=== PATIENT | male | born 1965 | race Caucasian/White ===

== ENCOUNTER 2019-02-23 07:33 | Emergency (ER) | payer MEDICAID, SELFPAY ==
[2019-02-23 07:37] VITALS: BP 135/89; PULSE 113; RESP 20; TEMP 37.2; O2SAT 94
--- NOTE | 2019-02-23 08:20 | ED.GENADUL_ITS ---
Discharge Plan Disposition Patient Disposition: HOME Condition: Stable Discharge Details Chief Complaint: RespSymp Clinical Impression: Acute exacerbation of chronic obstructive pulmonary disease (COPD) Primary Care Provider: Winston Truong ED Provider: Segundo Helton Home Meds and New Rx's Prescriptions: New prednisone 20 mg tablet 60 mg PO DAILY 4 Days Qty: 12 RF: 0 levofloxacin 750 mg tablet 750 mg PO DAILY Qty: 5 RF: 0 No Action albuterol sulfate 8.5 GM HFA aerosol inhaler 2 puff Inhalation Q6H PRN Qty: 1 RF: 5 fluticasone propionate 16 GM spray,suspension 1 spray NS DAILY Qty: 1 RF: 5 Flovent HFA 12 GM HFA aerosol inhaler 2 puff Inhalation BID Qty: 1 RF: 4 albuterol sulfate 2.5 MG/3 ML solution for nebulization 2.5 mg Inhalation QID PRNQty: 1 RF: 4 ranitidine HCl [Zantac Maximum Strength] 150 MG tablet 1 tab PO BID Qty: 180 RF: 4 Discharge Instructions Instructions: COPD (Chronic Obstructive Pulmonary Disease) (ED) Additional Instructions: follow up with your primary care provider within 1-2 weeks if you feel you are becoming more ill, have more shortness of breath or new symptoms such as chest pressure return to the emergency department Medical Decision Making 53 yo male with hx of copd and continued smoker comes in with 3 days of cough and shortness of breath. Denies any chest pain or pressure, leg swelling and has no jvd or calf pain or pedal edema on exam to suggest chf. He has diffuse wheezing bilaterally in all lung vasquez but is speaking in full sentences on exam. Based on his hx and exam I suspect this is a copd exacerbation and will tx with neb, prednisone and given increased productive cough will give abx and reassess. NO fever here and appears well systemically so doubt pna and do not feel chest imaging indicated. No evidence of dvt and physical exam consistent with copd so doubt pe at this time. No chest pain or pressure so doubt acs at this time pt remains stable, feels much better with treatments with improved lung sounds. I feel he is stasble for d/c and advised f/u with pcp and return precautions given Differential Diagnosis copd, asthma, pna HPI General Mode of arrival: ambulatory . Date/Time Provider Initiated Documentation: 02/23/19 08:16 . Limitations to Documentation: no limitations . Information obtained by: patient . History of Present Illness 53 year old M presents to the emergency department with the chief complaint of shortness of breath, described as moderate, Patient started experiencing this day(s) (3) and it has been constant. No relieving factors improve symptom(s), No exacerbating factors reported . Patient did receive the following treatments prior to arrival, none Related Data Home Medications Medication Instructions Recorded Confirmed albuterol sulfate 2 puff INHALATION Q6H PRN #1 02/14/15 02/23/19 inhaler fluticasone propionate 1 spray NS DAILY #1 script 09/11/16 02/23/19 fluticasone propionate [Flovent 2 puff INHALATION BID #1 inhaler 02/24/18 02/23/19 110mcg] albuterol sulfate 2.5 mg INHALATION QID PRN #1 box 04/29/18 02/23/19 ranitidine HCl [Zantac] 1 tab PO BID #180 tab-cap 07/06/18 02/23/19 levofloxacin 750 mg PO DAILY #5 tab 02/23/19 prednisone 60 mg PO DAILY 4 Days #12 tab 02/23/19 Previous Rx's Medication Instructions Recorded fluticasone propionate [Flovent 2 puff INHALATION BID #1 inhaler 02/24/18 110mcg] ranitidine HCl [Zantac] 1 tab PO BID #180 tab-cap 07/06/18 levofloxacin 750 mg PO DAILY #5 tab 02/23/19 prednisone 60 mg PO DAILY 4 Days #12 tab 02/23/19 Allergies Allergy/AdvReac Type Severity Reaction Status Date / Time Penicillins Allergy RASH Unverified 02/23/19 07:40 aspirin AdvReac UPSET Unverified 02/23/19 07:40 STOMACH General Stated Complaint: RespSymp ALMAS: 3 Review of Systems Review of Systems All systems reviewed & are unremarkable except as noted in HPI and below Constitutional Denies weakness ENT Denies change in voice Cardiovascular Denies chest pain Gastrointestinal Denies abdominal pain, Denies nausea and Denies vomiting Integumentary/Breasts Denies rash Neurologic Denies weakness PFSH Social History Smoking/Tobacco Use Status: Current every day Drug use: Never Do you feel safe at home: Yes Do you feel safe in your relationship?: Yes Exam Const General: no acute distress Orientation: alert HENMT Head: normal to inspection Ears: external ears normal General nose exam: external nose normal Mouth: moist mucous membranes Eyes General: appearance normal, both eyes and all related structures Neck Neck: normal visual inspection Resp Effort & Inspection: normal respiratory effort and able to speak in complete sentences Cardio Rate: regular rate Skin General skin exam: no rashes or lesions noted Neuro General: alert and oriented x3 Extrem General: normal to inspection Psych Mental Status: mental status grossly normal Course Vital Signs Temperature 37.2 C 02/23/19 07:37 Pulse 113 H 02/23/19 07:37 Respiratory Rate 20 02/23/19 07:37 Blood Pressure 135/89 02/23/19 07:37 Pulse Oximetry 94 L 02/23/19 07:37 Temperature 37.2 C 02/23/19 07:37 Temperature Source Temporal Artery Scan 02/23/19 07:37 Pulse 113 H 02/23/19 07:37 Respiratory Rate 20 02/23/19 07:37 Respiratory Effort 02/23/19 07:37 Blood Pressure 135/89 02/23/19 07:37 Pulse Oximetry 94 L 02/23/19 07:37 Oxygen Delivery Method Room Air 02/23/19 07:37 Oxygen Flow Rate 0 02/23/19 07:37 Pain Level 0 02/23/19 07:37
[2019-02-23] MEDS: predniSONE 20 MG TAB 60 MG PO (08:44)
[2019-02-23] MEDS: Albuterol/Ipratropium 3 ML UPD VIAL UPD ×2 (08:44→09:08)
[2019-02-23] MEDS: levoFLOXacin 500 MG, levoFLOXacin 250 MG 750 MG PO (08:44)
[2019-02-23 09:29] VITALS: BP 138/79; PULSE 116; TEMP 37.2; O2SAT 94
== END 2019-02-23 09:55 | disposition home or self-care (01) ==
PROVIDERS: Emergency Provider Emergency Medicine; PCP Family Medicine
DX: J44.9 Chronic obstructive pulmonary disease, unspecified (principal); F17.210 Nicotine dependence, cigarettes, uncomplicated
CPT/HCPCS: 99283; J7512; J7620

== ENCOUNTER 2019-03-18 04:48 | Emergency (ER) | payer MEDICAID, SELFPAY ==
[2019-03-18] VITALS (11 sets, daily range): BP systolic 123–167; BP diastolic 62–94; PULSE 124–140; RESP 4–24; TEMP 37.1–39.2; O2SAT 94–95
[2019-03-18] MEDS: Acetaminophen 500 MG TAB 1000 MG PO (05:04)
--- NOTE | 2019-03-18 05:04 | ED.GENADUL_ITS ---
Discharge Plan Disposition Patient Disposition: HOME Condition: Stable Discharge Details Chief Complaint: SOB Clinical Impression: COPD (chronic obstructive pulmonary disease) Primary Care Provider: Winston Truong ED Provider: Segundo Helton Home Meds and New Rx's Prescriptions: New levofloxacin 750 mg tablet 750 mg PO DAILY Qty: 6 RF: 0 prednisone 20 mg tablet 60 mg PO DAILY 4 Days Qty: 12 RF: 0 albuterol sulfate 90 mcg/actuation HFA aerosol inhaler 2 puff IH QID PRN (Reason: shortness of breath) Qty: 18 RF: 0 albuterol sulfate 5 mg/mL solution for nebulization 2.5 mg IH Q4H PRN (Reason: shortness of breath) Qty: 20 RF: 0 Continued fluticasone propionate 16 GM spray,suspension 1 spray NS DAILY Qty: 1 RF: 5 Flovent HFA 12 GM HFA aerosol inhaler 2 puff Inhalation BID Qty: 1 RF: 4 Discharge Instructions Instructions: COPD (Chronic Obstructive Pulmonary Disease) (ED) Additional Instructions: follow up with your primary care provider in 1-2 weeks especially if you are not improving if you feel you are worsening or having new symptoms such as persistent vomit return to the emergency department for reevaluation Medical Decision Making 53 yo male with hx of copd, gerd, sarcoidosis, who comes in with cough and shortness of breath and fever since yesterday. Denies rashes, chest pain, pressure or recent travel or surgeries. On exam he is in no distress laughing intermittently. Is noted to have fever here with tachycardia in the 130's in sinus rhythm. HAs diffuse wheezing bilaterally on exam in all lung vasquez. No headache or neck stiffnes, no abdominal tenderness. Suspect copd with exacerbation and likely underlying pna. Will obtain lab work, cultures and xray and tx with steroids and nebs and monitor. pt remains stable and feels much better after nebs/fluids/steroids. HE is speaking in full sentences. Still has HR of 120 which could be from the beta agonists, other vitals stable. Labs unremarkable, reassuring lacatate. Xray unremarkable on my read awaiting vrad report Differential Diagnosis pna, copd, influenza Medical Records Medical records reviewed: Yes I reviewed the patient's medical records. Imaging Data Radiologic Study: Attestation: I personally reviewed and interpreted this imaging study as follows: Imaging: X-Ray Radiologist's impression: no acute findings Lab Data Lab results reviewed: Yes I reviewed the patient's lab results. ECG Data Attestation: I personally reviewed and interpreted this ECG (s) as follows: Prior ECG tracings: available for review Interpretation: sinus tachycardia, rate of 134, pr 116, no acute st twave ischemic changes HPI General Mode of arrival: EMS . Date/Time Provider Initiated Documentation: 03/18/19 04:49 . Limitations to Documentation: no limitations . Information obtained by: patient . History of Present Illness 53 year old M presents to the emergency department with the chief complaint of cough and shortness of breath, described as moderate, Patient started experiencing this day(s) (1) and it has been constant. No relieving factors improve symptom(s), No exacerbating factors reported . Patient notes fever/chills. Patient did receive the following treatments prior to arrival, none Related Data Home Medications Medication Instructions Recorded Confirmed fluticasone propionate 1 spray NS DAILY #1 script 09/11/16 03/18/19 Flovent HFA 2 puff INHALATION BID #1 inhaler 02/24/18 03/18/19 albuterol sulfate 2 puff IH QID PRN #18 gm 03/18/19 albuterol sulfate 2.5 mg IH Q4H PRN #20 ml 03/18/19 levofloxacin 750 mg PO DAILY #6 tab 03/18/19 prednisone 60 mg PO DAILY 4 Days #12 tab 03/18/19 Previous Rx's Medication Instructions Recorded Flovent HFA 2 puff INHALATION BID #1 inhaler 02/24/18 albuterol sulfate 2 puff IH QID PRN #18 gm 03/18/19 albuterol sulfate 2.5 mg IH Q4H PRN #20 ml 03/18/19 levofloxacin 750 mg PO DAILY #6 tab 03/18/19 prednisone 60 mg PO DAILY 4 Days #12 tab 03/18/19 Allergies Allergy/AdvReac Type Severity Reaction Status Date / Time Penicillins Allergy RASH Unverified 03/18/19 04:59 aspirin AdvReac UPSET Unverified 03/18/19 04:59 STOMACH General Stated Complaint: SOB ALMAS: 3 Review of Systems Review of Systems All systems reviewed & are unremarkable except as noted in HPI and below Constitutional Denies weakness ENT Denies change in voice Cardiovascular Denies chest pain Gastrointestinal Denies abdominal pain, Denies nausea and Denies vomiting Neurologic Denies weakness Endocrine Denies heat intolerance PFS Social History Smoking/Tobacco Use Status: Current every day Tobacco Type: cigarettes Alcohol Intake: never Drug use: Never Substance use type: does not use Do you feel safe at home: Yes Do you feel safe in your relationship?: Yes Exam Const General: no acute distress Orientation: alert HENMT Head: normal to inspection Ears: external ears normal General nose exam: external nose normal Mouth: moist mucous membranes Eyes General: appearance normal, both eyes and all related structures Neck Neck: normal visual inspection Resp Effort & Inspection: normal respiratory effort and able to speak in complete sentences Cardio Rate: regular rate Skin General skin exam: no rashes or lesions noted Neuro General: alert and oriented x3 Extrem General: normal to inspection Psych Mental Status: mental status grossly normal Course Vital Signs Temperature 39.2 C H 03/18/19 04:49 Pulse 140 H 03/18/19 04:49 Respiratory Rate 24 03/18/19 04:49 Blood Pressure 167/93 H 03/18/19 04:49 Pulse Oximetry 94 L 03/18/19 04:49 Temperature 39.2 C H 03/18/19 04:49 Temperature Source Skin 03/18/19 04:49 Pulse 140 H 03/18/19 04:49 Respiratory Rate 24 03/18/19 04:49 Respiratory Effort 03/18/19 04:54 Blood Pressure 167/93 H 03/18/19 04:49 Pulse Oximetry 94 L 03/18/19 04:49 Oxygen Delivery Method Room Air 03/18/19 04:49 Oxygen Flow Rate 0 03/18/19 04:49 Pain Level 8 03/18/19 04:49 Comment 03/18/19 04:49 Lab/Test Results Lab/Test Results: 03/18/19 04:53 Blood Blood Culture - Pending 03/18/19 04:53 Blood Blood Culture - Pending
[2019-03-18] MEDS: Normal Saline 1,000 ML 1000 ML IV ×3 (05:05→06:42)
[2019-03-18] MEDS: Albuterol/Ipratropium 3 ML UPD VIAL UPD (05:05)
[2019-03-18] MEDS: methylPREDNISolone SUCC 125 MG VIAL IVP (05:06)
[2019-03-18] MEDS: levoFLOXacin 750 MG/150 ML BAG 100 MG IVPB (05:21)
[2019-03-18 05:27] LABS: Lactate-non-spesis 1.3 mmol/l (0.6-1.4)
[2019-03-18 05:30] LABS: Abs Immature Grans 0.02 k/cumm (0.0-0.09); Absolute Basophil Count 0.03 k/cumm (0.0-0.2); Absolute Eosinophil Count 0.16 k/cumm (0.0-0.7); Absolute Lymphocyte Count 0.54 k/cumm (1.2-3.4); Absolute Monocyte Count 0.39 k/cumm (0.11-0.7); Absolute Neutrophil Count 12.14 k/cumm (1.2-6.7); Basophils % 0.2; Eosinophils % 1.2; HCT 41.1 % (40.0-50.0); HGB 13.8 g/dL (13.5-17.5); Immature Grans % 0.2; Lymphocytes % 4.1; Mean Corp. HGB Concentration 33.6 g/dL (32.0-36.0); Mean Corpuscular Volume 83.5 fL (80-95); Mean Platelet Volume 9.8 fL (8.0-11.0); Monocytes % 2.9; Neutrophils % 91.4; Platelet Count 225 x1000/uL (130-400); RBC 4.92 m/cumm (4.50-6.00); RBC Distribution Width 14.9 % (11.8-14.1); White Blood Cell Count 13.28 k/cumm (4.4-10.8)
--- NOTE | 2019-03-18 05:30 | DI.RAD_ITS ---
SYMPTOMS/DIAGNOSIS: COUGH PORTABLE AP CHEST: Comparison is made with [id number]. The cardiac and mediastinal contours have a normal appearance. Leads overlie the chest. There is mild underlying pulmonary scarring. No superimposed infiltrate, effusion or pneumothorax is seen. IMPRESSION: No acute abnormality.
[2019-03-18 05:43] LABS: ALT 38 U/L (12-78); AST 26 U/L (15-37); Albumin 3.8 g/dL (3.4-5.0); Alkaline Phosphatase 128 U/L (46-116); Anion Gap 10.1 mmol/L (3-11); BUN 21 mg/dL (7-18); Bilirubin, Total 0.4 mg/dL (0.2-1.0); CO2 23.9 mmol/L (21.0-32.0); CREATININE 1.46 mg/dL (0.70-1.30); Calcium 9.8 mg/dL (8.5-10.1); Chloride 99 mmol/L (98-107); Estimated GFR 50.13 (mL/min/1.73m2); Glucose 121 mg/dL (70-100); Magnesium 1.5 mg/dL (1.8-2.4); Sodium 133 mmol/L (136-145); Total Protein 8.4 g/dL (6.4-8.2)
[2019-03-18 05:51] LABS: PTT Activated 24.5 sec (21.0-31.4); Prothrombin Time 9.7 sec (9.3-11.0)
[2019-03-18] MEDS: Albuterol 2.5 MG/3 ML INH SOLN VIAL UPD (06:10)
--- NOTE | 2019-03-18 06:23 | DI.VRAD_ITS ---
EXAM: XR Chest, 1 View EXAM DATE/TIME: 03/18/2019 4:54 AM CLINICAL HISTORY: 53 years old, male; Signs and symptoms; Cough and fever and shortness of breath; Patient HX: Cough, fever, SOB TECHNIQUE: Imaging protocol: XR of the chest, 1 view. COMPARISON: CR CHEST 2 VIEWS PA,LAT 01/16/2018 7:17 AM FINDINGS: Lungs: Unremarkable. No consolidation. Pleural space: Unremarkable. No pleural effusion. No pneumothorax. Heart/Mediastinum: Unremarkable. No cardiomegaly. Bones/joints: Unremarkable. IMPRESSION: No acute findings. Dictated and Authenticated by: Segundo Aguilar MD. Ordering:WESTON Raymond MD
== END 2019-03-18 07:22 | disposition home or self-care (01) ==
PROVIDERS: Emergency Provider Emergency Medicine; PCP Family Medicine
DX: J44.9 Chronic obstructive pulmonary disease, unspecified (principal); R05 Cough; R00.0 Tachycardia, unspecified; F17.210 Nicotine dependence, cigarettes, uncomplicated
CPT/HCPCS: 36410; 80053; 87040; 87449; 93005; 94640; 96361; 96365; 96375; 99284; 71045; 83605; 83735; 85025; 85610; 85730; 93010; J1956; J2930; J7613; J7620

== ENCOUNTER 2019-04-28 00:02 | Inpatient (IN) | payer MEDICAID, SELFPAY ==
[2019-04-27 23:58] VITALS: PULSE 122; RESP 22; O2SAT 93
[2019-04-28] VITALS (35 sets, daily range): BP systolic 115–150; BP diastolic 56–87; PULSE 93–124; RESP 4–43; TEMP 36–39.3; O2SAT 89–98
[2019-04-28] MEDS: Lactated Ringers 2,000 ML 1000 ML IV ×2 (00:05→00:39)
--- NOTE | 2019-04-28 00:08 | W.ED.GENAD ---
Discharge Plan Disposition Patient Disposition: [facility] INPATIENT Condition: Poor Discharge Details Chief Complaint: SOB Clinical Impression: CAP (community acquired pneumonia), COPD exacerbation, HUBER (acute kidney injury) Primary Care Provider: Winston Truong ED Provider: Joshua Crisostomo Home Meds and New Rx's Prescriptions: No Action ranitidine HCl 150 mg tablet 150 mg PO BID PRN (Reason: heartburn/reflux) Qty: 60 RF: 6 fluticasone propionate 50 mcg/actuation spray,suspension 1 spray NS DAILY Qty: 1 RF: 0 Flovent HFA 110 mcg/actuation HFA aerosol inhaler 2 puff Inhalation BID Qty: 1 RF: 4 albuterol sulfate 90 mcg/actuation HFA aerosol inhaler 2 puff IH QID PRN (Reason: shortness of breath) Qty: 18 RF: 0 albuterol sulfate 5 mg/mL solution for nebulization 2.5 mg IH Q4H PRN (Reason: shortness of breath) Qty: 20 RF: 0 sertraline [Zoloft] 25 mg Tablet 25 mg PO DAILY RF: 0 Medical Decision Making Patient presenting with fever and tachycardia with various other complaints. Source could be pneumonia given the cough and shortness of breath with referred pain to the abdomen if a basilar infiltrate. He does have right upper quadrant tenderness but no guarding or rebound. He does have nausea and vomiting. Abdominal source cannot be excluded. We will establish second IV and give 2 L of LR. We will give another albuterol neb. O2 as needed to keep sats greater than 90. Zofran for his nausea. Tylenol for his fever. CT scan of the chest abdomen pelvis and laboratory studies ordered. EKG obtained shows a sinus tachycardia at 120 with no acute changes. 02:00 -patient's heart rate has come down to the 100 range with 2 L of LR. O2 saturations are in the low 90s. He continues to have wheeze. Blood pressure has remained normal. Laboratory studies significant for white count of almost 18,000. Lactic acid is less than 2. Little bit of renal insufficiency likely related to dehydration. Liver function fine. Troponin negative. CT scan shows right lung infiltrates. Abdomen pelvis CT unremarkable other than evidence of some fatty liver/cirrhosis as well as splenomegaly with multiple tiny low-density foci. Patient has been on fluoroquinolone within the last month. Will need admission for community-acquired pneumonia and COPD exacerbation. Discussed with hospitalist. We will treat the patient with Solu-Medrol, nebulizers, and cover for community-acquired pneumonia with ceftazidime and doxycycline. Because of the COPD with antibiotic use we will also cover for MRSA for the time being. We will try to get sputum culture. Patient is stable for admission to [facility] now that his heart rate has come down and his blood pressure and O2 saturations have remained stable. Medical Records Medical records reviewed: Yes I reviewed the patient's medical records. Lab Data Lab results reviewed: Yes I reviewed the patient's lab results. ECG Data Attestation: I personally reviewed and interpreted this ECG (s) as follows: Prior ECG tracings: available for review Interpretation: Sinus tachycardia at 120. Normal axis and intervals. Some mild rate related ST changes laterally but no significant change from previous dated 03/18/2019. HPI General Mode of arrival: EMS. Date/Time Provider Initiated Documentation: 04/28/19 00:08. Limitations to Documentation: no limitations. Information obtained by: patient, EMS and RN notes reviewed. HPI Narrative: Patient presents to ED by ambulance with complaint of shortness of breath, vomiting, abdominal pain. Patient reports he started to feel unwell about 3 days ago. At that time he noted urinary frequency without pain. He then developed cough and shortness of breath. This progressed to vomiting and upper abdominal pain. He denies having chest pain. He states no bowel movement or flatus for a couple of days now. Urinary frequency has resolved. He had increasing difficulty breathing and finally called EMS tonight. He received 2 DuoNeb's in route. IV was established but fluids not started. He also complains of back pain but this is chronic and unchanged. He denies other URI type symptoms. He denies myalgias or arthralgias. He is a smoker and per old records reports fairly significant COPD. Related Data Home Medications Medication Instructions Recorded Confirmed albuterol sulfate 2 puff IH QID PRN #18 gm 03/18/19 04/28/19 albuterol sulfate 2.5 mg IH Q4H PRN #20 ml 03/18/19 04/28/19 fluticasone propionate 110 2 puff INHALATION BID #1 inhaler 03/23/19 04/28/19 mcg/actuation HFA aerosol inhaler fluticasone propionate 50 1 spray NS DAILY #1 script 03/23/19 04/28/19 mcg/actuation nasal spray,suspension ranitidine 150 mg tablet 150 mg PO BID PRN #60 tab 03/23/19 04/28/19 sertraline [Zoloft] 25 mg PO DAILY 04/28/19 04/28/19 Previous Rx's Medication Instructions Recorded albuterol sulfate 2 puff IH QID PRN #18 gm 03/18/19 albuterol sulfate 2.5 mg IH Q4H PRN #20 ml 03/18/19 fluticasone propionate 110 2 puff INHALATION BID #1 inhaler 03/23/19 mcg/actuation HFA aerosol inhaler fluticasone propionate 50 1 spray NS DAILY #1 script 03/23/19 mcg/actuation nasal spray,suspension ranitidine 150 mg tablet 150 mg PO BID PRN #60 tab 03/23/19 Allergies Allergy/AdvReac Type Severity Reaction Status Date / Time Penicillins Allergy RASH Verified 04/28/19 01:52 aspirin AdvReac UPSET Verified 04/28/19 01:52 STOMACH General ALMAS: 3 Review of Systems Review of Systems 08/21 Review of Systems completed and is negative except as stated above in HPI (Systems reviewed: Const, Eyes, ENT, Resp, CV, GI, , MSK, Skin, Neuro) PFSH Medical History COPD (chronic obstructive pulmonary disease) (Chronic 02/14/15) Depressive disorder (Chronic) Gastroesophageal reflux disease (Chronic) History of tobacco use (Chronic) Sarcoidosis (Chronic 02/04/16) Shortness of breath (Chronic) Ventral hernia (Chronic) Social History Smoking/Tobacco Use Status: Current every day Tobacco Type: cigarettes Alcohol Intake: never Drug use: Never Substance use type: does not use Do you feel safe at home: Yes Do you feel safe in your relationship?: Yes Exam Narrative Exam Narrative: Vitals: Febrile with tachycardia and low normal O2 saturations. Blood pressure is normal. Const: WDWN male in NAD. HEENT: NC/AT. Normal facial exam. Poor dentition with dry mucous membranes. Eyes: Normal conjunctiva and sclera. Neck: Supple. Trachea midline. Lungs: Normal respiratory effort, mild tachypnea. Lungs with diffuse wheezing throughout. Cor: RRR without murmur/gallop. Tachy. Good distal pulses. GI: Soft and ND. Tenderness in the RUQ without Dumont. No guarding or rebound. Neuro: A+O x 3. CN grossly in tact. Good strength and no focal deficit. Ext: No C/C/E. No deformity or tenderness. Skin: Hot and dry without rash. Critical Care Time Critical Care Time: Yes Total Critical Care Time: 45 Attestation: management of CAP with COPD exacerbation; tachycardia, tachypnea
[2019-04-28 00:31] LABS: Abs Immature Grans 0.04 k/cumm (0.0-0.09); Absolute Basophil Count 0.03 k/cumm (0.0-0.2); Absolute Lymphocyte Count 0.87 k/cumm (1.2-3.4); Basophils % 0.2; Eosinophils % 0.2; HCT 36.3 % (40.0-50.0); HGB 12.3 g/dL (13.5-17.5); Immature Grans % 0.2; Mean Corp. HGB Concentration 33.9 g/dL (32.0-36.0); Mean Corpuscular Hemoglobin 28.9 pg (27.0-33.0); Mean Corpuscular Volume 85.2 fL (80-95); Mean Platelet Volume 9.7 fL (8.0-11.0); Monocytes % 12.4; Platelet Count 151 x1000/uL (130-400); RBC 4.26 m/cumm (4.50-6.00); RBC Distribution Width 14.7 % (11.8-14.1); White Blood Cell Count 17.32 k/cumm (4.4-10.8)
[2019-04-28] MEDS: Ondansetron 4 MG/2 ML VIAL IVP (00:34)
[2019-04-28] MEDS: Albuterol 2.5 MG/3 ML INH SOLN VIAL UPD (00:36)
[2019-04-28] MEDS: Normal Saline Flush 10 ML SYR IVP ×3 (00:37→17:58)
[2019-04-28] MEDS: Acetaminophen 325 MG TAB 650 MG PO (00:37)
[2019-04-28 00:43] LABS: Absolute Eosinophil Count 0.03 k/cumm (0.0-0.7); Absolute Monocyte Count 2.15 k/cumm (0.11-0.7)
[2019-04-28 00:44] LABS: Lactate-non-spesis 1.7 mmol/l (0.6-1.4)
[2019-04-28 00:45] LABS: Diff Comment Agrees w/ Instrument; RBC Morphology Normal
[2019-04-28 00:58] LABS: ALT 20 U/L (12-78); AST 17 U/L (15-37); Albumin 3.2 g/dL (3.4-5.0); Alkaline Phosphatase 105 U/L (46-116); Anion Gap 12.2 mmol/L (3-11); BUN 21 mg/dL (7-18); Bilirubin, Total 1.1 mg/dL (0.2-1.0); CO2 23.8 mmol/L (21.0-32.0); CREATININE 1.71 mg/dL (0.70-1.30); Calcium 9.4 mg/dL (8.5-10.1); Chloride 97 mmol/L (98-107); Estimated GFR 41.77 (mL/min/1.73m2); Glucose 128 mg/dL (70-100); Lipase 98 U/L (73-393); Magnesium 1.6 mg/dL (1.8-2.4); Potassium 3.7 mmol/L (3.5-5.1); Sodium 133 mmol/L (136-145); Total Protein 8.1 g/dL (6.4-8.2); Troponin I < 0.05 ng/mL (0.00-0.06)
--- NOTE | 2019-04-28 01:31 | DI.CT_ITS ---
SYMPTOM/DIAGNOSIS: FEVER, SOB, RUQ PAIN, VOMITING CT CHEST, ABDOMEN AND PELVIS: CHEST CT: Exam was performed according to the pulmonary embolism protocol. No pulmonary emboli or aortic dissection is seen. There is no pneumothorax, pleural or pericardial effusion. There are patchy infiltrates in the right upper lobe as well as right middle lobe consistent with pneumonia. Minimal patchy foci are seen at the anterior right lower lobe. IMPRESSION: Right sided pneumonia CT ABDOMEN AND PELVIS: Comparison is made with 28 January 2016. The liver has a cirrhotic appearance which appears more prominent when compared with the previous exam. The previous exam shows numerous small low density lesions throughout the liver. These are no longer present. The spleen has increased in size when compared with the previous exam and shows numerous low density lesions were seen on the previous study. Numerous small lymph nodes are noted in the upper abdomen, unchanged. There is no bowel dilatation or inflammatory change. Diverticulosis is again noted in the descending and sigmoid colon. The appendix appears normal. Bladder and prostate are unremarkable. There is no change in a fatty hernia above the level of the umbilicus. The pancreas and adrenals are unremarkable. A few renal cysts are present. The aorta is normal in diameter. No suspicious bony findings are seen. IMPRESSION: Cirrhotic appearing liver. Splenomegaly with numerous splenic lesions. No acute abnormality is identified.
[2019-04-28] MEDS: Omnipaque 350 MG/ML 100 ML BTL IJ (01:38)
[2019-04-28] MEDS: Lactated Ringers 1,000 ML 200 ML IV (01:50)
[2019-04-28 01:51] LABS: Bilirubin Negative (Negative); Blood Trace-lysed (Negative); Clarity Clear; Glucose Negative (Negative); Ketones Negative (Negative); Leukocyte Esterase Negative (Negative); Nitrite Negative (Negative); Specific Gravity 1.015 (1.005-1.025); Urobilinogen 0.2 EU/dL (Up TO 0.2); pH 6.5 (5-8)
--- NOTE | 2019-04-28 01:51 | DI.VRAD_ITS ---
EXAM: CT Chest With Contrast EXAM DATE/TIME: 04/28/2019 12:13 AM CLINICAL HISTORY: 53 years old, male; Fever and vomiting and other: SOB, ruq pain; Fever and shortness of breath TECHNIQUE: Imaging protocol: Axial computed tomography images of the chest with intravenous contrast. Coronal and sagittal reformatted images were created and reviewed. Radiation optimization: All CT scans at this facility use at least one of these dose optimization techniques: automated exposure control; mA and/or kV adjustment per patient size (includes targeted exams where dose is matched to clinical indication); or iterative reconstruction. COMPARISON: CT CHEST FOR PULMONARY EMBOLUS 03/10/2015 4:23 PM FINDINGS: Lungs: Peribronchial soft tissue thickening and patchy right lung infiltrates are likely of infectious or inflammatory etiology. Pleural space: Unremarkable. No pneumothorax. No pleural effusion. Heart: Unremarkable. No cardiomegaly. No pericardial effusion. Aorta: Unremarkable. No aortic aneurysm. Lymph nodes: Unremarkable. No enlarged lymph nodes. Bones/joints: Unremarkable. No acute fracture. Soft tissues: Unremarkable. IMPRESSION: Peribronchial soft tissue thickening and patchy right lung infiltrates are likely of infectious or inflammatory etiology. EXAM: CT Abdomen and Pelvis With Contrast EXAM DATE/TIME: 04/28/2019 12:13 AM CLINICAL HISTORY: 53 years old, male; Fever and vomiting and other: SOB, ruq pain; Fever and shortness of breath TECHNIQUE: Imaging protocol: Axial computed tomography images of the abdomen and pelvis with intravenous contrast. Coronal and sagittal reformatted images were created and reviewed. Radiation optimization: All CT scans at this facility use at least one of these dose optimization techniques: automated exposure control; mA and/or kV adjustment per patient size (includes targeted exams where dose is matched to clinical indication); or iterative reconstruction. Contrast material: [id number]; Contrast volume: 100 ml; Contrast route: IV 18G RAC; COMPARISON: CT CHEST FOR PULMONARY EMBOLUS 03/10/2015 4:23 PM FINDINGS: Liver: Hepatic steatosis and cirrhosis. Gallbladder and bile ducts: Normal. No calcified stones. No ductal dilation. Pancreas: Normal. No ductal dilation. Spleen: Splenomegaly with numerous tiny low density foci throughout the spleen, nonspecific in nature but with clinical exclusion of microabscess is recommended. Adrenals: Normal. No mass. Kidneys and ureters: Renal cysts up to 2.5 cm. No hydronephrosis. Stomach and bowel: Normal. No obstruction. No mucosal thickening. Appendix: No evidence of appendicitis. Intraperitoneal space: Normal. No free air. No significant fluid collection. Vasculature: Normal. No abdominal aortic aneurysm. Lymph nodes: Normal. No enlarged lymph nodes. Bladder: Unremarkable as visualized. Reproductive: Unremarkable as visualized. Bones/joints: No acute fracture. No dislocation. Soft tissues: Fat-containing umbilical hernia. IMPRESSION: Splenomegaly with numerous tiny low density foci throughout the spleen, nonspecific in nature but with clinical exclusion of microabscess is recommended. Dictated and Authenticated by: Segundo Aguilar MD. Ordering:WALT Lewis MD
[2019-04-28 01:54] LABS: Bacteria Negative HPF (Negative); C & S Indicated? No; Casts Negative LPF (Negative); Crystals Negative HPF (Negative); Epithelial Cells Few HPF (Negative); Mucus Negative (Negative); RBC 0-2 (0-2); WBC 0-2 HPF (0-5)
[2019-04-28] MEDS: methylPREDNISolone SUCC 125 MG VIAL IVP (02:28)
[2019-04-28] MEDS: DOXYCYCLINE 100 MG in Normal Saline 100 ML IVPB ×2 (02:29→14:47)
[2019-04-28] MEDS: MAGNESIUM SULFATE 2 GM/50 ML BAG IVPB (03:24)
[2019-04-28] MEDS: Normal Saline 1,000 ML 150 ML IV ×3 (03:42→20:00)
[2019-04-28] MEDS: VANCOMYCIN 1,500 MG in Normal Saline 250 ML 166.6666 MG IVPB (03:42)
[2019-04-28] MEDS: Albuterol/Ipratropium 3 ML UPD VIAL UPD ×5 (04:33→20:00)
[2019-04-28] MEDS: cefTAZidime 1,000 MG in Normal Saline 100 ML 200 MG IVPB (05:22)
--- NOTE | 2019-04-28 06:26 | W.PM.HP.N ---
Date of service: 04/28/19 Time of Service: 06:27 Assessment and Plan (1) Community acquired pneumonia: Current visit: Yes Status: Acute continue broad spectrum antibiotics (Vancomycin, Fortaz, Doxycycline), aerosolized bronchodilators, iv corticosteroids; try to obtain sputum cultures, check results of blood cultures and atypical studies (legionella and mycoplasma) and urine strep antigen. Qualifiers: Laterality: right Lung location: lower lobe of lung Qualified Code(s): J18.1 - Lobar pneumonia, unspecified organism (2) COPD (chronic obstructive pulmonary disease): Current visit: No Status: Chronic continue home Flovent, continue iv corticosteroids and scheduled aerosolized bronchodilators. patient to receive Prevnar before he is discharged. Qualifiers: COPD type: COPD with acute exacerbation Qualified Code(s): J44.1 - Chronic obstructive pulmonary disease with (acute) exacerbation (3) Depressive disorder: Current visit: No Status: Chronic stable. continue home sertraline dose (4) Gastroesophageal reflux disease: Current visit: No Status: Chronic continue home dose of zantac History of Present Illness Chief Complaint: Shortness of breath, cough, abdominal pain Narrative: 53-year-old male smoker with history of severe COPD who was recently treated as an outpatient on March 18, 2019 for acute COPD exacerbation and prescribed a week's course of Levaquin and tapering dose of prednisone. He now presents to the emergency department with 3 days symptoms of nonproductive cough fever and chills associated with constipation and polyuria along with vague abdominal discomfort in the upper abdomen. Yesterday he was coughing so hard he had emesis of bile material but no hematemesis. He said fever and chills but no rigors. He has had no recent travel outside of the [facility] but some neighbors came over to visit him 5 days ago and that neighbor was ill with severe coughing. Patient states that he made appointment to see his PCP for today but felt that he could not wait and therefore he presented to the emergency department since he was not improving. He has been using his nebulizer without improvement in his shortness of breath or coughing. Upon presentation the emergency department he appeared to be toxic with a fever 39.3 and tachycardic with a heart rate of 124 bpm and tachypneic with respiratory rate of 32 breaths/min and oxygen saturation was 91% on room air. He was evaluated emergency department by Dr. Joshua Crisostomo who included a CT of his chest abdomen pelvis as part of his work-up. This demonstrated peribronchial cuffing and soft tissue thickening along with patchy right lung infiltrates. The abdominal pelvic portion showed splenomegaly with numerous tiny low-density foci that were nonspecific but the radiologist indicated clinical exclusion of microabscesses should be entertained. Laboratory studies include obtaining blood cultures, CBC that showed a leukocytosis of 17,000 along with a leftward shift and a mild anemia with hemoglobin 12.3 g hematocrit 36%. CMP that showed elevated BUN and creatinine 21 and 1.71 which is higher than his previous value in March when it was 21 and 1.46 and even higher than what it was checked in January 2018 when his BUN and creatinine were normal at 15 and 1.20. His glucose is elevated 128. Magnesium is low at 1.6 lactate is mildly elevated 1.7. Total bilirubin is minimally elevated 1.1 with normal AST ALT and alkaline phosphatase. Troponin is less than 0.05. Lipase is normal at 98. EKG was done and demonstrated sinus tachycardia at 120 bpm w/out ischemic ST-T changes. Treatment in the ER included iv fluids x 2 liters of LR, solumedrol 125 mg IVP, couple of DuoNeb's aerosol treatments enroute by EMS and another while in the ER. He was started on vancomycin, Fortaz and Doxycycline. He is now admitted for treatment of severe CAP. Review of Systems Constitutional Reports body ache(s), Reports chills and Reports fever(s) Eyes Reports system reviewed and no additional complaints, except as docu ENT Reports system reviewed and no additional complaints, except as docu Cardiovascular Reports system reviewed and no additional complaints, except as docu, Reports dyspnea and Reports dyspnea on exertion Respiratory Reports cough, Denies hemoptysis, Reports dyspnea, Reports dyspnea on exertion and Reports wheezing Gastrointestinal Reports abdominal pain and Reports constipation Genitourinary Reports urinary frequency, Denies urinary hesitancy, Denies urinary incontinence and Denies urinary urgency Musculoskeletal Denies arthralgias and Denies muscle cramps Integumentary/Breasts Reports system reviewed and no additional complaints, except as docu Neurologic Reports system reviewed and no additional complaints, except as docu Psychiatric Reports system reviewed and no additional complaints, except as docu Endocrine Reports polyuria Hematologic/Lymphatic Reports system reviewed and no additional complaints, except as docu Allergic/Immunologic Reports wheezing [facility] Medical History COPD (chronic obstructive pulmonary disease) (Chronic 02/14/15) Depressive disorder (Chronic) Gastroesophageal reflux disease (Chronic) History of tobacco use (Chronic) Sarcoidosis (Chronic 02/04/16) Shortness of breath (Chronic) Ventral hernia (Chronic) Social History Smoking/Tobacco Use Status: Current every day Tobacco Type: cigarettes Alcohol Intake: former Year quit: 1998 Drug use: Never Substance use type: does not use Do you feel safe at home: Yes Do you feel safe in your relationship?: Yes Meds Home Medications Medication Instructions Recorded Confirmed Type albuterol sulfate 2 puff IH QID PRN #18 gm 03/18/19 04/28/19 Rx albuterol sulfate 2.5 mg IH Q4H PRN #20 ml 03/18/19 04/28/19 Rx fluticasone propionate 110 2 puff INHALATION BID #1 inhaler 03/23/19 04/28/19 Rx mcg/actuation HFA aerosol inhaler fluticasone propionate 50 1 spray NS DAILY #1 script 03/23/19 04/28/19 Rx mcg/actuation nasal spray,suspension ranitidine 150 mg tablet 150 mg PO BID PRN #60 tab 03/23/19 04/28/19 Rx sertraline [Zoloft] 25 mg PO DAILY 04/28/19 04/28/19 History Allergies Allergy/AdvReac Type Severity Reaction Status Date / Time Penicillins Allergy RASH Verified 04/28/19 01:52 aspirin AdvReac UPSET Verified 04/28/19 01:52 STOMACH Exam Const General: cooperative, healthy appearing, comfortable, no acute distress and well developed Nutritional Appearance: overweight Orientation: alert, awake and oriented x3 HENMT Head: normal to inspection, no palpable skull fracture, normocephalic and atraumatic Ears: hearing grossly normal bilaterally, external ears normal and TM's normal bilaterally General nose exam: external nose normal, nares normal and nasal mucous membranes and turbinates normal Face and sinus: normal facial exam Mouth: oral mucosae normal, lip normal, tongue normal and oropharynx normal Teeth and gingiva: poor dentition Eyes General: appearance normal, both eyes and all related structures Alignment and Position: alignment normal Periorbital: periorbital findings normal Eyelids: eyelids normal Conjunctivae: conjunctivae normal Sclera: sclerae normal Cornea: corneas normal Pupils: PERRL EOM: EOM intact bilaterally Direct ophthalmoscopy: normal light reflex Neck Neck: normal visual inspection, full ROM, no lymphadenopathy, trachea midline, supple and no JVD Thyroid: thyroid normal Carotids: normal carotid upstroke Lymphatic: no lymphadenopathy noted Chest Chest: normal inspection of the chest and normal palpation of entire chest wall Resp Effort & Inspection: normal respiratory effort and able to speak in complete sentences Auscultation: crackles bilaterally at the base, rhonchi right lower and wheezes expiratory wheezes and scattered wheezes Cardio Jugular venous pressure: no JVD Palpation: normal PMI Rate: regular rate Rhythm: regular rhythm Heart Sounds: S1 normal, S2 normal, normal, physiologic split S2, no gallops, no murmurs and no rubs Bruits: no abdominal aortic bruits and no carotid bruits Pulses: normal peripheral pulses GI Inspection: normal to inspection and obesity Palpation: soft and hepatosplenomegaly Percussion: normal to percussion Auscultation: normal bowel sounds General: bladder normal to palpation Back/Spine/Pelvis Back: no CVA tenderness Cervical Spine: normal cervical lordosis Thoracic/Lumbar Spine: thoracic and lumbar spine normal to inspection Skin General skin exam: no rashes or lesions noted, elasticity normal and turgor normal Neuro General: alert, awake, oriented x3, moves all extremities and no focal motor deficits Cognition: normal cognition Speech: speech normal Motor: muscle tone normal throughout, strength 5/5 throughout and no movement abnormalities noted Sensory Exam: no sensory deficits noted Extrem General: normal to inspection, full ROM, no joint enlargement, no clubbing, cyanosis or edema, no pedal edema and no calf tenderness Psych Appearance: grossly normal Mental Status: mental status grossly normal Speech and Movement: speech and movement normal Mood: congruent mood Affect: normal affect Attitude: cooperative Thought Process: normal Thought Content: normal Insight: insight good Judgment: judgment good Results Imaging Abdomen CT scan report/results: report reviewed CT scan - chest: report reviewed Labs : 04/28/19 06:40 04/28/19 06:40 Laboratory Results - last 24 hr 04/28/19 04/28/19 04/28/19 00:20 00:20 00:40 WBC 17.32 H RBC 4.26 L Hgb 12.3 L Hct 36.3 L MCV 85.2 MCH 28.9 MCHC 33.9 RDW 14.7 H Plt Count 151 MPV 9.7 Immature Gran % 0.2 Neutrophils % 82.0 Lymphocytes % 5.0 Monocytes % 12.4 Eosinophils % 0.2 Basophils % 0.2 Absolute Neutrophils 14.20 H Absolute Lymphocytes 0.87 L Absolute Monocytes 2.15 H Absolute Eosinophils 0.03 Absolute Basophils 0.03 Differential Comment Agrees w/ instrument RBC Morphology Normal Sodium 133 L Potassium 3.7 Chloride 97 L Carbon Dioxide 23.8 Anion Gap 12.2 H BUN 21 H Creatinine 1.71 H Estimated GFR/1.73 m2 41.77 Glucose 128 H Lactate 1.7 H Calcium 9.4 Magnesium 1.6 L Total Bilirubin 1.1 H AST 17 ALT 20 Alkaline Phosphatase 105 Troponin I < 0.05 Total Protein 8.1 Albumin 3.2 L Lipase 98 Urine Color Urine Clarity Urine pH Ur Specific Bon[place]au Urine Protein Urine Ketones Urine Blood Urine Nitrite Urine Bilirubin Urine Urobilinogen Ur Leukocyte Esterase Urine RBC Urine WBC Ur Epithelial Cells Urine Crystals Urine Bacteria Urine Casts Urine Mucus Ur Culture Indicated? Urine Glucose 04/28/19 01:35 WBC RBC Hgb Hct MCV MCH MCHC RDW Plt Count MPV Immature Gran % Neutrophils % Lymphocytes % Monocytes % Eosinophils % Basophils % Absolute Neutrophils Absolute Lymphocytes Absolute Monocytes Absolute Eosinophils Absolute Basophils Differential Comment RBC Morphology Sodium Potassium Chloride Carbon Dioxide Anion Gap BUN Creatinine Estimated GFR/1.73 m2 Glucose Lactate Calcium Magnesium Total Bilirubin AST ALT Alkaline Phosphatase Troponin I Total Protein Albumin Lipase Urine Color Yellow Urine Clarity Clear Urine pH 6.5 Ur Specific [place] 1.015 Urine Protein 30 H Urine Ketones Negative Urine Blood Trace-lysed H Urine Nitrite Negative Urine Bilirubin Negative Urine Urobilinogen 0.2 Ur Leukocyte Esterase Negative Urine RBC 0-2 Urine WBC 0-2 Ur Epithelial Cells Few Urine Crystals Negative Urine Bacteria Negative Urine Casts Negative Urine Mucus Negative Ur Culture Indicated? No Urine Glucose Negative Last Vital Signs Temp 36.2 C L 04/28/19 04:40 Pulse 99 H 04/28/19 04:40 Resp 20 04/28/19 04:40 BP 146/85 H 04/28/19 04:40 Pulse Ox 98 04/28/19 04:40
[2019-04-28 07:18] LABS: Abs Immature Grans 0.04 k/cumm (0.0-0.09); Absolute Basophil Count 0.01 k/cumm (0.0-0.2); Absolute Lymphocyte Count 0.48 k/cumm (1.2-3.4); Absolute Neutrophil Count 12.52 k/cumm (1.2-6.7); Basophils % 0.1; HCT 36.5 % (40.0-50.0); HGB 12.2 g/dL (13.5-17.5); Immature Grans % 0.3; Lymphocytes % 3.6; Mean Corp. HGB Concentration 33.4 g/dL (32.0-36.0); Mean Corpuscular Hemoglobin 28.8 pg (27.0-33.0); Mean Corpuscular Volume 86.1 fL (80-95); Mean Platelet Volume 10.3 fL (8.0-11.0); Monocytes % 2.2; Neutrophils % 93.8; Platelet Count 151 x1000/uL (130-400); RBC 4.24 m/cumm (4.50-6.00); RBC Distribution Width 14.9 % (11.8-14.1); White Blood Cell Count 13.35 k/cumm (4.4-10.8)
[2019-04-28 07:22] LABS: Absolute Monocyte Count 0.29 k/cumm (0.11-0.7)
[2019-04-28 07:31] LABS: Anion Gap 13.3 mmol/L (3-11); BUN 20 mg/dL (7-18); CO2 22.7 mmol/L (21.0-32.0); CREATININE 1.79 mg/dL (0.70-1.30); Calcium 9.4 mg/dL (8.5-10.1); Chloride 103 mmol/L (98-107); Estimated GFR 39.62 (mL/min/1.73m2); Glucose 247 mg/dL (70-100); Magnesium 2.7 mg/dL (1.8-2.4); Potassium 3.7 mmol/L (3.5-5.1); Sodium 139 mmol/L (136-145)
[2019-04-28 07:36] LABS: Troponin I < 0.05 ng/mL (0.00-0.06)
[2019-04-28] MEDS: Mometasone 220 MCG 14 DOSE INHALER 1 PUFF IH ×2 (07:56→20:04)
--- NOTE | 2019-04-28 07:57 | PDOC.CMIN ---
- If Service Date Differs Date of service: 04/28/19 Time of Service: 07:57 Care Management Initial Assess REASON FOR HOSPITALIZATION:: CHF, COPD PAST MEDICAL HISTORY/PAST SURGICAL HISTORY:: Medical History. COPD (chronic obstructive pulmonary disease) (Chronic 02/14/15). Depressive disorder (Chronic). Gastroesophageal reflux disease (Chronic). History of tobacco use (Chronic). Sarcoidosis (Chronic 02/04/16). Shortness of breath (Chronic). Ventral hernia (Chronic) PREVIOUS FUNCTIONAL STATUS/SOCIAL/FAMILY SUPPORTS:: Matt lives alone in a single family house with his cat . He has never been and has no children. The only relatives he has in the area are a couple of elderly aunts. Matt identifies that he has many good friends for community support. He is completely independent with all care and activities and drives a car. 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 CURRENT FUNCTIONAL STATUS:: Matt was sitting up in bed chatting with an ROAD FREIGHT BRAKE COUPLER when CM entered room. He was laughing and Joking with The ROAD FREIGHT BRAKE COUPLER and appeared to be in good spirits. He engaged readinly with CM and was open to answering questions.He states that he is feeling better already and does not believe he will need any services at discharge. ADVANCE DIRECTIVES:: None on file at [facility] although he states that he does have advanced directives and that he is a DNR. Has patient been provided with information about the portal?: No Did the patient sign up for the portal?: No CODE STATUS:: Full Code INSURANCE COVERAGE / FINANCIAL ISSUES:: Medicaid Vt CURRENT HOME/COMMUNITY SERVICES/EQUIPMENT:: none currently PRIMARY CARE PHYSICIAN:: Winston Truong MD POTENTIAL DISCHARGE NEEDS:: follow up with PCP and discharge plan of care PATIENT/FAMILY EDUCATION NEEDS:: Discharge plan, limitations, follow up plan of care, Ask me Three. TRANSPORTATION:: via private vehicle with friends when ready PLAN:: Matt is receiving IV antibiotics and steroids. Anticipate he will be discharged home with no addtional services. CM will continue to provide support to patient, family and discharge planning process.
[2019-04-28 08:02] LABS: Lactate-non-spesis 2.5 mmol/l (0.6-1.4)
--- NOTE | 2019-04-28 08:05 | INITIAL_ITS ---
- If Service Date Differs Date of service: 04/28/19 Time of Service: 07:57 Care Management Initial Assess REASON FOR HOSPITALIZATION:: CHF, COPD PAST MEDICAL HISTORY/PAST SURGICAL HISTORY:: Medical History. COPD (chronic obstructive pulmonary disease) (Chronic 02/14/15). Depressive disorder (Chronic). Gastroesophageal reflux disease (Chronic). History of tobacco use (Chronic). Sarcoidosis (Chronic 02/04/16). Shortness of breath (Chronic). Ventral hernia (Chronic) PREVIOUS FUNCTIONAL STATUS/SOCIAL/FAMILY SUPPORTS:: Matt lives alone in a single family house with his cat . He has never been and has no children. The only relatives he has in the area are a couple of elderly aunts. Matt identifies that he has many good friends for community support. He is completely independent with all care and activities and drives a car. 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 CURRENT FUNCTIONAL STATUS:: Matt was sitting up in bed chatting with an TOWEL INSPECTOR when CM entered room. He was laughing and Joking with The TOWEL INSPECTOR and appeared to be in good spirits. He engaged readinly with CM and was open to answering questions.He states that he is feeling better already and does not believe he will need any services at discharge. ADVANCE DIRECTIVES:: None on file at [facility] although he states that he does have advanced directives and that he is a DNR. Has patient been provided with information about the portal?: No Did the patient sign up for the portal?: No CODE STATUS:: Full Code INSURANCE COVERAGE / FINANCIAL ISSUES:: Medicaid Vt CURRENT HOME/COMMUNITY SERVICES/EQUIPMENT:: none currently PRIMARY CARE PHYSICIAN:: Winston Truong MD POTENTIAL DISCHARGE NEEDS:: follow up with PCP and discharge plan of care PATIENT/FAMILY EDUCATION NEEDS:: Discharge plan, limitations, follow up plan of care, Ask me Three. TRANSPORTATION:: via private vehicle with friends when ready PLAN:: Matt is receiving IV antibiotics and steroids. Anticipate he will be discharged home with no addtional services. CM will continue to provide support to patient, family and discharge planning process.
--- NOTE | 2019-04-28 08:07 | PHARADMIT ---
Addendum entered by Vel Alonzo III 04/29/19 13:40: Pharmacy Note Subjective provider notes lung sounds improving, pneumonia clearing Objective VS-OK K+3.5 SCr-1.34 WBC-16 (on steroids) Assessment IV ABX DCd transisitioned to PO Vantin & PO Doxycycline. Steroids to PO Plan Hospital may follow up on other conditions (CT show sarcodosis in liver) Original Note: Admission Pharmacy Clinical Review PNEUMONIA, COPD EXACERBATION Code Status Full Code Current Weight Wgt-97.5 kg Renally Cleared and Narrow Therapeutic Index Meds CrCl~ 52 mL/min Meds-OK QTc Value / Action Taken QTc-429 NA BP Control, Fever BP- 146/85 Tmax- 36.2C Electrolytes reviewed Na- 139 K+3.7 Mag-2.7 DVT Prophylaxis Lovenox Opiate Usage / Scheduled Bowel Regimen Ordered No Yes Plt/SCr for Heparin / Enoxaparin Plts-151 SCR-1.79 INR for Warfarin NA H/H stable, WBC/Bands H&H- 12.2/36.5 WBC- 13.35 Antibiotic appropriateness Ceftazidime, Doxycycline, Vancomycin Cultures and Sensitivities Blood Pending Surgical ABX d/c within 24 hr NA DM control / Insulin Dosing BG- 247 Heart Failure (Check EF%) (ALFA's, B-Block, Diuretics) none IV to PO Switch No Home Meds Reviewed Yes Home Meds Not Ordered TAC Cream Comments Flovent substituted Asmanex
[2019-04-28] MEDS: Benzonatate 200 MG CAP PO ×2 (09:06→22:04)
[2019-04-28] MEDS: guaiFENesin 600 MG TABCR 1200 MG PO ×2 (09:07→20:01)
[2019-04-28] MEDS: Sertraline 25 MG TAB PO (09:07)
[2019-04-28] MEDS: Enoxaparin 40 MG/0.4 ML SYR SC (09:08)
[2019-04-28] MEDS: Fluticasone NASAL SPRAY 16 GM BTL NS (09:30)
[2019-04-28 09:37] LABS: PROTEIN 12.9 mg/dL
[2019-04-28 09:50] LABS: COMMENT (LAB VIEW ONLY) 23.15 mg/dL; COMMENT (LAB VIEW ONLY) 23.23 mg/dL; Microalb ug/mg Crea 34.9 ug/mg Cr; Prot/Crea Ur Ratio 0.55
[2019-04-28] MEDS: methylPREDNISolone SUCC 125 MG VIAL 80 MG IVP ×2 (10:20→17:57)
[2019-04-28] MEDS: Docusate Sodium 100 MG CAP PO ×2 (10:21→20:01)
[2019-04-28] MEDS: Polyethylene Glycol 3350 17 GM PACKET PO (10:21)
[2019-04-28] MEDS: Insulin Aspart 300 UNITS/3 ML PEN SC ×3 (12:10→22:04)
[2019-04-28] MEDS: cefTAZidime 2,000 MG in Normal Saline 100 ML 200 MG IVPB ×2 (13:46→22:04)
--- NOTE | 2019-04-28 13:50 | CHAPLAIN ---
Matt was visited by Fr. Lopez today.
--- NOTE | 2019-04-28 15:55 | W.PM.PROGNOT ---
Date of Service Date of service: 04/28/19 Time of Service: 15:55 Subjective Interval history since last seen: The patient states his breathing/wheezing are better. He states this is his 4th incident of pneumonia in the last 2 months, however, and he is very concerned. He is not sure if he has sarcoidosis. He did see a medical investigator in [place] in the past - we are obtaining these records. Per my conversation with Dr Willams, his splenic lesions are stable from imaging in 2016 and could be granulomas. It is less likely that they are abscesses since they were already there in 2016. Interestingly, he also used to have the lesions in his liver - but they are now gone, though the liver seems now to have developed cirrhosis. For now, I have d/c'ed vancomycin as the patient does not have risk factors for MRSA. Continue fortaz and doxycycline. Await blood culture results. Await A1C. Objective Objective Clinical Data: Abnormal lab results 04/28/19 04/28/19 04/28/19 Range/Units 00:20 00:20 00:40 WBC 17.32 H (4.4-10.8) k/cumm RBC 4.26 L (4.50-6.00) m/cumm Hgb 12.3 L (13.5-17.5) g/dL Hct 36.3 L (40.0-50.0) % RDW 14.7 H (11.8-14.1) % Absolute Neutrophils 14.20 H (1.2-6.7) k/cumm Absolute Lymphocytes 0.87 L (1.2-3.4) k/cumm Absolute Monocytes 2.15 H (0.11-0.7) k/cumm Sodium 133 L (136-145) mmol/L Chloride 97 L (98-107) mmol/L Anion Gap 12.2 H (3-11) mmol/L BUN 21 H (7-18) mg/dL Creatinine 1.71 H (0.70-1.30) mg/dL Glucose 128 H (70-100) mg/dL Lactate 1.7 H (0.6-1.4) mmol/l Magnesium 1.6 L (1.8-2.4) mg/dL Total Bilirubin 1.1 H (0.2-1.0) mg/dL Albumin 3.2 L (3.4-5.0) g/dL Urine Protein (Negative) mg/dL Urine Blood (Negative) 04/28/19 04/28/19 04/28/19 Range/Units 01:35 06:40 06:40 WBC 13.35 H (4.4-10.8) k/cumm RBC 4.24 L (4.50-6.00) m/cumm Hgb 12.2 L (13.5-17.5) g/dL Hct 36.5 L (40.0-50.0) % RDW 14.9 H (11.8-14.1) % Absolute Neutrophils 12.52 H (1.2-6.7) k/cumm Absolute Lymphocytes 0.48 L (1.2-3.4) k/cumm Absolute Monocytes (0.11-0.7) k/cumm Sodium (136-145) mmol/L Chloride (98-107) mmol/L Anion Gap 13.3 H (3-11) mmol/L BUN 20 H (7-18) mg/dL Creatinine 1.79 H (0.70-1.30) mg/dL Glucose 247 H D (70-100) mg/dL Lactate (0.6-1.4) mmol/l Magnesium 2.7 H (1.8-2.4) mg/dL Total Bilirubin (0.2-1.0) mg/dL Albumin (3.4-5.0) g/dL Urine Protein 30 H (Negative) mg/dL Urine Blood Trace-lysed H (Negative) 04/28/19 Range/Units 07:45 WBC (4.4-10.8) k/cumm RBC (4.50-6.00) m/cumm Hgb (13.5-17.5) g/dL Hct (40.0-50.0) % RDW (11.8-14.1) % Absolute Neutrophils (1.2-6.7) k/cumm Absolute Lymphocytes (1.2-3.4) k/cumm Absolute Monocytes (0.11-0.7) k/cumm Sodium (136-145) mmol/L Chloride (98-107) mmol/L Anion Gap (3-11) mmol/L BUN (7-18) mg/dL Creatinine (0.70-1.30) mg/dL Glucose (70-100) mg/dL Lactate 2.5 H (0.6-1.4) mmol/l Magnesium (1.8-2.4) mg/dL Total Bilirubin (0.2-1.0) mg/dL Albumin (3.4-5.0) g/dL Urine Protein (Negative) mg/dL Urine Blood (Negative) Vital Signs Temperature 36.2 C L 04/28/19 15:33 Temperature Source Tympanic 04/28/19 15:33 Pulse 97 H 04/28/19 15:33 Pulse Rhythm Regular 04/28/19 09:38 Pulse 103 H 04/28/19 02:20 Respiratory Rate 19 04/28/19 15:33 Respiratory Effort Non-Labored 04/28/19 09:38 Respiratory Depth Normal 04/28/19 09:38 Respiratory Pattern Normal 04/28/19 09:38 Blood Pressure 115/70 04/28/19 15:33 Blood Pressure Mean 70 04/28/19 02:16 Pulse Oximetry 96 04/28/19 15:33 Oxygen Delivery Method Room Air 04/28/19 15:33 Oxygen Flow Rate 0 04/28/19 15:33 Pain Level 0 04/28/19 15:33 Intake & Output 04/27/19 04/28/19 04/28/19 23:59 11:59 23:59 Intake Total 3395.834 / 5618.334 2222.5 / 5618.334 Output Total 900 / 1700 800 / 1700 Balance 2495.834 / 3918.334 1422.5 / 3918.334 Weight 97.5 kg Intake: IV 3395.834 / 4658.334 1262.5 / 4658.334 Oral 960 / 960 Output: Urine 900 / 1700 800 / 1700 Other: Urine Color Yellow Yellow Urine Appearance Clear Clear Urine Odor Normal Comment 551 [phone] pt refused to be straight cathed. stated that if he could void in the toilet without a hat that he could empty his bladder Voiding Methods Toilet Toilet Laboratory Results WBC 13.35 k/cumm (4.4-10.8) H 04/28/19 06:40 RBC 4.24 m/cumm (4.50-6.00) L 04/28/19 06:40 Hgb 12.2 g/dL (13.5-17.5) L 04/28/19 06:40 Hct 36.5 % (40.0-50.0) L 04/28/19 06:40 MCV 86.1 fL (80-95) 04/28/19 06:40 MCH 28.8 pg (27.0-33.0) 04/28/19 06:40 MCHC 33.4 g/dL (32.0-36.0) 04/28/19 06:40 RDW 14.9 % (11.8-14.1) H 04/28/19 06:40 Plt Count 151 x1000/uL (130-400) 04/28/19 06:40 MPV 10.3 fL (8.0-11.0) 04/28/19 06:40 Immature Gran % 0.3 04/28/19 06:40 Neutrophils % 93.8 04/28/19 06:40 Lymphocytes % 3.6 04/28/19 06:40 Monocytes % 2.2 04/28/19 06:40 Eosinophils % 0.0 04/28/19 06:40 Basophils % 0.1 04/28/19 06:40 Absolute Neutrophils 12.52 k/cumm (1.2-6.7) H 04/28/19 06:40 Absolute Lymphocytes 0.48 k/cumm (1.2-3.4) L 04/28/19 06:40 Absolute Monocytes 0.29 k/cumm (0.11-0.7) 04/28/19 06:40 Absolute Eosinophils 0.00 k/cumm (0.0-0.7) 04/28/19 06:40 Absolute Basophils 0.01 k/cumm (0.0-0.2) 04/28/19 06:40 Differential Comment Agrees w/ instrument 04/28/19 00:20 RBC Morphology Normal 04/28/19 00:20 Sodium 139 mmol/L (136-145) 04/28/19 06:40 Potassium 3.7 mmol/L (3.5-5.1) 04/28/19 06:40 Chloride 103 mmol/L (98-107) 04/28/19 06:40 Carbon Dioxide 22.7 mmol/L (21.0-32.0) 04/28/19 06:40 Anion Gap 13.3 mmol/L (3-11) H 04/28/19 06:40 BUN 20 mg/dL (7-18) H 04/28/19 06:40 Creatinine 1.79 mg/dL (0.70-1.30) H 04/28/19 06:40 Estimated GFR/1.73 m2 39.62 (mL/min/1.73m2) 04/28/19 06:40 Glucose 247 mg/dL (70-100) H D 04/28/19 06:40 Lactate 2.5 mmol/l (0.6-1.4) H 04/28/19 07:45 Calcium 9.4 mg/dL (8.5-10.1) 04/28/19 06:40 Magnesium 2.7 mg/dL (1.8-2.4) H 04/28/19 06:40 Total Bilirubin 1.1 mg/dL (0.2-1.0) H 04/28/19 00:20 AST 17 U/L (15-37) 04/28/19 00:20 ALT 20 U/L (12-78) 04/28/19 00:20 Alkaline Phosphatase 105 U/L (46-116) 04/28/19 00:20 Troponin I < 0.05 ng/mL (0.00-0.06) 04/28/19 06:40 Total Protein 8.1 g/dL (6.4-8.2) 04/28/19 00:20 Albumin 3.2 g/dL (3.4-5.0) L 04/28/19 00:20 Lipase 98 U/L (73-393) 04/28/19 00:20 Urine Color Yellow (Yellow) 04/28/19 01:35 Urine Clarity Clear 04/28/19 01:35 Urine pH 6.5 (5-8) 04/28/19 01:35 Ur Specific [place] 1.015 (1.005-1.025) 04/28/19 01:35 Urine Protein 30 mg/dL (Negative) H 04/28/19 01:35 Urine Ketones Negative mg/dL (Negative) 04/28/19 01:35 Urine Blood Trace-lysed (Negative) H 04/28/19 01:35 Urine Nitrite Negative (Negative) 04/28/19 01:35 Urine Bilirubin Negative (Negative) 04/28/19 01:35 Urine Urobilinogen 0.2 EU/dL (Up TO 0.2) 04/28/19 01:35 Ur Leukocyte Esterase Negative (Negative) 04/28/19 01:35 Urine RBC 0-2 (0-2) 04/28/19 01:35 Urine WBC 0-2 HPF (0-5) 04/28/19 01:35 Ur Epithelial Cells Few HPF (Negative) 04/28/19 01:35 Urine Crystals Negative HPF (Negative) 04/28/19 01:35 Urine Bacteria Negative HPF (Negative) 04/28/19 01:35 Urine Casts Negative LPF (Negative) 04/28/19 01:35 Urine Mucus Negative (Negative) 04/28/19 01:35 Ur Culture Indicated? No 04/28/19 01:35 Ur Random Creatinine 23.15 mg/dL 04/28/19 03:30 U Random Total Protein 12.9 mg/dL 04/28/19 03:30 U [place] Prot/Creat Ratio 0.55 04/28/19 03:30 Ur Creatinine mg/dL 23.23 mg/dL 04/28/19 03:30 Ur Microalbumin mg/L 8.1 mg/L (1.30-20.0) 04/28/19 03:30 Microalb/Creat Ratio 34.9 ug/mg Cr 04/28/19 03:30 Urine Glucose Negative mg/dL (Negative) 04/28/19 01:35
[2019-04-28] MEDS: Senna TAB 1 TAB PO (20:01)
[2019-04-29] VITALS (9 sets, daily range): BP systolic 111–133; BP diastolic 63–73; PULSE 81–103; RESP 4–18; TEMP 36.4–37.2; O2SAT 93–97
[2019-04-29] MEDS: methylPREDNISolone SUCC 125 MG VIAL 80 MG IVP (02:33)
[2019-04-29] MEDS: DOXYCYCLINE 100 MG in Normal Saline 100 ML IVPB (02:33)
[2019-04-29] MEDS: Normal Saline 1,000 ML 150 ML IV (02:39)
[2019-04-29] MEDS: Albuterol/Ipratropium 3 ML UPD VIAL UPD ×4 (02:39→20:18)
[2019-04-29] MEDS: cefTAZidime 2,000 MG in Normal Saline 100 ML 200 MG IVPB (05:25)
[2019-04-29] MEDS: Benzonatate 200 MG CAP PO ×3 (05:25→21:51)
[2019-04-29 07:23] LABS: Abs Immature Grans 0.05 k/cumm (0.0-0.09); Absolute Lymphocyte Count 0.46 k/cumm (1.2-3.4); Absolute Monocyte Count 0.61 k/cumm (0.11-0.7); Basophils % 0.1; HCT 33.3 % (40.0-50.0); HGB 10.8 g/dL (13.5-17.5); Immature Grans % 0.3; Lymphocytes % 2.9; Mean Corp. HGB Concentration 32.4 g/dL (32.0-36.0); Mean Corpuscular Hemoglobin 28.1 pg (27.0-33.0); Mean Corpuscular Volume 86.5 fL (80-95); Mean Platelet Volume 10.9 fL (8.0-11.0); Monocytes % 3.8; Neutrophils % 92.9; Platelet Count 166 x1000/uL (130-400); RBC 3.85 m/cumm (4.50-6.00); RBC Distribution Width 14.8 % (11.8-14.1)
[2019-04-29 07:24] LABS: Absolute Basophil Count 0.02 k/cumm (0.0-0.2); Absolute Neutrophil Count 14.86 k/cumm (1.2-6.7)
[2019-04-29 07:36] LABS: Anion Gap 11.5 mmol/L (3-11); BUN 26 mg/dL (7-18); CO2 22.5 mmol/L (21.0-32.0); CREATININE 1.34 mg/dL (0.70-1.30); Calcium 8.8 mg/dL (8.5-10.1); Chloride 107 mmol/L (98-107); Estimated GFR 55.34 (mL/min/1.73m2); Glucose 159 mg/dL (70-100); Potassium 3.5 mmol/L (3.5-5.1); Sodium 141 mmol/L (136-145)
[2019-04-29 07:38] LABS: Magnesium 2.1 mg/dL (1.8-2.4)
[2019-04-29 07:55] LABS: Hemoglobin A1C 5.5 % (4.5-6.2)
[2019-04-29 08:05] LABS: Procalcitonin 0.1 ng/mL
[2019-04-29] MEDS: Mometasone 220 MCG 14 DOSE INHALER 1 PUFF IH ×2 (08:27→20:22)
[2019-04-29] MEDS: Senna TAB 1 TAB PO ×2 (08:47→20:18)
[2019-04-29] MEDS: Insulin Aspart 300 UNITS/3 ML PEN SC ×2 (08:47→17:09)
[2019-04-29] MEDS: Potassium Chloride 20 MEQ TABCR 40 MEQ PO (08:48)
[2019-04-29] MEDS: Docusate Sodium 100 MG CAP PO ×2 (08:48→20:18)
[2019-04-29] MEDS: Enoxaparin 40 MG/0.4 ML SYR SC (08:48)
[2019-04-29] MEDS: guaiFENesin 600 MG TABCR 1200 MG PO ×2 (08:49→20:18)
[2019-04-29] MEDS: Fluticasone NASAL SPRAY 16 GM BTL NS (08:49)
[2019-04-29 10:07] LABS: Lactate-non-spesis 2.2 mmol/l (0.6-1.4)
[2019-04-29] MEDS: Doxycycline Hyclate 100 MG CAP PO ×2 (10:32→21:51)
[2019-04-29] MEDS: Cefpodoxime 200 MG TAB PO ×2 (10:32→21:51)
--- NOTE | 2019-04-29 11:41 | PGE_ITS ---
Date of Service Date of service: 04/29/19 Time of Service: 11:41 Assessment and Plan (1) Community acquired pneumonia: Start date: 04/29/19 Start time: 11:52 Current visit: Yes Status: Acute Procalcitionin 1.1 Transitioned to PO doxycyline and cefpodoxime. Lung sounds improving. Occasional expiratory wheezes to bilateral upper lobes which is improvement from yesterday. Lactate yesterday was 2.5 improving today at 2.2 unlikely from sepsis as afebrile, not tachycardic with a normal bp, continue ne bs, updrafts, flovent and transitioned to PO steroid 60 mg BID. Blood cultures pending at this time. Qualifiers: Laterality: right Lung location: lower lobe of lung Qualified Code(s): J18.1 - Lobar pneumonia, unspecified organism (2) COPD (chronic obstructive pulmonary disease): Start date: 04/29/19 Start time: 11:54 Current visit: No Status: Chronic feeling better. Sarcoidosis by CT. 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 see above Qualifiers: COPD type: COPD with acute exacerbation Qualified Code(s): J44.1 - Chronic obstructive pulmonary disease with (acute) exacerbation (3) Depressive disorder: Start date: 04/29/19 Start time: 11:55 Current visit: No Status: Chronic stable. continue home sertraline dose (4) Gastroesophageal reflux disease: Start date: 04/29/19 Start time: 11:56 Current visit: No Status: Chronic continue home dose of zantac (5) History of tobacco use: Start date: 04/29/19 Start time: 11:57 Current visit: No Status: Chronic Current smoker, discussed smoking cessation, claims to only smoke 2 cigs a day. Willing to try nicotrol inhaler as he believes it is habitual. Subjective Patient reports: no new complaints and feels better Interval history since last seen: Mr. Goetz is feeling better today. He does have a cough but unable to bring sputum up there were occasional expiratory wheezes in upper lobes. WBC elevated likely in the setting of steroids. Lactate was up yesterday to 2.5 trending down today to 2.2 he is on albuterol q 2 hours and updrafts q 4 which could be why his lactate is elevated. He is afebrile not tachycardic with a normalized bp. Transitioned to PO antibiotics. Continues to smoke, smoking cessation discussed, he would like to try nicotrol inhaler as he feels it is more habitual having something in his hand. Transitioned to PO steroids and asmanex ordered as he takes this at home. Continue current treatment and possible discharge home tomorrow. CT did reveal possible sarcodosis in the liver in which he will need a follow up with GI for. He denies chest pain, SOB, nausea, vomiting diarrhea. Exam Narrative Exam Narrative: Const: Pleasant male sitting up in chair smiling and eating lunch. NECK: no lymphedema or JVD Resp: occasional expiratory wheezes to upper lobes. No SOB, able to speak complete sentences. Normal respiratory pattern Cardiac: RRR, no murmur or gallop appreciated. GI: BS x all quads, soft nontender, nondistended Extremities: no edema, clubbing or cyanosis. Skin:Intact Neuro: AAOx 3 Objective Objective Clinical Data: Abnormal lab results 04/29/19 04/29/19 04/29/19 Range/Units 06:42 06:42 09:58 WBC 16.00 H (4.4-10.8) k/cumm RBC 3.85 L (4.50-6.00) m/cumm Hgb 10.8 L (13.5-17.5) g/dL Hct 33.3 L (40.0-50.0) % RDW 14.8 H (11.8-14.1) % Absolute Neutrophils 14.86 H (1.2-6.7) k/cumm Absolute Lymphocytes 0.46 L (1.2-3.4) k/cumm Anion Gap 11.5 H (3-11) mmol/L BUN 26 H (7-18) mg/dL Creatinine 1.34 H (0.70-1.30) mg/dL Glucose 159 H D (70-100) mg/dL Lactate 2.2 H (0.6-1.4) mmol/l Vital Signs Temperature 37.2 C 04/29/19 07:05 Temperature Source Tympanic 04/29/19 07:05 Pulse 98 H 04/29/19 09:19 Pulse Rhythm Regular 04/28/19 20:00 Pulse 103 H 04/28/19 02:20 Respiratory Rate 18 04/29/19 09:19 Respiratory Effort Non-Labored 04/28/19 20:00 Respiratory Depth Normal 04/28/19 20:00 Respiratory Pattern Normal 04/28/19 20:00 Blood Pressure 121/73 04/29/19 07:05 Blood Pressure Mean 70 04/28/19 02:16 Pulse Oximetry 95 04/29/19 09:19 Oxygen Delivery Method Room Air 04/29/19 09:19 Oxygen Flow Rate 0 04/29/19 09:19 Pain Level 0 04/28/19 23:41 Intake & Output 04/28/19 04/28/19 04/29/19 11:59 23:59 11:59 Intake Total 3395.834 / 6890.834 3495.0 / 6890.834 1200.0 / 1200.0 Output Total 900 / 2700 1300 / 2700 2450 / 2450 Balance 2495.834 / 4190.834 2195.0 / 4190.834 -1250.0 / -1250.0 Weight 97.5 kg Intake: IV 3395.834 / 5570.834 2175.0 / 5570.834 1200.0 / 1200.0 Oral 1320 / 1320 Output: Urine 900 / 2700 1300 / 2700 2450 / 2450 Other: Urine Color Yellow Yellow Yellow Urine Appearance Clear Clear Clear Urine Odor Normal None Comment [phone] - [phone] - 620 pt refused to be straight cathed. stated that if he could void in the toilet without a hat that he could empty his bladder Voiding Methods Toilet Toilet Bedside Commode Laboratory Results WBC 16.00 k/cumm (4.4-10.8) H 04/29/19 06:42 RBC 3.85 m/cumm (4.50-6.00) L 04/29/19 06:42 Hgb 10.8 g/dL (13.5-17.5) L 04/29/19 06:42 Hct 33.3 % (40.0-50.0) L 04/29/19 06:42 MCV 86.5 fL (80-95) 04/29/19 06:42 MCH 28.1 pg (27.0-33.0) 04/29/19 06:42 MCHC 32.4 g/dL (32.0-36.0) 04/29/19 06:42 RDW 14.8 % (11.8-14.1) H 04/29/19 06:42 Plt Count 166 x1000/uL (130-400) 04/29/19 06:42 MPV 10.9 fL (8.0-11.0) 04/29/19 06:42 Immature Gran % 0.3 04/29/19 06:42 Neutrophils % 92.9 04/29/19 06:42 Lymphocytes % 2.9 04/29/19 06:42 Monocytes % 3.8 04/29/19 06:42 Eosinophils % 0.0 04/29/19 06:42 Basophils % 0.1 04/29/19 06:42 Absolute Neutrophils 14.86 k/cumm (1.2-6.7) H 04/29/19 06:42 Absolute Lymphocytes 0.46 k/cumm (1.2-3.4) L 04/29/19 06:42 Absolute Monocytes 0.61 k/cumm (0.11-0.7) 04/29/19 06:42 Absolute Eosinophils 0.00 k/cumm (0.0-0.7) 04/29/19 06:42 Absolute Basophils 0.02 k/cumm (0.0-0.2) 04/29/19 06:42 Differential Comment Agrees w/ instrument 04/28/19 00:20 RBC Morphology Normal 04/28/19 00:20 Sodium 141 mmol/L (136-145) 04/29/19 06:42 Potassium 3.5 mmol/L (3.5-5.1) 04/29/19 06:42 Chloride 107 mmol/L (98-107) 04/29/19 06:42 Carbon Dioxide 22.5 mmol/L (21.0-32.0) 04/29/19 06:42 Anion Gap 11.5 mmol/L (3-11) H 04/29/19 06:42 BUN 26 mg/dL (7-18) H 04/29/19 06:42 Creatinine 1.34 mg/dL (0.70-1.30) H 04/29/19 06:42 Estimated GFR/1.73 m2 55.34 (mL/min/1.73m2) 04/29/19 06:42 Glucose 159 mg/dL (70-100) H D 04/29/19 06:42 Hemoglobin A1c 5.5 % (4.5-6.2) 04/29/19 06:42 Lactate 2.2 mmol/l (0.6-1.4) H 04/29/19 09:58 Calcium 8.8 mg/dL (8.5-10.1) 04/29/19 06:42 Magnesium 2.1 mg/dL (1.8-2.4) 04/29/19 06:42 Total Bilirubin 1.1 mg/dL (0.2-1.0) H 04/28/19 00:20 AST 17 U/L (15-37) 04/28/19 00:20 ALT 20 U/L (12-78) 04/28/19 00:20 Alkaline Phosphatase 105 U/L (46-116) 04/28/19 00:20 Troponin I < 0.05 ng/mL (0.00-0.06) 04/28/19 06:40 Total Protein 8.1 g/dL (6.4-8.2) 04/28/19 00:20 Albumin 3.2 g/dL (3.4-5.0) L 04/28/19 00:20 Lipase 98 U/L (73-393) 04/28/19 00:20 Procalcitonin 0.1 ng/mL 04/29/19 06:42 Urine Color Yellow (Yellow) 04/28/19 01:35 Urine Clarity Clear 04/28/19 01:35 Urine pH 6.5 (5-8) 04/28/19 01:35 Ur Specific [place] 1.015 (1.005-1.025) 04/28/19 01:35 Urine Protein 30 mg/dL (Negative) H 04/28/19 01:35 Urine Ketones Negative mg/dL (Negative) 04/28/19 01:35 Urine Blood Trace-lysed (Negative) H 04/28/19 01:35 Urine Nitrite Negative (Negative) 04/28/19 01:35 Urine Bilirubin Negative (Negative) 04/28/19 01:35 Urine Urobilinogen 0.2 EU/dL (Up TO 0.2) 04/28/19 01:35 Ur Leukocyte Esterase Negative (Negative) 04/28/19 01:35 Urine RBC 0-2 (0-2) 04/28/19 01:35 Urine WBC 0-2 HPF (0-5) 04/28/19 01:35 Ur Epithelial Cells Few HPF (Negative) 04/28/19 01:35 Urine Crystals Negative HPF (Negative) 04/28/19 01:35 Urine Bacteria Negative HPF (Negative) 04/28/19 01:35 Urine Casts Negative LPF (Negative) 04/28/19 01:35 Urine Mucus Negative (Negative) 04/28/19 01:35 Ur Culture Indicated? No 04/28/19 01:35 Ur Random Creatinine 23.15 mg/dL 04/28/19 03:30 U Random Total Protein 12.9 mg/dL 04/28/19 03:30 U [place] Prot/Creat Ratio 0.55 04/28/19 03:30 Ur Creatinine mg/dL 23.23 mg/dL 04/28/19 03:30 Ur Microalbumin mg/L 8.1 mg/L (1.30-20.0) 04/28/19 03:30 Microalb/Creat Ratio 34.9 ug/mg Cr 04/28/19 03:30 Urine Glucose Negative mg/dL (Negative) 04/28/19 01:35
--- NOTE | 2019-04-29 13:31 | PDOC.CMPRO ---
Care Management Progress Note S/O: Matt continues to be closely monitored, and transitioned to oral medications today, IVF discontinued as well. He is interested in smoking cessation and will have a new referral to his PCP or [facility] upon discharge, anticipate Matt will return home as soon as tomorrow. CM continues to follow. A: 53 year old male admitted to [facility] 04/28/19 for Pneumonia, COPD Exacerbation P: Matt has transitioned to oral medications per MD. Anticipate he will be discharged home with referral for smoking cessation. CM will continue to provide support to patient, family and discharge planning process.
[2019-04-29] MEDS: Milk of Magnesia 30 ML CUP PO (13:54)
[2019-04-29] MEDS: Bisacodyl 5 MG TABEC 10 MG PO (13:54)
[2019-04-29] MEDS: Sertraline 25 MG TAB PO (18:36)
[2019-04-29] MEDS: predniSONE 20 MG TAB 60 MG PO (20:18)
[2019-04-30 03:30] VITALS: BP 132/70; PULSE 94; RESP 16; TEMP 36.4; O2SAT 96
[2019-04-30] MEDS: Benzonatate 200 MG CAP PO (05:32)
[2019-04-30] MEDS: Albuterol/Ipratropium 3 ML UPD VIAL UPD ×2 (05:32→09:20)
[2019-04-30 06:49] LABS: Lactate-non-spesis 1.9 mmol/l (0.6-1.4)
[2019-04-30 06:53] LABS: Abs Immature Grans 0.08 k/cumm (0.0-0.09); Absolute Basophil Count 0.01 k/cumm (0.0-0.2); Absolute Eosinophil Count 0.37 k/cumm (0.0-0.7); Absolute Lymphocyte Count 0.53 k/cumm (1.2-3.4); Absolute Monocyte Count 0.34 k/cumm (0.11-0.7); Absolute Neutrophil Count 10.53 k/cumm (1.2-6.7); Basophils % 0.1; Eosinophils % 3.1; HCT 36.1 % (40.0-50.0); HGB 11.7 g/dL (13.5-17.5); Immature Grans % 0.7; Lymphocytes % 4.5; Mean Corp. HGB Concentration 32.4 g/dL (32.0-36.0); Mean Corpuscular Hemoglobin 27.9 pg (27.0-33.0); Mean Platelet Volume 11.5 fL (8.0-11.0); Monocytes % 2.9; Neutrophils % 88.7; Platelet Count 164 x1000/uL (130-400); RBC Distribution Width 15.2 % (11.8-14.1); White Blood Cell Count 11.87 k/cumm (4.4-10.8)
[2019-04-30 07:08] LABS: Anion Gap 10.5 mmol/L (3-11); BUN 33 mg/dL (7-18); CO2 24.5 mmol/L (21.0-32.0); CREATININE 1.26 mg/dL (0.70-1.30); Calcium 9.2 mg/dL (8.5-10.1); Chloride 107 mmol/L (98-107); Estimated GFR 59.42 (mL/min/1.73m2); Glucose 145 mg/dL (70-100); Magnesium 2.1 mg/dL (1.8-2.4); Potassium 4.4 mmol/L (3.5-5.1); Sodium 142 mmol/L (136-145)
[2019-04-30 07:10] VITALS: BP 130/79; PULSE 95; RESP 16; TEMP 36.7; O2SAT 97
[2019-04-30] MEDS: predniSONE 20 MG TAB 60 MG PO (08:50)
[2019-04-30] MEDS: guaiFENesin 600 MG TABCR 1200 MG PO (08:50)
[2019-04-30] MEDS: Enoxaparin 40 MG/0.4 ML SYR SC (08:51)
[2019-04-30] MEDS: Fluticasone NASAL SPRAY 16 GM BTL NS (08:53)
[2019-04-30 09:20] VITALS: PULSE 99; RESP 1; RESP 18; O2SAT 97
[2019-04-30] MEDS: Mometasone 220 MCG 14 DOSE INHALER 1 PUFF IH (09:29)
[2019-04-30 11:10] VITALS: BP 130/70; PULSE 91; RESP 18; TEMP 37; O2SAT 97
--- NOTE | 2019-04-30 11:13 | W.PM.DS.N ---
Date of service: 04/30/19 Time of Service: 11:15 DS: Diagnosis Discharge Diagnosis (1) Community acquired pneumonia: Status: Acute (2) COPD (chronic obstructive pulmonary disease): Status: Chronic (3) Depressive disorder: Status: Chronic (4) Gastroesophageal reflux disease: Status: Chronic (5) History of tobacco use: Status: Chronic Discharge Plan Disposition Patient Disposition: HOME Condition: Good Discharge Details Reason For Visit: PNEUMONIA, COPD EXACERBATION Admit Date/Time: 04/28/19 02:08 Admit Provider: Greg Venegas Attending Provider: Greg Venegas Primary Care Provider: [facility]iWinston [facility] Course Hospital Course: 53-year-old male smoker with history of severe COPD who was recently treated as an outpatient on March 18, 2019 for acute COPD exacerbation and prescribed a week's course of Levaquin and tapering dose of prednisone. He now presents to the emergency department with 3 days symptoms of nonproductive cough fever and chills associated with constipation and polyuria along with vague abdominal discomfort in the upper abdomen. Yesterday he was coughing so hard he had emesis of bile material but no hematemesis. He said fever and chills but no rigors. He has had no recent travel outside of the [facility] but some neighbors came over to visit him 5 days ago and that neighbor was ill with severe coughing. Patient states that he made appointment to see his PCP for today but felt that he could not wait and therefore he presented to the emergency department since he was not improving. He has been using his nebulizer without improvement in his shortness of breath or coughing. Upon presentation the emergency department he appeared to be toxic with a fever 39.3 and tachycardic with a heart rate of 124 bpm and tachypneic with respiratory rate of 32 breaths/min and oxygen saturation was 91% on room air. He was evaluated emergency department by Dr. Joshua Crisostomo who included a CT of his chest abdomen pelvis as part of his work-up. This demonstrated peribronchial cuffing and soft tissue thickening along with patchy right lung infiltrates. The abdominal pelvic portion showed splenomegaly with numerous tiny low-density foci that were nonspecific but the radiologist indicated clinical exclusion of microabscesses should be entertained. Laboratory studies include obtaining blood cultures, CBC that showed a leukocytosis of 17,000 along with a leftward shift and a mild anemia with hemoglobin 12.3 g hematocrit 36%. CMP that showed elevated BUN and creatinine 21 and 1.71 which is higher than his previous value in March when it was 21 and 1.46 and even higher than what it was checked in January 2018 when his BUN and creatinine were normal at 15 and 1.20. His glucose is elevated 128. Magnesium is low at 1.6 lactate is mildly elevated 1.7. Total bilirubin is minimally elevated 1.1 with normal AST ALT and alkaline phosphatase. Troponin is less than 0.05. Lipase is normal at 98. EKG was done and demonstrated sinus tachycardia at 120 bpm w/out ischemic ST-T changes. Treatment in the ER included iv fluids x 2 liters of LR, solumedrol 125 mg IVP, couple of DuoNeb's aerosol treatments enroute by EMS and another while in the ER. He was started on vancomycin, Fortaz and Doxycycline. He is now admitted for treatment of severe CAP. During course of his stay he not required oxygen, lung sounds with scattered expiratory wheezing. Ambulatory in the with no SOB. He was transitioned to PO steroids and antibiotics yesterday with a decrease in white blood count. He feels ready to go home. He will go home on cefpodoxime and doxycycline with a tapering steroid dose. He will need a follow up with GI for scheduled appointment of his cirrhosis with questionable splenic sarcoidosis he prefers [facility], we will schedule that. He will need follow up in 1 week. He denies chest pain, shortness of breath, nausea, vomiting diarrhea. 1) Community acquired pneumonia: Transitioned to PO doxycyline and cefpodoxime. Lung sounds improving. Occasional expiratory wheezes to bilateral upper lobes which is improvement from yesterday. Lactate 1.9 today improving, unlikely from sepsis as afebrile, not tachycardic with a normal bp, continue nebs, updrafts, flovent and transitioned to PO steroid 60 mg BID. Blood cultures pending at this time. Qualifiers: Laterality: right Lung location: lower lobe of lung Qualified Code(s): J18.1 - Lobar pneumonia, unspecified organism (2) COPD (chronic obstructive pulmonary disease): feeling better. Sarcoidosis by CT. 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 see above Qualifiers: COPD type: COPD with acute exacerbation Qualified Code(s): J44.1 - Chronic obstructive pulmonary disease with (acute) exacerbation (3) Depressive disorder: stable. continue home sertraline dose (4) Gastroesophageal reflux disease: continue home dose of zantac (5) History of tobacco use: Current smoker, discussed smoking cessation, claims to only smoke 2 cigs a day. Willing to try nicotrol inhaler as he believes it is habitual. Home Meds and New Rx's Prescriptions: New doxycycline hyclate 100 mg Capsule 100 mg PO Q12H Qty: 8 RF: 0 cefpodoxime 200 mg Tablet 200 mg PO Q12H Qty: 8 RF: 0 prednisone 20 mg Tablet 60 mg PO DAILY Qty: 9 RF: 0 guaifenesin [Mucinex] 600 mg Tablet Extended Release 12hr 1,200 mg PO BID Qty: 10 RF: 0 prednisone 20 mg tablet 20 mg PO DAILY Qty: 11 RF: 0 Continued ranitidine HCl 150 mg tablet 150 mg PO BID PRN (Reason: heartburn/reflux) Qty: 60 RF: 6 fluticasone propionate 50 mcg/actuation spray,suspension 1 spray NS DAILY Qty: 1 RF: 0 Flovent HFA 110 mcg/actuation HFA aerosol inhaler 2 puff Inhalation BID Qty: 1 RF: 4 albuterol sulfate 90 mcg/actuation HFA aerosol inhaler 2 puff IH QID PRN (Reason: shortness of breath) Qty: 18 RF: 0 albuterol sulfate 5 mg/mL solution for nebulization 2.5 mg IH Q4H PRN (Reason: shortness of breath) Qty: 20 RF: 0 sertraline [Zoloft] 25 mg Tablet 25 mg PO DAILY RF: 0 Discharge Instructions Instructions: How to Stop Smoking (GEN), Cirrhosis (GEN), Cigarette Smoking and Your Health (GEN), Antibiotic Resistant Bacteria (GEN), Sarcoidosis (GEN), Community Acquired Pneumonia (GEN) Additional Instructions: STOP SMOKING!!! Follow up with GI at [facility] we will call you with the appointment time. If you have not heard from us by next week call. Follow up with your primary Doctor in 1 week. Wear a mask when working around manure. Use your acapella at least 10 times a day. Finish all your antibiotics. Seek medical attention immediately if you have chest pain, shortness of breath, nausea, vomiting diarrhea. Activity:: Activity as Tolerated Equipment/Supplies:: No Equipment Needed Diet:: As Tolerated Discharge Orders Discharge Orders: Discharge Order (Routine); Ordered 04/30/19 Ordered By: Es Dick Exam Narrative Exam Narrative: Const: Pleasant male sitting up in chair smiling and eating lunch. NECK: no lymphedema or JVD Resp: occasional expiratory wheezes to upper lobes. No SOB, able to speak complete sentences. Normal respiratory pattern Cardiac: RRR, no murmur or gallop appreciated. GI: BS x all quads, soft nontender, nondistended Extremities: no edema, clubbing or cyanosis. Skin:Intact Neuro: AAOx 3 DS: Data Vitals/I&O Vitals and I&O: Vital Signs Temperature 36.7 C 04/30/19 07:10 Temperature Source Tympanic 04/30/19 07:10 Pulse 99 H 04/30/19 09:20 Pulse Rhythm Regular 04/29/19 20:00 Pulse 103 H 04/28/19 02:20 Respiratory Rate 18 04/30/19 09:20 Respiratory Effort Non-Labored 04/29/19 20:00 Respiratory Depth Normal 04/29/19 20:00 Respiratory Pattern Normal 04/29/19 20:00 Blood Pressure 130/79 04/30/19 07:10 Blood Pressure Mean 70 04/28/19 02:16 Pulse Oximetry 97 04/30/19 09:20 Oxygen Delivery Method Room Air 04/30/19 09:20 Oxygen Flow Rate 0 04/30/19 09:20 Pain Level 0 04/30/19 07:10 Intake & Output 04/29/19 04/29/19 04/30/19 11:59 23:59 11:59 Intake Total 2222.5 / 2702.5 480 / 2702.5 Output Total 2900 / 4600 1700 / 4600 1150 / 1150 Balance -677.5 / -1897.5 -1220 / -1897.5 -1150 / -1150 Weight 103 kg Intake: IV 1862.5 / 1862.5 Oral 360 / 840 480 / 840 Output: Urine 2900 / 4600 1700 / 4600 1150 / 1150 Other: Urine Color Yellow Yellow Light Jerri Urine Appearance Clear Clear Clear Urine Odor None None None Comment [phone] patient let [employer] know he voided Stool Size Copious Stool Characteristics Hard Voiding Methods Toilet Toilet Urinal Completed studies during hospitalization [Text1]: SYMPTOM/DIAGNOSIS: FEVER, SOB, RUQ PAIN, VOMITING CT CHEST, ABDOMEN AND PELVIS: CHEST CT: Exam was performed according to the pulmonary embolism protocol. No pulmonary emboli or aortic dissection is seen. There is no pneumothorax, pleural or pericardial effusion. There are patchy infiltrates in the right upper lobe as well as right middle lobe consistent with pneumonia. Minimal patchy foci are seen at the anterior right lower lobe. IMPRESSION: Right sided pneumonia CT ABDOMEN AND PELVIS: Comparison is made with 28 January 2016. The liver has a cirrhotic appearance which appears more prominent when compared with the previous exam. The previous exam shows numerous small low density lesions throughout the liver. These are no longer present. The spleen has increased in size when compared with the previous exam and shows numerous low density lesions were seen on the previous study. Numerous small lymph nodes are noted in the upper abdomen, unchanged. There is no bowel dilatation or inflammatory change. Diverticulosis is again noted in the descending and sigmoid colon. The appendix appears normal. Bladder and prostate are unremarkable. There is no change in a fatty hernia above the level of the umbilicus. The pancreas and adrenals are unremarkable. A few renal cysts are present. The aorta is normal in diameter. No suspicious bony findings are seen. IMPRESSION: Cirrhotic appearing liver. Splenomegaly with numerous splenic lesions. No acute abnormality is identified EXAM DATE/TIME: 03/18/2019 4:54 AM CLINICAL HISTORY: 53 years old, male; Signs and symptoms; Cough and fever and shortness of breath; Patient HX: Cough, fever, SOB TECHNIQUE: Imaging protocol: XR of the chest, 1 view. COMPARISON: CR CHEST 2 VIEWS PA,LAT 01/16/2018 7:17 AM FINDINGS: Lungs: Unremarkable. No consolidation. Pleural space: Unremarkable. No pleural effusion. No pneumothorax. Heart/Mediastinum: Unremarkable. No cardiomegaly. Bones/joints: Unremarkable. IMPRESSION: No acute findings. Labs on day of discharge: Labs from last 24 hours 04/30/19 04/30/19 04/30/19 06:25 06:25 06:25 WBC 11.87 H RBC 4.20 L Hgb 11.7 L Hct 36.1 L MCV 86.0 MCH 27.9 MCHC 32.4 RDW 15.2 H Plt Count 164 MPV 11.5 H Immature Gran % 0.7 Neutrophils % 88.7 Lymphocytes % 4.5 Monocytes % 2.9 Eosinophils % 3.1 Basophils % 0.1 Absolute Neutrophils 10.53 H Absolute Lymphocytes 0.53 L Absolute Monocytes 0.34 Absolute Eosinophils 0.37 Absolute Basophils 0.01 Sodium 142 Potassium 4.4 D Chloride 107 Carbon Dioxide 24.5 Anion Gap 10.5 BUN 33 H Creatinine 1.26 Estimated GFR/1.73 m2 59.42 Glucose 145 H Lactate 1.9 H Calcium 9.2 Magnesium 2.1 Preliminary micro results at discharge 04/28/19 00:40 Blood Culture - Preliminary Blood NO GROWTH 24 HOURS 04/28/19 00:20 Blood Culture - Preliminary Blood NO GROWTH 24 HOURS PFS Medical History COPD (chronic obstructive pulmonary disease) (Chronic 02/14/15) Depressive disorder (Chronic) Gastroesophageal reflux disease (Chronic) History of tobacco use (Chronic) Sarcoidosis (Chronic 02/04/16) Shortness of breath (Chronic) Ventral hernia (Chronic) Social History Smoking/Tobacco Use Status: Current every day Tobacco Type: cigarettes Alcohol Intake: former Year quit: 1998 Drug use: Never Substance use type: does not use Do you feel safe at home: Yes Do you feel safe in your relationship?: Yes
[2019-04-30] MEDS: Cefpodoxime 200 MG TAB PO (11:18)
[2019-04-30] MEDS: Doxycycline Hyclate 100 MG CAP PO (11:18)
--- NOTE | 2019-04-30 16:29 | PDOC.CMDIS ---
LACE Index Scoring Tool - Questions: Length of Stay (in days): 2 Acuity (Admit via E.D.?): Yes Comorbidities: Chronic Pulmonary Disease E.D. Visits: 3 - Answers: Total Score: 10 Risk of Readmission: High Risk Care Management Discharge Reason for Hospitalization: CHF, COPD Discharge Plan: Matt will be discharged home on steroid taper with GI follow up. He will follow up with his PCP and plan of care as prescribed. He will transport via private vehicle with a friend. Patient/Family Education Needs: Review discharge instructions, discuss Ask Me Three.
[2019-05-01 08:12] LABS: Streptococcus Pneumoniae Ag, U Negative (Negative)
== END 2019-04-30 13:20 | disposition home or self-care (01) | DRG 194 ==
LOC: ER 02:23 → MS 03:04
PROVIDERS: Internal Medicine; Nurse Practitioner Family; Admitting Provider Internal Medicine; Emergency Provider Emergency Medicine; PCP Family Medicine; Visit Provider Internal Medicine
DX: J18.1 Lobar pneumonia, unspecified organism (principal); J44.1 Chronic obstructive pulmonary disease with (acute) exacerbation; N17.9 Acute kidney failure, unspecified; F32.9 Major depressive disorder, single episode, unspecified; K21.9 Gastro-esophageal reflux disease without esophagitis; F17.210 Nicotine dependence, cigarettes, uncomplicated; E86.0 Dehydration; R73.9 Hyperglycemia, unspecified
CPT/HCPCS: 36415; 74177; 80048; 80053; 83690; 84145; 87040; 87449; 93005; 94640; 96361; 96365; 96375; 99223; 99233; 99291; 99316; J1650; NC; 71260; 81003; 81015; 82043; 82565; 82570; 83036; 83605; 83735; 84156; 84484; 85025; 87450; 87581; 93010; 99239; J0713; J2405; J2930; J3490; J7512; J7613; J7620

== ENCOUNTER 2019-09-04 01:52 | Outpatient (CLI) | payer MEDICAID, SELFPAY ==
--- NOTE | 2019-09-04 13:35 | DI.MRI_ITS ---
EXAM: MR LUMBAR SPINE WO CLINICAL HISTORY: LUMBAR RADICULOPATHY, DORSALGIA, M54.9. TECHNIQUE: Multiplanar multisequence MRI was performed. COMPARISON: No exams were available for comparison FINDINGS: Conus medullaris has a normal appearance and location. At L5-S1, there is disc desiccation. Endplate degenerative changes are seen. There is a diffuse dis c bulge present. Degenerative changes of the facets are noted. These all contribute to cause mild n arrowing of the central spinal canal. There is mild right and moderately severe left neural foramina l stenosis. At L4-L5, there is disc desiccation. There is a right paracentral disc herniation with extrusion pos terior to the L5 vertebral body. This causes right lateral recess stenosis. There is compression of the right L5 nerve root. Degenerative changes of the facets and ligamentum hypertrophy are also not ed. These all contribute to cause moderate narrowing of the central spinal canal. There is moderate right and [id number] left neural foraminal stenosis. At L3-L4, there is no focal disc herniation or central spinal canal stenosis. No significant neural foraminal stenosis is present. At L2-3 and L1-L2, there is no focal disc herniation, central spinal canal, or neural foraminal steno sis. Apart from the degenerative endplate signal changes, marrow signal is within normal limits. IMPRESSION: 1. Moderate-sized right paracentral disc herniation at L4-L5 with extrusion posterior to the L5 verte bral body. This causes right lateral recess stenosis and compression of the right L5 nerve root. 2. Multilevel degenerative changes in the lumbar spine resulting in multilevel central spinal canal a nd neural foraminal stenosis. The findings are most marked at L4-5 and L5-S1.
== END 2019-09-04 02:12 ==
PROVIDERS: PCP Family Medicine; Visit Provider Nurse Practitioner
DX: M54.5 Low back pain (principal); M51.26 Other intervertebral disc displacement, lumbar region; M51.17 Intervertebral disc disorders with radiculopathy, lumbosacral region; M99.73 Connective tissue and disc stenosis of intervertebral foramina of lumbar region
CPT/HCPCS: 72148

== ENCOUNTER 2019-09-30 05:26 | Emergency (ER) | payer MEDICAID, SELFPAY ==
[2019-09-30 05:38] VITALS: BP 133/108; PULSE 107; RESP 24; TEMP 37.1; O2SAT 94
--- NOTE | 2019-09-30 06:10 | DI.RAD_ITS ---
EXAM: XR ANKLE RT COMPLETE INDICATION: ankle pain after twisting. COMPARISON: No exams were available for comparison TECHNIQUE: 2D digital imaging was performed. FINDINGS: No fracture or dislocation is seen. There is no evidence of a talar dome defect or ankle mortise wid ening. IMPRESSION: Negative right ankle.
--- NOTE | 2019-09-30 06:16 | ED.GENADUL_ITS ---
Discharge Plan Disposition Patient Disposition: HOME Condition: Good Discharge Details Chief Complaint: Orthopedic Clinical Impression: Acute right ankle pain Primary Care Provider: Winston Truong ED Provider: Benson Pettit Home Meds and New Rx's Prescriptions: New acetaminophen [Mapap Extra Strength] 500 MG tablet 1,000 mg PO Q6H 5 Days Qty: 60 RF: 0 ibuprofen [Motrin IB] 200 MG tablet 600 mg PO Q6H 5 Days Qty: 60 RF: 0 lidocaine [Lidoderm] 1 PATCH patch 1 patch Topical Q24H Qty: 4 RF: 0 No Action cyclobenzaprine 5 mg tablet 5 mg PO TID PRN (Reason: muscle spasm) Qty: 60 RF: 2 fluticasone propionate 50 mcg/actuation spray,suspension 1 spray NS DAILY Qty: 1 RF: 0 Flovent HFA 110 mcg/actuation HFA aerosol inhaler 2 puff Inhalation BID Qty: 1 RF: 4 Nicotrol 10 mg cartridge 1 inh IH 4-6XD PRN (Reason: nicotine cravings) Qty: 168 RF: 1 ranitidine HCl 150 mg tablet 150 mg PO BID PRN (Reason: heartburn/reflux) Qty: 180 RF: 4 prednisone 20 mg tablet See Rx Instructions PO .COMPLEX Qty: 21 RF: 0 sertraline 100 mg tablet 150 mg PO DAILY Qty: 135 RF: 4 albuterol sulfate 90 mcg/actuation HFA aerosol inhaler 2 puff IH QID PRN (Reason: shortness of breath) Qty: 18 RF: 0 albuterol sulfate 5 mg/mL solution for nebulization 2.5 mg IH Q4H PRN (Reason: shortness of breath) Qty: 20 RF: 0 Discharge Instructions Instructions: Musculoskeletal Pain (ED) Additional Instructions: At this time there is no fracture in your ankle. As we discussed there is concern for potential blood clot however I feel this less likely. Please follow-up for the ultrasound on Wednesday. Please call the radiology department with a number on the sheet. I suspect you have a notable sprain. Please take the Tylenol, Motrin and Lidoderm patch as directed. If your insurance does not cover the Lidoderm patch you can get [id number] 4% Lidoderm patches for low cost. Please keep off your foot completely and is a walking boot and crutches as directed. If you notice any worsening of your symptoms, or any new symptoms such as redness, warmth, vomiting, diarrhea, fever, chills, shortness of breath, chest pain, numbness, weakness, or fainting , please return immediately to the emergency department for reevaluation. Please follow up with your primary care provider as soon as possible for reassessment and ree valuation. As always, it was a pleasure participating in your medical care today. Referrals: Winston Truong MD [Primary Care Provider] - Discharge Data Discharge Date/Time-TO BE ENTERED AT DEPARTURE: 09/30/19 07:06 Medical Decision Making This is a 54-year-old male who presents today for evaluation of right ankle pain. Over the last 1 to 2 weeks he has sprained his ankle, but unfortunately has continued to perform activities which consistently makes it worse and worse. He has been taking naproxen which does help, however recent physical activity again certainly exacerbated his symptoms. He presents today by EMS for further evaluation. Exam demonstrates mild tenderness over the ankle and by the Achilles tendon. Clinical exam shows no evidence of rupture, normal neurovascular exam, no evidence of cellulitis or infection. No pitting edema. No risk factors for DVT. Signs and symptoms appear consistent with a sprain, however DVT although unlikely is on the differential. X-ray is negative for acute process. Recommend continued NSAIDs, Lidoderm patch, walking boot and crutches to remain off of it to allow for adequate healing. Discussed potential anticoagulation while waiting for the ultrasound, however weighing risk and benefits patient would like to hold off her anticoagulation therapy at this time. Discussed the risks of this and the patient understands clearly. Patient will be discharged home with close follow-up with his PCP, as scheduled outpatient ultrasound. I have extensively reviewed the treatment plan and discharge instructions with the patient. I have addressed all patient concerns at this time. The patient was made aware of what symptoms to monitor for that wo uld warrant a return to the emergency department. Discussed the plan with the patient, they demonstrate verbal understanding and agreement with our assessment and plan at this time. FINDINGS: Bones/joints: Normal. Soft tissues: Normal. IMPRESSION: No acute findings. Thank you for allowing us to participate in the care of your patient. Dictated and Authenticated by: Segundo Aguilar MD 09/30/2019 6:22 AM Eastern Time ([place] & [place]) HPI General Date/Time Provider Initiated Documentation: 09/30/19 05:27 . HPI Narrative: This is a 54-year-old male with a past medical history of ray nods syndrome, chronic radiculopathy, depression, COPD who presents today for evaluation of right calf and ankle pain. Patient states that few weeks ago he had sprained his ankle and calf by doing outdoor activities, he has been taking naproxen for this, however in spite of this he is still been doing physical vigorous physical activities regularly. He recently did some hiking, outdoor gardening, and other activities. Each time it significantly makes his symptoms worse. He presents tonight with continued pain in the lower extremity with activity. He has stopped taking his naproxen because he is right now. He presents by EMS for this. He denies any new numbness tingling or weakness. He denies any history of DVT or blood clots. He denies any previous PE, DVT, long trips, surgeries, or procedures. He has no other complaints at this time. Related Data Home Medications Medication Instructions Recorded Confirmed albuterol sulfate 2 puff IH QID PRN #18 gm 03/18/19 08/25/19 albuterol sulfate 2.5 mg IH Q4H PRN #20 ml 03/18/19 08/25/19 fluticasone propionate 110 2 puff INHALATION BID #1 inhaler 03/23/19 08/25/19 mcg/actuation HFA aerosol inhaler fluticasone propionate 50 1 spray NS DAILY #1 script 03/23/19 08/25/19 mcg/actuation nasal spray,suspension nicotine 10 mg inhalation cartridge 1 inh IH 4-6XD PRN #168 each 05/12/19 08/25/19 ranitidine HCl 150 mg tablet 150 mg PO BID PRN #180 tab 07/03/19 08/25/19 cyclobenzaprine 5 mg tablet 5 mg PO TID PRN #60 tab 07/27/19 08/25/19 sertraline 100 mg tablet 150 mg PO DAILY #135 tab 08/16/19 08/25/19 prednisone 20 mg tablet See Rx Instructions PO .COMPLEX 08/25/19 08/25/19 #21 tab acetaminophen [Mapap Extra 1,000 mg PO Q6H 5 Days #60 tab 09/30/19 Strength] ibuprofen [Motrin Ib] 600 mg PO Q6H 5 Days #60 tab 09/30/19 lidocaine [Lidoderm] 1 patch TOPICAL Q24H #4 patch 09/30/19 Previous Rx's Medication Instructions Recorded albuterol sulfate 2 puff IH QID PRN #18 gm 03/18/19 albuterol sulfate 2.5 mg IH Q4H PRN #20 ml 03/18/19 fluticasone propionate 110 2 puff INHALATION BID #1 inhaler 03/23/19 mcg/actuation HFA aerosol inhaler fluticasone propionate 50 1 spray NS DAILY #1 script 03/23/19 mcg/actuation nasal spray,suspension nicotine 10 mg inhalation cartridge 1 inh IH 4-6XD PRN #168 each 05/12/19 ranitidine HCl 150 mg tablet 150 mg PO BID PRN #180 tab 07/03/19 cyclobenzaprine 5 mg tablet 5 mg PO TID PRN #60 tab 07/27/19 sertraline 100 mg tablet 150 mg PO DAILY #135 tab 08/16/19 prednisone 20 mg tablet See Rx Instructions PO .COMPLEX 08/25/19 #21 tab acetaminophen [Mapap Extra 1,000 mg PO Q6H 5 Days #60 tab 09/30/19 Strength] ibuprofen [Motrin Ib] 600 mg PO Q6H 5 Days #60 tab 09/30/19 lidocaine [Lidoderm] 1 patch TOPICAL Q24H #4 patch 09/30/19 Allergies Allergy/AdvReac Type Severity Reaction Status Date / Time Penicillins Allergy RASH Verified 09/26/19 09:47 aspirin AdvReac UPSET Verified 09/26/19 09:47 STOMACH General Stated Complaint: Orthopedic ALMAS: 3 Review of Systems All systems reviewed & are unremarkable except as noted in HPI and below PFSH Social History Smoking/Tobacco Use Status: Current every day Tobacco Type: cigarettes Alcohol Intake: former Year quit: 1998 Drug use: Never Substance use type: does not use Do you feel safe at home: Yes Do you feel safe in your relationship?: Yes Exam Narrative Exam Narrative: 1.Const: Well-nourished, Well-developed, appearing stated age 2.Eyes: PERRL, no conjunctival injection, and symmetrical lids. 3.ENT: Atraumatic external nose and ears. Moist MM. Neck: Symmetric, trachea midline, No thyromegaly. 4.CVS: +S1/S2, No murmurs or gallops. Peripheral pulses 2+ and equal in all extremities. Brisk capillary refill in all extremities. 5.RESP: Unlabored respiratory effort. Clear to auscultation bilaterally. No wheezes rales or rhonchi 6.GI: Soft, Nontender/Nondistended, No hepatosplenomegaly. No guarding or rebound. 7.MSK: Normocephalic, Extremities w/o deformity, right lower extremity: No cyanosis or clubbing, mild tenderness over the Achilles tendon, as well as over the ankle. Minimal swelling. Normal neurovascular exam, brisk capillary refill, normal sensation throughout. Normal dorsalis pedis and posterior tibial pulses. No posterior popliteal pain. No pitting edema. No significant redness, warmth, fluctuance or signs of an abscess or infection. Negative Homans sign. No evidence of tendon disruption or laxity. 8.Skin: Warm, Dry. No rashes or lesions. Please see musculoskeletal. 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 Sensation grossly intact, no focal neurologic deficits. 10.Psych: (AAO) x3. Appropriate mood and affect Course Vital Signs Vital signs: Vital Signs Temperature 37.1 C 09/30/19 05:38 Pulse 107 H 09/30/19 05:38 Respiratory Rate 24 09/30/19 05:38 Blood Pressure 133/108 H 09/30/19 05:38 Pulse Oximetry 94 L 09/30/19 05:38 Temperature 37.1 C 09/30/19 05:38 Temperature Source Temporal Artery Scan 09/30/19 05:38 Pulse 107 H 09/30/19 05:38 Respiratory Rate 24 09/30/19 05:38 Blood Pressure 133/108 H 09/30/19 05:38 Blood Pressure Position Supine 09/30/19 05:38 Pulse Oximetry 94 L 09/30/19 05:38 Oxygen Delivery Method Room Air 09/30/19 05:38 Oxygen Flow Rate 0 09/30/19 05:38 Pain Level 6 09/30/19 05:38
--- NOTE | 2019-09-30 06:24 | DI.VRAD_ITS ---
PROCEDURE INFORMATION: Exam: XR Right Ankle Exam date and time: 09/30/2019 6:13 AM Age: 54 years old Clinical history: Ankle; Right; Patient HX: Pain after twisting injury TECHNIQUE: Imaging protocol: XR Right ankle. Views: 3 or more views. COMPARISON: No relevant prior studies available. FINDINGS: Bones/joints: Normal. Soft tissues: Normal. IMPRESSION: No acute findings. Dictated and Authenticated by: Segundo Aguilar MD. Ordering:ARIEL Knowles MD
--- NOTE | 2019-10-03 09:30 | NUR.NOTE ---
Nursing Note: Per Radiology the patient was a no show for his leg US today. Joanie Jain.
== END 2019-09-30 07:06 | disposition home or self-care (01) ==
PROVIDERS: Emergency Provider Student in an Organized Health Care Education/Training Program; PCP Family Medicine
DX: M25.571 Pain in right ankle and joints of right foot (principal); J44.9 Chronic obstructive pulmonary disease, unspecified; F17.210 Nicotine dependence, cigarettes, uncomplicated
CPT/HCPCS: 99283; 73610; E0114; L4361

== ENCOUNTER 2019-10-09 11:43 | Emergency (ER) | payer MEDICAID, SELFPAY ==
[2019-10-09 11:50] VITALS: BP 135/92; PULSE 55; RESP 16; TEMP 36.7; O2SAT 99
--- NOTE | 2019-10-09 12:04 | ED.GENADUL_ITS ---
Discharge Plan Disposition Patient Disposition: HOME Condition: Good Discharge Details Chief Complaint: Orthopedic Clinical Impression: Achilles tendinitis Primary Care Provider: Winston Truong ED Provider: Lisy Pretty Home Meds and New Rx's Prescriptions: New acetaminophen [Tylenol Extra Strength] 500 mg tablet 1,000 mg PO Q4H PRN (Reason: pain) Qty: 30 RF: 0 ibuprofen 200 mg capsule 600 mg PO Q6H PRN (Reason: pain) Qty: 60 RF: 0 lidocaine [Lidoderm] 5 % adhesive patch,medicated 1 patch TP DAILY PRN (Reason: pain) Qty: 15 RF: 0 Continued cyclobenzaprine 5 mg tablet 5 mg PO TID PRN (Reason: muscle spasm) Qty: 60 RF: 2 fluticasone propionate 50 mcg/actuation spray,suspension 1 spray NS DAILY Qty: 1 RF: 0 Flovent HFA 110 mcg/actuation HFA aerosol inhaler 2 puff Inhalation BID Qty: 1 RF: 4 Nicotrol 10 mg cartridge 1 inh IH 4-6XD PRN (Reason: nicotine cravings) Qty: 168 RF: 1 ranitidine HCl 150 mg tablet 150 mg PO BID PRN (Reason: heartburn/reflux) Qty: 180 RF: 4 sertraline 100 mg tablet 150 mg PO DAILY Qty: 135 RF: 4 albuterol sulfate 90 mcg/actuation HFA aerosol inhaler 2 puff IH QID PRN (Reason: shortness of breath) Qty: 18 RF: 0 albuterol sulfate 5 mg/mL solution for nebulization 2.5 mg IH Q4H PRN (Reason: shortness of breath) Qty: 20 RF: 0 lidocaine [Lidoderm] 1 PATCH patch 1 patch Topical Q24H Qty: 4 RF: 0 Discharge Instructions Instructions: Tendinitis (ED) Additional Instructions: Encourage hydration. Encourage rest, ice, elevation. Please take medications as prescribed to help with discomfort. You may continue with boot and crutches while pain persists. Heel wedge may be of benefit to help with your tendinitis. Please keep your coming appointment with primary care. If you develop fever/chills, increased pain or other new/worsening symptoms please seek care urgently once again. Please physical therapy to schedule appointment, referral is attached. Stand Alone Forms: Physical Therapy Referral Referrals: Winston Truong MD [Primary Care Provider] - Discharge Data Discharge Date/Time-TO BE ENTERED AT DEPARTURE: 10/09/19 13:36 Medical Decision Making Patient is a 54-year-old male presents today with chief complaint of continued right ankle and calf pain. He was seen here on 09/30/2019 at that time, patient had normal x-rays. Provider had a remote concern for possible DVT and did order an outpatient ultrasound, the patient did not complete this. He reports that he was not able to go secondary to the discomfort in the right lower extremity. Has not followed up with his primary care. Denies any fevers or chills. No new trauma. He has been wearing boot as advised previously. Initial injury was after patient had rolled his ankle a few weeks prior to arrival. On exam, patient has a normal neurovascular exam. 2+ distal pulses. Good capillary refill. Pain seems to be primarily over the Achilles tendon, I am concerned for Achilles tendinitis. However, patient is indicating pain that radiates up into the calf. Negative Homans sign. However, given the patient's continued discomfort and severity, I agree with the previous provider and ruling out DVT with an ultrasound. He has not taken anything discomfort today. Will give ibuprofen. Patient is reports he is out of my pain medication. I reviewed the note and patient was prescribed Tylenol, ibuprofen Lidoderm patch. US reviewed by radiologist: The right common femoral, femoral and popliteal veins demonstrate normal compressibility, augmentation, and color Doppler. The posterior tibial veins are patent.The saphenofemoral junction is unremarkable. IMPRESSION: No right DVT. Discussed findings with the patient. He has no new trauma, no palpable deformity, US negative. His history and exam is most consistent with Achilles tendonitis. Encouraged RICE. Advised NSAID. Advised heel lift. he will continue with boot and crutches while pain persits. Advised PT, referral given. We discussed new/worsening symptoms and when to seek care urgently once again. I advised f/u with PCP in one week for reevaluationl All of his questions and concerns were addresed, he is in agreeemtn with this plan. HPI General Mode of arrival: ambulatory (crutches) . Date/Time Provider Initiated Documentation: 10/09/19 11:53 . Limitations to Documentation: no limitations . Information obtained by: patient and RN notes reviewed . History of Present Illness 54 year old M presents to the emergency department with the chief complaint of right ankle and calf pain, described as severe, with intensity rated at 10. Quality is described as aching, and is localized to the right and lower extremity. Patient extremity (proximally into calf). Patient started experiencing this month(s) (1) and it has been constant. Immobilization improves symptom(s), Movement worsens symptoms . Patient notes no other symptoms.. Patient did receive the following treatments prior to arrival, none Related Data Home Medications Medication Instructions Recorded Confirmed albuterol sulfate 2 puff IH QID PRN #18 gm 03/18/19 10/09/19 albuterol sulfate 2.5 mg IH Q4H PRN #20 ml 03/18/19 10/09/19 fluticasone propionate 110 2 puff INHALATION BID #1 inhaler 03/23/19 10/09/19 mcg/actuation HFA aerosol inhaler fluticasone propionate 50 1 spray NS DAILY #1 script 03/23/19 10/09/19 mcg/actuation nasal spray,suspension nicotine 10 mg inhalation cartridge 1 inh IH 4-6XD PRN #168 each 05/12/19 10/09/19 ranitidine HCl 150 mg tablet 150 mg PO BID PRN #180 tab 07/03/19 10/09/19 cyclobenzaprine 5 mg tablet 5 mg PO TID PRN #60 tab 07/27/19 10/09/19 sertraline 100 mg tablet 150 mg PO DAILY #135 tab 08/16/19 10/09/19 lidocaine [Lidoderm] 1 patch TOPICAL Q24H #4 patch 09/30/19 10/09/19 acetaminophen [Tylenol Extra 1,000 mg PO Q4H PRN #30 tab 10/09/19 Strength] ibuprofen 600 mg PO Q6H PRN #60 cap 10/09/19 lidocaine [Lidoderm] 1 patch TP DAILY PRN #15 each 10/09/19 Previous Rx's Medication Instructions Recorded albuterol sulfate 2 puff IH QID PRN #18 gm 03/18/19 albuterol sulfate 2.5 mg IH Q4H PRN #20 ml 03/18/19 fluticasone propionate 110 2 puff INHALATION BID #1 inhaler 03/23/19 mcg/actuation HFA aerosol inhaler fluticasone propionate 50 1 spray NS DAILY #1 script 03/23/19 mcg/actuation nasal spray,suspension nicotine 10 mg inhalation cartridge 1 inh IH 4-6XD PRN #168 each 05/12/19 ranitidine HCl 150 mg tablet 150 mg PO BID PRN #180 tab 07/03/19 cyclobenzaprine 5 mg tablet 5 mg PO TID PRN #60 tab 07/27/19 sertraline 100 mg tablet 150 mg PO DAILY #135 tab 08/16/19 lidocaine [Lidoderm] 1 patch TOPICAL Q24H #4 patch 09/30/19 acetaminophen [Tylenol Extra 1,000 mg PO Q4H PRN #30 tab 10/09/19 Strength] ibuprofen 600 mg PO Q6H PRN #60 cap 10/09/19 lidocaine [Lidoderm] 1 patch TP DAILY PRN #15 each 10/09/19 Allergies Allergy/AdvReac Type Severity Reaction Status Date / Time Penicillins Allergy RASH Verified 10/09/19 11:55 aspirin AdvReac UPSET Verified 10/09/19 11:55 STOMACH General Stated Complaint: Orthopedic ALMAS: 3 Review of Systems Constitutional Constitutional: Reports as per HPI, Denies chills, Denies fever(s), Denies headache(s) and Denies weakness ENT Ears, Nose, Mouth, and Throat: Denies headache(s) Cardiovascular Cardiovascular: Reports as per HPI Respiratory Respiratory: Reports as per HPI and Denies cough Musculoskeletal Musculoskeletal: Reports as per HPI and Denies tingling Integumentary/Breasts Skin/Breast: Reports as per HPI, Denies rash and Denies wounds Neurologic Neurologic: Reports as per HPI, Denies headache(s), Denies tingling, Denies paresthesias and Denies weakness [facility] Medical History COPD (chronic obstructive pulmonary disease) (Chronic 02/14/15) PFT's show severe obstructive disease with bronchodilator response; PFT 02/13/2015, [id number]%, FEV1/FVC 67%, post BD FEV1 50% FEV1/FVC 72% Depressive disorder (Chronic) Gastroesophageal reflux disease (Chronic) History of tobacco use (Chronic) 48 pack years Sarcoidosis (Chronic 02/04/16) Shortness of breath (Chronic) Ventral hernia (Chronic) Social History Smoking/Tobacco Use Status: Current every day Tobacco Type: cigarettes Alcohol Intake: former Year quit: 1998 Drug use: Never Substance use type: does not use Do you feel safe at home: Yes Do you feel safe in your relationship?: Yes Exam Const General: cooperative, healthy appearing, comfortable, no acute distress, well developed and well groomed Nutritional Appearance: average body habitus and well nourished Orientation: alert and awake Resp Effort & Inspection: normal respiratory effort, able to speak in complete sentences and no respiratory distress Cardio Rate: regular rate Rhythm: regular rhythm Skin General skin exam: no rashes or lesions noted Lesions: no lesions Rashes: no rashes Trauma: no lacerations or abrasions Neuro General: alert and awake Cognition: normal cognition Speech: speech normal Gait: normal gait Motor: muscle tone normal throughout Sensory Exam: no sensory deficits noted Extrem General: full ROM, normal capillary refill, no joint enlargement, no pedal edema, calf tenderness (right sided calf tenderness) and abnormal gait (patient using crutches and boot) Right lower extremity: normal to inspection, full ROM, normal capillary refill, no joint enlargement, knee Details: normal to inspection and normal ROM; no tenderness and no swelling, lower leg Details: normal to inspection, tenderness Location: of the posterior calf and no edema; no localized swelling, no palpable cords, no abrasions, no ecchymosis, no crepitus, no foreign bodies, no deformity and no unusual warmth, ankle Details: normal to inspection, tenderness Location: of the achilles tendon, no edema and normal ROM; no swelling, no unusual warmth, no ecchymosis, no crepitus and achilles tendon exam normal (negative Low test, no palpable deformity) and foot Details: normal capillary refill, normal to inspection and vascular exam Details: dorsalis pedis pulse present and normal capillary refill; no tenderness; no cyanosis and no edema Psych Appearance: grossly normal and well kempt Mental Status: mental status grossly normal Speech and Movement: speech and movement normal Course Vital Signs Vital signs: Vital Signs Temperature 36.7 C 10/09/19 11:50 Pulse 55 L 10/09/19 11:50 Respiratory Rate 16 10/09/19 11:50 Blood Pressure 135/92 H 10/09/19 11:50 Pulse Oximetry 99 10/09/19 11:50 Temperature 36.7 C 10/09/19 11:50 Temperature Source Temporal Artery Scan 10/09/19 11:50 Pulse 55 L 10/09/19 11:50 Respiratory Rate 16 10/09/19 11:50 Respiratory Effort Non-Labored 10/09/19 11:59 Blood Pressure 135/92 H 10/09/19 11:50 Blood Pressure Position Supine 10/09/19 11:50 Pulse Oximetry 99 10/09/19 11:50 Oxygen Delivery Method Room Air 10/09/19 11:50 Oxygen Flow Rate 0 10/09/19 11:50 Pain Level 10 10/09/19 11:50
[2019-10-09] MEDS: Ibuprofen 600 MG TAB PO (12:17)
--- NOTE | 2019-10-09 12:31 | DI.US_ITS ---
EXAM: US LOWER EXTREMITY VENOUS, RIGHT CLINICAL HISTORY: right posterior calf pain TECHNIQUE: Right lower extremity venous ultrasound performed using grayscale, color-flow, and spectr al Doppler analysis. COMPARISON: No exams were available for comparison FINDINGS: The right common femoral, femoral and popliteal veins demonstrate normal compressibility, augmentatio n, and color Doppler. The posterior tibial veins are patent.The saphenofemoral junction is unremarkab le. IMPRESSION: No right DVT.
[2019-10-09 13:16] VITALS: BP 135/84; PULSE 112; RESP 20; TEMP 36.9; O2SAT 93
== END 2019-10-09 13:36 | disposition home or self-care (01) ==
PROVIDERS: Emergency Provider Physician Assistant; PCP Family Medicine
DX: M79.605 Pain in left leg (principal); J44.9 Chronic obstructive pulmonary disease, unspecified; F17.210 Nicotine dependence, cigarettes, uncomplicated
CPT/HCPCS: 99284; 93971; 99283

== ENCOUNTER 2019-11-01 16:56 | Inpatient (IN) | payer MEDICAID, SELFPAY ==
[2019-11-01] VITALS (12 sets, daily range): BP systolic 119–169; BP diastolic 74–97; PULSE 90–110; RESP 4–19; TEMP 36.7–37.2; O2SAT 94–99
[2019-11-01 17:23] LABS: Abs Immature Grans 0.01 k/cumm (0.0-0.09); Absolute Basophil Count 0.04 k/cumm (0.0-0.2); Absolute Eosinophil Count 0.67 k/cumm (0.0-0.7); Absolute Lymphocyte Count 0.78 k/cumm (1.2-3.4); Absolute Monocyte Count 0.98 k/cumm (0.11-0.7); Absolute Neutrophil Count 3.92 k/cumm (1.2-6.7); Basophils % 0.6; Eosinophils % 10.5; HCT 39.6 % (40.0-50.0); HGB 13.1 g/dL (13.5-17.5); Immature Grans % 0.2; Lymphocytes % 12.2; Mean Corp. HGB Concentration 33.1 g/dL (32.0-36.0); Mean Corpuscular Hemoglobin 27.8 pg (27.0-33.0); Mean Corpuscular Volume 83.9 fL (80-95); Mean Platelet Volume 9.3 fL (8.0-11.0); Monocytes % 15.3; Neutrophils % 61.2; Platelet Count 264 x1000/uL (130-400); RBC 4.72 m/cumm (4.50-6.00); RBC Distribution Width 14.8 % (11.8-14.1)
[2019-11-01] MEDS: Ondansetron 4 MG/2 ML VIAL IVP (17:27)
[2019-11-01] MEDS: Normal Saline 1,000 ML 1000 ML IV (17:27)
[2019-11-01 17:34] LABS: ALT 33 U/L (16-63); AST 32 U/L (15-37); Albumin 3.6 g/dL (3.4-5.0); Alkaline Phosphatase 150 U/L (46-116); Anion Gap 10.9 mmol/L (3-11); BUN 31 mg/dL (7-18); Bilirubin, Total 0.3 mg/dL (0.2-1.0); CO2 27.1 mmol/L (21.0-32.0); CREATININE 1.78 mg/dL (0.70-1.30); Calcium 9.9 mg/dL (8.5-10.1); Chloride 102 mmol/L (98-107); Estimated GFR 39.73 (mL/min/1.73m2); Glucose 104 mg/dL (74-106); Lipase 203 U/L (73-393); Sodium 140 mmol/L (136-145); Total Protein 8.5 g/dL (6.4-8.2)
--- NOTE | 2019-11-01 17:36 | DI.RAD_ITS ---
EXAM: XR CHEST 2V PA LATERAL CLINICAL HISTORY: cough r/o pneumonia. TECHNIQUE: 2D digital imaging was performed. COMPARISON: XR PORTABLE CHEST AP from 03/18/2019 FINDINGS: LUNGS: Clear. No pleural abnormality seen. HEART: Normal. MEDIASTINUM: Normal. OTHER FINDINGS:Normal. IMPRESSION: No acute pulmonary findings.
[2019-11-01 17:53] LABS: Bilirubin Negative (Negative); Blood Trace-intact (Negative); Clarity Clear (Clear); Glucose Negative (Negative); Ketones Negative (Negative); Leukocyte Esterase Negative (Negative); Nitrite Negative (Negative); Urobilinogen 0.2 EU/dL (Up TO 0.2); pH 6.5 (5-8)
--- NOTE | 2019-11-01 17:59 | DI.CT_ITS ---
EXAM: CT ABDOMEN PELVIS WO CLINICAL HISTORY: abdominal pain right sided TECHNIQUE: Imaging Protocol: Axial computed tomography images with coronal and sagittal reformatted images were created and reviewed. COMPARISON: ABD PELVIS WITH CONTRAST from 01/28/2016 CT CHEST/ABD/PEL W from 04/28/2019 FINDINGS: ABDOMEN: Lung Bases: There is a small infiltrate in the right lower lobe which may represent a pneumonia. The re is a nodule seen in the left lower lobe which is unchanged compared to the examination from 2015. Liver: There is decreased attenuation of the liver consistent with fatty infiltration. The liver aga in shows lobulated contour with an enlarged left lobe and caudate lobe consistent with hepatic cirrho sis. Gallbladder and biliary tract: Contracted. No biliary ductal dilatation. Pancreas: Normal density, no abnormal calcifications or inflammatory process. Spleen: Splenomegaly. Kidneys: Normal size, contour and axis. No radiodense stones or obstructive uropathy. Round hypodense lesions are again seen in the kidneys bilaterally consistent with the patient's known cysts. Adrenal glands: No masses seen. Lymph nodes: Mildly enlarged lymph nodes are seen in the retroperitoneum and upper abdomen. No patho logically enlarged lymph nodes are seen. Abdominal Aorta: Abdominal portion non-dilated. PELVIS: Bladder: Mild bladder wall thickening. This may be due to underdistention. Inflammarory infectious cystitis cannot be excluded. Please correlate clinically. Bowel: There is diverticulosis of the colon but no evidence of acute diverticulitis. There is stool throughout the colon suggesting constipation. No evidence of an acute appendicitis or bowel obstruct ion is seen. Peritoneal cavity: No ascites, collection or mesenteric inflammatory response. Small fat containing u mbilical hernia is seen. There is a midline supraumbilical fat containing hernia. Reproductive organs: Within normal limits. Bones: Degenerative changes are present throughout the spine. IMPRESSION: 1. No evidence of an acute abdomen. 2. Stable chronic findings in the abdomen and pelvis as described above. 3. Question of a right basilar pulmonary infiltrate. DATA REPOSITORY: All CT scans at this facility are submitted to the National Radiology Data Registry (NRDR) Dose Index Registry (DIR) with the [employer] (A[employer]). RADIATION OPTIMIZATION: All CT scans at this facility use at least one of these dose optimization te chniques: automated exposure control; mA and/or kV adjustment per patient size (includes targeted exa ms where dose is matched to clinical indication); or iterative reconstruction.
[2019-11-01 18:10] LABS: Bacteria Negative HPF (Negative); C & S Indicated? No; Crystals Negative HPF (Negative); Epithelial Cells Negative HPF (Negative); Mucus Negative (Negative); WBC 0-2 HPF (0-5)
--- NOTE | 2019-11-01 18:15 | DI.VRAD_ITS ---
PROCEDURE INFORMATION: Exam: CT Abdomen And Pelvis Without Contrast Exam date and time: 11/01/2019 5:57 PM Age: 54 years old Clinical indication: Nausea and vomiting and other: Diarrhea; Patient HX: N/v/d; Per PT: Unable to hold anything down TECHNIQUE: Imaging protocol: Computed tomography of the abdomen and pelvis without contrast. COMPARISON: CT CHEST/ABD/PEL W 04/28/2019 1:19 AM FINDINGS: Lungs: Tiny tree in bud opacities in the right lung base are most likely infectious/inflammatory in etiology. 6 mm nodule in the left lower lobe is nonspecific. For patients at low risk (minimal or absent history of smoking and of other known risk factors), recommend CT at 6-12 months, then consider CT at 18-24 months. For patients at high risk (history of smoking or of other known risk factors), recommend CT at 6-12 months, then CT at 18-24 months. (Jenifer et al., Fleischner Society, 2017) Liver: There is mild enlargement of the liver. There is a diffuse decrease in hepatic parenchymal density, consistent with fatty infiltration. The liver has a nodular contour and there is relative hypertrophy of the caudate lobe, consistent with cirrhosis. These findings are essentially stable. No acute liver pathology is appreciated. Gallbladder and bile ducts: The gallbladder is contracted. Pancreas: Normal. No ductal dilation. Spleen: There is mild nonspecific splenomegaly. Adrenals: Normal. No mass. Kidneys and ureters: Bilateral renal cysts are essentially stable, the largest in the left kidney measuring up to 3.2 cm. No acute renal findings. As no obstructive uropathy. Stomach and bowel: No bowel wall thickening, obstruction, or other acute pathology. Diffuse colonic diverticulosis is present. There is excessive colonic stool content. Appendix: No evidence of appendicitis. Intraperitoneal space: Unremarkable. No free air. No significant fluid collection. Vasculature: There is recanalization of the umbilical vein, favoring portal hypertension. No acute vascular pathology is appreciated. Lymph nodes: There is periportal adenopathy, most likely related to underlying hepatocellular disease. No other concerning adenopathy. Bladder: Mild wall thickening of the urinary bladder is nonspecific. This could be related to underdistention versus sequela of cystitis in the appropriate clinical setting. Reproductive: Unremarkable as visualized. Bones/joints: No acute skeletal pathology. Mild multilevel degenerative changes of the spine, as manifested by multilevel anterior osteophytes and multilevel decrease in intervertebral disc space. Soft tissues: Small fat-containing umbilical hernia is appreciated. IMPRESSION: 1. Negative for acute abdominopelvic pathology. 2. Stable/chronic findings as detailed above. Dictated and Authenticated by: Porfirio Vega MD. Ordering:LEELA Muhammad MD
--- NOTE | 2019-11-01 18:16 | DI.VRAD_ITS ---
PROCEDURE INFORMATION: Exam: XR Chest, 2 Views Exam date and time: 11/01/2019 5:41 PM Age: 54 years old Clinical indication: Cough; Additional info: R/O pneumonia TECHNIQUE: Imaging protocol: XR of the chest Views: 2 views. COMPARISON: CR XR PORTABLE CHEST AP 03/18/2019 5:26 AM FINDINGS: Lungs: Unremarkable. No consolidation. Pleural space: Unremarkable. No pleural effusion. No pneumothorax. Heart/Mediastinum: Unremarkable. No cardiomegaly. Bones/joints: Unremarkable. IMPRESSION: No acute findings. Dictated and Authenticated by: Porfirio Vega MD. Ordering:LEELA Muhammad MD
[2019-11-01] MEDS: Albuterol/Ipratropium 3 ML UPD VIAL UPD ×2 (19:11→21:55)
[2019-11-01] MEDS: methylPREDNISolone SUCC 125 MG VIAL IVP (19:12)
[2019-11-01] MEDS: cefTRIAXone 1 GM/50 ML BAG IVPB ×2 (19:14→21:56)
[2019-11-01 19:23] LABS: Troponin I < 0.05 ng/Ml (<0.06)
[2019-11-01] MEDS: AZITHROMYCIN 500 MG in Normal Saline 250 ML 250 MG IVPB (19:49)
--- NOTE | 2019-11-01 20:10 | HPE_ITS ---
Date of service: 11/01/19 Time of Service: 20:10 Assessment and Plan Assessment and plan (1) Community acquired pneumonia: Status: Acute Assessment and plan: Continue Rocephin and azithromycin which was started in the emergency department. We will treated with IV corticosteroids given his bronchospasm and underlying COPD. We will treat him with aerosolized bronchodilators. Qualifiers: Laterality: right Lung location: lower lobe of lung Qualified Code(s): J18.1 - Lobar pneumonia, unspecified organism (2) COPD (chronic obstructive pulmonary disease): Status: Chronic Assessment and plan: Continue his inhaled corticosteroids along with scheduled aerosolized beta agonist bronchodilators. Treat for community- acquired pneumonia with Rocephin and azithromycin as noted above. Qualifiers: COPD type: COPD with acute exacerbation Qualified Code(s): J44.1 - Chronic obstructive pulmonary disease with (acute) exacerbation (3) HUBER (acute kidney injury): Status: Acute Assessment and plan: We will treat his acute kidney injury with IV fluids. I suspect that his combination of dehydration from poor oral intake along with continued use of his NSAIDs and treating his Achilles tendinitis. (4) Constipation: Status: Acute Assessment and plan: We will treat his constipation with stool softeners and laxatives and IV fluid hydration. Qualifiers: Constipation type: unspecified constipation type Qualified Code(s): K59.00 - Constipation, unspecified History of Present Illness History of Present Illness Chief Complaint: nausea, vomiting, constipation, dyspnea Narrative: 54 yr old male w/ PMH of COPD, GERD, depression who previously was admitted to [facility] April 28 through April 30, 2019 for acute community-acquired pneumonia and COPD. He also had acute kidney injury from dehydration at that time. He now presents with similar symptoms although not as severe. Mr. Nidhi Soriano states for the last 3 days he has had increased cough and shortness of breath. Cough is been nonproductive. He has had chills and has felt hot and cold although he did not check his temperature at home as he has no thermometer. He is also been nauseated and vomiting and constipated. Last bowel movement was yesterday it was very hard bowel movement associated with some rectal bleeding. He complains of right upper quadrant abdominal pain but no chest pain. Patient has been treated over the past couple months for Achilles tendinitis and right ankle sprain w/ NSAID and use of walking boot for immobi lization. Prior to that he was taking NSAID's for right sided radiculopathy. He was evaluated in the emergency department by DARBY Gilliland who performed a workup that inclued routine labs, CXR, and CT abdomen/pelvis. Labs were remarkable for HUBER w/ BUN 31 and creatinine of 1.78 (last levels were 33 and 1.26 as of 04/30/2019). CBC was unremarkable. UA was remarkable for 3-5 RBC/HPF but negative for leukocytes, nitrites or bacteria, glucose or protein. CXR was unremarkable. CT of abdomen and pelvis and chest was remarkable tree-in-bud opacities in the right lung base felt to be infectious/inflammatory in etiology. Nonspecific 6 mm nodule in the left lower lobe was present. These are new findings compared to prior CT scan from April 28, 2019. Liver shows mild enlargement and diffuse decrease in hepatic parenchymal density consistent with fatty infiltration along with nodular contour and hypertrophy of the caudate lobe consistent with cirrhosis. Again this is unchanged from April 28, 2019. Gallbladder is contracted. Pancreas is normal. Spleen is mildly enlarged. Adrenals are normal. Stable bilateral renal cysts are seen. There is no bowel wall thickening or obstruction however there is diffuse colonic diverticulosis and excessive colonic stool content is present. No evidence for appendicitis. Recanalization of the umbilical vein consistent with portal hypertension is present. There is periportal adenopathy. Multilevel degenerative changes are seen in the spine. Small fat-containing umbilical hernia is present. Nasal swab for influenza a and B was obtained and negative. Patient was started on IV Rocephin and azithromycin for presumptive right lower lobe pneumonia. Patient will be started on laxatives and stool softeners for treatment of his acute constipation Review of Systems All systems reviewed & are unremarkable except as noted in HPI and below [facility] Medical History (Updated 11/01/19 @ 23:05 by Greg Venegas) COPD (chronic obstructive pulmonary disease) (Chronic 02/14/15) PFT's show severe obstructive disease with bronchodilator response; PFT 02/13/2015, [id number]%, FEV1/FVC 67%, post BD FEV1 50% FEV1/FVC 72% Depressive disorder (Chronic) Gastroesophageal reflux disease (Chronic) History of tobacco use (Chronic) 48 pack years 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 Meds Home Medications and Allergies Home Medications Medication Instructions Recorded Confirmed Type albuterol sulfate 2.5 mg IH Q4H PRN #20 ml 03/18/19 11/01/19 Rx fluticasone propionate 50 1 spray NS DAILY #1 script 03/23/19 11/01/19 Rx mcg/actuation nasal spray,suspension nicotine 10 mg inhalation cartridge 1 inh IH 4-6XD PRN #168 each 05/12/19 11/01/19 Rx ranitidine HCl 150 mg tablet 150 mg PO BID PRN #180 tab 07/03/19 11/01/19 Rx cyclobenzaprine 5 mg tablet 5 mg PO TID PRN #60 tab 07/27/19 11/01/19 Rx sertraline 100 mg tablet 150 mg PO DAILY #135 tab 08/16/19 11/01/19 Rx lidocaine [Lidoderm] 1 patch TOPICAL Q24H #4 patch 09/30/19 11/01/19 Rx acetaminophen [Tylenol Extra 1,000 mg PO Q4H PRN #30 tab 10/09/19 11/01/19 Rx Strength] ibuprofen 600 mg PO Q6H PRN #60 cap 10/09/19 11/01/19 Rx lidocaine [Lidoderm] 1 patch TP DAILY PRN #15 each 10/09/19 11/01/19 Rx albuterol sulfate 90 mcg/actuation 2 puff IH QID PRN #18 gm 10/17/19 11/01/19 Rx aerosol inhaler fluticasone propionate 110 2 puff INHALATION BID #1 inhaler 10/17/19 11/01/19 Rx mcg/actuation HFA aerosol inhaler triamcinolone acetonide 0.1 % 1 applic TOPICAL BID #3 gm 10/17/19 11/01/19 Rx topical cream Allergies Allergy/AdvReac Type Severity Reaction Status Date / Time Penicillins Allergy RASH Verified 11/01/19 17:01 aspirin AdvReac UPSET Verified 11/01/19 17:01 STOMACH Exam Narrative Exam Narrative: Middle-aged male sitting up in bed watching TV in no acute distress. HEENT is remarkable for poor dentition. Oropharynx is noninjected no exudate. TMs are obscured by excess cerumen. Neck is supple nontender without JVD thyromegaly or cervical lymphadenopathy. Lungs reveal scattered end expiratory wheezes without rhonchi or rales. No dull ness to percussion. Heart is regular rate and rhythm without murmur rub or gallop. Abdomen is distended with high-pitched bowel sounds. Abdomen is firm and tender in the right upper quadrant. There is no rebound tenderness and no guarding. Because of his distended abdomen I cannot palpate for hepatosplenomegaly. No bruits are present. Lower extremities without peripheral cyanosis or edema. Neurologic exam is grossly intact nonfocal. Results Labs Result diagrams: 11/01/19 17:17 11/01/19 17:17 Labs: Laboratory Results - last 24 hr 11/01/19 11/01/19 11/01/19 17:17 17:17 17:17 WBC 6.40 RBC 4.72 Hgb 13.1 L Hct 39.6 L MCV 83.9 MCH 27.8 MCHC 33.1 RDW 14.8 H Plt Count 264 MPV 9.3 Immature Gran % 0.2 Neutrophils % 61.2 Lymphocytes % 12.2 Monocytes % 15.3 Eosinophils % 10.5 Basophils % 0.6 Absolute Neutrophils 3.92 Absolute Lymphocytes 0.78 L Absolute Monocytes 0.98 H Absolute Eosinophils 0.67 Absolute Basophils 0.04 Sodium 140 Potassium 4.0 Chloride 102 Carbon Dioxide 27.1 Anion Gap 10.9 BUN 31 H Creatinine 1.78 H Estimated GFR/1.73 m2 39.73 Glucose 104 Calcium 9.9 Total Bilirubin 0.3 AST 32 ALT 33 Alkaline Phosphatase 150 H Troponin I < 0.05 Total Protein 8.5 H Albumin 3.6 Lipase 203 Urine Color Urine Clarity Urine pH Ur Specific [place] Urine Protein Urine Ketones Urine Blood Urine Nitrite Urine Bilirubin Urine Urobilinogen Ur Leukocyte Esterase Urine RBC Urine WBC Ur Epithelial Cells Urine Crystals Urine Bacteria Urine Mucus Ur Culture Indicated? Urine Glucose 12/25/19 17:50 WBC RBC Hgb Hct MCV MCH MCHC RDW Plt Count MPV Immature Gran % Neutrophils % Lymphocytes % Monocytes % Eosinophils % Basophils % Absolute Neutrophils Absolute Lymphocytes Absolute Monocytes Absolute Eosinophils Absolute Basophils Sodium Potassium Chloride Carbon Dioxide Anion Gap BUN Creatinine Estimated GFR/1.73 m2 Glucose Calcium Total Bilirubin AST ALT Alkaline Phosphatase Troponin I Total Protein Albumin Lipase Urine Color Yellow Urine Clarity Clear Urine pH 6.5 Ur Specific [place] 1.020 Urine Protein Negative Urine Ketones Negative Urine Blood Trace-intact H Urine Nitrite Negative Urine Bilirubin Negative Urine Urobilinogen 0.2 Ur Leukocyte Esterase Negative Urine RBC 3-5 H Urine WBC 0-2 Ur Epithelial Cells Negative Urine Crystals Negative Urine Bacteria Negative Urine Mucus Negative Ur Culture Indicated? No Urine Glucose Negative Last Vital Signs Temp 37.1 C 11/01/19 16:58 Pulse 96 H 11/01/19 19:45 Resp 18 11/01/19 19:11 BP 134/86 11/01/19 19:45 Pulse Ox 98 11/01/19 19:30
[2019-11-01 20:41] LABS: Lactate 1.1 mmol/L (0.6-1.4)
[2019-11-01 21:19] LABS: Procalcitonin 0.1 ng/mL
[2019-11-01] MEDS: Enoxaparin 30 MG/0.3 ML SYR SC (21:54)
[2019-11-01] MEDS: Lidocaine 5% Patch 1 PATCH TP (21:54)
[2019-11-01] MEDS: guaiFENesin 600 MG TABCR PO (21:55)
[2019-11-01] MEDS: Normal Saline 1,000 ML 100 ML IV (21:55)
[2019-11-01] MEDS: Normal Saline Flush 10 ML SYR IVP (21:57)
[2019-11-01] MEDS: Lactulose 20 GM/30 ML CUP PO (22:26)
[2019-11-01] MEDS: Milk of Magnesia 30 ML CUP PO (22:26)
[2019-11-01] MEDS: Senna TAB 1 TAB PO (23:40)
[2019-11-01] MEDS: Docusate Sodium 100 MG CAP PO (23:40)
[2019-11-02] VITALS (11 sets, daily range): BP systolic 125–135; BP diastolic 65–83; PULSE 82–112; RESP 4–22; TEMP 36.2–37.5; O2SAT 93–99
[2019-11-02] MEDS: Albuterol/Ipratropium 3 ML UPD VIAL UPD ×4 (03:02→23:45)
[2019-11-02] MEDS: Normal Saline Flush 10 ML SYR IVP ×3 (03:03→17:13)
[2019-11-02] MEDS: methylPREDNISolone SUCC 125 MG VIAL 60 MG IVP ×2 (03:03→09:56)
[2019-11-02 06:57] LABS: Abs Immature Grans 0.01 k/cumm (0.0-0.09); Absolute Lymphocyte Count 0.48 k/cumm (1.2-3.4); Absolute Monocyte Count 0.07 k/cumm (0.11-0.7); Absolute Neutrophil Count 3.45 k/cumm (1.2-6.7); HCT 36.1 % (40.0-50.0); Immature Grans % 0.2; Mean Corp. HGB Concentration 33.2 g/dL (32.0-36.0); Mean Corpuscular Hemoglobin 27.8 pg (27.0-33.0); Mean Corpuscular Volume 83.8 fL (80-95); Mean Platelet Volume 9.9 fL (8.0-11.0); Monocytes % 1.7; Neutrophils % 86.1; Platelet Count 234 x1000/uL (130-400); RBC 4.31 m/cumm (4.50-6.00); RBC Distribution Width 14.5 % (11.8-14.1); White Blood Cell Count 4.01 k/cumm (4.4-10.8)
[2019-11-02 07:26] LABS: Anion Gap 12.9 mmol/L (3-11); BUN 29 mg/dL (7-18); CO2 24.1 mmol/L (21.0-32.0); CREATININE 1.78 mg/dL (0.70-1.30); Calcium 9.7 mg/dL (8.5-10.1); Chloride 103 mmol/L (98-107); Estimated GFR 39.73 (mL/min/1.73m2); Glucose 164 mg/dL (74-106); Magnesium 1.6 mg/dL (1.8-2.4); Potassium 3.9 mmol/L (3.5-5.1); Sodium 140 mmol/L (136-145)
[2019-11-02] MEDS: Polyethylene Glycol 3350 17 GM PACKET PO (07:39)
[2019-11-02] MEDS: Docusate Sodium 100 MG CAP PO (07:40)
[2019-11-02] MEDS: Pantoprazole 20 MG TABCR PO (07:40)
[2019-11-02] MEDS: Sertraline 50 MG TAB 150 MG PO (07:40)
[2019-11-02] MEDS: guaiFENesin 600 MG TABCR PO ×2 (07:40→19:43)
[2019-11-02] MEDS: Benzonatate 200 MG CAP PO ×3 (07:40→19:43)
[2019-11-02] MEDS: Fluticasone NASAL SPRAY 16 GM BTL NS (07:44)
[2019-11-02] MEDS: Mometasone 220 MCG 14 DOSE INHALER IH ×2 (07:45→19:44)
--- NOTE | 2019-11-02 08:03 | INITIAL_ITS ---
- If Service Date Differs Date of service: 11/02/19 Time of Service: 08:03 Care Management Initial Assess REASON FOR HOSPITALIZATION:: Community Acquired pneumonia PAST MEDICAL HISTORY/PAST SURGICAL HISTORY:: Medical History. COPD (chronic obstructive pulmonary disease) (Chronic 02/14/15). Depressive disorder (Chronic). Gastroesophageal reflux disease (Chronic). History of tobacco use (Chronic). Sarcoidosis (Chronic 02/04/16). Shortness of breath (Chronic). Ventral hernia (Chronic) PREVIOUS FUNCTIONAL STATUS/SOCIAL/FAMILY SUPPORTS:: Matt lives alone in a single family house with his cat . He has never been and has no children. The only relatives he has in the area are a couple of elderly aunts. Matt identifies that he has many good friends for community support. He is completely independent with all care and activities and drives a car. 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 CURRENT FUNCTIONAL STATUS:: Matt was sitting up in a chair when CM met with him. He was pleasant and friendly and readily engaged in conversation. Matt shared that he has been having a hard time at home the last few months. He has had sciatica for about 3 months and also sprained his ankle. He admitted that he is still smoking but only a few cigarettes a day. He really hopes to be able to quit soon. Matt states his breathing has been pretty good and he feels better than when he first came to the hospital. ADVANCE DIRECTIVES:: none on file Has patient been provided with information about the portal?: Yes Did the patient sign up for the portal?: No CODE STATUS:: Full Code INSURANCE COVERAGE / FINANCIAL ISSUES:: Medicaid CURRENT HOME/COMMUNITY SERVICES/EQUIPMENT:: none PRIMARY CARE PHYSICIAN:: Winston Truong MD POTENTIAL DISCHARGE NEEDS:: follow up with PCP and discharge plan of care PATIENT/FAMILY EDUCATION NEEDS:: Discharge plan, limitations, follow up plan, Ask Me [employer] TRANSPORTATION:: via private vehicle with friends when ready PLAN:: Matt will likely be discharged home with no new services. He will follow up with his PCP and discharge plan of care. CM will continue to support patient, family and discharge planning concerns.
[2019-11-02] MEDS: Bisacodyl 10 MG SUPP PR (10:11)
[2019-11-02] MEDS: Patch Removal 1 EACH TD (10:11)
[2019-11-02] MEDS: MAGNESIUM SULFATE 2 GM/50 ML BAG IVPB (10:11)
--- NOTE | 2019-11-02 16:11 | W.PM.PROGNOT ---
Date of Service Date of service: 11/02/19 Time of Service: 16:12 Assessment and Plan Assessment and plan (1) Community acquired pneumonia: Status: Acute Assessment and plan: Continue Rocephin and azithromycin. Start to taper methylprednisolone. Continue nebs, add antitussives; await sputum culture. Qualifiers: Laterality: right Lung location: lower lobe of lung Qualified Code(s): J18.1 - Lobar pneumonia, unspecified organism (2) COPD (chronic obstructive pulmonary disease): Status: Chronic Assessment and plan: In acute exacerbation. Continue scheduled/prn nebs, start to taper steroids, continue asmanex, but consider upgrading to symbicort. Qualifiers: COPD type: COPD with acute exacerbation Qualified Code(s): J44.1 - Chronic obstructive pulmonary disease with (acute) exacerbation (3) HUBER (acute kidney injury): Status: Acute Assessment and plan: Cr unchanged despite IVF so far. Will continue IVF. R/o urinary retention. No evidence of obstructive uropathy on CT. (4) Constipation: Status: Acute Assessment and plan: Improved, but likely still has more stool to pass causing him pain. Reassess in am. continue bowel regimen.. Qualifiers: Constipation type: unspecified constipation type Qualified Code(s): K59.00 - Constipation, unspecified (5) DVT prophylaxis: Status: Acute Assessment and plan: lovenox (6) Discharge planning issues: Status: Acute Assessment and plan: full code Subjective Subjective Interval history since last seen: C/o headache; breathing is better. C/o RLQ abdominal pain. Has had a BM. No dizziness, chest pain, nausea. States he does not feel good. Exam Narrative Exam Narrative: General: pleasant, disheveled appearing middle-aged male, does not look like he is feeling well HEEN: EOMI, MMM, poor dentition Heart: RRR, tachycardic Lungs: coarse breath sounds B GI: abdomen is soft, tender in RLQ, nondistended Extremities: no e/c/c BLE's Objective Objective Clinical Data: Abnormal lab results 11/01/19 11/01/19 11/01/19 Range/Units 17:17 17:17 17:50 WBC (4.4-10.8) k/cumm RBC (4.50-6.00) m/cumm Hgb 13.1 L (13.5-17.5) g/dL Hct 39.6 L (40.0-50.0) % RDW 14.8 H (11.8-14.1) % Absolute Lymphocytes 0.78 L (1.2-3.4) k/cumm Absolute Monocytes 0.98 H (0.11-0.7) k/cumm Anion Gap (3-11) mmol/L BUN 31 H (7-18) mg/dL Creatinine 1.78 H (0.70-1.30) mg/dL Glucose (74-106) mg/dL Magnesium (1.8-2.4) mg/dL Alkaline Phosphatase 150 H (46-116) U/L Total Protein 8.5 H (6.4-8.2) g/dL Urine Blood Trace-intact H (Negative) Urine RBC 3-5 H (0-2) HPF 11/02/19 11/02/19 Range/Units 06:10 06:10 WBC 4.01 L D (4.4-10.8) k/cumm RBC 4.31 L (4.50-6.00) m/cumm Hgb 12.0 L (13.5-17.5) g/dL Hct 36.1 L (40.0-50.0) % RDW 14.5 H (11.8-14.1) % Absolute Lymphocytes 0.48 L (1.2-3.4) k/cumm Absolute Monocytes 0.07 L (0.11-0.7) k/cumm Anion Gap 12.9 H (3-11) mmol/L BUN 29 H (7-18) mg/dL Creatinine 1.78 H (0.70-1.30) mg/dL Glucose 164 H (74-106) mg/dL Magnesium 1.6 L (1.8-2.4) mg/dL Alkaline Phosphatase (46-116) U/L Total Protein (6.4-8.2) g/dL Urine Blood (Negative) Urine RBC (0-2) HPF Vital Signs Temperature 37.5 C 11/02/19 15:39 Temperature Source Temporal Artery Scan 11/02/19 15:39 Pulse 111 H 11/02/19 15:39 Pulse Rhythm Regular 11/02/19 08:35 Respiratory Rate 20 11/02/19 15:39 Respiratory Effort Non-Labored 11/02/19 08:35 Respiratory Depth Normal 11/02/19 08:35 Respiratory Pattern Normal 11/02/19 08:35 Blood Pressure 131/69 11/02/19 15:39 Blood Pressure Mean 98 11/01/19 19:45 Blood Pressure Position Sitting 11/01/19 16:58 Pulse Oximetry 93 L 11/02/19 15:39 Oxygen Delivery Method Room Air 11/02/19 15:39 Oxygen Flow Rate 0 11/02/19 15:39 Pain Level 0 11/02/19 03:12 Comment 11/02/19 07:55 Intake & Output 11/01/19 11/02/19 11/02/19 23:59 11:59 23:59 Intake Total 1050 / 1050 3900 / 4630 730 / 4630 Output Total 575 / 575 Balance 475 / 475 3900 / 4630 730 / 4630 Weight 104.6 kg 106.6 kg Intake: IV 1050 / 1050 1000 / 1250 250 / 1250 Oral 2900 / 3380 480 / 3380 Output: Urine 575 / 575 Other: Urine Color Yellow Yellow Urine Appearance Clear Clear Comment amount unknown. notified rn Stool Size Moderate Stool Characteristics Liquid Brown Voiding Methods Toilet Toilet Laboratory Results WBC 4.01 k/cumm (4.4-10.8) L D 11/02/19 06:10 RBC 4.31 m/cumm (4.50-6.00) L 11/02/19 06:10 Hgb 12.0 g/dL (13.5-17.5) L 11/02/19 06:10 Hct 36.1 % (40.0-50.0) L 11/02/19 06:10 MCV 83.8 fL (80-95) 11/02/19 06:10 MCH 27.8 pg (27.0-33.0) 11/02/19 06:10 MCHC 33.2 g/dL (32.0-36.0) 11/02/19 06:10 RDW 14.5 % (11.8-14.1) H 11/02/19 06:10 Plt Count 234 x1000/uL (130-400) 11/02/19 06:10 MPV 9.9 fL (8.0-11.0) 11/02/19 06:10 Immature Gran % 0.2 11/02/19 06:10 Neutrophils % 86.1 11/02/19 06:10 Lymphocytes % 12.0 11/02/19 06:10 Monocytes % 1.7 11/02/19 06:10 Eosinophils % 0.0 11/02/19 06:10 Basophils % 0.0 11/02/19 06:10 Absolute Neutrophils 3.45 k/cumm (1.2-6.7) 11/02/19 06:10 Absolute Lymphocytes 0.48 k/cumm (1.2-3.4) L 11/02/19 06:10 Absolute Monocytes 0.07 k/cumm (0.11-0.7) L 11/02/19 06:10 Absolute Eosinophils 0.00 k/cumm (0.0-0.7) 11/02/19 06:10 Absolute Basophils 0.00 k/cumm (0.0-0.2) 11/02/19 06:10 Sodium 140 mmol/L (136-145) 11/02/19 06:10 Potassium 3.9 mmol/L (3.5-5.1) 11/02/19 06:10 Chloride 103 mmol/L (98-107) 11/02/19 06:10 Carbon Dioxide 24.1 mmol/L (21.0-32.0) 11/02/19 06:10 Anion Gap 12.9 mmol/L (3-11) H 11/02/19 06:10 BUN 29 mg/dL (7-18) H 11/02/19 06:10 Creatinine 1.78 mg/dL (0.70-1.30) H 11/02/19 06:10 Estimated GFR/1.73 m2 39.73 (mL/min/1.73m2) 11/02/19 06:10 Glucose 164 mg/dL (74-106) H 11/02/19 06:10 Lactate 1.1 mmol/L (0.6-1.4) 11/01/19 20:35 Calcium 9.7 mg/dL (8.5-10.1) 11/02/19 06:10 Magnesium 1.6 mg/dL (1.8-2.4) L 11/02/19 06:10 Total Bilirubin 0.3 mg/dL (0.2-1.0) 11/01/19 17:17 AST 32 U/L (15-37) 11/01/19 17:17 ALT 33 U/L (16-63) 11/01/19 17:17 Alkaline Phosphatase 150 U/L (46-116) H 11/01/19 17:17 Troponin I < 0.05 ng/Ml (<0.06) 11/01/19 17:17 Total Protein 8.5 g/dL (6.4-8.2) H 11/01/19 17:17 Albumin 3.6 g/dL (3.4-5.0) 11/01/19 17:17 Lipase 203 U/L (73-393) 11/01/19 17:17 Procalcitonin 0.1 ng/mL 11/01/19 20:35 Urine Color Yellow (Yellow) 11/01/19 17:50 Urine Clarity Clear (Clear) 11/01/19 17:50 Urine pH 6.5 (5-8) 11/01/19 17:50 Ur Specific [place] 1.020 (1.005-1.025) 11/01/19 17:50 Urine Protein Negative mg/dL (Negative) 11/01/19 17:50 Urine Ketones Negative mg/dL (Negative) 11/01/19 17:50 Urine Blood Trace-intact (Negative) H 11/01/19 17:50 Urine Nitrite Negative (Negative) 11/01/19 17:50 Urine Bilirubin Negative (Negative) 11/01/19 17:50 Urine Urobilinogen 0.2 EU/dL (Up TO 0.2) 11/01/19 17:50 Ur Leukocyte Esterase Negative (Negative) 11/01/19 17:50 Urine RBC 3-5 HPF (0-2) H 11/01/19 17:50 Urine WBC 0-2 HPF (0-5) 11/01/19 17:50 Ur Epithelial Cells Negative HPF (Negative) 11/01/19 17:50 Urine Crystals Negative HPF (Negative) 11/01/19 17:50 Urine Bacteria Negative HPF (Negative) 11/01/19 17:50 Urine Mucus Negative (Negative) 11/01/19 17:50 Ur Culture Indicated? No 11/01/19 17:50 Urine Glucose Negative mg/dL (Negative) 11/01/19 17:50
[2019-11-02] MEDS: Acetaminophen 325 MG TAB PO (16:18)
[2019-11-02] MEDS: cefTRIAXone 2 GM/50 ML BAG IVPB (17:13)
[2019-11-02] MEDS: methylPREDNISolone SUCC 40 MG VIAL IVP (17:13)
[2019-11-02] MEDS: AZITHROMYCIN 500 MG in Normal Saline 250 ML 250 MG IVPB (18:01)
[2019-11-02] MEDS: Nicotine 21 MG/24 HR PATCH TD (18:03)
[2019-11-02] MEDS: Triamcinolone 0.1% CR 15 GM TUBE TP (19:43)
[2019-11-02] MEDS: Enoxaparin 30 MG/0.3 ML SYR SC (21:33)
[2019-11-02] MEDS: Lidocaine 5% Patch 1 PATCH TP (21:33)
[2019-11-03] VITALS (12 sets, daily range): BP systolic 123–148; BP diastolic 81–86; PULSE 96–115; RESP 4–20; TEMP 36.2–38.2; O2SAT 94–99
[2019-11-03] MEDS: methylPREDNISolone SUCC 40 MG VIAL IVP ×3 (02:28→17:02)
[2019-11-03] MEDS: Normal Saline Flush 10 ML SYR IVP ×3 (02:28→17:02)
[2019-11-03] MEDS: Albuterol/Ipratropium 3 ML UPD VIAL UPD ×4 (06:00→23:42)
[2019-11-03 07:05] LABS: Abs Immature Grans 0.04 k/cumm (0.0-0.09); Absolute Basophil Count 0.02 k/cumm (0.0-0.2); Absolute Lymphocyte Count 0.58 k/cumm (1.2-3.4); Absolute Monocyte Count 0.49 k/cumm (0.11-0.7); Absolute Neutrophil Count 15.34 k/cumm (1.2-6.7); Basophils % 0.1; HCT 37.7 % (40.0-50.0); HGB 11.9 g/dL (13.5-17.5); Immature Grans % 0.2; Lymphocytes % 3.5; Mean Corp. HGB Concentration 31.6 g/dL (32.0-36.0); Mean Corpuscular Volume 85.5 fL (80-95); Mean Platelet Volume 9.8 fL (8.0-11.0); Neutrophils % 93.2; Platelet Count 248 x1000/uL (130-400); RBC 4.41 m/cumm (4.50-6.00); White Blood Cell Count 16.46 k/cumm (4.4-10.8)
[2019-11-03 07:11] LABS: BUN 30 mg/dL (7-18); CREATININE 1.68 mg/dL (0.70-1.30); Calcium 9.8 mg/dL (8.5-10.1); Chloride 104 mmol/L (98-107); Estimated GFR 42.48 (mL/min/1.73m2); Glucose 165 mg/dL (74-106); Magnesium 1.9 mg/dL (1.8-2.4); Potassium 4.3 mmol/L (3.5-5.1); Sodium 140 mmol/L (136-145)
[2019-11-03] MEDS: Benzonatate 200 MG CAP PO ×3 (07:31→20:19)
[2019-11-03] MEDS: Sertraline 50 MG TAB 150 MG PO (07:31)
[2019-11-03] MEDS: Triamcinolone 0.1% CR 15 GM TUBE TP ×2 (07:31→20:23)
[2019-11-03] MEDS: Fluticasone NASAL SPRAY 16 GM BTL NS (07:31)
[2019-11-03] MEDS: guaiFENesin 600 MG TABCR PO ×2 (07:32→20:19)
[2019-11-03] MEDS: Pantoprazole 20 MG TABCR PO (07:32)
[2019-11-03 07:43] LABS: Procalcitonin < 0.1 ng/mL
[2019-11-03] MEDS: Mometasone 220 MCG 14 DOSE INHALER IH ×2 (08:10→20:20)
[2019-11-03 09:03] LABS: Bilirubin Negative (Negative); Blood Negative (Negative); Clarity Clear (Clear); Glucose Negative (Negative); Ketones Negative (Negative); Leukocyte Esterase Negative (Negative); Nitrite Negative (Negative); Specific Gravity 1.015 (1.005-1.025); Urobilinogen 0.2 EU/dL (Up TO 0.2); pH 6.5 (5-8)
[2019-11-03 09:05] LABS: Creatine Kinase 85 U/L (39-308)
[2019-11-03] MEDS: Patch Removal 1 EACH TD (09:46)
[2019-11-03] MEDS: Nicotine 21 MG/24 HR PATCH TD (11:08)
--- NOTE | 2019-11-03 13:39 | CMPROGNOTE_ITS ---
- If Service Date Differs Date of service: 11/03/19 Time of Service: 13:39 Care Management Progress Note S/O: Matt was sitting up in bed when CM met with him. He was very pleasant and engaged in conversation. He reported that he was going to have another chest xray today. He stated that he was feeling better, but still had some discomfort in his belly. He stated that he is receiving very good care here at [facility]. He spent a lot of time discussing his feliciano with CM. CM will continue to follow and support patient with discharge plans. A: Matt is a 54 year old male admitted to [facility] on 11/01/2019 for Pneumonia. P: Anticipate Matt will return home with no new services once medically alin ared. He will follow up with his PCP as recommended. He will drive home via private vehicle with family when ready. CM will continue to follow and support patient with discharge planning considerations.
[2019-11-03 13:56] LABS: Bacteria Rare HPF (Negative); C & S Indicated? No; Casts Negative LPF (Negative); Crystals Negative HPF (Negative); Epithelial Cells Rare HPF (Negative); Mucus Negative (Negative); RBC Negative HPF (0-2); WBC 0-2 HPF (0-5)
--- NOTE | 2019-11-03 14:45 | PGE_ITS ---
Date of Service Date of service: 11/03/19 Time of Service: 14:45 Assessment and Plan Assessment and plan (1) Community acquired pneumonia: Status: Acute Assessment and plan: Continue Rocephin and azithromycin (received 2 doses of each so far). Keep solumedrol dose same. Continue nebs, antitussives. Cough nonproductive. Unable to obtain sputum. Repeat CXR to ensure infiltrate is not getting worse. Qualifiers: Laterality: right Lung location: lower lobe of lung Qualified Code(s): J18.1 - Lobar pneumonia, unspecified organism (2) COPD (chronic obstructive pulmonary disease): Status: Chronic Assessment and plan: In acute exacerbation. As above. Qualifiers: COPD type: COPD with acute exacerbation Qualified Code(s): J44.1 - Chronic obstructive pulmonary disease with (acute) exacerbation (3) HUBER (acute kidney injury): Status: Acute Assessment and plan: Cr has decreased slightly. I wonder if this is because the patient was also having diarrhea. Keep on IVF. No evidence of urinary retention by PVRs. No evidence of obstructive uropathy on CT. ?NSAID injury is also possible. No casts on UA. CPK wnl. Trace blood is seen on UA - ?possible glomerulonephritis. If no improvement tomorrow, consider nephrology consult. (4) Constipation: Status: Resolved Assessment and plan: Relax bowel regimen. Qualifiers: Constipation type: unspecified constipation type Qualified Code(s): K59.00 - Constipation, unspecified (5) DVT prophylaxis: Status: Acute Assessment and plan: lovenox (6) Discharge planning issues: Status: Acute Assessment and plan: full code Subjective Subjective Interval history since last seen: Mr Goetz has had multiple liquid BM's today, including one episode of incontinence and requests that we relax his bowel regimen. He does have a lot less abdominal pain today. He states he is a tad bit less short of breath at rest today, but with exertion he does feel short of breath. Denies dizziness, chest pain,nausea. Overall, the thinks he is feeling a little better. His cough has been nonproductive. Exam Narrative Exam Narrative: General: pleasant middle-aged male, looks better today, A&OX3 HEEN: EOMI, MMM, poor dentition Heart: RRR, tachycardic Lungs: expiratory wheezing - more pronounced today GI: abdomen is soft, less tender in RLQ, nondistended Extremities: no e/c/c BLE's Objective Objective Clinical Data: Abnormal lab results 11/03/19 11/03/19 Range/Units 06:00 06:00 WBC 16.46 H D (4.4-10.8) k/cumm RBC 4.41 L (4.50-6.00) m/cumm Hgb 11.9 L (13.5-17.5) g/dL Hct 37.7 L (40.0-50.0) % MCHC 31.6 L (32.0-36.0) g/dL RDW 15.0 H (11.8-14.1) % Absolute Neutrophils 15.34 H (1.2-6.7) k/cumm Absolute Lymphocytes 0.58 L (1.2-3.4) k/cumm BUN 30 H (7-18) mg/dL Creatinine 1.68 H (0.70-1.30) mg/dL Glucose 165 H (74-106) mg/dL Vital Signs Temperature 37.2 C 11/03/19 11:00 Temperature Source Tympanic 11/03/19 11:00 Pulse 109 H 11/03/19 11:34 Pulse Rhythm Regular 11/03/19 07:41 Respiratory Rate 20 11/03/19 11:34 Respiratory Effort Non-Labored 11/03/19 07:41 Respiratory Depth Normal 11/03/19 07:41 Respiratory Pattern Normal 11/03/19 07:41 Blood Pressure 123/81 11/03/19 11:00 Blood Pressure Mean 98 11/01/19 19:45 Blood Pressure Position Sitting 11/01/19 16:58 Pulse Oximetry 95 11/03/19 11:34 Oxygen Delivery Method Room Air 11/03/19 11:27 Oxygen Flow Rate 0 11/03/19 11:27 Pain Level 0 11/03/19 11:00 Comment 11/02/19 07:55 Intake & Output 11/02/19 11/03/19 11/03/19 23:59 11:59 23:59 Intake Total 1470 / 5370 240 / 240 Output Total 600 / 600 800 / 800 Balance 870 / 4770 -800 / -560 240 / -560 Weight 104.6 kg Intake: IV 550 / 1550 Oral 920 / 3820 240 / 240 Output: Urine 600 / 600 800 / 800 Other: Urine Color Yellow Pale Yellow Yellow Urine Appearance Clear Clear Clear Urine Odor None Comment notified rn bladder scans negative Stool Occult Blood Negative Stool Size Large Stool Characteristics Soft Soft Brown Voiding Methods Bedside Commode Bedside Commode Toilet Laboratory Results WBC 16.46 k/cumm (4.4-10.8) H D 11/03/19 06:00 RBC 4.41 m/cumm (4.50-6.00) L 11/03/19 06:00 Hgb 11.9 g/dL (13.5-17.5) L 11/03/19 06:00 Hct 37.7 % (40.0-50.0) L 11/03/19 06:00 MCV 85.5 fL (80-95) 11/03/19 06:00 MCH 27.0 pg (27.0-33.0) 11/03/19 06:00 MCHC 31.6 g/dL (32.0-36.0) L 11/03/19 06:00 RDW 15.0 % (11.8-14.1) H 11/03/19 06:00 Plt Count 248 x1000/uL (130-400) 11/03/19 06:00 MPV 9.8 fL (8.0-11.0) 11/03/19 06:00 Immature Gran % 0.2 11/03/19 06:00 Neutrophils % 93.2 11/03/19 06:00 Lymphocytes % 3.5 11/03/19 06:00 Monocytes % 3.0 11/03/19 06:00 Eosinophils % 0.0 11/03/19 06:00 Basophils % 0.1 11/03/19 06:00 Absolute Neutrophils 15.34 k/cumm (1.2-6.7) H 11/03/19 06:00 Absolute Lymphocytes 0.58 k/cumm (1.2-3.4) L 11/03/19 06:00 Absolute Monocytes 0.49 k/cumm (0.11-0.7) 11/03/19 06:00 Absolute Eosinophils 0.00 k/cumm (0.0-0.7) 11/03/19 06:00 Absolute Basophils 0.02 k/cumm (0.0-0.2) 11/03/19 06:00 Sodium 140 mmol/L (136-145) 11/03/19 06:00 Potassium 4.3 mmol/L (3.5-5.1) 11/03/19 06:00 Chloride 104 mmol/L (98-107) 11/03/19 06:00 Carbon Dioxide 26.0 mmol/L (21.0-32.0) 11/03/19 06:00 Anion Gap 10.0 mmol/L (3-11) 11/03/19 06:00 BUN 30 mg/dL (7-18) H 11/03/19 06:00 Creatinine 1.68 mg/dL (0.70-1.30) H 11/03/19 06:00 Estimated GFR/1.73 m2 42.48 (mL/min/1.73m2) 11/03/19 06:00 Glucose 165 mg/dL (74-106) H 11/03/19 06:00 Lactate 1.1 mmol/L (0.6-1.4) 11/01/19 20:35 Calcium 9.8 mg/dL (8.5-10.1) 11/03/19 06:00 Magnesium 1.9 mg/dL (1.8-2.4) 11/03/19 06:00 Total Bilirubin 0.3 mg/dL (0.2-1.0) 11/01/19 17:17 AST 32 U/L (15-37) 11/01/19 17:17 ALT 33 U/L (16-63) 11/01/19 17:17 Alkaline Phosphatase 150 U/L (46-116) H 11/01/19 17:17 Creatine Kinase 85 U/L (39-308) 11/01/19 17:17 Troponin I < 0.05 ng/Ml (<0.06) 11/01/19 17:17 Total Protein 8.5 g/dL (6.4-8.2) H 11/01/19 17:17 Albumin 3.6 g/dL (3.4-5.0) 11/01/19 17:17 Lipase 203 U/L (73-393) 11/01/19 17:17 Procalcitonin < 0.1 ng/mL 11/03/19 06:00 Urine Color Yellow (Yellow) 11/03/19 08:50 Urine Clarity Clear (Clear) 11/03/19 08:50 Urine pH 6.5 (5-8) 11/03/19 08:50 Ur Specific [place] 1.015 (1.005-1.025) 11/03/19 08:50 Urine Protein Negative mg/dL (Negative) 11/03/19 08:50 Urine Ketones Negative mg/dL (Negative) 11/03/19 08:50 Urine Blood Negative (Negative) 11/03/19 08:50 Urine Nitrite Negative (Negative) 11/03/19 08:50 Urine Bilirubin Negative (Negative) 11/03/19 08:50 Urine Urobilinogen 0.2 EU/dL (Up TO 0.2) 11/03/19 08:50 Ur Leukocyte Esterase Negative (Negative) 11/03/19 08:50 Urine RBC Negative HPF (0-2) 11/03/19 08:50 Urine WBC 0-2 HPF (0-5) 11/03/19 08:50 Ur Epithelial Cells Rare HPF (Negative) 11/03/19 08:50 Urine Crystals Negative HPF (Negative) 11/03/19 08:50 Urine Bacteria Rare HPF (Negative) 11/03/19 08:50 Urine Casts Negative LPF (Negative) 11/03/19 08:50 Urine Mucus Negative (Negative) 11/03/19 08:50 Urine Other Cancelled 11/03/19 07:54 Ur Culture Indicated? No 11/03/19 08:50 Urine Glucose Negative mg/dL (Negative) 11/03/19 08:50
--- NOTE | 2019-11-03 15:18 | CHAPLAIN ---
Matt had just finished a visit with a friend when I visited. Matt was very pleasant and easily engaged in a conversation, telling me about the scott he grows in his garden and showing me pictures of his peonies. Matt said he took care of both is mom and dad, for about 15 years before they both . He has a brother and sister in law, with whom he is not close. He talked about his cat, Norbert and showed me photos of him. Matt said he was raised Worship and enjoys going to [employer] and likes all the of traditional Worship rituals and decor, especially from the [place] [employer], however he said he is no longer comfortable in the Worship Christianity. He attended [employer]ology Churches in this area too. At one point in his life, Matt said he was associated with conservative Christians (who stood on the street with signs) but he said he was rejected by them because of being mejía. He is much happier how, he explained. Matt said he is beginning to feel better.
--- NOTE | 2019-11-03 16:21 | DI.RAD_ITS ---
EXAM: XR CHEST 2V PA LATERAL CLINICAL HISTORY: follow up pneumonia. TECHNIQUE: 2D digital imaging was performed. COMPARISON: XR CHEST 2V PA LATERAL from 11/01/2019 FINDINGS: LUNGS: Clear. No pleural abnormality seen. HEART: Normal. MEDIASTINUM: Normal. OTHER FINDINGS:Normal. IMPRESSION: No acute pulmonary findings.
--- NOTE | 2019-11-03 16:34 | DI.VRAD_ITS ---
PROCEDURE INFORMATION: Exam: XR Chest, 2 Views Exam date and time: 11/03/2019 4:24 PM Age: 54 years old Clinical indication: Other: F/u peum[place] TECHNIQUE: Imaging protocol: XR of the chest Views: 2 views. COMPARISON: CR XR CHEST 2V PA LATERAL 11/01/2019 5:36 PM FINDINGS: Lungs: Unremarkable. No consolidation. Pleural space: Unremarkable. No pleural effusion. No pneumothorax. Heart/Mediastinum: Unremarkable. No cardiomegaly. Bones/joints: Unremarkable. IMPRESSION: No acute findings. Dictated and Authenticated by: Riana Aceves MD. Ordering:KULWINDER Cameron MD
[2019-11-03] MEDS: Milk of Magnesia 30 ML CUP PO (16:36)
[2019-11-03] MEDS: Mylanta Suspension 30 ML CUP PO ×2 (16:40→18:29)
[2019-11-03] MEDS: cefTRIAXone 2 GM/50 ML BAG IVPB (17:01)
--- NOTE | 2019-11-03 17:45 | ED.GENADUL_ITS ---
Discharge Plan Disposition Patient Disposition: [facility] INPATIENT Condition: Stable Discharge Details Chief Complaint: Nausea/Vomit/Diar Clinical Impression: Pneumonia, Acute kidney injury, COPD exacerbation Admit Date/Time: 11/01/19 23:07 Admit Provider: Greg Venegas Attending Provider: Greg Venegas Primary Care Provider: Winston Truong ED Provider: Sabina Perdomo Discharge Data Discharge Date/Time-TO BE ENTERED AT DEPARTURE: 11/01/19 20:20 Medical Decision Making Is a 54-year-old patient who is a history of COPD, sarcoidosis, cirrhosis, depression, reflux and history of smoking. Patient is presenting today for complaints of cough with shortness of breath associated with vomiting intermittently for the last 3 days. Patient does report right sided abdominal pain without radiation to back or shoulder. Patient reports feeling increasingly dehydrated at this time due to decreasing p.o. intake and persistent vomiting. Patient denies associated diarrhea. Patient's initial evaluation he is noted to be mildly hypertensive with an O2 sat of 94%. Patient does have upper abdominal pain with palpation. Patient speaking in full sentences and is in no apparent distress. Labs ordered as well as x-ray of chest and CT of patient's abdomen. Labs do reveal a leukocytosis of 16,000 with an associated shift. Patient's renal function is worse than his baseline. Patient's urinalysis normal. CT of patient's abdomen is negative for acute abdominal or pelvic pathology but does reveal a tiny tree-in-bud opacity in the right lung base which is possibly infectious versus inflammatory. Patient also has a 6 mm nodule noted in the left lower lobe which is nonspecific and requires follow-up. Mild enlargement again noted of the liver. Gallbladder is contracted with no associated ductal dilation. Bilateral renal cysts are stable. Of note historically patient has been evaluated and admitted to the hospital for very similar presentation of 3 days of vomiting associated with shortness of breath and ultimately was diagnosed with pneumonia. Patient in fact reports a very similar feeling at this time. At that time patient was also noted to have mild acute kidney injury which is again similar to today's presentation. After discussion with the patient I offered outpatient treatment with antibiotics however patient does not feel he can tolerate outpatient treatment at this time would prefer inpatient management due to complaints of fatigue. Given patient CT findings azithromycin as well as ceftriaxone ordered for pneumonia coverage. DuoNeb ordered as patient does have mild wheezing at this time. Spoke with hospitalist will accept this patient's admission. Does recommend addition of Solu-Medrol. HPI General Date/Time Provider Initiated Documentation: 11/01/19 17:12 . HPI Narrative: Is a 54-year-old patient who is quite pleasant presenting to the emergency room for complaints of nausea and vomiting for the last 3 days. Patient is complaining of bilious vomitus intermittently. Now feeling mildly dehydrated. Patient denies associated diarrhea. Patient does report upper right-sided abdominal pain associated with vomiting. Patient reports decrease in appetite. Patient denies measured fever or chills. Patient denies significant headache or dizziness. Patient does report mild cough and mild shortness of breath. Denies chest pain or back pain. Patient denies urinary urgency, frequency or dysuria. No other concerning complaints at this time. Denies any obvious food exposures. Related Data Home Medications Medication Instructions Recorded Confirmed albuterol sulfate 2.5 mg IH Q4H PRN #20 ml 03/18/19 11/01/19 fluticasone propionate 50 1 spray NS DAILY #1 script 03/23/19 11/01/19 mcg/actuation nasal spray,suspension nicotine 10 mg inhalation cartridge 1 inh IH 4-6XD PRN #168 each 05/12/19 11/01/19 ranitidine HCl 150 mg tablet 150 mg PO BID PRN #180 tab 07/03/19 11/01/19 cyclobenzaprine 5 mg tablet 5 mg PO TID PRN #60 tab 07/27/19 11/01/19 sertraline 100 mg tablet 150 mg PO DAILY #135 tab 08/16/19 11/01/19 lidocaine [Lidoderm] 1 patch TOPICAL Q24H #4 patch 09/30/19 11/01/19 acetaminophen [Tylenol Extra 1,000 mg PO Q4H PRN #30 tab 10/09/19 11/01/19 Strength] ibuprofen 600 mg PO Q6H PRN #60 cap 10/09/19 11/01/19 lidocaine [Lidoderm] 1 patch TP DAILY PRN #15 each 10/09/19 11/01/19 albuterol sulfate 90 mcg/actuation 2 puff IH QID PRN #18 gm 10/17/19 11/01/19 aerosol inhaler fluticasone propionate 110 2 puff INHALATION BID #1 inhaler 10/17/19 11/01/19 mcg/actuation HFA aerosol inhaler triamcinolone acetonide 0.1 % 1 applic TOPICAL BID #3 gm 10/17/19 11/01/19 topical cream Previous Rx's Medication Instructions Recorded albuterol sulfate 2.5 mg IH Q4H PRN #20 ml 03/18/19 fluticasone propionate 50 1 spray NS DAILY #1 script 03/23/19 mcg/actuation nasal spray,suspension nicotine 10 mg inhalation cartridge 1 inh IH 4-6XD PRN #168 each 05/12/19 ranitidine HCl 150 mg tablet 150 mg PO BID PRN #180 tab 07/03/19 cyclobenzaprine 5 mg tablet 5 mg PO TID PRN #60 tab 07/27/19 sertraline 100 mg tablet 150 mg PO DAILY #135 tab 08/16/19 lidocaine [Lidoderm] 1 patch TOPICAL Q24H #4 patch 09/30/19 acetaminophen [Tylenol Extra 1,000 mg PO Q4H PRN #30 tab 10/09/19 Strength] ibuprofen 600 mg PO Q6H PRN #60 cap 10/09/19 lidocaine [Lidoderm] 1 patch TP DAILY PRN #15 each 10/09/19 albuterol sulfate 90 mcg/actuation 2 puff IH QID PRN #18 gm 10/17/19 aerosol inhaler fluticasone propionate 110 2 puff INHALATION BID #1 inhaler 10/17/19 mcg/actuation HFA aerosol inhaler triamcinolone acetonide 0.1 % 1 applic TOPICAL BID #3 gm 10/17/19 topical cream Allergies Allergy/AdvReac Type Severity Reaction Status Date / Time Penicillins Allergy RASH Verified 11/01/19 17:01 aspirin AdvReac UPSET Verified 11/01/19 17:01 STOMACH General Stated Complaint: Nausea/Vomit/Diar ALMAS: 3 Review of Systems All systems reviewed & are unremarkable except as noted in HPI and below Constitutional Constitutional: Denies chills, Denies fatigue, Denies fever(s), Denies headach e(s) and Reports malaise ENT Ears, Nose, Mouth, and Throat: Denies headache(s), Denies nasal congestion and Denies sore throat Cardiovascular Cardiovascular: Denies chest pain and Denies dyspnea Respiratory Respiratory: Reports cough and Denies dyspnea Gastrointestinal Gastrointestinal: Reports abdominal pain, Denies diarrhea, Reports nausea and Reports vomiting Genitourinary Genitourinary: Denies dysuria Neurologic Neurologic: Denies headache(s) Endocrine Endocrine: Denies fatigue [facility] Medical History COPD (chronic obstructive pulmonary disease) (Chronic 02/14/15) PFT's show severe obstructive disease with bronchodilator response; PFT 02/13/2015, [id number]%, FEV1/FVC 67%, post BD FEV1 50% FEV1/FVC 72% Depressive disorder (Chronic) Gastroesophageal reflux disease (Chronic) History of tobacco use (Chronic) 48 pack years 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 Exam Narrative Exam Narrative: CONST: Mildly dehydrated, alert and oriented. HENMT: Head nomocephalic, normal to inspection. Atraumatic. Hearing grossly normal. External ear canal no erythema or swelling. TM normal bilaterally. Nose normal to inspection. No rhinnorhea. Normal facial exam. Oral mucosa normal. Tounge normal. Dentition normal. Normal posterior oropharynx. Uvula midline. EYES: General normal appearance. Alignment normal. Eyelids normal. Conjunctiva normal. Sclera normal. PERRL. NECK: Normal visual inspection. FROM. No lymphadenopathy. Trachea midline. No Midline tenderness. CHEST: Normal insepection of the chest. RESP: Normal respiratory effort. Speaking full sentences. No cough. No wheezing. No retractions. Clear to auscaltation. Breath sound equal and present bilaterally. CARDIO: No JVD. Normal PMI. Regular Rate. Regular Rhythm. Normal peripheral pulses. GI: Normal inspection of abdomen. No distension. Soft. Right upper abdominal pain with palpation. Bowel sounds present in all 4 quadrants. No rebound. No gaurding. Course Vital Signs Vital signs: Vital Signs Temperature 37.1 C 11/01/19 16:58 Pulse 90 11/01/19 16:58 Respiratory Rate 16 11/01/19 16:58 Blood Pressure 160/93 H 11/01/19 16:58 Pulse Oximetry 94 L 11/01/19 16:58 Temperature 37.2 C 11/03/19 11:00 Temperature Source Tympanic 11/03/19 11:00 Pulse 109 H 11/03/19 11:34 Pulse Rhythm Regular 11/03/19 15:00 Respiratory Rate 20 11/03/19 11:34 Respiratory Effort Non-Labored 11/03/19 15:00 Respiratory Depth Normal 11/03/19 15:00 Respiratory Pattern Normal 11/03/19 15:00 Blood Pressure 123/81 11/03/19 11:00 Blood Pressure Mean 98 11/01/19 19:45 Blood Pressure Position Sitting 11/01/19 16:58 Pulse Oximetry 95 11/03/19 11:34 Oxygen Delivery Method Room Air 11/03/19 11:27 Oxygen Flow Rate 0 11/03/19 11:27 Pain Level 0 11/03/19 11:00 Comment 11/02/19 07:55 Lab/Test Results Lab/Test Results: 11/01/19 17:25 Nose Influenza Types A,B Antigen - Final Laboratory Tests Range/Units 11/01/19 11/01/19 11/01/19 17:17 17:17 17:17 WBC (4.4-10.8) k/cumm 6.40 RBC (4.50-6.00) m/cumm 4.72 Hgb (13.5-17.5) g/dL 13.1 L Hct (40.0-50.0) % 39.6 L MCV (80-95) fL 83.9 MCH (27.0-33.0) pg 27.8 MCHC (32.0-36.0) g/dL 33.1 RDW (11.8-14.1) % 14.8 H Plt Count (130-400) x1000/uL 264 MPV (8.0-11.0) fL 9.3 Immature Gran % 0.2 Neutrophils % 61.2 Lymphocytes % 12.2 Monocytes % 15.3 Eosinophils % 10.5 Basophils % 0.6 Absolute Neutrophils (1.2-6.7) k/cumm 3.92 Absolute Lymphocytes (1.2-3.4) k/cumm 0.78 L Absolute Monocytes (0.11-0.7) k/cumm 0.98 H Absolute Eosinophils (0.0-0.7) k/cumm 0.67 Absolute Basophils (0.0-0.2) k/cumm 0.04 Sodium (136-145) mmol/L 140 Potassium (3.5-5.1) mmol/L 4.0 Chloride (98-107) mmol/L 102 Carbon Dioxide (21.0-32.0) mmol/L 27.1 Anion Gap (3-11) mmol/L 10.9 BUN (7-18) mg/dL 31 H Creatinine (0.70-1.30) mg/dL 1.78 H Estimated GFR/1.73 m2 (mL/min/1.73m2) 39.73 Glucose (74-106) mg/dL 104 Lactate (0.6-1.4) mmol/L Calcium (8.5-10.1) mg/dL 9.9 Total Bilirubin (0.2-1.0) mg/dL 0.3 AST (15-37) U/L 32 ALT (16-63) U/L 33 Alkaline Phosphatase (46-116) U/L 150 H Creatine Kinase (39-308) U/L Troponin I (<0.06) ng/Ml < 0.05 Total Protein (6.4-8.2) g/dL 8.5 H Albumin (3.4-5.0) g/dL 3.6 Lipase (73-393) U/L 203 Procalcitonin ng/mL Urine Color (Yellow) Urine Clarity (Clear) Urine pH (5-8) Ur Specific [place] (1.005-1.025) Urine Protein (Negative) mg/dL Urine Ketones (Negative) mg/dL Urine Blood (Negative) Urine Nitrite (Negative) Urine Bilirubin (Negative) Urine Urobilinogen (Up TO 0.2) EU/dL Ur Leukocyte Esterase (Negative) Urine RBC (0-2) HPF Urine WBC (0-5) HPF Ur Epithelial Cells (Negative) HPF Urine Crystals (Negative) HPF Urine Bacteria (Negative) HPF Urine Mucus (Negative) Ur Culture Indicated? Urine Glucose (Negative) mg/dL Range/Units 11/01/19 11/01/19 11/01/19 17:17 17:50 20:35 WBC (4.4-10.8) k/cumm RBC (4.50-6.00) m/cumm Hgb (13.5-17.5) g/dL Hct (40.0-50.0) % MCV (80-95) fL MCH (27.0-33.0) pg MCHC (32.0-36.0) g/dL RDW (11.8-14.1) % Plt Count (130-400) x1000/uL MPV (8.0-11.0) fL Immature Gran % Neutrophils % Lymphocytes % Monocytes % Eosinophils % Basophils % Absolute Neutrophils (1.2-6.7) k/cumm Absolute Lymphocytes (1.2-3.4) k/cumm Absolute Monocytes (0.11-0.7) k/cumm Absolute Eosinophils (0.0-0.7) k/cumm Absolute Basophils (0.0-0.2) k/cumm Sodium (136-145) mmol/L Potassium (3.5-5.1) mmol/L Chloride (98-107) mmol/L Carbon Dioxide (21.0-32.0) mmol/L Anion Gap (3-11) mmol/L BUN (7-18) mg/dL Creatinine (0.70-1.30) mg/dL Estimated GFR/1.73 m2 (mL/min/1.73m2) Glucose (74-106) mg/dL Lactate (0.6-1.4) mmol/L 1.1 Calcium (8.5-10.1) mg/dL Total Bilirubin (0.2-1.0) mg/dL AST (15-37) U/L ALT (16-63) U/L Alkaline Phosphatase (46-116) U/L Creatine Kinase (39-308) U/L 85 Troponin I (<0.06) ng/Ml Total Protein (6.4-8.2) g/dL Albumin (3.4-5.0) g/dL Lipase (73-393) U/L Procalcitonin ng/mL 0.1 Urine Color (Yellow) Yellow Urine Clarity (Clear) Clear Urine pH (5-8) 6.5 Ur Specific [place] (1.005-1.025) 1.020 Urine Protein (Negative) mg/dL Negative Urine Ketones (Negative) mg/dL Negative Urine Blood (Negative) Trace-intact H Urine Nitrite (Negative) Negative Urine Bilirubin (Negative) Negative Urine Urobilinogen (Up TO 0.2) EU/dL 0.2 Ur Leukocyte Esterase (Negative) Negative Urine RBC (0-2) HPF 3-5 H Urine WBC (0-5) HPF 0-2 Ur Epithelial Cells (Negative) HPF Negative Urine Crystals (Negative) HPF Negative Urine Bacteria (Negative) HPF Negative Urine Mucus (Negative) Negative Ur Culture Indicated? No Urine Glucose (Negative) mg/dL Negative
[2019-11-03] MEDS: AZITHROMYCIN 500 MG in Normal Saline 250 ML 250 MG IVPB (17:51)
[2019-11-03] MEDS: Acetaminophen 325 MG TAB PO (20:32)
[2019-11-03] MEDS: Lidocaine 5% Patch 1 PATCH TP (21:38)
[2019-11-03] MEDS: Enoxaparin 30 MG/0.3 ML SYR SC (21:38)
[2019-11-04] VITALS (12 sets, daily range): BP systolic 139–153; BP diastolic 78–93; PULSE 82–107; RESP 1–18; TEMP 36.2–37.2; O2SAT 95–99
[2019-11-04] MEDS: Normal Saline Flush 10 ML SYR IVP ×3 (01:48→14:05)
[2019-11-04] MEDS: methylPREDNISolone SUCC 40 MG VIAL IVP ×2 (01:49→09:54)
[2019-11-04] MEDS: Albuterol/Ipratropium 3 ML UPD VIAL UPD ×4 (05:19→23:34)
[2019-11-04 07:21] LABS: Abs Immature Grans 0.05 k/cumm (0.0-0.09); Absolute Monocyte Count 0.32 k/cumm (0.11-0.7); HGB 12.1 g/dL (13.5-17.5); Immature Grans % 0.4; Lymphocytes % 5.1; Mean Corp. HGB Concentration 31.8 g/dL (32.0-36.0); Mean Corpuscular Hemoglobin 27.6 pg (27.0-33.0); Mean Corpuscular Volume 86.8 fL (80-95); Mean Platelet Volume 10.2 fL (8.0-11.0); Monocytes % 2.3; Neutrophils % 92.2; Platelet Count 260 x1000/uL (130-400); RBC 4.38 m/cumm (4.50-6.00); RBC Distribution Width 15.4 % (11.8-14.1)
[2019-11-04 07:28] LABS: Absolute Neutrophil Count 12.72 k/cumm (1.2-6.7)
[2019-11-04 07:35] LABS: Anion Gap 10.9 mmol/L (3-11); BUN 34 mg/dL (7-18); CO2 26.1 mmol/L (21.0-32.0); CREATININE 1.64 mg/dL (0.70-1.30); Calcium 9.3 mg/dL (8.5-10.1); Chloride 102 mmol/L (98-107); Estimated GFR 43.67 (mL/min/1.73m2); Glucose 233 mg/dL (74-106); Magnesium 2.1 mg/dL (1.8-2.4); Sodium 139 mmol/L (136-145)
[2019-11-04] MEDS: Benzonatate 200 MG CAP PO ×3 (08:12→19:17)
[2019-11-04] MEDS: guaiFENesin 600 MG TABCR PO ×2 (08:12→19:17)
[2019-11-04] MEDS: Sertraline 50 MG TAB 150 MG PO (08:12)
[2019-11-04] MEDS: Pantoprazole 20 MG TABCR PO (08:12)
[2019-11-04] MEDS: Fluticasone NASAL SPRAY 16 GM BTL NS (08:13)
[2019-11-04] MEDS: Mometasone 220 MCG 14 DOSE INHALER IH ×2 (08:19→19:17)
[2019-11-04] MEDS: Acetaminophen 325 MG TAB PO (09:53)
[2019-11-04] MEDS: Nicotine 21 MG/24 HR PATCH TD (09:56)
[2019-11-04] MEDS: Patch Removal 1 EACH TD (11:24)
[2019-11-04] MEDS: Triamcinolone 0.1% CR 15 GM TUBE TP ×2 (11:24→19:17)
[2019-11-04] MEDS: Azithromycin 250 MG TAB PO (17:53)
[2019-11-04] MEDS: cefTRIAXone 1 GM/50 ML BAG IVPB (17:53)
--- NOTE | 2019-11-04 18:02 | PGE_ITS ---
Date of Service Date of service: 11/04/19 Time of Service: 18:03 Assessment and Plan Assessment and plan (1) Upper respiratory infection: Status: Acute Assessment and plan: Admitted for upper respiratory symptoms. His chest x-ray has been negative x2. He is empirically treated with ceftriaxone and azithromycin in high doses. These doses were cut down to typical community- acquired pneumonia doses. Plan is to discontinue antibiotics if stable tomorrow. (2) Constipation: Status: Resolved Assessment and plan: His bowels are now loose with pudding-like texture. I suspect that he is overcoming the constipation and clearing out his bowels. Qualifiers: Constipation type: unspecified constipation type Qualified Code(s): K59.00 - Constipation, unspecified (3) HUBER (acute kidney injury): Status: Acute Assessment and plan: [place] to be secondary to NSAID use. His creatinine is coming down at 1.64 (4) COPD (chronic obstructive pulmonary disease): Status: Chronic Assessment and plan: His COPD is stable. He still has some end expiratory wheezes. Continue updrafts and steroids. Qualifiers: COPD type: COPD with acute exacerbation Qualified Code(s): J44.1 - Chronic obstructive pulmonary disease with (acute) exacerbation (5) Discharge planning issues: Status: Acute Assessment and plan: Likely discharge tomorrow if stable. Subjective Subjective Interval history since last seen: Patient is feeling much better. He had some nausea after his lunch which he felt was from eating too fast. His respiratory status has improved. He is up walking around. Minimal cough, no shortness of breath. His last fever was at 8 PM last night 38.2. He is complaining of some loose stools. He describes pudding like stools on a frequent basis after eating. Exam Narrative Exam Narrative: On exam he is pleasant and in no significant distress. His lung exam notable for some expiratory wheezes bilaterally but no focal rales. Heart sounds are regular and strong. His abdomen is overall soft and nontender. Lower extremities no significant edema. Neurologically no focal deficits noted. Objective Objective Clinical Data: Abnormal lab results 11/04/19 11/04/19 Range/Units 06:08 06:08 WBC 13.80 H (4.4-10.8) k/cumm RBC 4.38 L (4.50-6.00) m/cumm Hgb 12.1 L (13.5-17.5) g/dL Hct 38.0 L (40.0-50.0) % MCHC 31.8 L (32.0-36.0) g/dL RDW 15.4 H (11.8-14.1) % Absolute Neutrophils 12.72 H (1.2-6.7) k/cumm Absolute Lymphocytes 0.70 L (1.2-3.4) k/cumm BUN 34 H (7-18) mg/dL Creatinine 1.64 H (0.70-1.30) mg/dL Glucose 233 H (74-106) mg/dL Vital Signs Temperature 37.2 C 11/04/19 15:50 Temperature Source Tympanic 11/04/19 15:50 Pulse 107 H 11/04/19 17:57 Pulse Rhythm Regular 11/04/19 16:08 Respiratory Rate 18 11/04/19 15:50 Respiratory Effort Non-Labored 11/04/19 16:08 Respiratory Depth Normal 11/04/19 16:08 Respiratory Pattern Normal 11/04/19 16:08 Blood Pressure 153/93 H 11/04/19 15:50 Blood Pressure Mean 98 11/01/19 19:45 Blood Pressure Position Sitting 11/01/19 16:58 Pulse Oximetry 98 11/04/19 17:57 Oxygen Delivery Method Room Air 11/04/19 17:57 Oxygen Flow Rate 0 11/04/19 17:57 Pain Level 0 11/04/19 15:50 Comment 11/02/19 07:55 Intake & Output 11/03/19 11/04/19 11/04/19 23:59 11:59 23:59 Intake Total 1020 / 1020 1540 / 5800 4260 / 5800 Output Total 1715 / 2515 1100 / 1100 Balance -695 / -1495 440 / 4700 4260 / 4700 Weight 103.5 kg Intake: IV 300 / 300 260 / 280 20 / 280 Oral 720 / 720 1280 / 5520 4240 / 5520 Output: Urine 1500 / 2300 1100 / 1100 Post Void Residual 215 / 215 Other: Urine Color Yellow Yellow Urine Appearance Clear Clear Urine Odor Normal None Comment Pt has been voiding in the bedside commode, urine measured 450 ml for four voidings. Stool Size Smear Stool Characteristics Soft Voiding Methods Bedside Commode Toilet Laboratory Results WBC 13.80 k/cumm (4.4-10.8) H 11/04/19 06:08 RBC 4.38 m/cumm (4.50-6.00) L 11/04/19 06:08 Hgb 12.1 g/dL (13.5-17.5) L 11/04/19 06:08 Hct 38.0 % (40.0-50.0) L 11/04/19 06:08 MCV 86.8 fL (80-95) 11/04/19 06:08 MCH 27.6 pg (27.0-33.0) 11/04/19 06:08 MCHC 31.8 g/dL (32.0-36.0) L 11/04/19 06:08 RDW 15.4 % (11.8-14.1) H 11/04/19 06:08 Plt Count 260 x1000/uL (130-400) 11/04/19 06:08 MPV 10.2 fL (8.0-11.0) 11/04/19 06:08 Immature Gran % 0.4 11/04/19 06:08 Neutrophils % 92.2 11/04/19 06:08 Lymphocytes % 5.1 11/04/19 06:08 Monocytes % 2.3 11/04/19 06:08 Eosinophils % 0.0 11/04/19 06:08 Basophils % 0.0 11/04/19 06:08 Absolute Neutrophils 12.72 k/cumm (1.2-6.7) H 11/04/19 06:08 Absolute Lymphocytes 0.70 k/cumm (1.2-3.4) L 11/04/19 06:08 Absolute Monocytes 0.32 k/cumm (0.11-0.7) 11/04/19 06:08 Absolute Eosinophils 0.00 k/cumm (0.0-0.7) 11/04/19 06:08 Absolute Basophils 0.00 k/cumm (0.0-0.2) 11/04/19 06:08 Sodium 139 mmol/L (136-145) 11/04/19 06:08 Potassium 4.0 mmol/L (3.5-5.1) 11/04/19 06:08 Chloride 102 mmol/L (98-107) 11/04/19 06:08 Carbon Dioxide 26.1 mmol/L (21.0-32.0) 11/04/19 06:08 Anion Gap 10.9 mmol/L (3-11) 11/04/19 06:08 BUN 34 mg/dL (7-18) H 11/04/19 06:08 Creatinine 1.64 mg/dL (0.70-1.30) H 11/04/19 06:08 Estimated GFR/1.73 m2 43.67 (mL/min/1.73m2) 11/04/19 06:08 Glucose 233 mg/dL (74-106) H 11/04/19 06:08 Lactate 1.1 mmol/L (0.6-1.4) 11/01/19 20:35 Calcium 9.3 mg/dL (8.5-10.1) 11/04/19 06:08 Magnesium 2.1 mg/dL (1.8-2.4) 11/04/19 06:08 Total Bilirubin 0.3 mg/dL (0.2-1.0) 11/01/19 17:17 AST 32 U/L (15-37) 11/01/19 17:17 ALT 33 U/L (16-63) 11/01/19 17:17 Alkaline Phosphatase 150 U/L (46-116) H 11/01/19 17:17 Creatine Kinase 85 U/L (39-308) 11/01/19 17:17 Troponin I < 0.05 ng/Ml (<0.06) 11/01/19 17:17 Total Protein 8.5 g/dL (6.4-8.2) H 11/01/19 17:17 Albumin 3.6 g/dL (3.4-5.0) 11/01/19 17:17 Lipase 203 U/L (73-393) 11/01/19 17:17 Procalcitonin < 0.1 ng/mL 11/03/19 06:00 Urine Color Yellow (Yellow) 11/03/19 08:50 Urine Clarity Clear (Clear) 11/03/19 08:50 Urine pH 6.5 (5-8) 11/03/19 08:50 Ur Specific [place] 1.015 (1.005-1.025) 11/03/19 08:50 Urine Protein Negative mg/dL (Negative) 11/03/19 08:50 Urine Ketones Negative mg/dL (Negative) 11/03/19 08:50 Urine Blood Negative (Negative) 11/03/19 08:50 Urine Nitrite Negative (Negative) 11/03/19 08:50 Urine Bilirubin Negative (Negative) 11/03/19 08:50 Urine Urobilinogen 0.2 EU/dL (Up TO 0.2) 11/03/19 08:50 Ur Leukocyte Esterase Negative (Negative) 11/03/19 08:50 Urine RBC Negative HPF (0-2) 11/03/19 08:50 Urine WBC 0-2 HPF (0-5) 11/03/19 08:50 Ur Epithelial Cells Rare HPF (Negative) 11/03/19 08:50 Urine Crystals Negative HPF (Negative) 11/03/19 08:50 Urine Bacteria Rare HPF (Negative) 11/03/19 08:50 Urine Casts Negative LPF (Negative) 11/03/19 08:50 Urine Mucus Negative (Negative) 11/03/19 08:50 Urine Other Cancelled 11/03/19 07:54 Ur Culture Indicated? No 11/03/19 08:50 Urine Glucose Negative mg/dL (Negative) 11/03/19 08:50
--- NOTE | 2019-11-04 19:24 | CMPROGNOTE_ITS ---
- If Service Date Differs Date of service: 11/04/19 Time of Service: 19:24 Care Management Progress Note S/O: Matt was sitting up in his bed when CM met with him. He reported that he was feeling better, but not back to baseline. He stated that, per provider, he would be monitored overnight and may be able to return home tomorrow. CM will continue to follow. A: Matt is a 54 year old male admitted to [facility] on 11/01/2019 for Pneumonia. P: Anticipate Matt will return home with no new services once medically cleared. He will follow up with his PCP as recommended. He will drive home via private vehicle with family when ready. CM will continue to follow and support patient with discharge planning considerations.
[2019-11-04] MEDS: Enoxaparin 30 MG/0.3 ML SYR SC (21:46)
[2019-11-04] MEDS: Lidocaine 5% Patch 1 PATCH TP (21:47)
[2019-11-05] VITALS (9 sets, daily range): BP systolic 142–161; BP diastolic 78–81; PULSE 91–116; RESP 1–19; TEMP 36.5–37.1; O2SAT 96–98
[2019-11-05] MEDS: Albuterol/Ipratropium 3 ML UPD VIAL UPD ×2 (06:28→13:06)
[2019-11-05 06:57] LABS: Abs Immature Grans 0.04 k/cumm (0.0-0.09); Absolute Basophil Count 0.01 k/cumm (0.0-0.2); Absolute Eosinophil Count 0.03 k/cumm (0.0-0.7); Absolute Lymphocyte Count 1.65 k/cumm (1.2-3.4); Absolute Monocyte Count 1.25 k/cumm (0.11-0.7); Basophils % 0.1; Eosinophils % 0.3; HCT 39.2 % (40.0-50.0); HGB 12.5 g/dL (13.5-17.5); Immature Grans % 0.4; Lymphocytes % 14.5; Mean Corp. HGB Concentration 31.9 g/dL (32.0-36.0); Mean Corpuscular Hemoglobin 27.5 pg (27.0-33.0); Mean Corpuscular Volume 86.2 fL (80-95); Neutrophils % 73.7; Platelet Count 260 x1000/uL (130-400); RBC 4.55 m/cumm (4.50-6.00); RBC Distribution Width 15.2 % (11.8-14.1); White Blood Cell Count 11.37 k/cumm (4.4-10.8)
[2019-11-05 07:01] LABS: Absolute Neutrophil Count 8.38 k/cumm (1.2-6.7)
[2019-11-05 07:06] LABS: Anion Gap 9.6 mmol/L (3-11); BUN 37 mg/dL (7-18); CO2 27.4 mmol/L (21.0-32.0); CREATININE 1.47 mg/dL (0.70-1.30); Calcium 9.1 mg/dL (8.5-10.1); Chloride 103 mmol/L (98-107); Estimated GFR 49.55 (mL/min/1.73m2); Glucose 98 mg/dL (74-106); Sodium 140 mmol/L (136-145)
[2019-11-05] MEDS: Pantoprazole 20 MG TABCR PO (07:26)
[2019-11-05] MEDS: Benzonatate 200 MG CAP PO (08:30)
[2019-11-05] MEDS: Sertraline 50 MG TAB 150 MG PO (08:30)
[2019-11-05] MEDS: predniSONE 20 MG TAB 40 MG PO (08:31)
[2019-11-05] MEDS: guaiFENesin 600 MG TABCR PO (08:31)
[2019-11-05] MEDS: Mometasone 220 MCG 14 DOSE INHALER IH (09:26)
[2019-11-05] MEDS: Triamcinolone 0.1% CR 15 GM TUBE TP (09:52)
[2019-11-05] MEDS: Fluticasone NASAL SPRAY 16 GM BTL NS (09:52)
[2019-11-05] MEDS: Nicotine 21 MG/24 HR PATCH TD (09:56)
[2019-11-05] MEDS: Patch Removal 1 EACH TD (10:00)
--- NOTE | 2019-11-05 10:23 | NUR.NOTE ---
Nursing Note: Patient's heart rate noted to be very irregular with an increased rate with the nursing assessment performed at 0715. Lu Curiel, RNCC notified
--- NOTE | 2019-11-05 13:26 | PDOC.CMDIS ---
- If Service Date Differs Date of service: 11/05/19 Time of Service: 13:26 LACE Index Scoring Tool - Questions: Length of Stay (in days): 2 Acuity (Admit via E.D.?): Yes Comorbidities: Chronic Pulmonary Disease E.D. Visits: 6 - Answers: Total Score: 11 Risk of Readmission: High Risk Care Management Discharge Reason for Hospitalization: Community Acquired pneumonia Discharge Plan: Matt will return home with no additional services at this time. His friend will drive him home via private vehicle. He will follow up with his PCP, as recommended. He is agreeable to the plan. Patient/Family Education Needs: Review discharge instructions regarding activity levels and medications, discussion of self care needs including Ask Me Three
--- NOTE | 2019-11-05 16:19 | W.PM.DS.N ---
Date of service: 11/05/19 Time of Service: 16:20 DS: Diagnosis Discharge Diagnosis (1) Upper respiratory infection: Status: Acute Asessment and Plan: No definite pneumonia seen on chest x-ray however the chest CT scan did show an area of consolidation. He received IV ceftriaxone and azithromycin throughout his stay here. His respiratory status improved. Discharged off of antibiotics. (2) COPD (chronic obstructive pulmonary disease): Status: Chronic Asessment and Plan: His breathing is overall improved. Continue 5 more days of prednisone therapy. Continue on his usual updrafts and inhalers. (3) Constipation: Status: Resolved Asessment and Plan: He presented with severe constipation which responded extremely well to a bowel regimen. He was having several loose stools per day at the time of discharge. (4) HUBER (acute kidney injury): Status: Acute Asessment and Plan: His acute kidney injury appears to have been related to relative dehydration. Creatinine had come back to 1.47 at the time of discharge. Discharge Plan Disposition Patient Disposition: HOME Condition: Stable Discharge Details Chief Complaint: Nausea/Vomit/Diar Clinical Impression: Pneumonia, Acute kidney injury, COPD exacerbation Reason For Visit: COPD EXACERBATION, HUBER Admit Date/Time: 11/04/19 18:56 Admit Provider: Greg Venegas Attending Provider: Greg Venegas Primary Care Provider: Winston Truong ED Provider: Sabina Perdomo Hospital Course Hospital Course: This is a 54-year-old man that presented with nausea vomiting constipation and dyspnea. He has underlying COPD. He had a prior admission 04/28 through 04/30/2019 for community-acquired pneumonia/COPD exacerbation. He had an acute kidney injury from dehydration during that admission. He presents with similar symptoms. In the emergency room creatinine had bumped to 1.78 from his baseline of 1.26. His chest x-ray was unremarkable. A CT chest,abdomen, and pelvis showed tree in bud opacities in the right lung base that were felt to be either infectious or inflammatory. He also had a nonspecific 6 mm nodule in the left lower lobe. There were some early findings of cirrhosis and portal hypertension. He was negative for influenza a and B. He was empirically started on ceftriaxone and azithromycin for right lower lobe pneumonia, steroids, serial nebulizer treatments for his breathing condition. He was started on laxatives and stool softeners. He went on to have copious bowel movements. His respiratory status improved markedly over the next 48 hours. A repeat chest x-ray again showed no obvious infiltrates. His last noted fever was 38.2 at 8 PM on 11/03/2019. He is discharged on no further antibiotic therapy, 5 more days of steroid therapy. Home Meds and New Rx's Prescriptions: New prednisone 20 mg Tablet 40 mg PO DAILY Qty: 10 RF: 0 nicotine 14 mg/24 hr patch 24 hour 1 patch TD Q24H Qty: 28 RF: 0 Continued cyclobenzaprine 5 mg tablet 5 mg PO TID PRN (Reason: muscle spasm) Qty: 60 RF: 2 triamcinolone acetonide 0.1 % cream 1 applic Topical BID Qty: 3 RF: 4 Flovent HFA 110 mcg/actuation HFA aerosol inhaler 2 puff Inhalation BID Qty: 1 RF: 4 albuterol sulfate 90 mcg/actuation HFA aerosol inhaler 2 puff IH QID PRN (Reason: shortness of breath) Qty: 18 RF: 0 fluticasone propionate 50 mcg/actuation spray,suspension 1 spray NS DAILY Qty: 1 RF: 0 Nicotrol 10 mg cartridge 1 inh IH 4-6XD PRN (Reason: nicotine cravings) Qty: 168 RF: 1 ranitidine HCl 150 mg tablet 150 mg PO BID PRN (Reason: heartburn/reflux) Qty: 180 RF: 4 sertraline 100 mg tablet 150 mg PO DAILY Qty: 135 RF: 4 albuterol sulfate 5 mg/mL solution for nebulization 2.5 mg IH Q4H PRN (Reason: shortness of breath) Qty: 20 RF: 0 acetaminophen [Tylenol Extra Strength] 500 mg tablet 1,000 mg PO Q4H PRN (Reason: pain) Qty: 30 RF: 0 ibuprofen 200 mg capsule 600 mg PO Q6H PRN (Reason: pain) Qty: 60 RF: 0 lidocaine [Lidoderm] 5 % adhesive patch,medicated 1 patch TP DAILY PRN (Reason: pain) Qty: 15 RF: 0 Discontinued lidocaine [Lidoderm] 1 PATCH patch 1 patch Topical Q24H Qty: 4 RF: 0 Discharge Instructions Instructions: Constipation (DC), COPD (Chronic Obstructive Pulmonary Disease) (DC) Stand Alone Forms: Nursing Discharge Form Referrals: Anabela Matthews NP [NURSE PRACTITIONER] - 11/09/19 1:20 pm Activity:: Activity as Tolerated Equipment/Supplies:: No Equipment Needed Diet:: As Tolerated Discharge Orders Discharge Orders: Discharge Order (Routine); Ordered 11/05/19 Ordered By: Segundo Valentine Discharge Data Discharge Date/Time-TO BE ENTERED AT DEPARTURE: 11/05/19 14:13 DS: Summary Summary Time spent discussing smoking cessation with patient: 3 to 10 minutes Status at Discharge Functional status at discharge: independent ambulation Overall status at discharge: patient is back to baseline Mental Status: mental status grossly normal Speech and Movement: speech and movement normal Mood: congruent mood Affect: normal affect Time Spent with Patient providing and/or coordinating discharge services: Greater than 30 minutes Exam Narrative Exam Narrative: Patient is animated and in good spirits. He is not requiring any supplemental oxygen. He is breathing is not at all labored. No significant cough. Psych Mental Status: mental status grossly normal Speech and Movement: speech and movement normal Mood: congruent mood Affect: normal affect DS: Data Vitals/I&O Vitals and I&O: Vital Signs Temperature 36.5 C 11/05/19 11:32 Temperature Source Tympanic 11/05/19 11:32 Pulse 116 H 11/05/19 13:16 Pulse Rhythm Irregular 11/05/19 07:15 Respiratory Rate 18 11/05/19 13:17 Respiratory Effort Non-Labored 11/05/19 13:17 Respiratory Depth Normal 11/05/19 13:17 Respiratory Pattern Normal 11/05/19 13:17 Blood Pressure 161/78 H 11/05/19 11:32 Blood Pressure Mean 98 11/01/19 19:45 Blood Pressure Position Sitting 11/01/19 16:58 Pulse Oximetry 98 11/05/19 13:16 Oxygen Delivery Method Room Air 11/05/19 13:06 Oxygen Flow Rate 0 11/05/19 13:06 Pain Level 0 11/05/19 11:32 Comment 11/05/19 10:18 Intake & Output 11/04/19 11/05/19 11/05/19 23:59 11:59 23:59 Intake Total 4570 / 6110 1210 / 1450 240 / 1450 Balance 4570 / 5010 1210 / 1450 240 / 1450 Weight 103.4 kg Intake: IV 90 / 350 Oral 4480 / 5760 1200 / 1440 240 / 1440 Other: Urine Color Yellow Comment pt voiding independently in the bathroom Stool Size Large Stool Characteristics Soft Formed Brown Black Voiding Methods Toilet Toilet Data Completed and Pending Labs on day of discharge: Labs from last 24 hours 11/05/19 11/05/19 06:15 06:15 WBC 11.37 H RBC 4.55 Hgb 12.5 L Hct 39.2 L MCV 86.2 MCH 27.5 MCHC 31.9 L RDW 15.2 H Plt Count 260 MPV 10.0 Immature Gran % 0.4 Neutrophils % 73.7 Lymphocytes % 14.5 Monocytes % 11.0 Eosinophils % 0.3 Basophils % 0.1 Absolute Neutrophils 8.38 H Absolute Lymphocytes 1.65 Absolute Monocytes 1.25 H Absolute Eosinophils 0.03 Absolute Basophils 0.01 Sodium 140 Potassium 4.0 Chloride 103 Carbon Dioxide 27.4 Anion Gap 9.6 BUN 37 H Creatinine 1.47 H Estimated GFR/1.73 m2 49.55 Glucose 98 D Calcium 9.1 Preliminary micro results at discharge 11/04/19 12:40 Sputum Culture - Preliminary Sputum Normal Sonja [facility] Medical History COPD (chronic obstructive pulmonary disease) (Chronic 02/14/15) PFT's show severe obstructive disease with bronchodilator response; PFT 02/13/2015, [id number]%, FEV1/FVC 67%, post BD FEV1 50% FEV1/FVC 72% Depressive disorder (Chronic) Gastroesophageal reflux disease (Chronic) History of tobacco use (Chronic) 48 pack years 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
[2019-11-07 13:00] LABS: Streptococcus Pneumoniae Ag, U Negative (Negative)
== END 2019-11-05 14:13 | disposition home or self-care (01) | DRG 153 ==
LOC: ER 19:52 → MS 23:21
PROVIDERS: Internal Medicine; Admitting Provider Internal Medicine; Emergency Provider Physician Assistant; PCP Family Medicine; Visit Provider Family Medicine
DX: J06.9 Acute upper respiratory infection, unspecified (principal); N17.9 Acute kidney failure, unspecified; K76.6 Portal hypertension; E86.0 Dehydration; J44.9 Chronic obstructive pulmonary disease, unspecified; K59.00 Constipation, unspecified; R91.1 Solitary pulmonary nodule; K75.81 Nonalcoholic steatohepatitis (NASH); K74.60 Unspecified cirrhosis of liver; F17.210 Nicotine dependence, cigarettes, uncomplicated; F32.9 Major depressive disorder, single episode, unspecified; K21.9 Gastro-esophageal reflux disease without esophagitis
CPT/HCPCS: 36415; 80048; 80053; 82550; 83690; 84145; 87449; 94640; 96361; 96365; 96375; 99220; 99225; 99232; 99239; 99285; 71046; 74176; 81003; 81015; 83605; 83735; 84484; 85025; 87070; 87205; 87450; G0378; J0456; J0696; J1650; J2405; J2930; J3490; J7512; J7620

== ENCOUNTER 2019-11-14 10:32 | Outpatient (CLI) | payer MEDICAID, SELFPAY ==
[2019-11-14] MEDS: Inhaler, Assist Device 1 EACH MC (11:32)
[2019-11-14] MEDS: Albuterol HFA 18 GM 200 PUFF INH IH (11:33)
--- NOTE | 2019-11-14 13:20 | PFT_ITS ---
PULMONARY FUNCTION TEST REPORT DATE OF SERVICE: November 14, 2019 REQUESTING PROVIDER: Winston Truong M.D. Spirometry shows severe obstructive airways disease with significant bronchodilator response. Lung volumes show no evidence of restriction. There is mild to moderate hyperinflation and air trapping. Diffusion capacity normal. Airways resistance markedly elevated. IMPRESSION: Severe obstructive airways disease with significant bronchodilator response, which is associated with mild to moderate hyperinflation and air trapping and markedly elevated airways resistance. When this study was compared to previous one from 02/13/15, the patient has a 600 cc's improvement in FVC. FEV1 has improved by 100 cc's. CECILIA/luxl D/
== END 2019-11-14 10:52 ==
PROVIDERS: PCP Family Medicine; Visit Provider Family Medicine
DX: J44.9 Chronic obstructive pulmonary disease, unspecified (principal)
CPT/HCPCS: 94060; 94150; 94726; 94729

== ENCOUNTER 2019-12-06 14:00 | Outpatient (RCR) | payer MEDICAID, SELFPAY | END 2019-12-08 23:59 | disposition home or self-care (01) | LOC: PRC 14:00 | PROVIDERS: PCP Family Medicine; Visit Provider Family Medicine | DX: Z51.89 Encounter for other specified aftercare (principal) | CPT/HCPCS: G0424 ==

== ENCOUNTER 2019-12-29 14:00 | Outpatient (RCR) | payer MEDICAID, SELFPAY | END 2020-01-06 23:59 | disposition home or self-care (01) | LOC: PRC 14:00 | PROVIDERS: PCP Family Medicine; Visit Provider Family Medicine | DX: Z51.89 Encounter for other specified aftercare (principal); J44.9 Chronic obstructive pulmonary disease, unspecified | CPT/HCPCS: G0424; S9472 ==

== ENCOUNTER 2019-12-30 14:10 | Inpatient (IN) | payer MEDICAID, SELFPAY ==
[2019-12-30] VITALS (38 sets, daily range): BP systolic 104–163; BP diastolic 49–108; PULSE 104–147; RESP 4–30; TEMP 35.9–38.6; O2SAT 93–98
--- NOTE | 2019-12-30 15:00 | DI.RAD_ITS ---
EXAM: XR CHEST 2V PA LATERAL XR CHEST 2V PA LATERAL CLINICAL HISTORY: cough cough TECHNIQUE: 2D digital imaging was performed. COMPARISON: XR CHEST 2V PA LATERAL from 11/03/2019 FINDINGS: The heart is not enlarged. The lungs are clear and well expanded. No pleural effusion seen. Mediastin al contours appear intact. IMPRESSION: Normal chest
[2019-12-30 15:09] LABS: Abs Immature Grans 0.01 k/cumm (0.0-0.09); Absolute Basophil Count 0.03 k/cumm (0.0-0.2); Absolute Eosinophil Count 0.14 k/cumm (0.0-0.7); Absolute Lymphocyte Count 0.55 k/cumm (1.2-3.4); Absolute Monocyte Count 0.79 k/cumm (0.11-0.7); Absolute Neutrophil Count 5.09 k/cumm (1.2-6.7); Basophils % 0.5; Eosinophils % 2.1; HCT 40.3 % (40.0-50.0); HGB 13.3 g/dL (13.5-17.5); Immature Grans % 0.2 %; Lymphocytes % 8.3; Mean Corpuscular Hemoglobin 28.2 pg (27.0-33.0); Mean Corpuscular Volume 85.4 fL (80-95); Mean Platelet Volume 9.7 fL (8.0-11.0); Neutrophils % 76.9; Platelet Count 180 x1000/uL (130-400); RBC 4.72 m/cumm (4.50-6.00); RBC Distribution Width 14.3 % (11.8-14.1); White Blood Cell Count 6.61 k/cumm (4.4-10.8)
[2019-12-30] MEDS: Albuterol/Ipratropium 3 ML UPD VIAL UPD ×2 (15:16→16:03)
[2019-12-30] MEDS: methylPREDNISolone SUCC 125 MG VIAL IVP (15:17)
[2019-12-30] MEDS: Normal Saline 1,000 ML 1000 ML IV (15:17)
[2019-12-30 15:19] LABS: ALT 33 U/L (16-63); AST 28 U/L (15-37); Albumin 3.9 g/dL (3.4-5.0); Alkaline Phosphatase 131 U/L (46-116); Anion Gap 10.2 mmol/L (3-11); BUN 14 mg/dL (7-18); Bilirubin, Total 0.4 mg/dL (0.2-1.0); CO2 28.8 mmol/L (21.0-32.0); Calcium 8.9 mg/dL (8.5-10.1); Chloride 96 mmol/L (98-107); Estimated GFR 39.23 (mL/min/1.73m2); Glucose 99 mg/dL (74-106); Potassium 3.7 mmol/L (3.5-5.1); Sodium 135 mmol/L (136-145); Total Protein 8.4 g/dL (6.4-8.2)
[2019-12-30] MEDS: Oseltamivir 75 MG CAP PO (16:02)
[2019-12-30] MEDS: Ketorolac 15 MG/ML VIAL IVP (16:02)
[2019-12-30] MEDS: Ondansetron 4 MG/2 ML VIAL IVP (16:02)
--- NOTE | 2019-12-30 16:18 | DI.VRAD_ITS ---
PROCEDURE INFORMATION: Exam: XR Chest, 2 Views Exam date and time: 12/30/2019 3:42 PM Age: 54 years old Clinical indication: Cough and fever TECHNIQUE: Imaging protocol: XR of the chest Views: 2 views. COMPARISON: CR XR CHEST 2V PA LATERAL 03/11/2019 16:21 FINDINGS: Lungs: Unremarkable. No consolidation. Pleural space: Unremarkable. No pleural effusion. No pneumothorax. Heart/Mediastinum: Unremarkable. No cardiomegaly. Bones/joints: Unremarkable for patient's age. IMPRESSION: No acute cardiopulmonary findings. Dictated and Authenticated by: Irina Lopez MD. Ordering:LEELA Muhammad MD
--- NOTE | 2019-12-30 16:25 | ED.GENADUL_ITS ---
Discharge Plan Disposition Patient Disposition: [facility] INPATIENT Condition: Stable Discharge Details Chief Complaint: RespSymp Clinical Impression: Influenza, COPD with acute exacerbation, Acute dehydration Admit Date/Time: 12/30/19 16:17 Admit Provider: Es Dick Attending Provider: Es Dick Primary Care Provider: Winston Truong ED Provider: Sabina Perdomo Discharge Data Discharge Date/Time-TO BE ENTERED AT DEPARTURE: 12/30/19 17:16 Medical Decision Making Is a 54-year-old COPD patient presenting to the emergency room for complaints of 2 days of illness. Patient specifically reports flulike symptoms including headache, body ache, nasal congestion, sore throat and cough associated with several episodes of vomiting yesterday. Feeling dehydrated today. Patient reporting febrile sensation. Patient presents febrile with a temperature of 101.5. Patient complaining of cough for 2 days with associated shortness of breath for the last 24 hours. Patient reports wheezing. Patient is a known COPD year. Patient requesting breathing treatment at this time. Has used inhalers at home. Last took Tylenol 1 hour prior to arrival. Patient's initial physical exam reveals tachycardia, febrile. Pharyngeal erythema as well as TM erythema bilaterally. Widespread wheezing with increase in respiratory effort noted on initial evaluation, initial O2 sat 88. Patient placed on a few liters of oxygen nasal cannula, IV fluids ordered, IV access obtained, labs obtained, flu swab as well as chest x-ray ordered. Solu- Medrol 125 mg IV ordered and DuoNeb after initial evaluation. Patient's labs reveal no significant change from his baseline. Patient's influenza testing is positive for influenza type B. Tamiflu ordered Patient's chest x-ray does not reveal acute cardiopulmonary findings Given patient's increase in respiratory effort, known COPD and presentation consistent with dehydration I have discussed inpatient versus outpatient management of this patient. He has a strong preference for admission at this time. Patient has been provided a second liter of IV fluid as well as second DuoNeb. Spoke with hospitalist who will accept this patient's admission at this time. Patient notably remains tachycardic but in no apparent distress. Patient reports improvement in respiratory effort after receiving fluids and breathing treatments. HPI General Date/Time Provider Initiated Documentation: 12/30/19 14:16 . HPI Narrative: Is a 54-year-old patient presenting to the emergency room for 2 days of illness. Patient reports feeling febrile, body aches, fatigue mild headache. Patient reports several episodes of vomiting yesterday. Is feeling dehydrated at this time. Patient presents with nasal congestion mild sore throat and coughing. Patient does report wheezing present and is requesting a breathing treatment. Patient reports shortness of breath for the last 24 hours. Patient is a known COPD year. Patient reports he did take Tylenol last at 1:00 but remains feeling febrile and ill. Does report some sweats. Denies active chest pain at rest but does endorse chest pain when coughing or deep breathing. Patient does report nausea and vomiting but denies diarrhea. Does report abdominal pain again when coughing, denies at rest. Related Data Home Medications Medication Instructions Recorded Confirmed fluticasone propionate 50 1 spray NS DAILY #1 script 03/23/19 12/30/19 mcg/actuation nasal spray,suspension nicotine 10 mg inhalation cartridge 1 inh IH 4-6XD PRN #168 each 05/12/19 12/30/19 ranitidine HCl 150 mg tablet 150 mg PO BID PRN #180 tab 07/03/19 12/30/19 cyclobenzaprine 5 mg tablet 5 mg PO TID PRN #60 tab 07/27/19 12/30/19 sertraline 100 mg tablet 150 mg PO DAILY #135 tab 08/16/19 12/30/19 acetaminophen [Tylenol Extra 1,000 mg PO Q4H PRN #30 tab 10/09/19 12/30/19 Strength] ibuprofen 600 mg PO Q6H PRN #60 cap 10/09/19 12/30/19 lidocaine [Lidoderm] 1 patch TP DAILY PRN #15 each 10/09/19 12/30/19 albuterol sulfate 90 mcg/actuation 2 puff IH QID PRN #18 gm 10/17/19 12/30/19 aerosol inhaler fluticasone propionate 110 2 puff INHALATION BID #1 inhaler 10/17/19 12/30/19 mcg/actuation HFA aerosol inhaler triamcinolone acetonide 0.1 % 1 applic TOPICAL BID #3 gm 10/17/19 12/30/19 topical cream nicotine 1 patch TD Q24H #28 each 11/05/19 12/30/19 albuterol sulfate 2.5 mg IH Q4H PRN #90 ml 11/09/19 12/30/19 doxycycline hyclate 100 mg capsule 100 mg PO BID #14 cap 12/13/19 12/13/19 prednisone 20 mg tablet 40 mg PO DAILY #10 tab 12/13/19 12/13/19 Previous Rx's Medication Instructions Recorded fluticasone propionate 50 1 spray NS DAILY #1 script 03/23/19 mcg/actuation nasal spray,suspension nicotine 10 mg inhalation cartridge 1 inh IH 4-6XD PRN #168 each 05/12/19 ranitidine HCl 150 mg tablet 150 mg PO BID PRN #180 tab 07/03/19 cyclobenzaprine 5 mg tablet 5 mg PO TID PRN #60 tab 07/27/19 sertraline 100 mg tablet 150 mg PO DAILY #135 tab 08/16/19 acetaminophen [Tylenol Extra 1,000 mg PO Q4H PRN #30 tab 10/09/19 Strength] ibuprofen 600 mg PO Q6H PRN #60 cap 10/09/19 lidocaine [Lidoderm] 1 patch TP DAILY PRN #15 each 10/09/19 albuterol sulfate 90 mcg/actuation 2 puff IH QID PRN #18 gm 10/17/19 aerosol inhaler fluticasone propionate 110 2 puff INHALATION BID #1 inhaler 10/17/19 mcg/actuation HFA aerosol inhaler triamcinolone acetonide 0.1 % 1 applic TOPICAL BID #3 gm 10/17/19 topical cream nicotine 1 patch TD Q24H #28 each 11/05/19 albuterol sulfate 2.5 mg IH Q4H PRN #90 ml 11/09/19 doxycycline hyclate 100 mg capsule 100 mg PO BID #14 cap 12/13/19 prednisone 20 mg tablet 40 mg PO DAILY #10 tab 12/13/19 Allergies Allergy/AdvReac Type Severity Reaction Status Date / Time Penicillins Allergy RASH Verified 12/13/19 10:52 aspirin AdvReac UPSET Verified 12/13/19 10:52 STOMACH General Stated Complaint: RespSymp ALMAS: 3 Review of Systems All systems reviewed & are unremarkable except as noted in HPI and below Constitutional Constitutional: Reports chills, Reports fatigue, Reports fever(s), Reports headache(s) and Reports malaise ENT Ears, Nose, Mouth, and Throat: Denies otalgia, Reports headache(s), Reports nasal congestion, Denies sinus pain, Denies sinus pressure and Reports sore throat Cardiovascular Cardiovascular: Denies chest pain and Denies chest pain with activity Respiratory Respiratory: Reports chest congestion, Reports cough, Reports pain on inspiration, Reports pain with cough and Reports wheezing Gastrointestinal Gastrointestinal: Reports abdominal pain (When coughing), Denies diarrhea, Reports nausea and Reports vomiting Genitourinary Genitourinary: Denies dysuria and Denies flank pain Musculoskeletal Musculoskeletal: Reports myalgias Neurologic Neurologic: Reports headache(s) Endocrine Endocrine: Reports fatigue Allergic/Immunologic Allergic/Immunologic: Reports wheezing [facility] Medical History COPD (chronic obstructive pulmonary disease) (Chronic 02/14/15) PFT's show severe obstructive disease with bronchodilator response; PFT 02/13/2015, [id number]%, FEV1/FVC 67%, post BD FEV1 50% FEV1/FVC 72% Depressive disorder (Chronic) Gastroesophageal reflux disease (Chronic) History of tobacco use (Chronic) 48 pack years 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 Exam Narrative Exam Narrative: CONST: Ill-appearing. dehydrated. Alert and oriented. Febrile. HENMT: Head nomocephalic, normal to inspection. Atraumatic. Hearing grossly normal. TMs with mild erythema bilaterally. No significant effusion. Mild pharyngeal erythema without exudates, tonsillar swelling or indications of peritonsillar abscess at this time EYES: General normal appearance. Alignment normal. Eyelids normal. Conjunctiva normal. NECK: Normal visual inspection. FROM. Trachea midline. No Midline tenderness. Cervical lymphadenopathy present CHEST: Normal insepection of the chest. RESP: Normal respiratory effort. Speaking full sentences. No cough. No audible wheezing. No retractions. Breath sounds are equal bilaterally. Diffuse wheezing in all breath vasquez. No obvious rhonchi. No rales CARDIO: No JVD. No murmur, tachycardic, regular rhythm Abdomen: Bowel sounds present all 4 quadrants, abdomen is soft and nontender. No peritoneal signs, rebound or guarding. MUSCULOSKELETAL: Normal Gait. FROM of all extremities. SKIN: Normal. Clammy. No rashes. NEURO: Alert and awake. Speech clear. PSYCH: Normal affect. Cooperative. Course Vital Signs Vital signs: Vital Signs Temperature 38.6 C H 12/30/19 14:17 Pulse 130 H 12/30/19 14:17 Respiratory Rate 20 12/30/19 14:17 Blood Pressure 135/95 H 12/30/19 14:17 Pulse Oximetry 95 12/30/19 14:17 Temperature 38.3 C H 12/30/19 15:30 Temperature Source Oral 12/30/19 15:30 Pulse 127 H 12/30/19 16:03 Pulse 125 H 12/30/19 16:00 Respiratory Rate 18 12/30/19 16:03 Respiratory Effort Short of Breath 12/30/19 14:39 Blood Pressure 152/84 H 12/30/19 15:45 Blood Pressure Mean 99 12/30/19 15:45 Blood Pressure Position Supine 12/30/19 14:17 Pulse Oximetry 95 12/30/19 16:03 Oxygen Delivery Method Room Air 12/30/19 16:03 Oxygen Flow Rate 0 12/30/19 16:03 Pain Level 4 12/30/19 16:02 Lab/Test Results Lab/Test Results: 12/30/19 14:50 Nose Influenza Types A,B Antigen - Final Laboratory Tests Range/Units 12/30/19 12/30/19 12/30/19 14:41 14:50 14:50 WBC Cancelled 6.61 RBC Cancelled 4.72 Hgb Cancelled 13.3 L Hct Cancelled 40.3 MCV Cancelled 85.4 MCH Cancelled 28.2 MCHC Cancelled 33.0 RDW Cancelled 14.3 H Plt Count Cancelled 180 MPV Cancelled 9.7 Immature Gran % % 0.2 Neutrophils % 76.9 Lymphocytes % 8.3 Monocytes % 12.0 Eosinophils % 2.1 Basophils % 0.5 Absolute Neutrophils (1.2-6.7) k/cumm 5.09 Absolute Lymphocytes (1.2-3.4) k/cumm 0.55 L Absolute Monocytes (0.11-0.7) k/cumm 0.79 H Absolute Eosinophils (0.0-0.7) k/cumm 0.14 Absolute Basophils (0.0-0.2) k/cumm 0.03 Sodium (136-145) mmol/L 135 L Potassium (3.5-5.1) mmol/L 3.7 Chloride (98-107) mmol/L 96 L Carbon Dioxide (21.0-32.0) mmol/L 28.8 Anion Gap (3-11) mmol/L 10.2 BUN (7-18) mg/dL 14 Creatinine (0.70-1.30) mg/dL 1.80 H Estimated GFR/1.73 m2 (mL/min/1.73m2) 39.23 Glucose (74-106) mg/dL 99 Calcium (8.5-10.1) mg/dL 8.9 Total Bilirubin (0.2-1.0) mg/dL 0.4 AST (15-37) U/L 28 ALT (16-63) U/L 33 Alkaline Phosphatase (46-116) U/L 131 H Total Protein (6.4-8.2) g/dL 8.4 H Albumin (3.4-5.0) g/dL 3.9
--- NOTE | 2019-12-30 16:48 | HPE_ITS ---
Date of service: 12/30/19 Time of Service: 16:48 Assessment and Plan Assessment and plan (1) Influenza: Start date: 12/30/19 Start time: 17:08 Status: Acute Assessment and plan: Positive for influenza A with fever and tachycardia, with COPD exacerbation. Sob x 3 days. Diminished lung sounds. Intermittent wheezing. Sputum with color change, recently admitted for pneumonia will treat with Vanco and levaquin due to sputum change in a patient with COPD also Updrafts, nebs Tamiflu IVF, Mucolytics, hold off on steroids at this time. Does not appear in distress. (2) COPD with acute exacerbation: Start date: 12/30/19 Start time: 17:11 Status: Acute Assessment and plan: exacerbated from flu. See above. (3) Acute dehydration: Start date: 12/30/19 Start time: 17:11 Status: Acute Assessment and plan: 3 days fever, vomiting, HUBER, [facility] (4) History of tobacco use: Start date: 12/30/19 Start time: 17:12 Status: Chronic Assessment and plan: States smoking 2 packs of cigarettes last week, nicotene patch prn. offer cessation. Interested in quitting (5) HUBER (acute kidney injury): Start date: 12/30/19 Start time: 17:13 Status: Acute Assessment and plan: Evidenced by creatinine 1.80. Will give IVF recheck labs in am and continue to monitor. History of Present Illness History of Present Illness Chief Complaint: COPD, INFLUENZA Narrative: 54 year old male with PMH of COPD, GERD, and CKD well known to our service presents to [facility] ED after 3 days of cough, SOB, and fever. Febrile with tachycardia. Labs in ED remarkable for creatinine 1.80, sodium 135, alk phos 131. No leukocytosis. Positive for influenza A, CXR unremarkable. He does have a cough with sputum changes and recently hospitalized for pneumonia. He also does Pulmonary rehab a couple of days a week at this facility. Started on levaquin and vanco. Blood cultures and sputum pending. Updrafts and nebs, muculytics, IVF. Smoked 2 pack cigarretes last week, nicotine patch ordered. Denies CP, does c/o nausea antiem etic ordered. Review of Systems All systems reviewed & are unremarkable except as noted in HPI and below [facility] Medical History COPD (chronic obstructive pulmonary disease) (Chronic 02/14/15) PFT's show severe obstructive disease with bronchodilator response; PFT 02/13/2015, [id number]%, FEV1/FVC 67%, post BD FEV1 50% FEV1/FVC 72% Depressive disorder (Chronic) Gastroesophageal reflux disease (Chronic) History of tobacco use (Chronic) 48 pack years 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 Meds Home Medications and Allergies Home Medications Medication Instructions Recorded Confirmed Type fluticasone propionate 50 1 spray NS DAILY #1 script 03/23/19 12/30/19 Rx mcg/actuation nasal spray,suspension nicotine 10 mg inhalation cartridge 1 inh IH 4-6XD PRN #168 each 05/12/19 12/30/19 Rx ranitidine HCl 150 mg tablet 150 mg PO BID PRN #180 tab 07/03/19 12/30/19 Rx cyclobenzaprine 5 mg tablet 5 mg PO TID PRN #60 tab 07/27/19 12/30/19 Rx sertraline 100 mg tablet 150 mg PO DAILY #135 tab 08/16/19 12/30/19 Rx acetaminophen [Tylenol Extra 1,000 mg PO Q4H PRN #30 tab 10/09/19 12/30/19 Rx Strength] ibuprofen 600 mg PO Q6H PRN #60 cap 10/09/19 12/30/19 Rx lidocaine [Lidoderm] 1 patch TP DAILY PRN #15 each 10/09/19 12/30/19 Rx albuterol sulfate 90 mcg/actuation 2 puff IH QID PRN #18 gm 10/17/19 12/30/19 Rx aerosol inhaler fluticasone propionate 110 2 puff INHALATION BID #1 inhaler 10/17/19 12/30/19 Rx mcg/actuation HFA aerosol inhaler triamcinolone acetonide 0.1 % 1 applic TOPICAL BID #3 gm 10/17/19 12/30/19 Rx topical cream nicotine 1 patch TD Q24H #28 each 11/05/19 12/30/19 Rx albuterol sulfate 2.5 mg IH Q4H PRN #90 ml 11/09/19 12/30/19 Rx doxycycline hyclate 100 mg capsule 100 mg PO BID #14 cap 12/13/19 12/13/19 Rx prednisone 20 mg tablet 40 mg PO DAILY #10 tab 12/13/19 12/13/19 Rx Allergies Allergy/AdvReac Type Severity Reaction Status Date / Time Penicillins Allergy RASH Verified 12/13/19 10:52 aspirin AdvReac UPSET Verified 12/13/19 10:52 STOMACH Exam Const General: cooperative, comfortable, no acute distress and ill appearing acutely Nutritional Appearance: obese Orientation: alert, awake and oriented x3 HENMT Head: normal to inspection, normocephalic and atraumatic Mouth: moist mucous membranes Eyes Eyelids: eyelids normal Conjunctivae: conjunctivae normal Sclera: sclerae normal Cornea: corneas normal Pupils: PERRL EOM: EOM intact bilaterally Neck Neck: normal visual inspection Thyroid: thyroid normal Carotids: normal carotid upstroke Lymphatic: no lymphadenopathy noted and no lymphedema noted Chest Chest: normal inspection of the chest Resp Effort & Inspection: able to speak in complete sentences and cough Auscultation: diminished lung sounds Cardio Jugular venous pressure: no JVD Rate: tachycardic Heart Sounds: S1 normal, S2 normal and no murmurs GI Inspection: obesity Palpation: soft and no hepatosplenomegaly Percussion: normal to percussion Auscultation: normal bowel sounds General: deferred Back/Spine/Pelvis Back: no CVA tenderness Thoracic/Lumbar Spine: thoracic and lumbar spine normal to inspection Skin General skin exam: no rashes or lesions noted Neuro General: alert, awake and oriented x3 Cognition: normal cognition Speech: speech normal Extrem General: normal to inspection, full ROM and no clubbing, cyanosis or edema Psych Appearance: grossly normal Mood: congruent mood Affect: normal affect Attitude: cooperative Results Labs Result diagrams: 12/30/19 14:50 12/30/19 14:50 Labs: Laboratory Results - last 24 hr 12/30/19 12/30/19 12/30/19 14:41 14:50 14:50 WBC Cancelled 6.61 RBC Cancelled 4.72 Hgb Cancelled 13.3 L Hct Cancelled 40.3 MCV Cancelled 85.4 MCH Cancelled 28.2 MCHC Cancelled 33.0 RDW Cancelled 14.3 H Plt Count Cancelled 180 MPV Cancelled 9.7 Immature Gran % 0.2 Neutrophils % 76.9 Lymphocytes % 8.3 Monocytes % 12.0 Eosinophils % 2.1 Basophils % 0.5 Absolute Neutrophils 5.09 Absolute Lymphocytes 0.55 L Absolute Monocytes 0.79 H Absolute Eosinophils 0.14 Absolute Basophils 0.03 Sodium 135 L Potassium 3.7 Chloride 96 L Carbon Dioxide 28.8 Anion Gap 10.2 BUN 14 Creatinine 1.80 H Estimated GFR/1.73 m2 39.23 Glucose 99 Calcium 8.9 Total Bilirubin 0.4 AST 28 ALT 33 Alkaline Phosphatase 131 H Total Protein 8.4 H Albumin 3.9 Last Vital Signs Temp 38.3 C H 12/30/19 15:30 Pulse 133 H 12/30/19 16:31 Resp 24 12/30/19 16:40 BP 106/49 L 12/30/19 16:31 Pulse Ox 94 L 12/30/19 16:40
[2019-12-30] MEDS: Normal Saline Flush 10 ML SYR IVP (18:22)
[2019-12-30] MEDS: Normal Saline 1,000 ML 125 ML IV (18:23)
[2019-12-30] MEDS: Acetaminophen 325 MG TAB PO (18:23)
[2019-12-30] MEDS: levoFLOXacin 750 MG/150 ML BAG 100 MG IVPB (20:47)
[2019-12-30] MEDS: Mometasone 220 MCG 14 DOSE INHALER IH (20:52)
[2019-12-30] MEDS: Enoxaparin 40 MG/0.4 ML SYR SC (20:52)
[2019-12-30] MEDS: Levalbuterol 1.25 MG/3 ML UPD VIAL UPD ×2 (20:53→23:20)
[2019-12-30] MEDS: Benzonatate 200 MG CAP PO (20:53)
[2019-12-30] MEDS: guaiFENesin 600 MG TABCR PO (20:53)
[2019-12-30] MEDS: VANCOMYCIN 1,500 MG in Normal Saline 250 ML 166.667 MG IVPB (22:56)
[2019-12-31] VITALS (11 sets, daily range): BP systolic 128–142; BP diastolic 68–86; PULSE 96–119; RESP 2–24; TEMP 36.6–37.4; O2SAT 94–97
[2019-12-31] MEDS: Levalbuterol 1.25 MG/3 ML UPD VIAL UPD ×6 (03:49→23:33)
[2019-12-31] MEDS: Normal Saline 1,000 ML 125 ML IV ×2 (03:49→14:59)
[2019-12-31] MEDS: Levalbuterol HFA 15 GM INH 2 PUFF IH (06:04)
[2019-12-31 07:19] LABS: Abs Immature Grans 0.01 k/cumm (0.0-0.09); Absolute Lymphocyte Count 0.34 k/cumm (1.2-3.4); Absolute Neutrophil Count 6.89 k/cumm (1.2-6.7); HCT 35.8 % (40.0-50.0); HGB 11.5 g/dL (13.5-17.5); Immature Grans % 0.1 %; Lymphocytes % 4.3; Mean Corp. HGB Concentration 32.1 g/dL (32.0-36.0); Mean Corpuscular Hemoglobin 27.6 pg (27.0-33.0); Mean Corpuscular Volume 85.9 fL (80-95); Mean Platelet Volume 9.8 fL (8.0-11.0); Monocytes % 7.7; Neutrophils % 87.9; Platelet Count 163 x1000/uL (130-400); RBC 4.17 m/cumm (4.50-6.00); RBC Distribution Width 14.2 % (11.8-14.1); White Blood Cell Count 7.84 k/cumm (4.4-10.8)
[2019-12-31 07:36] LABS: Anion Gap 11.3 mmol/L (3-11); BUN 17 mg/dL (7-18); CO2 22.7 mmol/L (21.0-32.0); CREATININE 1.73 mg/dL (0.70-1.30); Calcium 8.6 mg/dL (8.5-10.1); Chloride 105 mmol/L (98-107); Estimated GFR 41.06 (mL/min/1.73m2); Glucose 117 mg/dL (74-106); Magnesium 1.7 mg/dL (1.8-2.4); Potassium 4.1 mmol/L (3.5-5.1); Sodium 139 mmol/L (136-145)
[2019-12-31] MEDS: Oseltamivir 75 MG CAP PO ×2 (08:12→20:30)
[2019-12-31] MEDS: guaiFENesin 600 MG TABCR PO ×2 (08:12→20:30)
[2019-12-31] MEDS: Sertraline 50 MG TAB 150 MG PO (08:13)
[2019-12-31] MEDS: Nicotine 14 MG/24 HR PATCH TD (08:13)
[2019-12-31] MEDS: Benzonatate 200 MG CAP PO ×3 (08:13→20:29)
--- NOTE | 2019-12-31 08:19 | INITIAL_ITS ---
- If Service Date Differs Date of service: 12/31/19 Time of Service: 08:19 Care Management Initial Assess REASON FOR HOSPITALIZATION:: Influenza PAST MEDICAL HISTORY/PAST SURGICAL HISTORY:: Medical History . COPD (chronic obstructive pulmonary disease) (Chronic 02/14/15). PFT's show severe obstructive disease with bronchodilator response; PFT 02/13/2015, [id number]%, FEV1/FVC 67%, post BD FEV1 50% FEV1/FVC 72%. Depressive disorder (Chronic). Gastroesophageal reflux disease (Chronic). History of tobacco use (Chronic). 48 pack years. 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). Sarcoidosis (Chronic 02/04/16). Shortness of breath (Chronic). Ventral hernia (Chronic) PREVIOUS FUNCTIONAL STATUS/SOCIAL/FAMILY SUPPORTS:: Matt lives alone in a si ngle family house with his cat . He has never been and has no children. The only relatives he has in the area are a couple of elderly aunts. Matt identifies that he has many good friends for community support. He is completely independent with all care and activities and drives a car. 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 CURRENT FUNCTIONAL STATUS:: Matt was sitting up in bed when CM met with him. He was laughing and joking as usual but expressed concern about gettting sick, yet again. He has influenza and he feels he may have gotten exposed at [facility] when he came for Pulmonary rehab last week.He shared that he quit smoking in October but had a bit of a relapse in the past couple of weeks. He is committed to remaining a non-smoker at this point, he says. Matt also shared more stories about his cat Norbert and his gardening and cooking interests. ADVANCE DIRECTIVES:: none on file Has patient been provided with information about the portal?: Yes Did the patient sign up for the portal?: No CODE STATUS:: Full Code INSURANCE COVERAGE / FINANCIAL ISSUES:: Medicaid CURRENT HOME/COMMUNITY SERVICES/EQUIPMENT:: none PRIMARY CARE PHYSICIAN:: Winston Truong MD POTENTIAL DISCHARGE NEEDS:: Follow up with PCP and discharge plan of care PATIENT/FAMILY EDUCATION NEEDS:: Discharge plan, limitations, follow up plan, Ask Me Three. TRANSPORTATION:: via private vehicle with friends PLAN:: Matt will likely return home with no additional services. He will resume Pulmonary rehab when medically cleared and follow up with his PCP and discharge plan of care. CM will continue to support Matt and his discharge planning needs.
[2019-12-31] MEDS: Mometasone 220 MCG 14 DOSE INHALER IH ×2 (08:25→20:28)
[2019-12-31] MEDS: methylPREDNISolone SUCC 125 MG VIAL 60 MG IVP ×3 (09:31→20:31)
[2019-12-31] MEDS: MAGNESIUM SULFATE 2 GM/50 ML BAG IVPB (09:31)
--- NOTE | 2019-12-31 09:32 | W.PM.PROGNOT ---
Date of Service Date of service: 12/31/19 Time of Service: 09:32 Assessment and Plan Assessment and plan (1) Influenza: Start date: 12/31/19 Start time: 09:36 Status: Acute Assessment and plan: Feeling better today. Afebrile, No leukocytosis. He does have scattered wheezes steroids added. Cont Updrafts, nebs Tamiflu IVF, Mucolytics, Not requiring oxygen (2) COPD with acute exacerbation: Start date: 12/31/19 Start time: 09:38 Status: Acute Assessment and plan: exacerbated from flu. See above. (3) Acute dehydration: Start date: 12/31/19 Start time: 09:38 Status: Acute Assessment and plan: slightly Improved, continue IVF and continue to [facility]. (4) History of tobacco use: Start date: 12/31/19 Start time: 09:39 Status: Chronic Assessment and plan: States smoking 2 packs of cigarettes last week, nicotene patch prn. offer cessation. Interested in quitting (5) HUBER (acute kidney injury): Start date: 12/31/19 Start time: 09:39 Status: Acute Assessment and plan: Creatinine today 1.73 continue IVF recheck labs in am and continue to monitor. (6) Hypermagnesemia: Start date: 12/31/19 Start time: 09:40 Status: Acute Assessment and plan: Mag 1.7 replete with 2 gm. recheck in am. Subjective Subjective Patient reports: no new complaints Interval history since last seen: Feeling better. Breathing improving. Denies CP, N/V/D. Exam Const General: cooperative, comfortable and no acute distress Nutritional Appearance: obese Orientation: alert, awake and oriented x3 HENMT Head: normal to inspection, normocephalic and atraumatic Mouth: moist mucous membranes Eyes Eyelids: eyelids normal Conjunctivae: conjunctivae normal Sclera: sclerae normal Cornea: corneas normal Pupils: PERRL EOM: EOM intact bilaterally Neck Neck: normal visual inspection Thyroid: thyroid normal Carotids: normal carotid upstroke Lymphatic: no lymphadenopathy noted and no lymphedema noted Chest Chest: normal inspection of the chest Resp Effort & Inspection: able to speak in complete sentences, audible wheezes and cough Auscultation: diminished lung sounds and wheezes expiratory wheezes, inspiratory wheezes and scattered wheezes Cardio Jugular venous pressure: no JVD Rate: tachycardic Heart Sounds: S1 normal, S2 normal and no murmurs GI Inspection: obesity Palpation: soft and no hepatosplenomegaly Percussion: normal to percussion Auscultation: normal bowel sounds General: deferred Back/Spine/Pelvis Back: no CVA tenderness Thoracic/Lumbar Spine: thoracic and lumbar spine normal to inspection Skin General skin exam: no rashes or lesions noted Neuro General: alert, awake and oriented x3 Cognition: normal cognition Speech: speech normal Extrem General: normal to inspection, full ROM and no clubbing, cyanosis or edema Psych Appearance: grossly normal Mood: congruent mood Affect: normal affect Attitude: cooperative Objective Objective Clinical Data: Abnormal lab results 12/30/19 12/30/19 12/31/19 Range/Units 14:50 14:50 06:40 RBC (4.50-6.00) m/cumm Hgb 13.3 L (13.5-17.5) g/dL Hct (40.0-50.0) % RDW 14.3 H (11.8-14.1) % Absolute Neutrophils (1.2-6.7) k/cumm Absolute Lymphocytes 0.55 L (1.2-3.4) k/cumm Absolute Monocytes 0.79 H (0.11-0.7) k/cumm Sodium 135 L (136-145) mmol/L Chloride 96 L (98-107) mmol/L Anion Gap 11.3 H (3-11) mmol/L Creatinine 1.80 H 1.73 H (0.70-1.30) mg/dL Glucose 117 H (74-106) mg/dL Magnesium 1.7 L (1.8-2.4) mg/dL Alkaline Phosphatase 131 H (46-116) U/L Total Protein 8.4 H (6.4-8.2) g/dL 12/31/19 Range/Units 06:40 RBC 4.17 L (4.50-6.00) m/cumm Hgb 11.5 L (13.5-17.5) g/dL Hct 35.8 L (40.0-50.0) % RDW 14.2 H (11.8-14.1) % Absolute Neutrophils 6.89 H (1.2-6.7) k/cumm Absolute Lymphocytes 0.34 L (1.2-3.4) k/cumm Absolute Monocytes (0.11-0.7) k/cumm Sodium (136-145) mmol/L Chloride (98-107) mmol/L Anion Gap (3-11) mmol/L Creatinine (0.70-1.30) mg/dL Glucose (74-106) mg/dL Magnesium (1.8-2.4) mg/dL Alkaline Phosphatase (46-116) U/L Total Protein (6.4-8.2) g/dL Vital Signs Temperature 37.2 C 12/31/19 07:40 Temperature Source Tympanic 12/31/19 07:40 Pulse 103 H 12/31/19 07:40 Pulse Rhythm Regular 12/30/19 22:59 Pulse 135 H 12/30/19 16:40 Respiratory Rate 20 12/31/19 07:40 Respiratory Effort 12/30/19 22:59 Respiratory Depth Shallow 12/30/19 22:59 Respiratory Pattern Tachypnea 12/30/19 22:59 Blood Pressure 137/75 12/31/19 07:40 Blood Pressure Mean 63 12/30/19 16:31 Blood Pressure Position Supine 12/30/19 14:17 Pulse Oximetry 94 L 12/31/19 07:40 Oxygen Delivery Method Room Air 12/31/19 07:40 Oxygen Flow Rate 0 12/31/19 07:40 Pain Level 0 12/31/19 07:40 Intake & Output 12/30/19 12/30/19 12/31/19 11:59 23:59 11:59 Intake Total 750 / 750 1700 / 1700 Output Total 700 / 700 1700 / 1700 Balance 50 / 50 0 / 0 Weight 107.048 kg Intake: IV 150 / 150 1250 / 1250 Oral 600 / 600 450 / 450 Output: Urine 700 / 700 1700 / 1700 Other: Urine Color Yellow Yellow Urine Appearance Clear Clear Urine Odor Normal Normal Comment patient voids independently in the toilet and states that he uses toilet frequently Voiding Methods Toilet Toilet Laboratory Results WBC 7.84 k/cumm (4.4-10.8) 12/31/19 06:40 RBC 4.17 m/cumm (4.50-6.00) L 12/31/19 06:40 Hgb 11.5 g/dL (13.5-17.5) L 12/31/19 06:40 Hct 35.8 % (40.0-50.0) L 12/31/19 06:40 MCV 85.9 fL (80-95) 12/31/19 06:40 MCH 27.6 pg (27.0-33.0) 12/31/19 06:40 MCHC 32.1 g/dL (32.0-36.0) 12/31/19 06:40 RDW 14.2 % (11.8-14.1) H 12/31/19 06:40 Plt Count 163 x1000/uL (130-400) 12/31/19 06:40 MPV 9.8 fL (8.0-11.0) 12/31/19 06:40 Immature Gran % 0.1 % 12/31/19 06:40 Neutrophils % 87.9 12/31/19 06:40 Lymphocytes % 4.3 12/31/19 06:40 Monocytes % 7.7 12/31/19 06:40 Eosinophils % 0.0 12/31/19 06:40 Basophils % 0.0 12/31/19 06:40 Absolute Neutrophils 6.89 k/cumm (1.2-6.7) H 12/31/19 06:40 Absolute Lymphocytes 0.34 k/cumm (1.2-3.4) L 12/31/19 06:40 Absolute Monocytes 0.60 k/cumm (0.11-0.7) 12/31/19 06:40 Absolute Eosinophils 0.00 k/cumm (0.0-0.7) 12/31/19 06:40 Absolute Basophils 0.00 k/cumm (0.0-0.2) 12/31/19 06:40 Sodium 139 mmol/L (136-145) 12/31/19 06:40 Potassium 4.1 mmol/L (3.5-5.1) 12/31/19 06:40 Chloride 105 mmol/L (98-107) 12/31/19 06:40 Carbon Dioxide 22.7 mmol/L (21.0-32.0) 12/31/19 06:40 Anion Gap 11.3 mmol/L (3-11) H 12/31/19 06:40 BUN 17 mg/dL (7-18) 12/31/19 06:40 Creatinine 1.73 mg/dL (0.70-1.30) H 12/31/19 06:40 Estimated GFR/1.73 m2 41.06 (mL/min/1.73m2) 12/31/19 06:40 Glucose 117 mg/dL (74-106) H 12/31/19 06:40 Calcium 8.6 mg/dL (8.5-10.1) 12/31/19 06:40 Magnesium 1.7 mg/dL (1.8-2.4) L 12/31/19 06:40 Total Bilirubin 0.4 mg/dL (0.2-1.0) 12/30/19 14:50 AST 28 U/L (15-37) 12/30/19 14:50 ALT 33 U/L (16-63) 12/30/19 14:50 Alkaline Phosphatase 131 U/L (46-116) H 12/30/19 14:50 Total Protein 8.4 g/dL (6.4-8.2) H 12/30/19 14:50 Albumin 3.9 g/dL (3.4-5.0) 12/30/19 14:50
--- NOTE | 2019-12-31 16:35 | PDOC.CMPRO ---
- If Service Date Differs Date of service: 12/31/19 Time of Service: 16:35
[2019-12-31] MEDS: Enoxaparin 40 MG/0.4 ML SYR SC (18:44)
[2019-12-31] MEDS: Normal Saline Flush 10 ML SYR IVP (20:30)
[2019-12-31] MEDS: levoFLOXacin 750 MG/150 ML BAG 100 MG IVPB (20:33)
[2020-01-01] VITALS (14 sets, daily range): BP systolic 137–148; BP diastolic 76–82; PULSE 98–110; RESP 4–21; TEMP 36.6–37.1; O2SAT 95–100
[2020-01-01] MEDS: methylPREDNISolone SUCC 125 MG VIAL 60 MG IVP ×3 (01:43→19:56)
[2020-01-01] MEDS: Normal Saline 1,000 ML 125 ML IV (02:27)
[2020-01-01] MEDS: Levalbuterol 1.25 MG/3 ML UPD VIAL UPD ×6 (04:43→23:57)
[2020-01-01 06:56] LABS: Abs Immature Grans 0.04 k/cumm (0.0-0.09); Absolute Basophil Count 0.01 k/cumm (0.0-0.2); Absolute Monocyte Count 0.44 k/cumm (0.11-0.7); Basophils % 0.1; HCT 36.7 % (40.0-50.0); HGB 11.8 g/dL (13.5-17.5); Immature Grans % 0.3 %; Lymphocytes % 3.4; Mean Corp. HGB Concentration 32.2 g/dL (32.0-36.0); Mean Corpuscular Hemoglobin 27.8 pg (27.0-33.0); Mean Corpuscular Volume 86.6 fL (80-95); Mean Platelet Volume 9.9 fL (8.0-11.0); Monocytes % 3.2; Platelet Count 181 x1000/uL (130-400); RBC 4.24 m/cumm (4.50-6.00); RBC Distribution Width 14.7 % (11.8-14.1); White Blood Cell Count 13.69 k/cumm (4.4-10.8)
[2020-01-01 06:59] LABS: Absolute Lymphocyte Count 0.47 k/cumm (1.2-3.4); Absolute Neutrophil Count 12.73 k/cumm (1.2-6.7)
[2020-01-01 07:24] LABS: Anion Gap 11.9 mmol/L (3-11); BUN 20 mg/dL (7-18); CO2 23.1 mmol/L (21.0-32.0); CREATININE 1.44 mg/dL (0.70-1.30); Calcium 8.8 mg/dL (8.5-10.1); Chloride 105 mmol/L (98-107); Estimated GFR 50.75 (mL/min/1.73m2); Glucose 189 mg/dL (74-106); Magnesium 1.9 mg/dL (1.8-2.4); Potassium 3.6 mmol/L (3.5-5.1); Sodium 140 mmol/L (136-145)
[2020-01-01] MEDS: Mometasone 220 MCG 14 DOSE INHALER IH ×2 (08:01→20:07)
[2020-01-01] MEDS: guaiFENesin 600 MG TABCR PO ×2 (08:51→19:56)
[2020-01-01] MEDS: Sertraline 50 MG TAB 150 MG PO (08:51)
[2020-01-01] MEDS: Benzonatate 200 MG CAP PO ×3 (08:51→19:56)
[2020-01-01] MEDS: Oseltamivir 75 MG CAP PO ×2 (08:51→19:56)
[2020-01-01] MEDS: Normal Saline Flush 10 ML SYR IVP ×2 (08:53→20:05)
[2020-01-01] MEDS: Docusate Sodium 100 MG CAP PO ×2 (11:38→19:56)
--- NOTE | 2020-01-01 13:56 | W.PM.PROGNOT ---
Date of Service Date of service: 01/01/20 Time of Service: 13:57 Assessment and Plan Assessment and plan (1) Influenza: Start date: 01/01/20 Start time: 13:58 Status: Acute Assessment and plan: Feeling better today. Afebrile, No leukocytosis. Wheezes to Lower lobe right side diminished. Continue Updrafts, nebs Tamiflu IVF, Mucolytics, Not requiring oxygen (2) COPD with acute exacerbation: Start date: 01/01/20 Start time: 13:59 Status: Acute Assessment and plan: exacerbated from flu. See above. Symptoms improving (3) Acute dehydration: Start date: 01/01/20 Start time: 13:59 Status: Acute Assessment and plan: resolved (4) History of tobacco use: Start date: 01/01/20 Start time: 13:59 Status: Chronic Assessment and plan: States smoking 2 packs of cigarettes last week, nicotine patch prn. offer cessation. Interested in quitting. Continue to monitor readiness. Patient states he is done. (5) HUBER (acute kidney injury): Start date: 01/01/20 Start time: 14:01 Status: Acute Assessment and plan: Acute on chronic injury resolved. Creatinine is baseline. Subjective Subjective Patient reports: feels better Interval history since last seen: Symptoms improving. Feeling better. Exam Const General: cooperative, comfortable and no acute distress Nutritional Appearance: obese Orientation: alert, awake and oriented x3 HENMT Head: normal to inspection, normocephalic and atraumatic Mouth: moist mucous membranes Eyes Eyelids: eyelids normal Conjunctivae: conjunctivae normal Sclera: sclerae normal Cornea: corneas normal Pupils: PERRL EOM: EOM intact bilaterally Neck Neck: normal visual inspection Thyroid: thyroid normal Carotids: normal carotid upstroke Lymphatic: no lymphadenopathy noted and no lymphedema noted Chest Chest: normal inspection of the chest Resp Effort & Inspection: able to speak in complete sentences and audible wheezes Auscultation: diminished lung sounds on the right and wheezes expiratory wheezes, inspiratory wheezes, left lower and left upper Cardio Jugular venous pressure: no JVD Rate: tachycardic Heart Sounds: S1 normal, S2 normal and no murmurs GI Inspection: obesity Palpation: soft and no hepatosplenomegaly Percussion: normal to percussion Auscultation: normal bowel sounds General: deferred Back/Spine/Pelvis Back: no CVA tenderness Thoracic/Lumbar Spine: thoracic and lumbar spine normal to inspection Skin General skin exam: no rashes or lesions noted Neuro General: alert, awake and oriented x3 Cognition: normal cognition Speech: speech normal Extrem General: normal to inspection, full ROM and no clubbing, cyanosis or edema Psych Appearance: grossly normal Mood: congruent mood Affect: normal affect Attitude: cooperative Objective Objective Clinical Data: Abnormal lab results 01/01/20 01/01/20 Range/Units 06:31 06:35 WBC 13.69 H D (4.4-10.8) k/cumm RBC 4.24 L (4.50-6.00) m/cumm Hgb 11.8 L (13.5-17.5) g/dL Hct 36.7 L (40.0-50.0) % RDW 14.7 H (11.8-14.1) % Absolute Neutrophils 12.73 H (1.2-6.7) k/cumm Absolute Lymphocytes 0.47 L (1.2-3.4) k/cumm Anion Gap 11.9 H (3-11) mmol/L BUN 20 H (7-18) mg/dL Creatinine 1.44 H (0.70-1.30) mg/dL Glucose 189 H (74-106) mg/dL Vital Signs Temperature 37.0 C 01/01/20 11:46 Temperature Source Tympanic 01/01/20 11:46 Pulse 108 H 01/01/20 13:18 Pulse Rhythm Regular 01/01/20 09:18 Pulse 135 H 12/30/19 16:40 Respiratory Rate 20 01/01/20 13:18 Respiratory Effort Non-Labored 01/01/20 09:18 Respiratory Depth Normal 01/01/20 09:18 Respiratory Pattern Normal 01/01/20 09:18 Blood Pressure 148/81 H 01/01/20 11:46 Blood Pressure Mean 63 12/30/19 16:31 Blood Pressure Position Supine 12/30/19 14:17 Pulse Oximetry 97 01/01/20 13:18 Oxygen Delivery Method Room Air 01/01/20 13:06 Oxygen Flow Rate 0 01/01/20 13:06 Pain Level 0 01/01/20 11:46 Intake & Output 12/31/19 01/01/20 01/01/20 23:59 11:59 23:59 Intake Total 2550 / 5250 480 / 2160 1680 / 2160 Output Total 850 / 2875 1450 / 1450 Balance 1700 / 2375 -970 / 710 1680 / 710 Intake: IV 2550 / 4800 1200 / 1200 Oral 480 / 960 480 / 960 Output: Urine 850 / 2875 1450 / 1450 Other: Urine Color Yellow Light Jerri Urine Appearance Clear Clear Urine Odor Normal None Voiding Methods Toilet Toilet Laboratory Results WBC 13.69 k/cumm (4.4-10.8) H D 01/01/20 06:31 RBC 4.24 m/cumm (4.50-6.00) L 01/01/20 06:31 Hgb 11.8 g/dL (13.5-17.5) L 01/01/20 06:31 Hct 36.7 % (40.0-50.0) L 01/01/20 06:31 MCV 86.6 fL (80-95) 01/01/20 06:31 MCH 27.8 pg (27.0-33.0) 01/01/20 06:31 MCHC 32.2 g/dL (32.0-36.0) 01/01/20 06:31 RDW 14.7 % (11.8-14.1) H 01/01/20 06:31 Plt Count 181 x1000/uL (130-400) 01/01/20 06:31 MPV 9.9 fL (8.0-11.0) 01/01/20 06:31 Immature Gran % 0.3 % 01/01/20 06:31 Neutrophils % 93.0 01/01/20 06:31 Lymphocytes % 3.4 01/01/20 06:31 Monocytes % 3.2 01/01/20 06:31 Eosinophils % 0.0 01/01/20 06:31 Basophils % 0.1 01/01/20 06:31 Absolute Neutrophils 12.73 k/cumm (1.2-6.7) H 01/01/20 06:31 Absolute Lymphocytes 0.47 k/cumm (1.2-3.4) L 01/01/20 06:31 Absolute Monocytes 0.44 k/cumm (0.11-0.7) 01/01/20 06:31 Absolute Eosinophils 0.00 k/cumm (0.0-0.7) 01/01/20 06:31 Absolute Basophils 0.01 k/cumm (0.0-0.2) 01/01/20 06:31 Sodium 140 mmol/L (136-145) 01/01/20 06:35 Potassium 3.6 mmol/L (3.5-5.1) 01/01/20 06:35 Chloride 105 mmol/L (98-107) 01/01/20 06:35 Carbon Dioxide 23.1 mmol/L (21.0-32.0) 01/01/20 06:35 Anion Gap 11.9 mmol/L (3-11) H 01/01/20 06:35 BUN 20 mg/dL (7-18) H 01/01/20 06:35 Creatinine 1.44 mg/dL (0.70-1.30) H 01/01/20 06:35 Estimated GFR/1.73 m2 50.75 (mL/min/1.73m2) 01/01/20 06:35 Glucose 189 mg/dL (74-106) H 01/01/20 06:35 Calcium 8.8 mg/dL (8.5-10.1) 01/01/20 06:35 Magnesium 1.9 mg/dL (1.8-2.4) 01/01/20 06:35 Total Bilirubin 0.4 mg/dL (0.2-1.0) 12/30/19 14:50 AST 28 U/L (15-37) 12/30/19 14:50 ALT 33 U/L (16-63) 12/30/19 14:50 Alkaline Phosphatase 131 U/L (46-116) H 12/30/19 14:50 Total Protein 8.4 g/dL (6.4-8.2) H 12/30/19 14:50 Albumin 3.9 g/dL (3.4-5.0) 12/30/19 14:50
[2020-01-01] MEDS: Simethicone 80 MG CHEW PO (14:03)
--- NOTE | 2020-01-01 16:14 | PDOC.CMPRO ---
- If Service Date Differs Date of service: 01/01/20 Time of Service: 16:14 Care Management Progress Note S/O: Matt was sitting up in a chair when CM met with him. He was pleasant and in good spirits. Matt stated that he is feeling much better today, although he was still visibly short of breath. Matt talked about Pulmonary Rehab and indicated that he is not inclined to return. He stated that he believes that is where he contracted influenza. Matt also talked about his cat Norbert and shared picture of his home. He lives in the home that his parents owned and is very proud of how well he keeps it. Matt also reinforced his intention to never smoke again. A; Matt is a pleasant 54 year old man admitted on 12/30/19 with influenza and COPD. P:Matt will likely return home with no additional services. He will follow up with his PCP and discharge plan of care. CM will continue to support Matt and his discharge planning needs.
--- NOTE | 2020-01-01 16:18 | CHAPLAIN ---
Matt and I remembered each other from when he was previously admitted. He said he is feeling better but had experienced a high fever with the flu. Matt likes to talk about his gardening and his hundreds of peonies.
[2020-01-01] MEDS: Enoxaparin 40 MG/0.4 ML SYR SC (17:55)
[2020-01-01] MEDS: levoFLOXacin 750 MG/150 ML BAG 100 MG IVPB (20:06)
[2020-01-02] VITALS (11 sets, daily range): BP systolic 129–135; BP diastolic 79–87; PULSE 87–105; RESP 4–20; TEMP 35.7–36.7; O2SAT 94–99
[2020-01-02] MEDS: Levalbuterol 1.25 MG/3 ML UPD VIAL UPD ×5 (04:02→20:49)
[2020-01-02 07:52] LABS: Abs Immature Grans 0.04 k/cumm (0.0-0.09); Absolute Lymphocyte Count 0.76 k/cumm (1.2-3.4); Absolute Monocyte Count 0.65 k/cumm (0.11-0.7); Absolute Neutrophil Count 12.65 k/cumm (1.2-6.7); HCT 38.1 % (40.0-50.0); HGB 12.3 g/dL (13.5-17.5); Immature Grans % 0.3 %; Lymphocytes % 5.4; Mean Corp. HGB Concentration 32.3 g/dL (32.0-36.0); Mean Corpuscular Hemoglobin 28.1 pg (27.0-33.0); Mean Corpuscular Volume 87.2 fL (80-95); Mean Platelet Volume 9.9 fL (8.0-11.0); Monocytes % 4.6; Neutrophils % 89.7; Platelet Count 224 x1000/uL (130-400); RBC 4.37 m/cumm (4.50-6.00); RBC Distribution Width 14.9 % (11.8-14.1)
[2020-01-02 08:05] LABS: Anion Gap 11.9 mmol/L (3-11); BUN 22 mg/dL (7-18); CO2 23.1 mmol/L (21.0-32.0); CREATININE 1.46 mg/dL (0.70-1.30); Calcium 8.7 mg/dL (8.5-10.1); Chloride 102 mmol/L (98-107); Estimated GFR 49.95 (mL/min/1.73m2); Glucose 219 mg/dL (74-106); Potassium 3.7 mmol/L (3.5-5.1); Sodium 137 mmol/L (136-145)
[2020-01-02] MEDS: Mometasone 220 MCG 14 DOSE INHALER IH ×2 (09:20→20:50)
[2020-01-02] MEDS: methylPREDNISolone SUCC 125 MG VIAL 60 MG IVP (09:57)
[2020-01-02] MEDS: Benzonatate 200 MG CAP PO ×3 (09:58→20:49)
[2020-01-02] MEDS: Docusate Sodium 100 MG CAP PO ×2 (09:58→20:49)
[2020-01-02] MEDS: guaiFENesin 600 MG TABCR PO ×2 (09:58→20:49)
[2020-01-02] MEDS: Sertraline 50 MG TAB 150 MG PO (09:58)
[2020-01-02] MEDS: Oseltamivir 75 MG CAP PO ×2 (09:58→20:49)
[2020-01-02] MEDS: Normal Saline Flush 10 ML SYR IVP (10:09)
--- NOTE | 2020-01-02 11:41 | W.PM.PROGNOT ---
Date of Service Date of service: 01/02/20 Time of Service: 11:00 Assessment and Plan Assessment and plan (1) COPD with acute exacerbation: Status: Acute Assessment and plan: continues to slowly improve, will complete 7 days of levaquin, steroid taper, change to oral. continue updrafts. (2) Influenza: Status: Acute Assessment and plan: improving, complete course of tamiflu (3) History of tobacco use: Status: Chronic Assessment and plan: States smoking 2 packs of cigarettes last week, nicotine patch prn. offer cessation. Interested in quitting. Continue to monitor readiness. Patient states he is done. (4) HUBER (acute kidney injury): Status: Acute Assessment and plan: resolved, at baseline after hydration (5) DVT prophylaxis: Status: Acute Assessment and plan: enoxaparin daily, increasing ambulation (6) Discharge planning issues: Status: Acute Assessment and plan: home tomorrow if remains medically stable. Subjective Subjective Patient reports: no new complaints, feels better and tolerating a regular diet; denies shortness of breath Interval history since last seen: reporting some indigestion and gas bloating. no abdominal pain. is oxygenating well on room air. no fevers, hemodynamically stable Exam Const General: cooperative, no acute distress, disheveled and ill appearing (older than stated age) chronically Nutritional Appearance: overweight Orientation: alert, awake and oriented x3 HENMT Head: normal to inspection and atraumatic Teeth and gingiva: caries (decay, missing teeth), gingiva abnormal and poor dentition Resp Effort & Inspection: normal respiratory effort and able to speak in complete sentences Auscultation: no rhonchi and wheezes expiratory wheezes and scattered wheezes (throughout) Cardio Rate: regular rate Rhythm: regular rhythm GI Inspection: normal to inspection Palpation: soft Auscultation: normal bowel sounds Neuro General: alert, awake and oriented x3 Extrem General: normal to inspection and full ROM Objective Objective Clinical Data: Abnormal lab results 01/02/20 01/02/20 Range/Units 07:12 07:12 WBC 14.10 H (4.4-10.8) k/cumm RBC 4.37 L (4.50-6.00) m/cumm Hgb 12.3 L (13.5-17.5) g/dL Hct 38.1 L (40.0-50.0) % RDW 14.9 H (11.8-14.1) % Absolute Neutrophils 12.65 H (1.2-6.7) k/cumm Absolute Lymphocytes 0.76 L (1.2-3.4) k/cumm Anion Gap 11.9 H (3-11) mmol/L BUN 22 H (7-18) mg/dL Creatinine 1.46 H (0.70-1.30) mg/dL Glucose 219 H (74-106) mg/dL Vital Signs Temperature 36.7 C 01/02/20 08:51 Temperature Source Tympanic 01/02/20 08:51 Pulse 87 01/02/20 08:51 Pulse Rhythm Regular 01/02/20 11:25 Pulse 135 H 12/30/19 16:40 Respiratory Rate 18 01/02/20 08:51 Respiratory Effort 01/02/20 11:25 Respiratory Depth Normal 01/02/20 11:25 Respiratory Pattern Normal 01/02/20 11:25 Blood Pressure 129/82 01/02/20 08:51 Blood Pressure Mean 63 12/30/19 16:31 Blood Pressure Position Supine 12/30/19 14:17 Pulse Oximetry 94 L 01/02/20 08:51 Oxygen Delivery Method Room Air 01/02/20 08:51 Oxygen Flow Rate 0 01/02/20 08:51 Pain Level 0 01/02/20 00:19 Intake & Output 01/01/20 01/01/20 01/02/20 11:59 23:59 11:59 Intake Total 480 / 3360 2880 / 3360 Output Total 1450 / 2350 900 / 2350 700 / 700 Balance -970 / 1010 1980 / 1010 -700 / -700 Intake: IV 2400 / 2400 Oral 480 / 960 480 / 960 Output: Urine 1450 / 2350 900 / 2350 700 / 700 Other: Urine Color Light Jerri Light Jerri Yellow Urine Appearance Clear Clear Clear Urine Odor None None Comment patient has been independant in the rest room Voiding Methods Toilet Toilet Laboratory Results WBC 14.10 k/cumm (4.4-10.8) H 01/02/20 07:12 RBC 4.37 m/cumm (4.50-6.00) L 01/02/20 07:12 Hgb 12.3 g/dL (13.5-17.5) L 01/02/20 07:12 Hct 38.1 % (40.0-50.0) L 01/02/20 07:12 MCV 87.2 fL (80-95) 01/02/20 07:12 MCH 28.1 pg (27.0-33.0) 01/02/20 07:12 MCHC 32.3 g/dL (32.0-36.0) 01/02/20 07:12 RDW 14.9 % (11.8-14.1) H 01/02/20 07:12 Plt Count 224 x1000/uL (130-400) 01/02/20 07:12 MPV 9.9 fL (8.0-11.0) 01/02/20 07:12 Immature Gran % 0.3 % 01/02/20 07:12 Neutrophils % 89.7 01/02/20 07:12 Lymphocytes % 5.4 01/02/20 07:12 Monocytes % 4.6 01/02/20 07:12 Eosinophils % 0.0 01/02/20 07:12 Basophils % 0.0 01/02/20 07:12 Absolute Neutrophils 12.65 k/cumm (1.2-6.7) H 01/02/20 07:12 Absolute Lymphocytes 0.76 k/cumm (1.2-3.4) L 01/02/20 07:12 Absolute Monocytes 0.65 k/cumm (0.11-0.7) 01/02/20 07:12 Absolute Eosinophils 0.00 k/cumm (0.0-0.7) 01/02/20 07:12 Absolute Basophils 0.00 k/cumm (0.0-0.2) 01/02/20 07:12 Sodium 137 mmol/L (136-145) 01/02/20 07:12 Potassium 3.7 mmol/L (3.5-5.1) 01/02/20 07:12 Chloride 102 mmol/L (98-107) 01/02/20 07:12 Carbon Dioxide 23.1 mmol/L (21.0-32.0) 01/02/20 07:12 Anion Gap 11.9 mmol/L (3-11) H 01/02/20 07:12 BUN 22 mg/dL (7-18) H 01/02/20 07:12 Creatinine 1.46 mg/dL (0.70-1.30) H 01/02/20 07:12 Estimated GFR/1.73 m2 49.95 (mL/min/1.73m2) 01/02/20 07:12 Glucose 219 mg/dL (74-106) H 01/02/20 07:12 Calcium 8.7 mg/dL (8.5-10.1) 01/02/20 07:12 Magnesium 1.9 mg/dL (1.8-2.4) 01/01/20 06:35 Total Bilirubin 0.4 mg/dL (0.2-1.0) 12/30/19 14:50 AST 28 U/L (15-37) 12/30/19 14:50 ALT 33 U/L (16-63) 12/30/19 14:50 Alkaline Phosphatase 131 U/L (46-116) H 12/30/19 14:50 Total Protein 8.4 g/dL (6.4-8.2) H 12/30/19 14:50 Albumin 3.9 g/dL (3.4-5.0) 12/30/19 14:50
[2020-01-02] MEDS: Simethicone 80 MG CHEW PO ×3 (12:02→21:31)
--- NOTE | 2020-01-02 12:28 | W.NUTCONSULT ---
Date of service: 01/02/20 Time of Service: 12:28 Nutritional Consult ASSESSMENT: 54 year old male admitted with influenza. PMH: COPD, CKD, GERD. Following Heart healthy diet with excellent intake. BMI indicates class 1 obesity. Not considered at nutritional risk. MONITORING AND EVALUATION: weight, po intake, labs Time Spent in Nutritional Counseling and Treatment: 0 time spent face to face
--- NOTE | 2020-01-02 17:28 | PDOC.CMPRO ---
- If Service Date Differs Date of service: 01/02/20 Time of Service: 17:28 Care Management Progress Note S/O: Matt was sitting up in his chair when CM met with him. He reported that he was feeling much better today, and that per provider, he will return home tomorrow. CM will continue to follow. A; Matt is a pleasant 54 year old man admitted on 12/30/19 with influenza and COPD. P:Matt will likely return home with no additional services. He will follow up with his PCP and discharge plan of care. He will be driven home via private vehicle by friends. CM will continue to support Matt and his discharge planning needs.
[2020-01-02] MEDS: Enoxaparin 40 MG/0.4 ML SYR SC (18:02)
[2020-01-02] MEDS: Nicotine 14 MG/24 HR PATCH TD (18:02)
[2020-01-02] MEDS: levoFLOXacin 750 MG/150 ML BAG 100 MG IVPB (20:49)
[2020-01-02] MEDS: predniSONE 20 MG TAB 40 MG PO (20:49)
[2020-01-03 08:07] VITALS: BP 129/86; PULSE 76; RESP 17; TEMP 36.7; O2SAT 95
[2020-01-03] MEDS: Sertraline 50 MG TAB 150 MG PO (08:20)
[2020-01-03] MEDS: Benzonatate 200 MG CAP PO (08:20)
[2020-01-03] MEDS: Oseltamivir 75 MG CAP PO (08:20)
[2020-01-03] MEDS: Simethicone 80 MG CHEW PO ×2 (08:20→12:43)
[2020-01-03] MEDS: guaiFENesin 600 MG TABCR PO (08:20)
[2020-01-03] MEDS: Docusate Sodium 100 MG CAP PO (08:21)
[2020-01-03] MEDS: predniSONE 20 MG TAB 40 MG PO (08:21)
[2020-01-03 08:55] VITALS: PULSE 104; RESP 18; RESP 4; O2SAT 96
[2020-01-03] MEDS: Levalbuterol 1.25 MG/3 ML UPD VIAL UPD ×2 (08:55→13:19)
[2020-01-03 09:01] VITALS: PULSE 103; RESP 16; RESP 4; O2SAT 96
--- NOTE | 2020-01-03 12:23 | W.PM.DS.N ---
Date of service: 01/03/20 Time of Service: 12:23 DS: Diagnosis Discharge Diagnosis (1) COPD with acute exacerbation: Status: Acute (2) Influenza: Status: Acute (3) History of tobacco use: Status: Chronic (4) HUBER (acute kidney injury): Status: Acute Discharge Plan Disposition Patient Disposition: HOME Condition: Stable Discharge Details Chief Complaint: RespSymp Clinical Impression: Influenza, COPD with acute exacerbation, Acute dehydration Reason For Visit: INFLUENZA, COPD EXACERBATION Admit Date/Time: 12/30/19 16:17 Admit Provider: Es Dick Attending Provider: Es Dick Primary Care Provider: Winston Truong ED Provider: Sabina Perdomo Hospital Course Hospital Course: This is a 54 year old male with history of COPD, GERD, and CKD well known to our service presents to the ED after 3 days of cough, SOB, and fever. Found to be febrile with tachycardia. Labs in ED remarkable for creatinine 1.80, sodium 135, alk phos 131. No leukocytosis. Positive for influenza A, CXR unremarkable. He does have a cough with sputum changes and recently hospitalized for pneumonia. He also does Pulmonary rehab a couple of days a week at this facility. Started on levaquin and vanco. Blood cultures and sputum showed not growth. His vanco was not continued, symptoms improved and he responded to Updrafts and nebs, muculytics, steroids and IVF. he will be discharged to complete a 7 day course of levaquin and will complete a steroid burst. Home Meds and New Rx's Prescriptions: New prednisone 20 mg Tablet 40 mg PO DAILY Qty: 10 RF: 0 guaifenesin [Mucinex] 600 mg Tablet Extended Release 12hr 600 mg PO BID Qty: 0 RF: 0 levofloxacin [Levaquin] 750 mg tablet 750 mg PO DAILY Qty: 3 RF: 0 No Action cyclobenzaprine 5 mg tablet 5 mg PO TID PRN (Reason: muscle spasm) Qty: 60 RF: 2 triamcinolone acetonide 0.1 % cream 1 applic Topical BID Qty: 3 RF: 4 Flovent HFA 110 mcg/actuation HFA aerosol inhaler 2 puff Inhalation BID Qty: 1 RF: 4 albuterol sulfate 90 mcg/actuation HFA aerosol inhaler 2 puff IH QID PRN (Reason: shortness of breath) Qty: 18 RF: 0 fluticasone propionate 50 mcg/actuation spray,suspension 1 spray NS DAILY Qty: 1 RF: 0 Nicotrol 10 mg cartridge 1 inh IH 4-6XD PRN (Reason: nicotine cravings) Qty: 168 RF: 1 ranitidine HCl 150 mg tablet 150 mg PO BID PRN (Reason: heartburn/reflux) Qty: 180 RF: 4 albuterol sulfate 2.5 mg /3 mL (0.083 %) solution for nebulization 2.5 mg IH Q4H PRN (Reason: shortness of breath) Qty: 90 RF: 3 doxycycline hyclate 100 mg capsule 100 mg PO BID Qty: 14 RF: 0 prednisone 20 mg tablet 40 mg PO DAILY Qty: 10 RF: 0 sertraline 100 mg tablet 150 mg PO DAILY Qty: 135 RF: 4 acetaminophen [Tylenol Extra Strength] 500 mg tablet 1,000 mg PO Q4H PRN (Reason: pain) Qty: 30 RF: 0 ibuprofen 200 mg capsule 600 mg PO Q6H PRN (Reason: pain) Qty: 60 RF: 0 lidocaine [Lidoderm] 5 % adhesive patch,medicated 1 patch TP DAILY PRN (Reason: pain) Qty: 15 RF: 0 nicotine 14 mg/24 hr patch 24 hour 1 patch TD Q24H Qty: 28 RF: 0 Discharge Instructions Instructions: Influenza (DC), COPD (Chronic Obstructive Pulmonary Disease) (DC) Additional Instructions: complete course of antibiotics and steroids as directed. drink at least 6-8 glasses of water daily to stay well hydrated stop smoking. Stand Alone Forms: Nursing Discharge Form Referrals: Winston Truong MD [Primary Care Provider] - 01/09/20 9:00 am Activity:: Activity as Tolerated Equipment/Supplies:: No Equipment Needed Diet:: As Tolerated Discharge Orders Discharge Orders: Discharge Order (Routine); Ordered 01/03/20 Ordered By: Ceci Alvarenga DS: Summary Status at Discharge Functional status at discharge: independent ambulation Overall status at discharge: patient is progressing back to baseline Mental Status: mental status grossly normal Speech and Movement: speech and movement normal Mood: congruent mood Affect: normal affect Exam Narrative Exam Narrative: Const General: cooperative, no acute distress, disheveled and ill appearing (older than stated age) chronically Nutritional Appearance: overweight Orientation: alert, awake and oriented x3 HENMT Head: normal to inspection and atraumatic Teeth and gingiva: caries (decay, missing teeth), gingiva abnormal and poor dentition Resp Effort & Inspection: normal respiratory effort and able to speak in complete sentences Auscultation: no rhonchi and wheezes expiratory wheezes and scattered wheezes (throughout) Cardio Rate: regular rate Rhythm: regular rhythm GI Inspection: normal to inspection Palpation: soft Auscultation: normal bowel sounds Neuro General: alert, awake and oriented x3 Extrem General: normal to inspection and full ROM Psych Mental Status: mental status grossly normal Speech and Movement: speech and movement normal Mood: congruent mood Affect: normal affect DS: Data Vitals/I&O Vitals and I&O: Vital Signs Temperature 36.7 C 01/03/20 08:07 Temperature Source Tympanic 01/03/20 08:07 Pulse 103 H 01/03/20 09:01 Pulse Rhythm Regular 01/03/20 10:41 Pulse 135 H 12/30/19 16:40 Respiratory Rate 16 01/03/20 09:01 Respiratory Effort 01/03/20 10:41 Respiratory Depth Normal 01/03/20 10:41 Respiratory Pattern Normal 01/03/20 10:41 Blood Pressure 129/86 01/03/20 08:07 Blood Pressure Mean 63 12/30/19 16:31 Blood Pressure Position Supine 12/30/19 14:17 Pulse Oximetry 96 01/03/20 09:01 Oxygen Delivery Method Room Air 01/03/20 08:55 Oxygen Flow Rate 0 01/03/20 08:55 Pain Level 0 01/03/20 08:07 Intake & Output 01/02/20 01/03/20 01/03/20 23:59 11:59 23:59 Intake Total 250 / 490 660 / 660 Output Total 1999 2700 450 / 450 Balance -1750 / -2210 210 / 210 Intake: IV Oral 240 / 480 660 / 660 Output: Urine 1999 2700 450 / 450 Other: Urine Color Yellow Pale Yellow Urine Appearance Clear Clear Urine Odor None Voiding Methods Toilet Toilet Data Completed and Pending Labs on day of discharge: Preliminary micro results at discharge 01/02/20 08:50 Sputum Culture - Preliminary Sputum Normal Sonja 12/30/19 17:08 Blood Culture - Preliminary Blood NO GROWTH 72 HOURS 12/30/19 16:56 Blood Culture - Preliminary Blood NO GROWTH 72 HOURS PFSH Medical History COPD (chronic obstructive pulmonary disease) (Chronic 02/14/15) PFT's show severe obstructive disease with bronchodilator response; PFT 02/13/2015, IRT350%, FEV1/FVC 67%, post BD FEV1 50% FEV1/FVC 72% Depressive disorder (Chronic) Gastroesophageal reflux disease (Chronic) History of tobacco use (Chronic) 48 pack years 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
[2020-01-03 13:19] VITALS: RESP 4
[2020-01-03 13:20] VITALS: RESP 4
--- NOTE | 2020-01-03 20:22 | PDOC.CMDIS ---
- If Service Date Differs Date of service: 01/03/20 Time of Service: 20:22 LACE Index Scoring Tool - Questions: Length of Stay (in days): 4 - 6 Acuity (Admit via E.D.?): Yes Comorbidities: Chronic Pulmonary Disease, Mild Liver/Renal Disease E.D. Visits: 7 - Answers: Total Score: 16 Risk of Readmission: High Risk Care Management Discharge Reason for Hospitalization: Influenza Discharge Plan: Matt will return home with no additional services at this time. He will be driven home via private vehicle by friends. He will follow up with his PCP, as recommended. He is agreeable to the plan. Patient/Family Education Needs: Review discharge instructions regarding activity levels and medications, discussion of self care needs including ask me three
--- NOTE | 2020-01-04 11:26 | PDOC.CMPRO ---
- If Service Date Differs Date of service: 01/04/20 Time of Service: 11:26 Care Management Progress Note CM contacts Matt via telephone to ensure he is doing well since his discharge from the hospital. He requests a referral for Meals on Wheels and also expresses a desire to get help with smoking cessation. CM coordinates referrals to [facility] for Meals [facility] Whe[facility] and to [facility] for the smoking cessation program.
== END 2020-01-03 13:54 | disposition home or self-care (01) | DRG 194 ==
LOC: ER 17:08 → MS 17:18
PROVIDERS: Emergency Medicine; Admitting Provider Nurse Practitioner Family; Emergency Provider Physician Assistant; PCP Family Medicine; Visit Provider Nurse Practitioner Family
DX: J10.1 Influenza due to other identified influenza virus with other respiratory manifestations (principal); J44.1 Chronic obstructive pulmonary disease with (acute) exacerbation; N17.9 Acute kidney failure, unspecified; E86.0 Dehydration; N18.9 Chronic kidney disease, unspecified; K21.9 Gastro-esophageal reflux disease without esophagitis; F32.9 Major depressive disorder, single episode, unspecified; E83.42 Hypomagnesemia; F17.210 Nicotine dependence, cigarettes, uncomplicated
CPT/HCPCS: 36415; 80048; 80053; 85027; 87040; 87449; 93005; 94640; 96361; 96374; 96375; 99223; 99233; 99239; 99285; J1650; 71046; 83735; 85025; 87070; 87205; 93010; J1885; J1956; J2405; J2930; J7512; J7614; J7620

== ENCOUNTER 2020-01-15 14:00 | Outpatient (RCR) | payer MEDICAID, SELFPAY | END 2020-02-06 23:59 | disposition home or self-care (01) | LOC: PRC 14:00 | PROVIDERS: PCP Family Medicine; Visit Provider Family Medicine | DX: J44.9 Chronic obstructive pulmonary disease, unspecified (principal); Z51.89 Encounter for other specified aftercare | CPT/HCPCS: G0424 ==

== ENCOUNTER 2020-12-20 02:32 | Outpatient (CLI) | payer MEDICAID, SELFPAY ==
[2020-12-21 11:47] LABS: COVID-19 RT-PCR UVMMC Result Negative (Negative)
== END 2020-12-20 02:33 | disposition home or self-care (01) ==
LOC: LBO 02:32
PROVIDERS: PCP Family Medicine; Visit Provider Family Medicine
DX: Z20.822 Contact with and (suspected) exposure to COVID-19 (principal)
CPT/HCPCS: U0003

== ENCOUNTER 2020-12-23 02:22 | Outpatient (CLI) | payer MEDICAID, SELFPAY ==
[2020-12-23] MEDS: Inhaler, Assist Device 1 EACH MC (16:12)
[2020-12-23] MEDS: Albuterol HFA 18 GM 200 PUFF INH IH (16:12)
--- NOTE | 2020-12-25 09:00 | W.PFT ---
Date of service: 12/23/20 Time of Service: 03:07 Pulmonary Function Test Result Interpretation Spirometry: Very severe obstructive airways disease with significant bronchodilator response Impression Very severe obstructive airways disease with significant bronchodilator response. When compared to previous studies from 02/13/2015, 11/14/2019, the patient has an initial improvement in FVC and then stabilized for the most part from 2020. Only there is a marginal, 140 cc decline in FVC from 2020, FEV1 has declined by 220 cc. Clinical Correlation therefore is recommended.
== END 2020-12-23 02:23 | disposition home or self-care (01) ==
LOC: RT 02:22
PROVIDERS: PCP Family Medicine; Visit Provider Emergency Medicine
DX: J44.9 Chronic obstructive pulmonary disease, unspecified (principal); R06.09 Other forms of dyspnea
CPT/HCPCS: 94060

== ENCOUNTER 2021-02-02 17:21 | Emergency (ER) | payer MEDICAID, SELFPAY ==
[2021-02-02] VITALS (29 sets, daily range): BP systolic 111–149; BP diastolic 72–109; PULSE 79–102; RESP 14–25; TEMP 37.5; O2SAT 94–98
--- NOTE | 2021-02-02 17:15 | RT.EKG_ITS ---
APPROVED REPORT Exam: Resting ECG Patient Location: E HR:96 bpm ECG Measurements Heart Rate 96 AXIS VT 134 P 80 QRSd 89 QRS 67 QT 338 T 68 QTc 428 Conclusion Sinus rhythm...normal P axis, V-rate 60- 99 Probable left atrial enlargement...P >50mS, <-0.10mV V1 I have reviewed and interpreted ECG and agree with software generated interpretation.
--- NOTE | 2021-02-02 17:22 | ED.GENADUL_ITS ---
Discharge Plan Disposition Patient Disposition: HOME Condition: Stable Discharge Details Clinical Impression: Periumbilical hernia, Abdominal pain Primary Care Provider: Ravi Biggs ED Provider: Julia Carmona Home Meds and New Rx's Prescriptions: No Action sertraline 100 mg tablet 150 mg PO DAILY Qty: 135 RF: 4 triamcinolone acetonide 0.1 % cream 1 applic Topical BID Qty: 3 RF: 4 famotidine 20 mg tablet 20 mg PO BID Qty: 180 RF: 2 budesonide-formoterol [Symbicort] 80-4.5 mcg/actuation HFA aerosol inhaler 2 puff inhalation BID Qty: 10.2 RF: 8 albuterol sulfate 2.5 mg /3 mL (0.083 %) solution for nebulization 2.5 mg IH Q4H PRN (Reason: shortness of breath) Qty: 225 RF: 3 albuterol sulfate 90 mcg/actuation HFA aerosol inhaler 2 puff IH QID PRN (Reason: shortness of breath) Qty: 18 RF: 4 acetaminophen [Tylenol Extra Strength] 500 mg tablet 1,000 mg PO Q4H PRN (Reason: pain) Qty: 30 RF: 0 ibuprofen 200 mg capsule 600 mg PO Q6H PRN (Reason: pain) Qty: 60 RF: 0 Discharge Instructions Instructions: Inguinal Hernia (ED), Umbilical Hernia (ED), Abdominal Pain (ED) Additional Instructions: You have an appointment with the general surgery clinic with Dr. Ervin at 9 AM tomorrow please keep this. Follow up with primary care provider in 3-5 days. Return to ED sooner if any worsening or concerns. Increase oral fluids. Please take Tylenol with food every 4-6 hours as needed for pain and swelling. Referrals: Yarelis Ervin DO [OSTEOPATHIC DOCTOR] - 1 day (0900 am) Medical Decision Making <Julia Carmona - Last Filed: 02/02/21 22:16> 55-year-old male presents to the ER chief complaint of right lower quadrant abdominal cramping which he states began at 9 AM this morning. He also states that he has been intermittently lightheaded or dizzy when changing positions from a sitting to standing. He states the dizziness goes away after a couple minutes of walking. He states that he had a loose bowel movement and had increased pain with wiping. He denies any hematochezia or dark stools. He denies any vomiting. He reports nausea, pain increases with movement, reports nonproductive cough, he states he did do his inhaler this morning did not do a nebulizer. Upon initial exam he does have inspiratory and expiratory wheezes throughout all vasquez, right lower quadrant tenderness with palpation. No history of abdominal surgeries. He does have a past medical history of acute kidney injury, COPD, depression, GERD, cirrhosis of the liver, sarcoidosis, pneumonia and ventral hernia. 1755: At this time work-up ordered including CBC, CMP, serial troponins, EKG, li pase urinalysis Covid testing chest x-ray and CT abdomen pelvis. Albuterol ipratropium inhaler ordered. Patient was placed as a PUI until proven otherwise due to wheezes and cough. Differential diagnosis includes appendicitis, inguinal hernia, small bowel obstruction, colitis, musculoskeletal strain, electrolyte imbalance, COPD exacerbation, pneumonia, viral illness. 1837: No leukocytosis noted at this time, sodium is 137, potassium 4.1, anion gap 12.0, BUN 31, creatinine 1.7, GFR is 41.75, glucose 112, alk phos 132 urinalysis is negative for any sign of infection no leukocytes no nitrites. Lipase is within normal limits at 123. Troponin is less than 0.05, magnesium 2.1 also within normal limits. At this time I do not expect pneumonia, appendicitis or any other infectious etiology. Chest x-ray is pending and CT abdomen pelvis at this time. [facility] IMPRESSION: 1. Normal appendix. No urolithiasis or hydronephrosis. No evidence of bowel obstruction, perforation, or abscess. 2. Moderate stool in the mid and proximal colon suggesting possible constipation. Moderate distal colonic diverticulosis without diverticulitis. 3. Small supraumbilical fatty hernia demonstrating mild local fatty stranding which could indicate strangulated hernia. Small fatty umbilical hernia also noted and there is bilateral symmetrical fatty protrusion at the inguinal canals without johnna herniation. No evidence of bowel herniation or bowel obstruction. 4. 5 mm noncalcified pulmonary nodule in the left lung base. Please see recommendations above. 5. Hepatic cirrhosis. 6. Splenomegaly suggesting portal hypertension. 7. Enlarged periaortic nodes with mild adjacent fatty stranding, nonspecific in nature. This may relate to adenitis. Correlate clinically to exclude evidence of lymphoproliferative disease. 8. Additional non-emergent findings detailed above. Thank you for allowing us to participate in the care of your patient. Dictated and Authenticated by: Winston Hwang MD 2003: Spoke with Dr. Ervin's on-call with general surgery she recommends pain control and fluids and follow-up with outpatient general surgery. Lactate and CRP ordered. Patient reevaluation, he is nontender around the periumbilical area discuss findings with patient who verbalized understanding. Upon reevaluation he states he is feeling much better after the duo inhaler IV is infusing without difficulty. At this time plan is for discharge with outpatient follow-up with general surgery, pending lactate and CRP result.. Lactate is 0.5, CRP is slightly elevated at 0.95 patient given 650 mg Tylenol p.o. prior to discharge. Patient has an appointment at [address] Ervin with general surgery outpatient clinic discussed this with patient and encouraged him to keep this appointment. He verbalizes understanding. Patient is hemodynamically stable throughout stay, his heart rate has come down to 87 after IV fluids, this text was generated using [employer] system, please disregard any oddities of phrase or misspellings. <Hanna Cotton DO - Last Filed: 02/02/21 18:18> I have seen and examined this patient. I discussed case and reviewed note with the LIBRARY ACQUISITIONS TECHNICIAN and I agree with plan and note as documented. HPI <Julia Carmona - Last Filed: 02/02/21 22:16> General Mode of arrival: EMS . Date/Time Provider Initiated Documentation: 02/02/21 17:36 . Information obtained by: patient, EMS, RN notes reviewed and old records reviewed . HPI Narrative: 55-year-old male presents to the ER chief complaint of right lower quadrant abdominal cramping which he states began at 9 AM this morning. He also states that he has been intermittently lightheaded or dizzy when changing positions from a sitting to standing. He states the dizziness goes away after a couple minutes of walking. He states that he had a loose bowel movement and had increased pain with wiping. He denies any hematochezia or dark stools. He denies any vomiting. He reports nausea, pain increases with movement, reports nonproductive cough, he states he did do his inhaler this morning did not do a nebulizer. Upon initial exam he does have inspiratory and expiratory wheezes throughout all vasquez, right lower quadrant tenderness with palpation. No history of abdominal surgeries. He does have a past medical history of acute kidney injury, COPD, depression, GERD, cirrhosis of the liver, sarcoidosis, pneumonia and ventral hernia. Related Data Home Medications Medication Instructions Recorded Confirmed acetaminophen [Tylenol Extra 1,000 mg PO Q4H PRN #30 tab 10/09/19 08/21/20 Strength] ibuprofen 600 mg PO Q6H PRN #60 cap 10/09/19 08/21/20 sertraline 100 mg tablet 150 mg PO DAILY #135 tab 08/21/20 08/21/20 triamcinolone acetonide 0.1 % 1 applic TOPICAL BID #3 gm 08/21/20 08/21/20 topical cream budesonide-formoterol HFA 80 2 puff INHALATION BID #10.2 g 12/06/20 12/06/20 mcg-4.5 mcg/actuation aerosol inhaler famotidine 20 mg tablet 20 mg PO BID #180 tab 12/06/20 12/06/20 albuterol sulfate 2.5 mg IH Q4H PRN #225 ml 01/27/21 albuterol sulfate 90 mcg/actuation 2 puff IH QID PRN #18 gm 01/29/21 aerosol inhaler Previous Rx's Medication Instructions Recorded acetaminophen [Tylenol Extra 1,000 mg PO Q4H PRN #30 tab 10/09/19 Strength] ibuprofen 600 mg PO Q6H PRN #60 cap 10/09/19 sertraline 100 mg tablet 150 mg PO DAILY #135 tab 08/21/20 triamcinolone acetonide 0.1 % 1 applic TOPICAL BID #3 gm 08/21/20 topical cream budesonide-formoterol HFA 80 2 puff INHALATION BID #10.2 g 12/06/20 mcg-4.5 mcg/actuation aerosol inhaler famotidine 20 mg tablet 20 mg PO BID #180 tab 12/06/20 albuterol sulfate 2.5 mg IH Q4H PRN #225 ml 01/27/21 albuterol sulfate 90 mcg/actuation 2 puff IH QID PRN #18 gm 01/29/21 aerosol inhaler Allergies Allergy/AdvReac Type Severity Reaction Status Date / Time Penicillins Allergy RASH Verified 02/02/21 17:34 aspirin AdvReac UPSET Verified 02/02/21 17:34 STOMACH General ALMAS: 3 Review of Systems <Julia Carmona - Last Filed: 02/02/21 22:16> Narrative: Constitutional: Negative for weight loss, alert and oriented, well groomed, normal body habitus, appears comfortable. HEENT: Denies trauma, headaches, blurry vision, nasal discharge, sore throat, trouble swallowing. Chest: Denies chest pain, palpitations, irregular rhythm. Respiratory: Denies hemoptysis. Denies productive cough. He does endorse a cough, history of COPD. GI: Denies vomiting, diarrhea, constipation. Reports some right lower quadrant abdominal pain, nausea, loose stools. : Denies dysuria, hematuria, flank pain, rectal bleeding. Neuro: Denies blurry vision, weakness, syncope, headache or facial numbness. Does endorse dizziness and lightheadedness. Hematologic: Denies easy bruising, intolerance to heat or cold, hair loss. PFSH <Julia Carmona - Last Filed: 02/02/21 22:16> Medical History HUBER (acute kidney injury) COPD (chronic obstructive pulmonary disease) (02/14/15) PFT's show severe obstructive disease with bronchodilator response; PFT 02/13/2015, [id number]%, FEV1/FVC 67%, post BD FEV1 50% FEV1/FVC 72% Depressive disorder Gastroesophageal reflux disease History of tobacco use 48 pack years Liver cirrhosis secondary to nonalcoholic steatohepatitis ([place]) Pneumonia needs to quit smoking Sarcoidosis (02/04/16) Shortness of breath Upper respiratory infection w/ bronchospasm Ventral hernia Family History Father , from complications of pneumonia Diabetes Stroke Mother , from diabetic complications including abscess/infection Depression Diabetes Social History Smoking/Tobacco Use Status: Current every day Tobacco Type: cigarettes Smoking risk assessment performed?: Yes Alcohol Intake: former Year quit: 1998 Drug use: Never Substance use type: does not use Do you feel safe at home: Yes Do you feel safe in your relationship?: Yes Exam <Julia Carmona - Last Filed: 02/02/21 22:16> Narrative Exam Narrative: Constitutional: Alert and oriented x3. Appears stated age. Normal body habitus. Head: Normocephalic, no trauma. Eyes: Pupils PERRLA, Red reflex noted, EOM's intact. Eyelids symmetrical without lesions, discharge, or swelling. ENT: External ear normal to inspection, no mastoid TTP, swelling, or erythema. Chest: Slightly tachycardic at 101 upon arrival, normal S1, S2, distal pulses intact. Resp: Inspiratory expiratory scattered wheezes throughout all lung vasquez, does have slight increased work of breathing O2 sat is 97% on room air upon arrival. Abdomen: Right lower quadrant tenderness palpation, positive iliopsoas sign, does have a palpable small hernia to the codie-umbilical area. Musculoskeletal: Normal gait, 5/5 strength to all four extremities. Skin: No suspicious rashes or lesions. Capillary refill less than 2 sec. Neurologic: Cranial nerves II-XII intact. Alert and oriented x 3. DTR's intact. Hematologic/Lymphatic: No ecchymosis, no lymphadenopathy.
--- NOTE | 2021-02-02 17:45 | DI.CT_ITS ---
EXAM: CT ABDOMEN PELVIS W CLINICAL HISTORY: RLQ abd pain. TECHNIQUE: Imaging Protocol: Axial computed tomography images with coronal and sagittal reformatted images were created and reviewed CONTRAST MATERIAL: Intravenous: Omnipaque 50cc Oral: None COMPARISON: CT CT ABDOMEN PELVIS WO from 11/01/2019 FINDINGS: VISUALIZED LUNG BASES: There is a small subpleural 3 millimeter noncalcified nodule lateral basal seg ment of the left lower lobe, unchanged from 11/01/2019. Also apparently unchanged from prior CT scan of January 2016.. No pleural effusions. ABDOMEN: There is no ascites. LIVER: Liver contour is again noted to be that of cirrhosis. There are no distinct focal hepatic les ions identified. No dilatation of intrahepatic ducts. GALLBLADDER/BILIARY: No obvious gallbladder pathology. CBD is not dilated. PANCREAS: No evidence of pancreatic mass nor dilatation of the pancreatic duct. SPLEEN: Splenomegaly is again noted. No intrasplenic lesions. Splenic and portal veins are patent. ADRENALS: There are no significant adrenal masses. KIDNEYS:There are cysts again noted in both kidneys. The largest is in the posterior cortex of the l eft kidney and measures 3 by 2.6 cm, unchanged. This cyst contains a small calcification in its post erior wall, similar to the previous study. There are no renal calculi nor hydronephrosis. No solid renal masses evident. Ureters are not dilated. No obvious abnormality in the urinary bladder.. ABDOMINAL AORTA: Abdominal aorta is not enlarged. LYMPH NODES:There are some slightly enlarged lymph nodes evident in the retroperitoneum, similar to p revious. However examination of some these densities reveals 1 are probably collateralized vessels d ue to the portal hypertension here. ABDOMINAL WALL/GI: There is the slightly right of center anterior supraumbilical abdominal hernia aga in noted, appear similar to previous with some fat streaking therein which may indicate incarceration of this fat. In addition, there is a para umbilical fat containing hernia again noted, also unchang ed. No bowel obstruction. No free air. PELVIS: GI: No evidence of appendicitis.There is sigmoid diverticulosis. No evidence of acute diverticulitis . LYMPH NODES: There is no intrapelvic nor inguinal adenopathy. REPRODUCTIVE: Prostate gland is not enlarged. URINARY BLADDER: No calculi nor obvious masses evident OSSEOUS: No significant osseous lesions. Chronic disc space narrowing L5-S1 level noted. IMPRESSION: 1. Very little change compared to the prior CT scan of 11/01/2019. 2. Small 3 millimeter left lung base nodule, unchanged from 11/01/2019 and apparently also from 2016, and therefore most probably benign. There are no pleural effusions. 3. Cirrhotic appearing liver and splenomegaly and collateral vessels. These findings indicate hepati c cirrhosis and significant portal hypertension. There is no ascites. There is no ominous mass in t he liver. 4. Sigmoid diverticulosis. No obvious acute diverticulitis. 5. The amount of adenopathy is unchanged. 6. Two anterior abdominal wall hernias both umbilical and supraumbilical STIR, unchanged from previo us. Although these do not contain bowel loops, the more superior of the 2 hernias contains fat which appears incarcerated. 7. Bilateral benign-appearing renal cysts again noted. No calculi. No hydronephrosis. RADIATION DOSE DELIVERED: 1,416.47mGy.cm Total DLP 1,416.47mGy.cm Total DLP 1,416.47mGy.cm Total DLP 1,416.47mGy.cm Total DLP DATA REPOSITORY: All CT scans at this facility are submitted to the National Radiology Data Registry (NRDR) Dose Index Registry (DIR) with the [employer] ([employer]). RADIATION OPTIMIZATION: All CT scans at this facility use at least one of these dose optimization te chniques: automated exposure control; mA and/or kV adjustment per patient size (includes targeted exa ms where dose is matched to clinical indication); or iterative reconstruction.
--- NOTE | 2021-02-02 17:49 | DI.RAD_ITS ---
EXAM: XR PORTABLE CHEST AP CLINICAL HISTORY: PUI, Hx of COPD, cough, wheezing,R/O pneumonia. TECHNIQUE: 2D digital imaging was performed. COMPARISON: CR,XR XR CHEST 2V PA LATERAL from 12/30/2019 FINDINGS: Heart size is normal. The mediastinum is not widened. Lungs are clear. No infiltrates nor obvious pleural effusions. IMPRESSION: No acute pulmonary findings on this single AP portable view of the chest. DATA REPOSITORY: RADIATION DOSE DELIVERED: All CT scans at this facility use at least one of these dose optimization techniques: automated exposure control; mA and/or kV adjustment per patient size (includes targeted e xams where dose is matched to clinical indication); or iterative reconstruction.
[2021-02-02 18:00] LABS: Abs Immature Grans 0.02 10^3/uL (0.0-0.06); Absolute Basophil Count 0.08 10^3/uL (0.0-0.2); Absolute Eosinophil Count 0.54 10^3/uL (0.0-0.7); Absolute Lymphocyte Count 1.22 10^3/uL (1.2-3.4); Absolute Monocyte Count 0.76 10^3/uL (0.1-0.8); Absolute Neutrophil Count 5.11 10^3/uL (1.2-6.7); HCT 43.9 % (40.0-50.0); Immature Grans % 0.3; Lymphocytes % 15.8; MCH 26.6 pg (27.0-33.0); MCHC 31.9 % (32.0-36.0); MCV 83.5 fL (80-95); MPV 9.7 fL (8.0-11.0); Monocytes % 9.8; Neutrophils % 66.1; Nucleated RBC 0 %; Platelet Count 228 10^3/uL (130-400); RBC 5.26 10^6/uL (4.36-5.78); RDW 14.3 % (11.8-14.1); RDW-SD 43.7 fL; WBC 7.73 10^3/uL (4.4-10.8)
[2021-02-02 18:08] LABS: Bilirubin Negative (Negative); Blood Negative (Negative); Clarity Clear (Clear); Glucose Negative (Negative); Ketones Negative (Negative); Leukocyte Esterase Negative (Negative); Nitrite Negative (Negative); Specific Gravity 1.025 (1.005-1.025); Urobilinogen 0.2 EU/dL (Up TO 0.2); pH 6.5 (5-8)
[2021-02-02 18:12] LABS: Lipase 143 U/L (73-393)
[2021-02-02] MEDS: Ipratropium/Albuterol 4 GM 120 PUFF INH IH (18:14)
[2021-02-02 18:18] LABS: ALT 31 U/L (16-63); AST 23 U/L (15-37); Albumin 3.9 g/dL (3.4-5.0); Alkaline Phosphatase 132 U/L (46-116); BUN 31 mg/dL (7-18); Bilirubin, Total 0.3 mg/dL (0.2-1.0); CREATININE 1.7 mg/dL (0.70-1.30); Calcium 9.7 mg/dL (8.5-10.1); Chloride 99 mmol/L (98-107); Estimated GFR 41.75 (mL/min/1.73m2); Glucose 112 mg/dL (74-106); Magnesium 2.1 mg/dL (1.8-2.4); Potassium 4.1 mmol/L (3.5-5.1); Sodium 137 mmol/L (136-145)
[2021-02-02 18:20] LABS: Source Nasal/Nares
[2021-02-02 18:21] LABS: Troponin I < 0.05 ng/mL (<0.06)
[2021-02-02] MEDS: Normal Saline 1,000 ML 1000 ML IV (18:41)
[2021-02-02] MEDS: Omnipaque 350 MG/ML 50 ML BTL IJ (18:49)
[2021-02-02] MEDS: Normal Saline Flush 10 ML SYR IVP (19:01)
[2021-02-02] MEDS: Normal Saline - Diluent 50 ML VIAL IV (19:01)
[2021-02-02 19:05] LABS: COVID-19 PCR Negative (Negative)
--- NOTE | 2021-02-02 19:47 | DI.VRAD_ITS ---
PROCEDURE INFORMATION: Exam: CT Abdomen And Pelvis With Contrast Exam date and time: 02/02/2021 5:52 PM Age: 55 years old Clinical indication: Abdominal pain; Localized; Right lower quadrant (rlq); Patient HX: Rlq abd pain TECHNIQUE: Imaging protocol: Computed tomography of the abdomen and pelvis with contrast. Total images: 1338 Radiation optimization: All CT scans at this facility use at least one of these dose optimization techniques: automated exposure control; mA and/or kV adjustment per patient size (includes targeted exams where dose is matched to clinical indication); or iterative reconstruction. Contrast material: OMNIPAQUE 350; Contrast volume: 50 ml; Contrast route: INTRAVENOUS (IV); COMPARISON: CT ABDOMEN PELVIS WO 11/01/2019 5:59 PM FINDINGS: Lungs: 5 mm noncalcified pulmonary nodule in the lateral left lower lobe on series 4, image 3. For patients at low risk (minimal or absent history of smoking and of other known risk factors), no routine follow-up is indicated. For patients at high risk (history of smoking or of other known risk factors), consider optional CT at 12 months. (Jenifer et al., Fleischner Society, 2017). Heart: Heart size normal. Mediastinal space: The visualized distal esophagus is normal. Liver: Irregular liver contour suggesting hepatic cirrhosis. No mass lesions. No intrahepatic biliary ductal dilatation. Gallbladder and bile ducts: Normal. No calcified stones. No ductal dilation. Pancreas: Normal. No inflammatory changes or ductal dilation. Spleen: Mild splenomegaly suggesting portal hypertension. Adrenal glands: Normal. No adrenal mass. Kidneys and ureters: No acute abnormalities. No hydronephrosis or hydroureter. No urinary tract stones are identified. There are bilateral simple renal cortical cysts present. No further imaging evaluation is required. Stomach and bowel: The stomach is unremarkable. The small bowel is normal with no evidence of obstruction. There is a moderate amount of stool distributed in the mid and proximal colon suggesting possible constipation. Moderate diverticulosis involving the distal colon without evidence of acute diverticulitis. Appendix: The appendix is normal in caliber and demonstrates no evidence of appendicitis. Intraperitoneal space: No free fluid or air. Vasculature: No acute process. No abdominal aortic aneurysm. Lymph nodes: There are mildly enlarged left periaortic nodes with mild surrounding fatty stranding, measuring up to 12 mm short axis. These are nonspecific in nature. Urinary bladder: Unremarkable as visualized. Reproductive: Unremarkable as visualized. Bones/joints: No acute osseous abnormalities. Moderate disc degenerative changes L5-S1. Soft tissues: Small fatty umbilical hernia and small fatty supraumbilical hernia. There is mild adjacent fatty stranding at the supraumbilical hernia which could represent strangulated fatty hernia. Bilateral symmetrical fatty protrusion along the proximal inguinal canal distributions bilaterally without johnna herniation. No evidence of associated bowel herniation or bowel obstruction. IMPRESSION: 1. Normal appendix. No urolithiasis or hydronephrosis. No evidence of bowel obstruction, perforation, or abscess. 2. Moderate stool in the mid and proximal colon suggesting possible constipation. Moderate distal colonic diverticulosis without diverticulitis. 3. Small supraumbilical fatty hernia demonstrating mild local fatty stranding which could indicate strangulated hernia. Small fatty umbilical hernia also noted and there is bilateral symmetrical fatty protrusion at the inguinal canals without johnna herniation. No evidence of bowel herniation or bowel obstruction. 4. 5 mm noncalcified pulmonary nodule in the left lung base. Please see recommendations above. 5. Hepatic cirrhosis. 6. Splenomegaly suggesting portal hypertension. 7. Enlarged periaortic nodes with mild adjacent fatty stranding, nonspecific in nature. This may relate to adenitis. Correlate clinically to exclude evidence of lymphoproliferative disease. 8. Additional non-emergent findings detailed above. Dictated and Authenticated by: Winston Hwang MD. Ordering:NANCY Dumont MD
--- NOTE | 2021-02-02 19:48 | DI.VRAD_ITS ---
PROCEDURE INFORMATION: Exam: XR Chest Exam date and time: 02/02/2021 7:09 PM Age: 55 years old Clinical indication: Cough and wheezing; Patient HX: Pui, HX of copd, cough, wheezing, R/O pneumonia TECHNIQUE: Imaging protocol: XR of the chest Views: 1 view. Total images: 2 COMPARISON: CR XR CHEST 2V PA LATERAL 12/30/2019 3:39 PM FINDINGS: Lungs: Question mild peribronchial thickening and perihilar stranding suggesting possible bronchitis. Question slight hyperexpansion and hyperlucency with minimal diaphragmatic flattening suggesting possible COPD. Pulmonary vasculature grossly normal. No gross pulmonary infiltrates. Pleural spaces: No pleural effusion. No pneumothorax. Heart/Mediastinum: Heart size normal. No tracheal/mediastinal shift. Vasculature: Mild aortic ectasia/tortuosity. Bones/joints: No acute osseous abnormalities are identified. IMPRESSION: 1. Question mild peribronchial thickening and perihilar stranding suggesting possible bronchitis. No gross pulmonary infiltrates. 2. Suspect COPD. Dictated and Authenticated by: Winston wHang MD. Ordering:NANCY Dumont MD
[2021-02-02 20:11] LABS: Lactate 0.5 mmol/L (0.6-1.4)
[2021-02-02 20:22] LABS: C-Reactive Protein 0.95 mg/dL (0.0-0.3)
[2021-02-02] MEDS: Acetaminophen 325 MG TAB (20:40)
== END 2021-02-02 20:56 | disposition home or self-care (01) ==
PROVIDERS: Emergency Provider Registered Nurse Emergency; PCP Family Medicine
DX: K42.9 Umbilical hernia without obstruction or gangrene (principal); R10.31 Right lower quadrant pain; R42 Dizziness and giddiness; R05 Cough; Z03.818 Encounter for observation for suspected exposure to other biological agents ruled out
CPT/HCPCS: 36415; 80053; 83690; 87635; 93005; 94640; 96360; 96361; 99285; 71045; 74177; 81003; 83605; 83735; 84484; 85025; 86140; 93010; 99284; J3490; Q9967

== ENCOUNTER 2021-12-02 15:57 | Emergency (ER) | payer MEDICAID, SELFPAY ==
[2021-12-02 15:56] VITALS: BP 135/86; PULSE 97; RESP 18; TEMP 36.9; O2SAT 97
[2021-12-02 16:45] LABS: Abs Immature Grans 0.02 10^3/uL (0.0-0.06); Absolute Basophil Count 0.08 10^3/uL (0.0-0.2); Absolute Lymphocyte Count 1.66 10^3/uL (1.2-3.4); Absolute Monocyte Count 0.74 10^3/uL (0.1-0.8); Absolute Neutrophil Count 5.23 10^3/uL (1.2-6.7); Eosinophils % 3.7; HCT 47.4 % (40.0-50.0); HGB 15.2 g/dL (13.5-17.5); Immature Grans % 0.2; Lymphocytes % 20.7; MCH 27.6 pg (27.0-33.0); MCHC 32.1 % (32.0-36.0); MCV 86.2 fL (80-95); MPV 9.5 fL (8.0-11.0); Monocytes % 9.2; Neutrophils % 65.2; Nucleated RBC 0 %; Platelet Count 267 10^3/uL (130-400); RDW 13.3 % (11.8-14.1); RDW-SD 42.8 fL; WBC 8.03 10^3/uL (4.4-10.8)
[2021-12-02 16:58] LABS: Bilirubin Negative (Negative); Blood Negative (Negative); Clarity Clear (Clear); Glucose Negative (Negative); Ketones Negative (Negative); Leukocyte Esterase Negative (Negative); Nitrite Negative (Negative); Urobilinogen 0.2 EU/dL (Up TO 0.2)
--- NOTE | 2021-12-02 17:08 | W.ED.GENAD ---
Discharge Plan Disposition Patient Disposition: HOME Condition: Stable Discharge Details Clinical Impression: Mood disorder Primary Care Provider: Daniel Baum ED Provider: Isabel Gallego Home Meds and New Rx's Prescriptions: Continued triamcinolone acetonide 0.1 % cream 1 applic Topical BID Qty: 3 RF: 4 famotidine 20 mg tablet 20 mg PO BID Qty: 180 RF: 2 sertraline 100 mg tablet 100 mg PO DAILY Qty: 30 RF: 4 budesonide-formoterol [Symbicort] 80-4.5 mcg/actuation HFA aerosol inhaler 2 puff inhalation BID Qty: 10.2 RF: 8 sildenafil 50 mg tablet 50 mg PO DAILY PRN (Reason: sexual activity) Qty: 30 RF: 2 emtricitabine-tenofovir (TDF) [Truvada] 200-300 mg tablet 1 tab PO DAILY Qty: 90 RF: 4 albuterol sulfate 90 mcg/actuation HFA aerosol inhaler 2 puff IH QID PRN (Reason: shortness of breath) Qty: 18 RF: 4 nicotine 21 mg/24 hr patch 24 hour 1 patch transdermal DAILY Qty: 28 RF: 1 albuterol sulfate 2.5 mg /3 mL (0.083 %) solution for nebulization 2.5 mg IH Q4H PRN (Reason: shortness of breath) Qty: 225 RF: 3 acetaminophen [Tylenol Extra Strength] 500 mg tablet 1,000 mg PO Q4H PRN (Reason: pain) Qty: 30 RF: 0 ibuprofen 200 mg capsule 600 mg PO Q6H PRN (Reason: pain) Qty: 60 RF: 0 Discharge Instructions Additional Instructions: Please follow-up with your PCP tomorrow, this is very important Also you are being supplied with a referral for counseling, please follow-up this is also very important Dr. Lucas Specifically about when you can increase your antidepressant medication Please return immediately should you have recurring thoughts or thoughts of suicide Referrals: Daniel Baum, [employer] [Primary Care Provider] - Discharge Data Discharge Date/Time-TO BE ENTERED AT DEPARTURE: 12/02/21 19:08 Medical Decision Making Patient is alert, oriented, of decisional capacity He declined any current suicidal ideation He was evaluated by mental healthGreg. Feels like patient is able to contract for safety Patient feels comfortable discharge home He will call his PCP tomorrow and [facility] place a consult for that patient may increase his sertraline as he feels is likely med related issue Patient also will be placed for referral for counselor in the outpatient setting He request discharge home and feels comfortable discharge home He denies any current suicidal ideation or plan He will come back immediately should he have new or worsening symptoms Diet at discharge home he is alert, oriented, of decisional capacity His diagnostic labs are consistent with prior, elevated creatinine appears to be unchanged when compared to prior Medical Records Medical records reviewed: Yes I reviewed the patient's medical records. Lab Data Lab results reviewed: Yes I reviewed the patient's lab results. HPI General Mode of arrival: ambulatory. Date/Time Provider Initiated Documentation: 12/02/21 16:09. Limitations to Documentation: no limitations. Information obtained by: patient. HPI Narrative: This 56-year-old gentleman with history of depression, anxiety, COPD, sarcoidosis of presents with report of worsening depression and intermittent suicidal ideation. Patient states that several weeks ago his doctor changed his medication secondary to decreased libido. His depression immediately worsened and he was transitioned back to his sertraline at a lower dose. He started this a month week ago. He states that he was feeling mild improvement but was still having some worsening depression and some intermittent thoughts of suicidal ideation. He denies specific plan. She states she [facility] with [facility] and they recommended he be reassessed in the emergency room. He has an appointment scheduled with PCP on December 15. He denies any chest pain, shortness of breath, auditory or visual hallucinations. He denies specific suicidal plan. He denies any attempts to harm self today. He denies any illicit drug use or alcohol consumption. Related Data Home Medications Medication Instructions Recorded Confirmed acetaminophen [Tylenol Extra 1,000 mg PO Q4H PRN #30 tab 10/09/19 12/02/21 Strength] ibuprofen 600 mg PO Q6H PRN #60 cap 10/09/19 12/02/21 triamcinolone acetonide 0.1 % 1 applic TOPICAL BID #3 gm 08/21/20 12/02/21 topical cream budesonide-formoterol HFA 80 2 puff INHALATION BID #10.2 g 12/06/20 12/02/21 mcg-4.5 mcg/actuation aerosol inhaler famotidine 20 mg tablet 20 mg PO BID #180 tab 12/06/20 12/02/21 sildenafil 50 mg tablet 50 mg PO DAILY PRN #30 tab 05/09/21 12/02/21 emtricitabine 200 mg-tenofovir 1 tab PO DAILY #90 tab 06/06/21 12/02/21 disoproxil fumarate 300 mg tablet albuterol sulfate 90 mcg/actuation 2 puff IH QID PRN #18 gm 07/03/21 12/02/21 aerosol inhaler nicotine 21 mg/24 hr daily 1 patch TRANSDERMAL DAILY #28 ea 09/17/21 12/02/21 transdermal patch albuterol sulfate 2.5 mg IH Q4H PRN #225 ml 10/08/21 12/02/21 sertraline 100 mg tablet 100 mg PO DAILY #30 tab 11/24/21 12/02/21 Previous Rx's Medication Instructions Recorded acetaminophen [Tylenol Extra 1,000 mg PO Q4H PRN #30 tab 10/09/19 Strength] ibuprofen 600 mg PO Q6H PRN #60 cap 10/09/19 triamcinolone acetonide 0.1 % 1 applic TOPICAL BID #3 gm 08/21/20 topical cream budesonide-formoterol HFA 80 2 puff INHALATION BID #10.2 g 12/06/20 mcg-4.5 mcg/actuation aerosol inhaler famotidine 20 mg tablet 20 mg PO BID #180 tab 12/06/20 sildenafil 50 mg tablet 50 mg PO DAILY PRN #30 tab 05/09/21 emtricitabine 200 mg-tenofovir 1 tab PO DAILY #90 tab 06/06/21 disoproxil fumarate 300 mg tablet albuterol sulfate 90 mcg/actuation 2 puff IH QID PRN #18 gm 07/03/21 aerosol inhaler nicotine 21 mg/24 hr daily 1 patch TRANSDERMAL DAILY #28 ea 09/17/21 transdermal patch albuterol sulfate 2.5 mg IH Q4H PRN #225 ml 10/08/21 sertraline 100 mg tablet 100 mg PO DAILY #30 tab 11/24/21 Allergies Allergy/AdvReac Type Severity Reaction Status Date / Time Penicillins Allergy RASH Verified 12/02/21 16:02 aspirin AdvReac UPSET Verified 12/02/21 16:02 STOMACH General Stated Complaint: PsychEval ALMAS: 2 Review of Systems All systems reviewed & are unremarkable except as noted in HPI and below PFSH All Active Problems (Updated 12/02/21 @ 18:59 by DARBY Brown) Mood disorder (Acute) Sexuality issues (Acute) Incarcerated umbilical hernia (Acute) Periumbilical hernia (Acute) Abdominal pain (Acute) Right foot pain (Acute) Hypermagnesemia (Acute) Influenza (Acute) COPD with acute exacerbation (Acute) Acute dehydration (Acute) 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) Raynauds phenomenon (Acute) Right lumbar radiculopathy (Acute) Community acquired pneumonia (Acute) COPD (chronic obstructive pulmonary disease) (Chronic 02/14/15) PFT's show severe obstructive disease with bronchodilator response; PFT 02/13/2015, [id number]%, FEV1/FVC 67%, post BD FEV1 50% FEV1/FVC 72% Depressive disorder (Chronic) Gastroesophageal reflux disease (Chronic) History of tobacco use (Chronic) 48 pack years Sarcoidosis (Chronic 02/04/16) Shortness of breath (Chronic) Ventral hernia (Chronic) Medical History HUBER (acute kidney injury) COPD (chronic obstructive pulmonary disease) (02/14/15) PFT's show severe obstructive disease with bronchodilator response; PFT 02/13/2015, VPG220%, FEV1/FVC 67%, post BD FEV1 50% FEV1/FVC 72% Depressive disorder Gastroesophageal reflux disease History of tobacco use 48 pack years Liver cirrhosis secondary to nonalcoholic steatohepatitis ([place]) Pneumonia needs to quit smoking Sarcoidosis (02/04/16) Shortness of breath Upper respiratory infection w/ bronchospasm Ventral hernia Family History Father , from complications of pneumonia Diabetes Stroke Mother , from diabetic complications including abscess/infection Depression Diabetes Social History Smoking/Tobacco Use Status: Current every day Tobacco Type: cigarettes Smoking risk assessment performed?: Yes Alcohol Intake: former Year quit: 1998 Drug use: Never Substance use type: does not use Do you feel safe at home: Yes Do you feel safe in your relationship?: Yes Exam Const General: cooperative, comfortable and no acute distress Resp Effort & Inspection: normal respiratory effort Auscultation: clear to auscultation bilaterally Cardio Rate: regular rate Rhythm: regular rhythm GI Other: Nontender abdominal exam strength and sensation intact distally, ambulatory with steady gait Skin General skin exam: no rashes or lesions noted Neuro General: patient alert and patient oriented x3 Extrem Other: Distal pulses intact Psych Appearance: grossly normal and well kempt Mental Status: mental status grossly normal Speech and Movement: speech and movement normal Affect: normal affect Thought Process: normal Thought Content: normal Insight: insight good Judgment: judgment good Course Vital Signs Vital signs: Vital Signs Temperature 36.9 C 12/02/21 15:56 Pulse 97 H 12/02/21 15:56 Respiratory Rate 18 12/02/21 15:56 Blood Pressure 135/86 12/02/21 15:56 Pulse Oximetry 97 12/02/21 15:56 Temperature 36.9 C 12/02/21 15:56 Temperature Source Temporal Artery Scan 12/02/21 15:56 Pulse 97 H 12/02/21 15:56 Respiratory Rate 18 12/02/21 15:56 Respiratory Effort Non-Labored 12/02/21 16:00 Blood Pressure 135/86 12/02/21 15:56 Blood Pressure Position Sitting 12/02/21 15:56 Pulse Oximetry 97 12/02/21 15:56 Oxygen Delivery Method Room Air 12/02/21 15:56 Oxygen Flow Rate 0 12/02/21 15:56 Lab/Test Results Lab/Test Results: Laboratory Tests Range/Units 12/02/21 12/02/21 13:22 16:30 WBC (4.4-10.8) 10^3/uL 8.03 RBC (4.36-5.78) 10^6/uL 5.50 Hgb (13.5-17.5) g/dL 15.2 Hct (40.0-50.0) % 47.4 MCV (80-95) fL 86.2 MCH (27.0-33.0) pg 27.6 MCHC (32.0-36.0) % 32.1 RDW (11.8-14.1) % 13.3 Plt Count (130-400) 10^3/uL 267 MPV (8.0-11.0) fL 9.5 Immature Gran % 0.2 Neutrophils % 65.2 Lymphocytes % 20.7 Monocytes % 9.2 Eosinophils % 3.7 Basophils % 1.0 Nucleated RBC % % 0 Absolute Neutrophils (1.2-6.7) 10^3/uL 5.23 Absolute Lymphocytes (1.2-3.4) 10^3/uL 1.66 Absolute Monocytes (0.1-0.8) 10^3/uL 0.74 Absolute Eosinophils (0.0-0.7) 10^3/uL 0.30 Absolute Basophils (0.0-0.2) 10^3/uL 0.08 Urine Color (Yellow) Yellow Urine Clarity (Clear) Clear Urine pH (5-8) 7.0 Ur Specific [place] (1.005-1.025) 1.020 Urine Protein (Negative) mg/dL Negative Urine Ketones (Negative) mg/dL Negative Urine Blood (Negative) Negative Urine Nitrite (Negative) Negative Urine Bilirubin (Negative) Negative Urine Urobilinogen (Up TO 0.2) EU/dL 0.2 Ur Leukocyte Esterase (Negative) Negative Urine Glucose (Negative) mg/dL Negative
[2021-12-02 17:09] LABS: ALT 40 U/L (16-63); AST 32 U/L (15-37); Albumin 4.1 g/dL (3.4-5.0); Alkaline Phosphatase 135 U/L (46-116); Anion Gap 11.5 mmol/L (3-11); BUN 18 mg/dL (7-18); Bilirubin, Total 0.4 mg/dL (0.2-1.0); CO2 24.5 mmol/L (21.0-32.0); CREATININE 1.5 mg/dL (0.70-1.30); Calcium 9.5 mg/dL (8.5-10.1); Chloride 101 mmol/L (98-107); Estimated GFR 48.07 (mL/min/1.73m2); Glucose 115 mg/dL (74-106); Potassium 3.9 mmol/L (3.5-5.1); Sodium 137 mmol/L (136-145); TSH (W/Ref FT4) 2.08 uIU/mL (0.36-3.74); Total Protein 8.7 g/dL (6.4-8.2)
[2021-12-02 17:25] LABS: ETHANOL BLOOD < 3.0 mg/dL (<10)
[2021-12-02] MEDS: Nicotine 21 MG/24 HR PATCH TD (17:29)
[2021-12-02 17:42] LABS: *AMPHETAMINES SCREEN URINE Negative (Negative); *BARBITURATES SCREEN URINE Negative (Negative); *BENZODIAZEPINES SCREEN URINE Negative (Negative); Cannabinoids THC Negative (Negative); Cocaine Screen,Urine Negative (Negative); METHADONE URINE SCREEN Negative (Negative); OPIATES URINE SCREEN Negative (Negative)
[2021-12-02 17:49] LABS: Tricyclic Antidepressants Positive (Negative)
[2021-12-02 17:50] LABS: Salicylate 5.9 mg/dL (<2.8)
[2021-12-02 17:56] LABS: Acetaminophen < 2 ug/mL (10-30)
[2021-12-02 19:12] VITALS: BP 137/73; PULSE 101; RESP 18; TEMP 36.8; O2SAT 93
--- NOTE | 2021-12-03 08:41 | NUR.NOTE ---
Patient called stating that he was here last night for mental health issues. He is calling this morning to tell us that he is doing well and that he has an appt. with Daniel Baum CM this morning at 0940. He also wanted to thank us for saving his life. Joanie Jain Nursing Note:
--- NOTE | 2021-12-03 14:55 | PDOC.MHCN_ITS ---
Date of service: 12/02/21 Time of Service: 17:45 Mental Health Crisis Note Presenting Issue How did you arrive at the ED and why did you come: The client presented to [facility] ED with chief complaint of worsening depression and intermittent suicidal ideation. He was directed to present to the ED after discussing recent thoughts with a call center provided through the [place] [facility]. Precipitating Factors The client is assessed via telehealth. He is fully alert and oriented to time, person, place, and global circumstance with no reported deficits in memory. He reported feeling anxious with congruent affect. Speech was slightly pressured, normal rate and tone. He was very polite and at several points apologized for 'being a bother', which this clinician reassured was not accurate. He reported recent medication change two weeks ago (1.17) with worsening depression and intermittent suicidal ideation. No delusions or report of hallucinations. Thought process was intact, organized, and goal-directed around getting additional support and he presented with fair insight and judgment. He stated, 15 minutes of pleasure is not worth it, in reference to adjunct libido prescription, and reported that he wanted his Sertraline increased back to 200mg. He reported experiencing intermittent thoughts of overdosing, no specific medication or other pertinent details, and stated that he did not have any int ention of acting. No reported thoughts of harming others. At several points the client expressed concern that he may be 'crazy', however was reassured that his recent thoughts may be a side effect of the recent medication adjustment and that his PCP would need to be informed as soon as possible in order to schedule appropriate follow-up discussion. He did not identify any specific triggers for recurrent thoughts and reported that he was looking forward to horticultural activities in the spring. He did not identify any natural supports. He reported that contacting the Suicide Prevention Hotline has been very helpful. Client completed intake and assessment tools. PHQ-9: Scored 12, indicating mild to moderate depression. CAGE-AID: No to all. PC-PTSD-5: No to all. C-SSRS: Complete Disposition BEHAVIOR: Appropriate EYE CONTACT: Good MOOD: Anxious AFFECT: Congruent to stated mood APPETITE: No reported issues. SLEEP(trouble falling/staying asleep: Poor Plan The client completed an intake packet and will be referred for counseling through [facility]. He reported feeling safe to discharge home and maintain recommended follow-up action plan. This plan included the client agreeing to outreach to his PCP office to schedule an expedited appointment in order to review medications and a follow-up call to [facility] Wednesday12.03.21 at 9:00a. A proactive safety plan was completed and was faxed with a crisis contact sheet and behavioral health provider directory which will be included as part of his discharge packet from [facility]. The client agreed to contact [facility] in the interim as needed and will utilize available crisis contacts or dial 911 if thoughts of self-harm return. This plan was reviewed with the attending ED provider.
== END 2021-12-02 19:08 | disposition home or self-care (01) ==
PROVIDERS: Physician Assistant; Emergency Provider Physician Assistant; PCP Nurse Practitioner Family
DX: F39 Unspecified mood [affective] disorder (principal); F32.A Depression, unspecified
CPT/HCPCS: 80053; 80307; 99285; 80320; 80329; 81003; 84443; 85025; 99283

== ENCOUNTER 2022-01-24 11:13 | Emergency (ER) | payer MEDICAID, SELFPAY ==
[2022-01-24] VITALS (35 sets, daily range): BP systolic 111–160; BP diastolic 61–126; PULSE 102–121; RESP 8–27; TEMP 37.1; O2SAT 94–98
--- NOTE | 2022-01-24 11:00 | RT.EKG_ITS ---
APPROVED REPORT Exam: Resting ECG Reason for Exam: sob Patient Location: E HR:117 bpm ECG Measurements Heart Rate 117 AXIS MS 134 P 78 QRSd 87 QRS 59 QT 319 T 49 QTc 446 Conclusion Sinus tachycardia...rate> 99 Inferior infarct, old...Q >35mS, II III aVF sinus tachycardia, normal axis, normal intervals,
--- NOTE | 2022-01-24 11:45 | DI.RAD_ITS ---
Exam(s) XR PORTABLE CHEST AP EXAM: XR PORTABLE CHEST AP CLINICAL HISTORY: cough. TECHNIQUE: 2D digital imaging was performed. COMPARISON: CR,XR XR PORTABLE CHEST AP from 02/02/2021 FINDINGS: Single AP portable view. Heart size is upper normal. The mediastinum is not widened. Lungs are clear. No infiltrates nor obvious pleural effusions. IMPRESSION: No acute pulmonary findings on this single AP portable view of the chest. DATA REPOSITORY: RADIATION DOSE DELIVERED: All CT scans at this facility use at least one of these dose optimization techniques: automated exposure control; mA and/or kV adjustment per patient size (includes targeted e xams where dose is matched to clinical indication); or iterative reconstruction.
[2022-01-24] MEDS: Normal Saline 1,000 ML 1000 ML IV (12:05)
[2022-01-24] MEDS: Albuterol 2.5 MG/3 ML INH SOLN VIAL UPD (12:05)
[2022-01-24] MEDS: methylPREDNISolone SUCC 125 MG VIAL IVP (12:10)
[2022-01-24] MEDS: Albuterol/Ipratropium 3 ML UPD VIAL UPD (12:20)
[2022-01-24 12:40] LABS: Abs Immature Grans 0.02 10^3/uL (0.0-0.06); Absolute Basophil Count 0.06 10^3/uL (0.0-0.2); Absolute Eosinophil Count 0.33 10^3/uL (0.0-0.7); Absolute Lymphocyte Count 0.78 10^3/uL (1.2-3.4); Absolute Monocyte Count 0.73 10^3/uL (0.1-0.8); Absolute Neutrophil Count 7.08 10^3/uL (1.2-6.7); Basophils % 0.7; Eosinophils % 3.7; HCT 44.7 % (40.0-50.0); HGB 14.3 g/dL (13.5-17.5); Immature Grans % 0.2; Lymphocytes % 8.7; MCH 27.9 pg (27.0-33.0); MCV 87.3 fL (80-95); MPV 9.9 fL (8.0-11.0); Monocytes % 8.1; Neutrophils % 78.6; Nucleated RBC 0 %; Platelet Count 213 10^3/uL (130-400); RBC 5.12 10^6/uL (4.36-5.78); RDW 13.5 % (11.8-14.1); RDW-SD 43.8 fL
[2022-01-24 12:56] LABS: COVID-19 PCR Negative (Negative); Influenza A PCR Negative (Negative); Influenza B PCR Negative (Negative); RSV PCR Negative (Negative)
--- NOTE | 2022-01-24 12:56 | DI.VRAD_ITS ---
PROCEDURE INFORMATION: Exam: XR Chest Exam date and time: 01/24/2022 12:30 PM Age: 56 years old Clinical indication: Cough TECHNIQUE: Imaging protocol: XR of the chest. Views: 1 view. COMPARISON: CR XR PORTABLE CHEST AP 02/02/2021 7:05 PM FINDINGS: Lungs: Clear lungs. Pleural spaces: No sizable pleural effusion. No pneumothorax. Heart/Mediastinum: Cardiomediastinal silhouette is within normal limits. Bones/joints: No acute displaced fracture or dislocation. IMPRESSION: No acute cardiopulmonary process. Dictated and Authenticated by: Ryan Faustin MD. Ordering:RADHA Garza MD
[2022-01-24 12:57] LABS: ALT 32 U/L (16-63); AST 26 U/L (15-37); Albumin 3.9 g/dL (3.4-5.0); Alkaline Phosphatase 137 U/L (46-116); Anion Gap 10.5 mmol/L (3-11); BUN 19 mg/dL (7-18); Bilirubin, Total 0.3 mg/dL (0.2-1.0); CO2 24.5 mmol/L (21.0-32.0); CREATININE 1.5 mg/dL (0.70-1.30); Calcium 9.2 mg/dL (8.5-10.1); Chloride 101 mmol/L (98-107); Estimated GFR 48.07 (mL/min/1.73m2); Glucose 172 mg/dL (74-106); Potassium 3.7 mmol/L (3.5-5.1); Sodium 136 mmol/L (136-145); Total Protein 8.6 g/dL (6.4-8.2)
[2022-01-24 13:05] LABS: NT-proBNP 43 pg/mL (<300); Troponin I < 50 ng/L (<or=60)
--- NOTE | 2022-01-24 13:25 | W.ED.GENAD ---
Discharge Plan Disposition Patient Disposition: HOME Condition: Improving Discharge Details Clinical Impression: COPD with acute exacerbation Primary Care Provider: Daniel Baum ED Provider: Greg Clements Home Meds and New Rx's Prescriptions: New prednisone 20 mg tablet 60 mg PO DAILY 5 Days Qty: 15 0RF levofloxacin 750 mg tablet 750 mg PO DAILY Qty: 5 0RF Continued triamcinolone acetonide 0.1 % cream 1 applic Topical BID Qty: 3 4RF Rx Instructions: Apply to legs famotidine 20 mg tablet 20 mg PO BID Qty: 180 2RF sertraline 100 mg tablet 200 mg PO DAILY Qty: 180 3RF budesonide-formoterol [Symbicort] 80-4.5 mcg/actuation HFA aerosol inhaler 2 puff inhalation BID Qty: 10.2 8RF sildenafil 50 mg tablet 50 mg PO DAILY PRN (Reason: sexual activity) Qty: 30 2RF Rx Instructions: administer 30 minutes to 4 hours before activity emtricitabine-tenofovir (TDF) [Truvada] 200-300 mg tablet 1 tab PO DAILY Qty: 90 4RF albuterol sulfate 90 mcg/actuation HFA aerosol inhaler 2 puff IH QID PRN (Reason: shortness of breath) Qty: 18 4RF nicotine 21 mg/24 hr patch 24 hour 1 patch transdermal DAILY Qty: 28 1RF albuterol sulfate 2.5 mg /3 mL (0.083 %) solution for nebulization 2.5 mg IH Q4H PRN (Reason: shortness of breath) Qty: 225 3RF buspirone 15 mg tablet 7.5 mg PO BID PRN (Reason: anxiety) Qty: 90 0RF acetaminophen [Tylenol Extra Strength] 500 mg tablet 1,000 mg PO Q4H PRN (Reason: pain) Qty: 30 0RF ibuprofen 200 mg capsule 600 mg PO Q6H PRN (Reason: pain) Qty: 60 0RF Discharge Instructions Instructions: COPD (Chronic Obstructive Pulmonary Disease) (ED) Additional Instructions: Your laboratory values do not reveal any obvious emergent process. You responded well to the IV fluid, steroids, and breathing. I also gave you a single dose of oral antibiotics. You state you are feeling well and requesting to go home. You are not requiring any supplemental oxygen. Please watch for new or worsening symptoms and return to the ER for any concerns. Otherwise take prednisone and Levaquin as directed. Please contact your primary care provider on Wednesday to discuss your ER visit, ongoing symptoms, and need for outpatient reevaluation. I strongly recommend that you quit smoking. Discharge Data Discharge Date/Time-TO BE ENTERED AT DEPARTURE: 01/24/22 14:06 Medical Decision Making 56-year-old gentleman, current smoker, medical history of COPD, presents to the ER for congestion, cough, difficulty breathing for the past 3 days, worsening, is fully vaccinated for COVID and boosted. He slightly tachycardic but did receive a neb treatment so difficult to know if his tachycardia is secondary to the treatment. Clinically he appears well, nontoxic. He is able to speak in full sentences, he is afebrile, O2 sats are 95% on room air, not requiring any supplemental oxygen. He reports chest pain with coughing but not at rest. Extremely fit for ACS, given symptoms been present for 3 days, will obtain a single EKG and troponin. Clinically this appears to be infectious and/or [employer] exacerbation. Extremely low suspicion for PE. Will obtain routine laboratory values, give IV fluid, IV Solu-Medrol, a DuoNeb and then albuterol nebs [id number]. Patient does not appear septic. No respiratory distress. Laboratory values do not reveal any leukocytosis. Electrolytes are unremarkable. Creatinine 1.5 although this appears to be baseline, he is receiving 1 L IV fluid. Troponin is less than 50. Given his subjective complaint of shortness of breath, a BNP was obtained and unremarkable at 43. Procalcitonin less than 0.1. COVID, flu, RSV all negative. Patient received IV Solu-Medrol, IV fluids, neb treatments, clinically reports feeling improvement. Heart rate is now 102. He continues to speak in full sentences. He does have occasional scattered wheezing but dramatically improved when compared to his initial presentation. X-ray does not reveal any obvious infiltrate but given his history of COPD, currently smoking, I do believe treating with antibiotic, Levaquin is reasonable and I will give first dose now. Patient reports that he feels well and is requesting discharge home. He will be provided a prescription for steroids as well as Levaquin. Strict discharge and return precautions were provided. Otherwise he will contact his primary care provider on Wednesday to discuss his ER visit need for outpatient reevaluation. This documentation was generated using [employer] system, please disregard any oddities of phrase or misspellings. Medical Records Medical records reviewed: Yes I reviewed the patient's medical records. Imaging Data Radiologic Study: Attestation: I personally reviewed and interpreted this imaging study as follows: Imaging: X-Ray Radiologist's impression: PROCEDURE INFORMATION: Exam: XR Chest Exam date and time: 01/24/2022 12:30 PM Age: 56 years old Clinical indication: Cough TECHNIQUE: Imaging protocol: XR of the chest. Views: 1 view. COMPARISON: CR XR PORTABLE CHEST AP 02/02/2021 7:05 PM FINDINGS: Lungs: Clear lungs. Pleural spaces: No sizable pleural effusion. No pneumothorax. Heart/Mediastinum: Cardiomediastinal silhouette is within normal limits. Bones/joints: No acute displaced fracture or dislocation. IMPRESSION: No acute cardiopulmonary process. Lab Data Lab results reviewed: Yes I reviewed the patient's lab results. Labs: Laboratory Tests Range/Units 01/24/22 01/24/22 01/24/22 11:40 11:40 11:40 WBC (4.4-10.8) 10^3/uL 9.00 RBC (4.36-5.78) 10^6/uL 5.12 Hgb (13.5-17.5) g/dL 14.3 Hct (40.0-50.0) % 44.7 MCV (80-95) fL 87.3 MCH (27.0-33.0) pg 27.9 MCHC (32.0-36.0) % 32.0 RDW (11.8-14.1) % 13.5 Plt Count (130-400) 10^3/uL 213 MPV (8.0-11.0) fL 9.9 Immature Gran % 0.2 Neutrophils % 78.6 Lymphocytes % 8.7 Monocytes % 8.1 Eosinophils % 3.7 Basophils % 0.7 Nucleated RBC % % 0 Absolute Neutrophils (1.2-6.7) 10^3/uL 7.08 H Absolute Lymphocytes (1.2-3.4) 10^3/uL 0.78 L Absolute Monocytes (0.1-0.8) 10^3/uL 0.73 Absolute Eosinophils (0.0-0.7) 10^3/uL 0.33 Absolute Basophils (0.0-0.2) 10^3/uL 0.06 Sodium (136-145) mmol/L 136 Potassium (3.5-5.1) mmol/L 3.7 Chloride (98-107) mmol/L 101 Carbon Dioxide (21.0-32.0) mmol/L 24.5 Anion Gap (3-11) mmol/L 10.5 BUN (7-18) mg/dL 19 H Creatinine (0.70-1.30) mg/dL 1.5 H Estimated GFR/1.73 m2 (mL/min/1.73m2) 48.07 Glucose (74-106) mg/dL 172 H Calcium (8.5-10.1) mg/dL 9.2 Magnesium (1.8-2.4) mg/dL 2.0 Total Bilirubin (0.2-1.0) mg/dL 0.3 AST (15-37) U/L 26 ALT (16-63) U/L 32 Alkaline Phosphatase (46-116) U/L 137 H Troponin I (<or=60) ng/L < 50 NT-Pro-B Natriuret Pep (<300) pg/mL 43 Total Protein (6.4-8.2) g/dL 8.6 H Albumin (3.4-5.0) g/dL 3.9 Procalcitonin ng/mL COVID-19 Source SARS-CoV-2 (PCR) (Negative) Influenza Type A (PCR) (Negative) Influenza Type B (PCR) (Negative) RSV (PCR) (Negative) Range/Units 01/24/22 01/24/22 11:40 12:12 WBC (4.4-10.8) 10^3/uL RBC (4.36-5.78) 10^6/uL Hgb (13.5-17.5) g/dL Hct (40.0-50.0) % MCV (80-95) fL MCH (27.0-33.0) pg MCHC (32.0-36.0) % RDW (11.8-14.1) % Plt Count (130-400) 10^3/uL MPV (8.0-11.0) fL Immature Gran % Neutrophils % Lymphocytes % Monocytes % Eosinophils % Basophils % Nucleated RBC % % Absolute Neutrophils (1.2-6.7) 10^3/uL Absolute Lymphocytes (1.2-3.4) 10^3/uL Absolute Monocytes (0.1-0.8) 10^3/uL Absolute Eosinophils (0.0-0.7) 10^3/uL Absolute Basophils (0.0-0.2) 10^3/uL Sodium (136-145) mmol/L Potassium (3.5-5.1) mmol/L Chloride (98-107) mmol/L Carbon Dioxide (21.0-32.0) mmol/L Anion Gap (3-11) mmol/L BUN (7-18) mg/dL Creatinine (0.70-1.30) mg/dL Estimated GFR/1.73 m2 (mL/min/1.73m2) Glucose (74-106) mg/dL Calcium (8.5-10.1) mg/dL Magnesium (1.8-2.4) mg/dL Total Bilirubin (0.2-1.0) mg/dL AST (15-37) U/L ALT (16-63) U/L Alkaline Phosphatase (46-116) U/L Troponin I (<or=60) ng/L NT-Pro-B Natriuret Pep (<300) pg/mL Total Protein (6.4-8.2) g/dL Albumin (3.4-5.0) g/dL Procalcitonin ng/mL < 0.1 COVID-19 Source Not Applicable SARS-CoV-2 (PCR) (Negative) Negative Influenza Type A (PCR) (Negative) Negative Influenza Type B (PCR) (Negative) Negative RSV (PCR) (Negative) Negative ECG Data Attestation: I personally reviewed and interpreted this ECG (s) as follows: Interpretation: Sinus tachycardia, ventricular of 117. No STEMI HPI General Mode of arrival: EMS. Date/Time Provider Initiated Documentation: 01/24/22 11:25. Limitations to Documentation: no limitations. Information obtained by: patient and EMS. HPI Narrative: This is a 56-year-old gentleman, past medical history of COPD, anxiety, current smoker, reports fully vaccinated and boosted against COVID, presenting to the ER concern for cough, shortness of breath, possible pneumonia. Patient reports 3 days ago began with a runny nose and nasal congestion, subsequently turned into a primarily dry cough, wheezing. He reports typically antibiotics and steroids help this and he is requesting to be discharged home and not to be admitted. He denies recent illness or trauma, headache, chest pain, abdominal pain, fever. Denies pain or swelling in his legs. He states he has been taking all of his medications at home as directed. He was given 1 neb treatment per EMS and reports symptoms are already beginning to improve. Patient reports mild chest discomfort when he coughs. Related Data Home Medications Medication Instructions Recorded Confirmed acetaminophen 500 mg tablet 1,000 mg PO Q4H PRN #30 tab 10/09/19 01/24/22 (Tylenol Extra Strength) ibuprofen 200 mg capsule 600 mg PO Q6H PRN #60 cap 10/09/19 01/24/22 triamcinolone acetonide 0.1 % 1 applic TOPICAL BID #3 gm 08/21/20 01/24/22 topical cream budesonide-formoterol HFA 80 2 puff INHALATION BID #10.2 g 12/06/20 01/24/22 mcg-4.5 mcg/actuation aerosol inhaler (Symbicort) famotidine 20 mg tablet 20 mg PO BID #180 tab 12/06/20 01/24/22 sildenafil 50 mg tablet 50 mg PO DAILY PRN #30 tab 05/09/21 01/24/22 emtricitabine 200 mg-tenofovir 1 tab PO DAILY #90 tab 06/06/21 01/24/22 disoproxil fumarate 300 mg tablet (Truvada) albuterol sulfate 90 mcg/actuation 2 puff IH QID PRN #18 gm 07/03/21 01/24/22 aerosol inhaler nicotine 21 mg/24 hr daily 1 patch TRANSDERMAL DAILY #28 ea 09/17/21 12/15/21 transdermal patch albuterol sulfate 2.5 mg (3 mL) IH Q4H PRN #225 ml 10/08/21 01/24/22 sertraline 100 mg tablet 200 mg PO DAILY #180 tab 12/03/21 01/24/22 buspirone 15 mg tablet 7.5 mg PO BID PRN #90 tab 12/17/21 01/24/22 levofloxacin 750 mg tablet 750 mg PO DAILY #5 tab 01/24/22 prednisone 20 mg tablet 60 mg PO DAILY 5 Days #15 tab 01/24/22 Previous Rx's Medication Instructions Recorded acetaminophen 500 mg tablet 1,000 mg PO Q4H PRN #30 tab 10/09/19 (Tylenol Extra Strength) ibuprofen 200 mg capsule 600 mg PO Q6H PRN #60 cap 10/09/19 triamcinolone acetonide 0.1 % 1 applic TOPICAL BID #3 gm 08/21/20 topical cream budesonide-formoterol HFA 80 2 puff INHALATION BID #10.2 g 12/06/20 mcg-4.5 mcg/actuation aerosol inhaler (Symbicort) famotidine 20 mg tablet 20 mg PO BID #180 tab 12/06/20 sildenafil 50 mg tablet 50 mg PO DAILY PRN #30 tab 05/09/21 emtricitabine 200 mg-tenofovir 1 tab PO DAILY #90 tab 06/06/21 disoproxil fumarate 300 mg tablet (Truvada) albuterol sulfate 90 mcg/actuation 2 puff IH QID PRN #18 gm 07/03/21 aerosol inhaler nicotine 21 mg/24 hr daily 1 patch TRANSDERMAL DAILY #28 ea 09/17/21 transdermal patch albuterol sulfate 2.5 mg (3 mL) IH Q4H PRN #225 ml 10/08/21 sertraline 100 mg tablet 200 mg PO DAILY #180 tab 12/03/21 buspirone 15 mg tablet 7.5 mg PO BID PRN #90 tab 12/17/21 levofloxacin 750 mg tablet 750 mg PO DAILY #5 tab 01/24/22 prednisone 20 mg tablet 60 mg PO DAILY 5 Days #15 tab 01/24/22 Allergies Allergy/AdvReac Type Severity Reaction Status Date / Time Penicillins Allergy RASH Verified 01/24/22 11:22 aspirin AdvReac UPSET Verified 01/24/22 11:22 STOMACH General Stated Complaint: SOB ALMAS: 2 Review of Systems Constitutional Constitutional: Denies fatigue, Denies fever(s) and Denies headache(s) Eyes Eyes: Denies change in vision ENT Ears, Nose, Mouth, and Throat: Denies headache(s) and Denies neck pain Cardiovascular Cardiovascular: Denies chest pain and Reports dyspnea Respiratory Respiratory: Reports cough and Reports dyspnea Gastrointestinal Gastrointestinal: Denies abdominal pain, Denies nausea and Denies vomiting Genitourinary Genitourinary: Denies dysuria Musculoskeletal Musculoskeletal: Denies back pain, Denies neck pain, Denies numbness and Denies tingling Integumentary/Breasts Skin/Breast: Denies rash Neurologic Neurologic: Denies headache(s), Denies numbness and Denies tingling Endocrine Endocrine: Denies fatigue PFSH All Active Problems COPD with acute exacerbation (Acute) Anxiety (Chronic) Sexuality issues (Acute) Incarcerated umbilical hernia (Acute) Periumbilical hernia (Acute) Abdominal pain (Acute) Right foot pain (Acute) Hypermagnesemia (Acute) Influenza (Acute) COPD with acute exacerbation (Acute) Acute dehydration (Acute) 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) Raynauds phenomenon (Acute) Right lumbar radiculopathy (Acute) Community acquired pneumonia (Acute) COPD (chronic obstructive pulmonary disease) (Chronic 02/14/15) PFT's show severe obstructive disease with bronchodilator response; PFT 02/13/2015, [id number]%, FEV1/FVC 67%, post BD FEV1 50% FEV1/FVC 72% Depressive disorder (Chronic) Gastroesophageal reflux disease (Chronic) History of tobacco use (Chronic) 48 pack years Sarcoidosis (Chronic 02/04/16) Shortness of breath (Chronic) Ventral hernia (Chronic) Medical History HUBER (acute kidney injury) Pneumonia needs to quit smoking Upper respiratory infection w/ bronchospasm Family History Father , from complications of pneumonia Diabetes Stroke Mother , from diabetic complications including abscess/infection Depression Diabetes Social History Smoking/Tobacco Use Status: Current every day Tobacco Type: cigarettes Smoking risk assessment performed?: Yes Alcohol Intake: former Year quit: 1998 Drug use: Never Substance use type: does not use Do you feel safe at home: Yes Do you feel safe in your relationship?: Yes Exam Const General: cooperative, healthy appearing, comfortable and no acute distress Orientation: alert, awake and oriented x3 HENMT Head: normal to inspection, normocephalic and atraumatic Mouth: moist mucous membranes Eyes Conjunctivae: conjunctivae normal Neck Neck: normal visual inspection, full ROM, trachea midline and supple Resp Effort & Inspection: normal respiratory effort, able to speak in complete sentences and cough Quality of cough: dry (Mild) Auscultation: wheezes (Scattered throughout) Cardio Rate: tachycardic (112) Rhythm: regular rhythm GI Palpation: soft and nontender Back/Spine/Pelvis Back: No back tenderness Skin General skin exam: no rashes or lesions noted Neuro General: patient alert, patient awake, moves all extremities and no focal motor deficits Cognition: normal cognition Speech: speech normal Gait: normal gait Motor: muscle tone normal throughout Sensory Exam: no sensory deficits noted Extrem General: normal to inspection, full ROM, capillary refill normal, no pedal edema and no calf tenderness Psych Appearance: grossly normal Mental Status: mental status grossly normal Course Vital Signs Vital signs: Vital Signs Temperature 37.1 C 01/24/22 11:13 Pulse 121 H 01/24/22 11:13 Respiratory Rate 24 01/24/22 11:13 Blood Pressure 111/65 01/24/22 11:13 Pulse Oximetry 95 01/24/22 11:13 Temperature 37.1 C 01/24/22 11:13 Temperature Source Oral 01/24/22 11:13 Pulse 121 H 01/24/22 11:13 Respiratory Rate 24 01/24/22 11:13 Respiratory Effort Accessory Muscle Use 01/24/22 11:20 Blood Pressure 111/65 01/24/22 11:13 Blood Pressure Position Sitting 01/24/22 11:13 Pulse Oximetry 95 01/24/22 11:13 Oxygen Delivery Method Room Air 01/24/22 11:13 Oxygen Flow Rate 0 01/24/22 11:13 Pain Level 1 01/24/22 11:13 Lab/Test Results Lab/Test Results: Laboratory Tests Range/Units 01/24/22 01/24/22 01/24/22 11:40 11:40 11:40 WBC (4.4-10.8) 10^3/uL 9.00 RBC (4.36-5.78) 10^6/uL 5.12 Hgb (13.5-17.5) g/dL 14.3 Hct (40.0-50.0) % 44.7 MCV (80-95) fL 87.3 MCH (27.0-33.0) pg 27.9 MCHC (32.0-36.0) % 32.0 RDW (11.8-14.1) % 13.5 Plt Count (130-400) 10^3/uL 213 MPV (8.0-11.0) fL 9.9 Immature Gran % 0.2 Neutrophils % 78.6 Lymphocytes % 8.7 Monocytes % 8.1 Eosinophils % 3.7 Basophils % 0.7 Nucleated RBC % % 0 Absolute Neutrophils (1.2-6.7) 10^3/uL 7.08 H Absolute Lymphocytes (1.2-3.4) 10^3/uL 0.78 L Absolute Monocytes (0.1-0.8) 10^3/uL 0.73 Absolute Eosinophils (0.0-0.7) 10^3/uL 0.33 Absolute Basophils (0.0-0.2) 10^3/uL 0.06 Sodium (136-145) mmol/L 136 Potassium (3.5-5.1) mmol/L 3.7 Chloride (98-107) mmol/L 101 Carbon Dioxide (21.0-32.0) mmol/L 24.5 Anion Gap (3-11) mmol/L 10.5 BUN (7-18) mg/dL 19 H Creatinine (0.70-1.30) mg/dL 1.5 H Estimated GFR/1.73 m2 (mL/min/1.73m2) 48.07 Glucose (74-106) mg/dL 172 H Calcium (8.5-10.1) mg/dL 9.2 Magnesium (1.8-2.4) mg/dL 2.0 Total Bilirubin (0.2-1.0) mg/dL 0.3 AST (15-37) U/L 26 ALT (16-63) U/L 32 Alkaline Phosphatase (46-116) U/L 137 H Troponin I (<or=60) ng/L < 50 NT-Pro-B Natriuret Pep (<300) pg/mL 43 Total Protein (6.4-8.2) g/dL 8.6 H Albumin (3.4-5.0) g/dL 3.9 COVID-19 Source SARS-CoV-2 (PCR) (Negative) Influenza Type A (PCR) (Negative) Influenza Type B (PCR) (Negative) RSV (PCR) (Negative) Range/Units 01/24/22 12:12 WBC (4.4-10.8) 10^3/uL RBC (4.36-5.78) 10^6/uL Hgb (13.5-17.5) g/dL Hct (40.0-50.0) % MCV (80-95) fL MCH (27.0-33.0) pg MCHC (32.0-36.0) % RDW (11.8-14.1) % Plt Count (130-400) 10^3/uL MPV (8.0-11.0) fL Immature Gran % Neutrophils % Lymphocytes % Monocytes % Eosinophils % Basophils % Nucleated RBC % % Absolute Neutrophils (1.2-6.7) 10^3/uL Absolute Lymphocytes (1.2-3.4) 10^3/uL Absolute Monocytes (0.1-0.8) 10^3/uL Absolute Eosinophils (0.0-0.7) 10^3/uL Absolute Basophils (0.0-0.2) 10^3/uL Sodium (136-145) mmol/L Potassium (3.5-5.1) mmol/L Chloride (98-107) mmol/L Carbon Dioxide (21.0-32.0) mmol/L Anion Gap (3-11) mmol/L BUN (7-18) mg/dL Creatinine (0.70-1.30) mg/dL Estimated GFR/1.73 m2 (mL/min/1.73m2) Glucose (74-106) mg/dL Calcium (8.5-10.1) mg/dL Magnesium (1.8-2.4) mg/dL Total Bilirubin (0.2-1.0) mg/dL AST (15-37) U/L ALT (16-63) U/L Alkaline Phosphatase (46-116) U/L Troponin I (<or=60) ng/L NT-Pro-B Natriuret Pep (<300) pg/mL Total Protein (6.4-8.2) g/dL Albumin (3.4-5.0) g/dL COVID-19 Source Not Applicable SARS-CoV-2 (PCR) (Negative) Negative Influenza Type A (PCR) (Negative) Negative Influenza Type B (PCR) (Negative) Negative RSV (PCR) (Negative) Negative
[2022-01-24] MEDS: levoFLOXacin 500 MG, levoFLOXacin 250 MG 750 MG PO (13:32)
[2022-01-24 13:33] LABS: Procalcitonin < 0.1 ng/mL
== END 2022-01-24 14:06 | disposition home or self-care (01) ==
PROVIDERS: Emergency Provider Physician Assistant; PCP Nurse Practitioner Family
DX: J44.1 Chronic obstructive pulmonary disease with (acute) exacerbation (principal); R05.1 Acute cough; R06.02 Shortness of breath; Z20.822 Contact with and (suspected) exposure to COVID-19; F17.210 Nicotine dependence, cigarettes, uncomplicated
CPT/HCPCS: 36415; 80053; 84145; 87637; 93005; 94640; 96361; 96374; 99284; 71045; 83735; 83880; 84484; 85025; 93010; J2930; J7613; J7620

== ENCOUNTER 2022-07-25 14:51 | Observation (INO) | payer MEDICAID, SELFPAY ==
--- NOTE | 2022-07-25 14:50 | ED.GENADUL_ITS ---
Discharge Plan Disposition Patient Disposition: [facility] INPATIENT Condition: Stable Discharge Details Clinical Impression: Enteritis, Partial small bowel obstruction Admit Date/Time: 07/25/22 18:00 Admit Provider: Clyde Butterfield Attending Provider: Clyde Butterfield Primary Care Provider: Daniel Baum ED Provider: Hanna Cotton Discharge Data Discharge Date/Time-TO BE ENTERED AT DEPARTURE: 07/25/22 19:05 Medical Decision Making 57-year-old male presents with nausea, vomiting, diarrhea and abdominal pain since yesterday. Describes vomitus as brown and could be consistent with coffee-ground. His abdomen is minimally distended and tender in the upper quadrants. There is no rigidity or guarding. He appears comfortable and nontoxic. Differential diagnosis includes gastroenteritis, colitis, UTI, peptic ulcer disease. Will place an IV, bolus IV fluids, screening labs, urinalysis, CT abdomen and pelvis and reassess. We will give IV Protonix and Zofran. Labs and imaging reviewed. Normal white blood cell count. Sodium 131. Creatinine 1.4. Lipase within normal limits. Urinalysis negative. COVID- negative. CT notes: IMPRESSION: Thickened and mildly dilated loops of proximal and mid small bowel without a discrete transition point. Additionally, there are numerous enlarged mesenteric and retroperitoneal lymph nodes, favored reactive. Findings are suggestive of an enteritis with ileus, although partial small bowel obstruction is not excluded. Patient reassessed and he still complaining of nausea and pain. Will order additional antiemetics, pain control and continue IV fluid hydration. Case discussed with Dr. Butterfield who accepts patient for admission for continued monitoring overnight, IV fluids. Suspect his presentation is most likely consistent with enteritis but will continue to monitor for possible small bowel obstruction. Do not see indication for NG tube at this time. Medical Records Medical records reviewed: Yes I reviewed the patient's medical records. Imaging Data Radiologic Study: Radiologist's impression: CT Abdomen And Pelvis With Contrast Exam date and time: 07/25/2022 4:34 PM Age: 57 years old Clinical indication: Vomiting and other: Upper abd pain, vomiting, diarrhea / R/O colitis, free air TECHNIQUE: Imaging protocol: Computed tomography of the abdomen and pelvis with contrast. Contrast material: OMNIPAQUE 350; Contrast volume: 100 ml; Contrast route: INTRAVENOUS (IV);? COMPARISON: CT ABDOMEN PELVIS W 02/02/2021 6:57 PM FINDINGS: Limitations: Evaluation is limited by motion artifact within the mid abdomen. Liver: Nodular liver contour. Gallbladder and bile ducts: Normal. No calcified stones. No ductal dilation. Pancreas: Normal. No ductal dilation. Spleen: Mild splenomegaly. Adrenal glands: Normal. No mass. Kidneys and ureters: Bilateral hypoattenuating renal lesions, similar to prior. No hydronephrosis. Stomach and bowel: Extensive colonic diverticulosis. No evidence of acute diverticulitis. Thickened and mildly dilated loops of small bowel within the left and mid abdomen. No discrete transition point identified.? Colonic diverticulosis without evidence of acute diverticulitis. Appendix: No evidence of appendicitis. Intraperitoneal space: Unremarkable. No free air. No significant fluid collection. Vasculature: Unremarkable. No abdominal aortic aneurysm. Lymph nodes:? Several enlarged mesenteric and retroperitoneal lymph nodes Urinary bladder: Focal calcification along the anterior bladder wall. Reproductive: Unremarkable as visualized. Bones/joints: Severe disc degeneration at L5-S1. Soft tissues: Small fat containing umbilical hernia. Protrusion of the bladder into the right proximal inguinal canal. Small fat containing ventral and umbilical hernias. IMPRESSION: Thickened and mildly dilated loops of proximal and mid small bowel without a discrete transition point. Additionally, there are numerous enlarged mesenteric and retroperitoneal lymph nodes, favored reactive. Findings are suggestive of an enteritis with ileus, although partial small bowel obstruction is not excluded. Lab Data Lab results reviewed: Yes I reviewed the patient's lab results. Labs: Laboratory Tests Range/Units 07/25/22 07/25/22 07/25/22 15:10 15:10 15:10 WBC (4.4-10.8) 10^3/uL 7.02 RBC (4.36-5.78) 10^6/uL 5.08 Hgb (13.5-17.5) g/dL 13.9 Hct (40.0-50.0) % 42.9 MCV (80-95) fL 84 MCH (27.0-33.0) pg 27.4 MCHC (32.0-36.0) % 32.4 RDW (11.8-14.1) % 14.1 Plt Count (130-400) 10^3/uL 188 MPV (8.0-11.0) fL 9.2 Immature Gran % 0.1 Neutrophils % 77.8 Lymphocytes % 7.4 Monocytes % 10.0 Eosinophils % 4.4 Basophils % 0.3 Nucleated RBC % (0.0-0.3) % 0.0 Absolute Neutrophils (1.2-6.7) 10^3/uL 5.46 Absolute Lymphocytes (1.2-3.4) 10^3/uL 0.52 L Absolute Monocytes (0.1-0.8) 10^3/uL 0.70 Absolute Eosinophils (0.0-0.7) 10^3/uL 0.31 Absolute Basophils (0.0-0.2) 10^3/uL 0.02 Sodium (136-145) mmol/L 131 L Potassium (3.5-5.1) mmol/L 4.0 Chloride (98-107) mmol/L 97 L Carbon Dioxide (21.0-32.0) mmol/L 24.4 Anion Gap (3-11) mmol/L 9.6 BUN (7-18) mg/dL 24 H Creatinine (0.70-1.30) mg/dL 1.4 H Est GFR (CKD-EPI 2020) (mL/min/1.73m2) 57.90 Glucose (74-106) mg/dL 122 H Calcium (8.5-10.1) mg/dL 8.2 L Total Bilirubin (0.2-1.0) mg/dL 0.6 AST (15-37) U/L 22 ALT (16-63) U/L 23 Alkaline Phosphatase (46-116) U/L 79 Total Protein (6.4-8.2) g/dL 7.2 Albumin (3.4-5.0) g/dL 3.1 L Lipase (73-393) U/L 67 Urine Color (Yellow) Urine Clarity (Clear) Urine pH (5-8) Ur Specific Stanley (1.005-1.025) Urine Protein (Negative) mg/dL Urine Ketones (Negative) mg/dL Urine Blood (Negative) Urine Nitrite (Negative) Urine Bilirubin (Negative) Urine Urobilinogen (Up TO 0.2) EU/dL Ur Leukocyte Esterase (Negative) Urine Glucose (Negative) mg/dL Range/Units 07/25/22 17:05 WBC (4.4-10.8) 10^3/uL RBC (4.36-5.78) 10^6/uL Hgb (13.5-17.5) g/dL Hct (40.0-50.0) % MCV (80-95) fL MCH (27.0-33.0) pg MCHC (32.0-36.0) % RDW (11.8-14.1) % Plt Count (130-400) 10^3/uL MPV (8.0-11.0) fL Immature Gran % Neutrophils % Lymphocytes % Monocytes % Eosinophils % Basophils % Nucleated RBC % (0.0-0.3) % Absolute Neutrophils (1.2-6.7) 10^3/uL Absolute Lymphocytes (1.2-3.4) 10^3/uL Absolute Monocytes (0.1-0.8) 10^3/uL Absolute Eosinophils (0.0-0.7) 10^3/uL Absolute Basophils (0.0-0.2) 10^3/uL Sodium (136-145) mmol/L Potassium (3.5-5.1) mmol/L Chloride (98-107) mmol/L Carbon Dioxide (21.0-32.0) mmol/L Anion Gap (3-11) mmol/L BUN (7-18) mg/dL Creatinine (0.70-1.30) mg/dL Est GFR (CKD-EPI 2020) (mL/min/1.73m2) Glucose (74-106) mg/dL Calcium (8.5-10.1) mg/dL Total Bilirubin (0.2-1.0) mg/dL AST (15-37) U/L ALT (16-63) U/L Alkaline Phosphatase (46-116) U/L Total Protein (6.4-8.2) g/dL Albumin (3.4-5.0) g/dL Lipase (73-393) U/L Urine Color (Yellow) Yellow Urine Clarity (Clear) Clear Urine pH (5-8) 7.0 Ur Specific Stanley (1.005-1.025) 1.010 Urine Protein (Negative) mg/dL Negative Urine Ketones (Negative) mg/dL Negative Urine Blood (Negative) Negative Urine Nitrite (Negative) Negative Urine Bilirubin (Negative) Negative Urine Urobilinogen (Up TO 0.2) EU/dL 0.2 Ur Leukocyte Esterase (Negative) Negative Urine Glucose (Negative) mg/dL Negative HPI General Mode of arrival: ambulatory . Date/Time Provider Initiated Documentation: 07/25/22 15:02 . Limitations to Documentation: no limitations . Information obtained by: patient . HPI Narrative: Patient is a 57-year-old male with a history of anxiety, depression, COPD, GERD, cirrhosis, former tobacco abuse who quit smoking 3 weeks ago presents with nausea, vomiting, diarrhea and abdominal pain since yesterday. Patient states he vomited approximately 6 times which is limiting brown and could be consistent with coffee-ground. He states his diarrhea has been loose and brown. He denies any rectal bleeding. He describes his abdominal pain as intermittent and cramping. He states his pain is worse with any movement or when trying to eat. He states he took Pepto-Bismol with some relief. He states he took Aleve earlier today without relief. He denies any recent travel, recent antibiotics or known sick contacts. He denies any known fevers, chest pain, difficulty breathing, urinary symptoms. Related Data Home Medications Medication Instructions Recorded Confirmed acetaminophen 500 mg tablet 1,000 mg PO Q4H PRN pain #30 tabs 10/09/19 07/25/22 (Tylenol Extra Strength) triamcinolone acetonide 0.1 % 1 applic topical BID #3 grams 08/21/20 03/11/22 topical cream sildenafil 50 mg tablet 50 mg PO DAILY PRN sexual activity 05/09/21 03/11/22 #30 tabs albuterol sulfate 90 mcg/actuation 2 puff inhalation QID PRN 07/03/21 07/25/22 aerosol inhaler shortness of breath #18 grams sertraline 100 mg tablet 200 mg PO DAILY #180 tabs 12/03/21 07/25/22 budesonide-formoterol HFA 80 2 puff inhalation BID #10.2 grams 01/28/22 03/11/22 mcg-4.5 mcg/actuation aerosol inhaler (Symbicort) ipratropium 0.5 mg-albuterol 3 mg 3 ml inhalation QID PRN shortness 02/20/22 07/25/22 (2.5 mg base)/3 mL nebulization of breath #360 mL soln nicotine 21 mg/24 hr daily 1 patch transdermal DAILY #28 ea 02/20/22 07/25/22 transdermal patch (Nicoderm CQ) tiotropium bromide 1.25 2 puff inhalation DAILY #12 grams 04/09/22 mcg/actuation mist for inhalation (Spiriva Respimat) Previous Rx's Medication Instructions Recorded acetaminophen 500 mg tablet 1,000 mg PO Q4H PRN pain #30 tabs 10/09/19 (Tylenol Extra Strength) triamcinolone acetonide 0.1 % 1 applic topical BID #3 grams 08/21/20 topical cream sildenafil 50 mg tablet 50 mg PO DAILY PRN sexual activity 05/09/21 #30 tabs albuterol sulfate 90 mcg/actuation 2 puff inhalation QID PRN 07/03/21 aerosol inhaler shortness of breath #18 grams sertraline 100 mg tablet 200 mg PO DAILY #180 tabs 12/03/21 budesonide-formoterol HFA 80 2 puff inhalation BID #10.2 grams 01/28/22 mcg-4.5 mcg/actuation aerosol inhaler (Symbicort) ipratropium 0.5 mg-albuterol 3 mg 3 ml inhalation QID PRN shortness 02/20/22 (2.5 mg base)/3 mL nebulization of breath #360 mL soln nicotine 21 mg/24 hr daily 1 patch transdermal DAILY #28 ea 02/20/22 transdermal patch (Nicoderm CQ) tiotropium bromide 1.25 2 puff inhalation DAILY #12 grams 04/09/22 mcg/actuation mist for inhalation (Spiriva Respimat) Allergies Allergy/AdvReac Type Severity Reaction Status Date / Time Penicillins Allergy RASH Verified 03/11/22 08:34 aspirin AdvReac UPSET Verified 03/11/22 08:34 STOMACH General Stated Complaint: Nausea/Vomit/Diar ALMAS: 2 Review of Systems All systems reviewed & are unremarkable except as noted in HPI and below Constitutional Constitutional: Reports as per HPI, Denies chills, Denies excessive sweating, Denies fatigue and Denies fever(s) Eyes Eyes: Denies blurry vision ENT Ears, Nose, Mouth, and Throat: Denies dizziness, Denies sore throat and Denies throat swelling Cardiovascular Cardiovascular: Denies chest pain and Denies dyspnea Respiratory Respiratory: Denies cough and Denies dyspnea Gastrointestinal Gastrointestinal: Reports abdominal pain, Reports diarrhea, Reports nausea and Reports vomiting Genitourinary Genitourinary: Denies hematuria and Denies dysuria Musculoskeletal Musculoskeletal: Denies back pain and Denies numbness Integumentary/Breasts Skin/Breast: Denies lesions and Denies rash Neurologic Neurologic: Denies behavioral changes, Denies confusion, Denies dizziness, Denies localized weakness and Denies numbness Psychiatric Psychiatric: Denies behavioral changes, Denies confusion and Denies depression Endocrine Endocrine: Denies excessive sweating and Denies fatigue Hematologic/Lymphatic Hematologic/Lymphatic: Denies easy bruising and Denies lymphadenopathy Allergic/Immunologic Allergic/Immunologic: Denies throat swelling PFSH All Active Problems Enteritis (Acute) Partial small bowel obstruction (Acute) Anxiety (Chronic) Sexuality issues (Acute) Incarcerated umbilical hernia (Acute) Periumbilical hernia (Acute) Abdominal pain (Acute) Right foot pain (Acute) Hypermagnesemia (Acute) Influenza (Acute) COPD with acute exacerbation (Acute) Acute dehydration (Acute) 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) Raynauds phenomenon (Acute) Right lumbar radiculopathy (Acute) Community acquired pneumonia (Acute) COPD (chronic obstructive pulmonary disease) (Chronic 02/14/15) PFT's show severe obstructive disease with bronchodilator response; PFT 02/13/2015, QFV818%, FEV1/FVC 67%, post BD FEV1 50% FEV1/FVC 72% Depressive disorder (Chronic) Gastroesophageal reflux disease (Chronic) History of tobacco use (Chronic) 48 pack years Sarcoidosis (Chronic 02/04/16) Shortness of breath (Chronic) Ventral hernia (Chronic) Medical History HUBER (acute kidney injury) Pneumonia needs to quit smoking Upper respiratory infection w/ bronchospasm Family History Father , from complications of pneumonia Diabetes Stroke Mother , from diabetic complications including abscess/infection Depression Diabetes Social History Smoking/Tobacco Use Status: Former Tobacco Use Smoking risk assessment performed?: Yes Alcohol Intake: former Year quit: 1998 Drug use: Never Substance use type: does not use Details: Pt currently Vapes 2-3 times a week. Do you feel safe at home: Yes Do you feel safe in your relationship?: Yes Exam Const General: cooperative and no acute distress Orientation: alert, awake and oriented x3 HENMT Head: normal to inspection Ears: hearing grossly normal bilaterally and external ears normal General nose exam: external nose normal Face and sinus: normal facial exam Mouth: oral mucosae normal Teeth and gingiva: dentition normal Throat: posterior oropharynx normal Eyes General: appearance normal, both eyes and all related structures Eyelids: eyelids normal Pupils: PERRL EOM: EOM intact bilaterally Neck Neck: normal visual inspection Lymphatic: no lymphadenopathy noted Chest Chest: normal inspection of the chest Resp Effort & Inspection: normal respiratory effort and able to speak in complete sentences Auscultation: clear to auscultation bilaterally Cardio Rate: regular rate Rhythm: regular rhythm GI Inspection: normal to inspection and obesity Palpation: soft, not firm, no guarding, no hepatosplenomegaly, no masses and tender (upper abdomen) Auscultation: hypoactive bowel sounds Skin General skin exam: no rashes or lesions noted Neuro General: patient alert and patient awake Cognition: normal cognition Speech: speech normal Motor: muscle tone normal throughout Sensory Exam: no sensory deficits noted Extrem General: normal to inspection, full ROM, capillary refill normal and no edema Psych Appearance: grossly normal Mental Status: mental status grossly normal Speech and Movement: speech and movement normal Affect: normal affect Thought Process: normal
[2022-07-25 15:16] LABS: Abs Immature Grans 0.01 10^3/uL (0.0-0.06); Absolute Basophil Count 0.02 10^3/uL (0.0-0.2); Absolute Eosinophil Count 0.31 10^3/uL (0.0-0.7); Absolute Lymphocyte Count 0.52 10^3/uL (1.2-3.4); Absolute Neutrophil Count 5.46 10^3/uL (1.2-6.7); Basophils % 0.3; Eosinophils % 4.4; HCT 42.9 % (40.0-50.0); HGB 13.9 g/dL (13.5-17.5); Immature Grans % 0.1; Lymphocytes % 7.4; MCH 27.4 pg (27.0-33.0); MCHC 32.4 % (32.0-36.0); MCV 84 fL (80-95); MPV 9.2 fL (8.0-11.0); Neutrophils % 77.8; Platelet Count 188 10^3/uL (130-400); RBC 5.08 10^6/uL (4.36-5.78); RDW 14.1 % (11.8-14.1); RDW-SD 43.8 fL; WBC 7.02 10^3/uL (4.4-10.8)
--- NOTE | 2022-07-25 15:30 | DI.CT_ITS ---
Exam(s) CT ABDOMEN PELVIS W EXAM: CT ABDOMEN PELVIS W CLINICAL HISTORY: upper abd pain, vomiting, diarrhea. TECHNIQUE: Imaging Protocol: Axial computed tomography images with coronal and sagittal reformatted images were created and reviewed CONTRAST MATERIAL: Intravenous: Omnipaque 100cc Oral: None COMPARISON: CT CT ABDOMEN PELVIS W from 02/02/2021 FINDINGS: VISUALIZED LUNG BASES: Benign-appearing increased markings in the posterior basal segment of the left lower lobe are now evident. Small pleural base nodule in the lateral basal segment of the left lowe r lobe again noted. No pleural effusions.. ABDOMEN: There is no ascites. LIVER: Liver is again noted be cirrhotic. No discrete focal hepatic lesions identified. No dilated intrahepatic ducts. GALLBLADDER/BILIARY: No obvious gallbladder pathology. CBD is not dilated. PANCREAS: No evidence of pancreatic mass nor dilatation of the pancreatic duct. SPLEEN: Splenomegaly again noted. No splenic lesions identified splenic and portal veins are patent. However there are collateral vessels again noted which imply an element of a portal venous hyperten radha. ADRENALS: There are no significant adrenal masses. KIDNEYS:There is a benign cyst in the posterior cortex of the left kidney measuring 3 x 3.5 cm, uncha nged. Smaller cysts are noted in the opposite-right kidney, the largest measuring 1.6 cm. No solid renal masses. No calculi nor hydronephrosis.. ABDOMINAL AORTA: Abdominal aorta is not enlarged. LYMPH NODES:No gcjcpazegiozbrd-klul-[id number] adenopathy ABDOMINAL WALL: Again noted are 2 anterior abdominal wall fat only containing hernias. The lower of t hese 2 is left para umbilical. Both appear unchanged and do not contain bowel loops. GI: Are multiple slightly thickened and prominent proximal and mid small bowel loops ranging up to 3 cm diameter. No obvious distinct transition point. No ascites. No mesenteric fluid. PELVIS: GI: Appendix is not well visualized but there is no evidence of obvious appendicitis.There is extensi ve sigmoid diverticulosis but no obvious evidence of acute diverticulitis nor obvious colitis pattern . LYMPH NODES: There is no intrapelvic nor inguinal adenopathy. REPRODUCTIVE: Prostate size normal. Seminal vesicles unremarkable. URINARY BLADDER: No calculi nor obvious masses evident OSSEOUS: No significant osseous lesions. Chronic advanced disc space narrowing at L5-S1 level noted. No listhesis evident at this level nor e lsewhere in the lumbosacral spinal column. IMPRESSION: 1. There are mildly dilated and slightly thickened proximal and mid small bowel loops without a discr ete transition point. Small mesenteric lymph nodes noted which are probably reactive. Findings sugg est enteritis although partial small bowel obstruction is also a consideration and appropriate follow -up is recommended. 2. Hepatic cirrhosis and splenomegaly again noted. There are also collateral vessels indicating port al venous hypertension. The splenic and portal veins are patent. 3. There are again noted to fat containing anterior abdominal wall hernias, appearing unchanged and c ontaining fat and no bowel loops within the hernia sacs. 4. Other findings as above. RADIATION DOSE DELIVERED: 1,581.88mGy.cm Total DLP DATA REPOSITORY: All CT scans at this facility are submitted to the National Radiology Data Registry (NRDR) Dose Index Registry (DIR) with the [employer] (A[employer]). RADIATION OPTIMIZATION: All CT scans at this facility use at least one of these dose optimization te chniques: automated exposure control; mA and/or kV adjustment per patient size (includes targeted exa ms where dose is matched to clinical indication); or iterative reconstruction.
[2022-07-25 15:48] LABS: ALT 23 U/L (16-63); AST 22 U/L (15-37); Albumin 3.1 g/dL (3.4-5.0); Alkaline Phosphatase 79 U/L (46-116); Anion Gap 9.6 mmol/L (3-11); BUN 24 mg/dL (7-18); Bilirubin, Total 0.6 mg/dL (0.2-1.0); CO2 24.4 mmol/L (21.0-32.0); CREATININE 1.4 mg/dL (0.70-1.30); Calcium 8.2 mg/dL (8.5-10.1); Chloride 97 mmol/L (98-107); Glucose 122 mg/dL (74-106); Sodium 131 mmol/L (136-145); Total Protein 7.2 g/dL (6.4-8.2)
[2022-07-25] MEDS: Ondansetron 4 MG/2 ML VIAL IVP (15:53)
[2022-07-25] MEDS: ACETAMINOPHEN 1,000 MG/100 ML BTL 400 MG IVPB (15:55)
[2022-07-25] MEDS: Normal Saline 1,000 ML 1000 ML IV (15:56)
[2022-07-25] MEDS: Normal Saline Flush 10 ML SYR IVP ×2 (16:02→16:39)
[2022-07-25 16:34] LABS: Lipase 67 U/L (73-393)
[2022-07-25] MEDS: Omnipaque 350 MG/ML 100 ML BTL IJ (16:38)
[2022-07-25 17:15] LABS: Bilirubin Negative (Negative); Blood Negative (Negative); Clarity Clear (Clear); Glucose Negative (Negative); Ketones Negative (Negative); Leukocyte Esterase Negative (Negative); Nitrite Negative (Negative); Urobilinogen 0.2 EU/dL (Up TO 0.2)
--- NOTE | 2022-07-25 17:18 | DI.VRAD_ITS ---
PROCEDURE INFORMATION: Exam: CT Abdomen And Pelvis With Contrast Exam date and time: 07/25/2022 4:34 PM Age: 57 years old Clinical indication: Vomiting and other: Upper abd pain, vomiting, diarrhea / R/O colitis, free air TECHNIQUE: Imaging protocol: Computed tomography of the abdomen and pelvis with contrast. Contrast material: OMNIPAQUE 350; Contrast volume: 100 ml; Contrast route: INTRAVENOUS (IV); COMPARISON: CT ABDOMEN PELVIS W 02/02/2021 6:57 PM FINDINGS: Limitations: Evaluation is limited by motion artifact within the mid abdomen. Liver: Nodular liver contour. Gallbladder and bile ducts: Normal. No calcified stones. No ductal dilation. Pancreas: Normal. No ductal dilation. Spleen: Mild splenomegaly. Adrenal glands: Normal. No mass. Kidneys and ureters: Bilateral hypoattenuating renal lesions, similar to prior. No hydronephrosis. Stomach and bowel: Extensive colonic diverticulosis. No evidence of acute diverticulitis. Thickened and mildly dilated loops of small bowel within the left and mid abdomen. No discrete transition point identified. Colonic diverticulosis without evidence of acute diverticulitis. Appendix: No evidence of appendicitis. Intraperitoneal space: Unremarkable. No free air. No significant fluid collection. Vasculature: Unremarkable. No abdominal aortic aneurysm. Lymph nodes: Several enlarged mesenteric and retroperitoneal lymph nodes Urinary bladder: Focal calcification along the anterior bladder wall. Reproductive: Unremarkable as visualized. Bones/joints: Severe disc degeneration at L5-S1. Soft tissues: Small fat containing umbilical hernia. Protrusion of the bladder into the right proximal inguinal canal. Small fat containing ventral and umbilical hernias. IMPRESSION: Thickened and mildly dilated loops of proximal and mid small bowel without a discrete transition point. Additionally, there are numerous enlarged mesenteric and retroperitoneal lymph nodes, favored reactive. Findings are suggestive of an enteritis with ileus, although partial small bowel obstruction is not excluded. Dictated and Authenticated by: Kam Gallagher MD. Ordering:PRASHANTH Ferreira MD
[2022-07-25 18:17] LABS: Source Nasal/Nares
[2022-07-25] MEDS: HYDROmorphone 2 MG/ML SYR 1 MG IVP (18:22)
[2022-07-25] MEDS: Pantoprazole 40 MG VIAL IVP (18:40)
[2022-07-25 18:46] VITALS: BP 109/52; PULSE 67; O2SAT 97
[2022-07-25 18:50] LABS: COVID-19 PCR Negative (Negative)
[2022-07-25 19:01] VITALS: BP 100/63; PULSE 102; RESP 17; TEMP 36.5; O2SAT 95
[2022-07-25 19:15] VITALS: BP 100/63; PULSE 102; RESP 16; TEMP 36.5; O2SAT 95
[2022-07-25] MEDS: Normal Saline 1,000 ML 150 ML IV (21:29)
[2022-07-25] MEDS: Enoxaparin 40 MG/0.4 ML SYR SC (21:30)
[2022-07-25] MEDS: MORPHine 2 MG/ML SYR IVP (22:48)
[2022-07-25 23:16] VITALS: BP 112/73; PULSE 86; RESP 18; TEMP 36.1; O2SAT 94
[2022-07-26] MEDS: Albuterol/Ipratropium 3 ML UPD VIAL IH (03:46)
[2022-07-26] MEDS: MORPHine 2 MG/ML SYR IVP ×6 (03:47→21:04)
[2022-07-26] MEDS: Albuterol HFA 8 GM 60 PUFF INH IH ×2 (03:59→16:10)
[2022-07-26] MEDS: Normal Saline 1,000 ML 150 ML IV (05:01)
[2022-07-26 06:32] LABS: Platelet Count 166 10^3/uL (130-400)
[2022-07-26 06:50] LABS: Anion Gap 9.3 mmol/L (3-11); BUN 19 mg/dL (7-18); CO2 24.7 mmol/L (21.0-32.0); CREATININE 1.5 mg/dL (0.70-1.30); Calcium 8.2 mg/dL (8.5-10.1); Chloride 103 mmol/L (98-107); Glucose 118 mg/dL (74-106); Potassium 3.7 mmol/L (3.5-5.1); Sodium 137 mmol/L (136-145)
[2022-07-26] MEDS: Sertraline 100 MG TAB 200 MG PO (07:34)
[2022-07-26] MEDS: Nicotine 21 MG/24 HR PATCH TD (07:34)
[2022-07-26] MEDS: Budesonide/Formoterol 80/4.5 6.9 GM 60 PUFF INH IH ×2 (07:38→21:03)
[2022-07-26] MEDS: Psyllium PKT 1 EACH PO (08:07)
[2022-07-26 08:33] VITALS: BP 133/82; PULSE 57; RESP 18; TEMP 36.3; O2SAT 97
[2022-07-26] MEDS: Ondansetron 4 MG/2 ML VIAL IVP ×2 (08:35→21:03)
[2022-07-26] MEDS: Tiotropium Bromide-Respimat 10 PUFF INH 2 PUFF IH (08:57)
--- NOTE | 2022-07-26 08:59 | PDOC.CMIN ---
- If Service Date Differs Date of service: 07/26/22 Time of Service: 08:59 Care Management Initial Assess REASON FOR HOSPITALIZATION:: vomiting and diarrhea, r/o SBO PAST MEDICAL HISTORY/PAST SURGICAL HISTORY:: Medical History . COPD (chronic obstructive pulmonary disease) (Chronic 02/14/15). PFT's show severe obstructive disease with bronchodilator response; PFT 02/13/2015, [id number]%, FEV1/FVC 67%, post BD FEV1 50% FEV1/FVC 72%. Depressive disorder (Chronic). Gastroesophageal reflux disease (Chronic). History of tobacco use (Chronic). 48 pack years. 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). Sarcoidosis (Chronic 02/04/16). Shortness of breath (Chronic). Ventral hernia (Chronic) PREVIOUS FUNCTIONAL STATUS/SOCIAL/FAMILY SUPPORTS:: Matt lives alone in a large single family house in [place]. He has never been and has no children. The only relatives he has in the area are a couple of elderly aunts. Matt identifies that he has many good friends for community support. He is independent with all care and activities and drives a car. CURRENT FUNCTIONAL STATUS:: Matt was sitting up in bed when CM met with him. He was pleasant and engaged easily with CM, well known to him from previous hospitalizations. Matt informed CM that he has put his house on the market but that he had not had any serious offers because he has too many flower beds. 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 Matt shared that he owns an 8 acre parcel of land about a mile from where he lives that he has been clearing. His plan is to build a tiny house and be self-sustaining. He wants wood heat, a composting toilet and solar power. Matt also proudly informed CM that he has quit smoking. He has COPD from many years of tobacco use and stated that within a few days of quitting he began to feel better. ADVANCE DIRECTIVES:: none on file Has patient been provided with info about the portal/API?: Yes Did the patient sign up for the portal?: Yes (previously) CODE STATUS:: Full Code INSURANCE COVERAGE / FINANCIAL ISSUES:: Medicaid CURRENT HOME/COMMUNITY SERVICES/EQUIPMENT:: [employer] PRIMARY CARE PHYSICIAN:: Daniel Baum POTENTIAL DISCHARGE NEEDS:: Follow up with surgeon, PCP and plan of care PATIENT/FAMILY EDUCATION NEEDS:: Review of discharge instructions, limitations, activity, follow up plan, medications and discuss Ask Me Three TRANSPORTATION:: via private vehicle with a friend PLAN:: Matt will likely be discharged home with no new services. He will follow up with his PCP, surgeon and plan of care and transport with a friend. CM will offfer support to Matt and his discharge needs.
[2022-07-26] MEDS: Acetaminophen 500 MG TAB 1000 MG PO (10:02)
--- NOTE | 2022-07-26 10:07 | W.PM.HP.N ---
Date of service: 07/26/22 Time of Service: 10:07 Assessment and Plan Assessment and plan (1) Enteritis: Status: Acute Assessment and plan: I do think that his history, physical exam, and imaging are most consistent with enteritis. I will repeat a white blood cell count today. We will also try to check stool studies if he is able to have a bowel movement to help eliminate infectious enteritis as a diagnosis. I think I can decrease his intravenous fluids today since his creatinine is at its baseline, and he appears clinically euvolemic. History of Present Illness History of Present Illness Chief Complaint: Abdominal pain with nausea Narrative: Matt is 57 years old. He says that sometime on Wednesday he started to develop a little bit of nausea that later became associated with crampy abdominal pain. It waxed and waned. He did have several episodes of nonbloody vomiting. He cannot cite any specific trigger factors, and since he has had some loss of appetite, he is not sure of how food impacts his symptoms. After the nausea and pain started, he did have several episodes of diarrhea. He had some mild relief of his symptoms associated with his bowel movements, but the pain persisted, and he went to the emergency room yesterday. There, he was found to have a normal white blood cell count. He underwent a CAT scan of the abdomen and pelvis that demonstrated some thickening of small bowel loops without evidence of the transition point, suggesting the possibility of enteritis as a diagnosis. Admitted him to the hospital, and he was started on some intravenous fluids overnight. He did try to have some Jell-O, but he did not have much taste for it, and he thinks that may have resulted in little more nausea. He did not vomit. He has not had any bowel movements overnight. This morning, his main complaint is abdominal distention. Review of Systems Constitutional Constitutional: Denies body ache(s), Denies chills, Reports fatigue, Denies fever(s), Reports poor appetite and Denies weight loss Eyes Eyes: Reports system reviewed and no additional complaints, except as documented ENT Ears, Nose, Mouth, and Throat: Reports system reviewed and no additional complaints, except as documented Cardiovascular Cardiovascular: Denies chest pain and Denies dyspnea Respiratory Respiratory: Denies chest congestion, Reports cough and Denies dyspnea Gastrointestinal Gastrointestinal: Reports abdominal pain, Denies belching, Reports bloating, Denies hematochezia, Reports cramping, Reports diarrhea and Reports nausea Genitourinary Genitourinary: Reports dysuria (Urinalysis is negative) Musculoskeletal Musculoskeletal: Denies myalgias and Denies arthralgias Neurologic Neurologic: Reports system reviewed and no additional complaints, except as documented Endocrine Endocrine: Reports fatigue Hematologic/Lymphatic Hematologic/Lymphatic: Denies easy bleeding and Denies easy bruising PFSH All Active Problems Enteritis (Acute) Partial small bowel obstruction (Acute) Anxiety (Chronic) Sexuality issues (Acute) Incarcerated umbilical hernia (Acute) Periumbilical hernia (Acute) Abdominal pain (Acute) Right foot pain (Acute) Hypermagnesemia (Acute) Influenza (Acute) COPD with acute exacerbation (Acute) Acute dehydration (Acute) 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) Raynauds phenomenon (Acute) Right lumbar radiculopathy (Acute) Community acquired pneumonia (Acute) COPD (chronic obstructive pulmonary disease) (Chronic 02/14/15) PFT's show severe obstructive disease with bronchodilator response; PFT 02/13/2015, [id number]%, FEV1/FVC 67%, post BD FEV1 50% FEV1/FVC 72% Depressive disorder (Chronic) Gastroesophageal reflux disease (Chronic) History of tobacco use (Chronic) 48 pack years Sarcoidosis (Chronic 02/04/16) Shortness of breath (Chronic) Ventral hernia (Chronic) Medical History HUBER (acute kidney injury) Pneumonia needs to quit smoking Upper respiratory infection w/ bronchospasm Family History Father , from complications of pneumonia Diabetes Stroke Mother , from diabetic complications including abscess/infection Depression Diabetes Social History Smoking/Tobacco Use Status: Former Tobacco Use Smoking risk assessment performed?: Yes Alcohol Intake: former Year quit: 1998 Drug use: Never Substance use type: does not use Details: Pt currently Vapes 2-3 times a week. Do you feel safe at home: Yes Do you feel safe in your relationship?: Yes Meds Allergies and Home Medications Allergies Allergy/AdvReac Type Severity Reaction Status Date / Time Penicillins Allergy RASH Verified 03/11/22 08:34 aspirin AdvReac UPSET Verified 03/11/22 08:34 STOMACH Home Medications Medication Instructions Recorded Confirmed Type acetaminophen 500 mg tablet 1,000 mg PO Q4H PRN pain #30 tabs 10/09/19 07/25/22 Rx (Tylenol Extra Strength) triamcinolone acetonide 0.1 % 1 applic topical BID #3 grams 08/21/20 03/11/22 Rx topical cream sildenafil 50 mg tablet 50 mg PO DAILY PRN sexual activity 05/09/21 03/11/22 Rx #30 tabs albuterol sulfate 90 mcg/actuation 2 puff inhalation QID PRN 07/03/21 07/25/22 Rx aerosol inhaler shortness of breath #18 grams sertraline 100 mg tablet 200 mg PO DAILY #180 tabs 12/03/21 07/25/22 Rx budesonide-formoterol HFA 80 2 puff inhalation BID #10.2 grams 01/28/22 03/11/22 Rx mcg-4.5 mcg/actuation aerosol inhaler (Symbicort) ipratropium 0.5 mg-albuterol 3 mg 3 ml inhalation QID PRN shortness 02/20/22 07/25/22 Rx (2.5 mg base)/3 mL nebulization of breath #360 mL soln nicotine 21 mg/24 hr daily 1 patch transdermal DAILY #28 ea 02/20/22 07/25/22 Rx transdermal patch (Nicoderm CQ) tiotropium bromide 1.25 2 puff inhalation DAILY #12 grams 04/09/22 Rx mcg/actuation mist for inhalation (Spiriva Respimat) Exam Const General: cooperative, healthy appearing and comfortable Orientation: awake and oriented x3 Eyes General: appearance normal, both eyes and all related structures Conjunctivae: conjunctivae normal Sclera: sclerae normal Resp Effort & Inspection: normal respiratory effort and able to speak in complete sentences Cardio Jugular venous pressure: no JVD Rate: regular rate GI Inspection: distended Palpation: soft, no guarding, hernia (There is a reducible umbilical hernia, maybe reducible ventral hernia) and nontender Auscultation: normal bowel sounds Other: There are no skin changes overlying his hernias. He is not tender there. Skin General skin exam: normal turgor Neuro General: patient alert, patient awake and patient oriented x3 Cognition: normal cognition Extrem Right lower extremity: no edema Left lower extremity: no edema Results Labs Result diagrams: 07/26/22 05:43 07/26/22 05:43 Labs: Laboratory Results - last 24 hr 07/25/22 07/25/22 07/25/22 15:10 15:10 15:10 WBC 7.02 RBC 5.08 Hgb 13.9 Hct 42.9 MCV 84 MCH 27.4 MCHC 32.4 RDW 14.1 Plt Count 188 MPV 9.2 Immature Gran % 0.1 Neutrophils % 77.8 Lymphocytes % 7.4 Monocytes % 10.0 Eosinophils % 4.4 Basophils % 0.3 Nucleated RBC % 0.0 Absolute Neutrophils 5.46 Absolute Lymphocytes 0.52 L Absolute Monocytes 0.70 Absolute Eosinophils 0.31 Absolute Basophils 0.02 Sodium 131 L Potassium 4.0 Chloride 97 L Carbon Dioxide 24.4 Anion Gap 9.6 BUN 24 H Creatinine 1.4 H Est GFR (CKD-EPI 2020) 57.90 Glucose 122 H Calcium 8.2 L Total Bilirubin 0.6 AST 22 ALT 23 Alkaline Phosphatase 79 Total Protein 7.2 Albumin 3.1 L Lipase 67 Urine Color Urine Clarity Urine pH Ur Specific [place] Urine Protein Urine Ketones Urine Blood Urine Nitrite Urine Bilirubin Urine Urobilinogen Ur Leukocyte Esterase Urine Glucose COVID-19 Source SARS-CoV-2 (PCR) 07/25/22 07/25/22 07/26/22 17:05 18:10 05:43 WBC RBC Hgb Hct MCV MCH MCHC RDW Plt Count MPV Immature Gran % Neutrophils % Lymphocytes % Monocytes % Eosinophils % Basophils % Nucleated RBC % Absolute Neutrophils Absolute Lymphocytes Absolute Monocytes Absolute Eosinophils Absolute Basophils Sodium 137 Potassium 3.7 Chloride 103 Carbon Dioxide 24.7 Anion Gap 9.3 BUN 19 H Creatinine 1.5 H Est GFR (CKD-EPI 2020) 53.30 Glucose 118 H Calcium 8.2 L Total Bilirubin AST ALT Alkaline Phosphatase Total Protein Albumin Lipase Urine Color Yellow Urine Clarity Clear Urine pH 7.0 Ur Specific [place] 1.010 Urine Protein Negative Urine Ketones Negative Urine Blood Negative Urine Nitrite Negative Urine Bilirubin Negative Urine Urobilinogen 0.2 Ur Leukocyte Esterase Negative Urine Glucose Negative COVID-19 Source Nasal/Nares SARS-CoV-2 (PCR) Negative 07/26/22 05:43 WBC RBC Hgb Hct MCV MCH MCHC RDW Plt Count 166 MPV Immature Gran % Neutrophils % Lymphocytes % Monocytes % Eosinophils % Basophils % Nucleated RBC % Absolute Neutrophils Absolute Lymphocytes Absolute Monocytes Absolute Eosinophils Absolute Basophils Sodium Potassium Chloride Carbon Dioxide Anion Gap BUN Creatinine Est GFR (CKD-EPI 2020) Glucose Calcium Total Bilirubin AST ALT Alkaline Phosphatase Total Protein Albumin Lipase Urine Color Urine Clarity Urine pH Ur Specific [place] Urine Protein Urine Ketones Urine Blood Urine Nitrite Urine Bilirubin Urine Urobilinogen Ur Leukocyte Esterase Urine Glucose COVID-19 Source SARS-CoV-2 (PCR) Last Vital Signs Temp 97.3 F L 07/26/22 08:33 Pulse 57 L 07/26/22 08:33 Resp 18 07/26/22 08:33 BP 133/82 07/26/22 08:33 Pulse Ox 97 07/26/22 08:33
[2022-07-26] MEDS: Normal Saline 1,000 ML 80 ML IV ×2 (11:24→23:27)
[2022-07-26 13:29] LABS: HCT 39.4 % (40.0-50.0); HGB 12.8 g/dL (13.5-17.5); MCH 27.5 pg (27.0-33.0); MCHC 32.5 % (32.0-36.0); MCV 85 fL (80-95); MPV 9.7 fL (8.0-11.0); Platelet Count 173 10^3/uL (130-400); RBC 4.65 10^6/uL (4.36-5.78); RDW 14.8 % (11.8-14.1); RDW-SD 46.1 fL; WBC 4.33 10^3/uL (4.4-10.8)
[2022-07-26 15:29] VITALS: BP 103/69; PULSE 87; RESP 17; TEMP 36.9; O2SAT 95
[2022-07-26] MEDS: Enoxaparin 40 MG/0.4 ML SYR SC (21:03)
[2022-07-26] MEDS: Normal Saline Flush 10 ML SYR IVP (21:04)
[2022-07-26 23:57] VITALS: BP 107/72; PULSE 89; RESP 17; TEMP 37; O2SAT 95
[2022-07-27] MEDS: MORPHine 2 MG/ML SYR IVP ×2 (01:19→11:29)
[2022-07-27] MEDS: Albuterol/Ipratropium 3 ML UPD VIAL IH ×2 (06:45→17:55)
[2022-07-27 08:31] VITALS: BP 123/76; PULSE 85; RESP 18; TEMP 36.1; O2SAT 95
[2022-07-27] MEDS: Sertraline 100 MG TAB 200 MG PO (08:48)
[2022-07-27] MEDS: Psyllium PKT 1 EACH PO (08:49)
[2022-07-27] MEDS: Nicotine 21 MG/24 HR PATCH TD (08:49)
[2022-07-27] MEDS: Tiotropium Bromide-Respimat 10 PUFF INH 2 PUFF IH (09:23)
[2022-07-27] MEDS: Budesonide/Formoterol 80/4.5 6.9 GM 60 PUFF INH IH ×2 (09:23→20:01)
[2022-07-27] MEDS: Famotidine 20 MG TAB PO ×2 (09:24→20:01)
--- NOTE | 2022-07-27 11:15 | DI.RAD_ITS ---
Exam(s) XR ABDOMEN FLAT UPRIGHT EXAM: 2D digital imaging was performed. CLINICAL HISTORY: f/u on CT scan. COMPARISON: CT CT ABDOMEN PELVIS W from 07/25/2022 TECHNIQUE: Supine and upright views of the abdomen were performed. FINDINGS: BOWEL GAS PATTERN: Nondistended.No free air. Moderate quantity of stool. CALCIFICATIONS: No radiopaque calcifications. OSSEOUS STRUCTURES: Normal for age. OTHER FINDINGS: None. IMPRESSION: 1. Nonobstructive bowel gas pattern. 2. No radiopaque calculi. 3. No free air. DATA REPOSITORY: RADIATION DOSE DELIVERED:
[2022-07-27] MEDS: Normal Saline 1,000 ML 80 ML IV (11:27)
--- NOTE | 2022-07-27 13:03 | CMPROGNOTE_ITS ---
- If Service Date Differs Date of service: 07/27/22 Time of Service: 13:04 Care Management Progress Note S/O: Matt remains inpatient followed by surgical services. CM continues to follow. A: 57 year old male admitted to [facility] 07/25/22 for vomiting and diarrhea, enteritis, possible SBO P: Matt will likely be discharged home with no new services. He will follow up with his PCP, surgeon and plan of care and transport with a friend. CM will offer support to Matt and his discharge needs.
--- NOTE | 2022-07-27 13:35 | W.PM.PROGNOT ---
Date of Service Date of service: 07/27/22 Time of Service: 13:36 Assessment and Plan Assessment and plan (1) Constipation: Status: Acute Assessment and plan: Mr. Goetz was admitted on the with ? PSBO and enteritis. He is passing flatus and is tolerating a regular diet. His XRay today showes a normal small intestine. There is stool noted throughout the large intestine. He has had no fevers and labs were unremarkable Plan: Give Miralax 1/2 bottle in 32 oz of gatorade. Also give a dulcolax suppository Home tomorrow (2) Enteritis: Status: Acute Subjective Subjective Interval history since last seen: Patient is complaining of abdominal pain and epigastric pain. He states that he has reflux and normaly takes pepto bismol and baking soda. He is taking po without N/V. He is passing gas but has had no BM since admission Labs are unremarkable Exam Const General: cooperative, comfortable and no acute distress HENMT Head: normocephalic and atraumatic Resp Effort & Inspection: normal respiratory effort Auscultation: clear to auscultation bilaterally Cardio Rate: regular rate Rhythm: regular rhythm GI Palpation: soft, no hepatosplenomegaly and tender (mild lower abdomen) Auscultation: normal bowel sounds Objective Last Vital Signs Temp 97.0 F L 07/27/22 08:31 Pulse 85 07/27/22 08:31 Resp 18 07/27/22 08:31 BP 123/76 07/27/22 08:31 Pulse Ox 95 07/27/22 08:31
[2022-07-27] MEDS: Bisacodyl 10 MG SUPP PR (14:17)
[2022-07-27] MEDS: Polyethylene Glycol 3350 238 GM BTL PO (14:17)
[2022-07-27 15:39] VITALS: BP 123/78; PULSE 90; RESP 16; TEMP 36.9; O2SAT 96
[2022-07-27 17:55] VITALS: RESP 4
[2022-07-27] MEDS: Enoxaparin 40 MG/0.4 ML SYR SC (21:39)
[2022-07-27 23:27] VITALS: BP 137/85; PULSE 89; RESP 16; TEMP 36.7; O2SAT 96
[2022-07-28] MEDS: Normal Saline Flush 10 ML SYR IVP ×2 (00:44→07:57)
[2022-07-28] MEDS: Famotidine 20 MG TAB PO (07:57)
[2022-07-28] MEDS: Sertraline 100 MG TAB 200 MG PO (07:57)
[2022-07-28] MEDS: Nicotine 21 MG/24 HR PATCH TD (07:58)
[2022-07-28] MEDS: Psyllium PKT 1 EACH PO (07:58)
[2022-07-28 08:06] VITALS: BP 142/86; PULSE 85; RESP 16; TEMP 35.4; O2SAT 97
[2022-07-28] MEDS: Budesonide/Formoterol 80/4.5 6.9 GM 60 PUFF INH IH (08:23)
[2022-07-28] MEDS: Tiotropium Bromide-Respimat 10 PUFF INH 2 PUFF IH (08:23)
[2022-07-28 09:23] VITALS: RESP 4
[2022-07-28] MEDS: Albuterol/Ipratropium 3 ML UPD VIAL IH (09:23)
--- NOTE | 2022-07-28 12:43 | DSE_ITS ---
DS: Diagnosis Discharge Diagnosis (1) Constipation: Status: Acute (2) Enteritis: Status: Acute Discharge Plan Disposition Patient Disposition: HOME Condition: Stable Discharge Details Reason For Visit: Vomiting and Diarrhea,Enteritis,Possible SBO Admit Date/Time: 07/25/22 18:00 Admit Provider: Clyde Butterfield Attending Provider: Clyde Butterfield Primary Care Provider: Daniel Baum Hospital Course Hospital Course: Patient came to the ER on 07/25 complaining of abdominal pain. He had a CT and was found to have a nonspecific enteritis of the small intestine. He was admitted for hydration/pain management/observation. He had no fever or white count. He did receive mag citrate and was finally able to move his bowels. Today 07/28. Tolerating a regular diet. He does have multiple bowel movements. He is having no abdominal pain. And tolerating regular anxiety. He said we will follow-up in clinic for consideration of a colonoscopy as he has never had one before. He needs to stop smoking and stop using alcohol. He will be discharged with a prescription for MiraLAX daily to avoid constipation in the future/no other changes in medications. Patient understood all and discharged in stable Condition Home Meds and New Rx's Prescriptions: New polyethylene glycol 3350 [ClearLax] 17 gram powder in packet 17 g PO DAILY Qty: 100 6RF Continued triamcinolone acetonide 0.1 % cream 1 applic Topical BID Qty: 3 4RF Rx Instructions: Apply to legs sertraline 100 mg tablet 200 mg PO DAILY Qty: 180 3RF sildenafil 50 mg tablet 50 mg PO DAILY PRN (Reason: sexual activity) Qty: 30 2RF Rx Instructions: administer 30 minutes to 4 hours before activity albuterol sulfate 90 mcg/actuation HFA aerosol inhaler 2 puff IH QID PRN (Reason: shortness of breath) Qty: 18 4RF budesonide-formoterol [Symbicort] 80-4.5 mcg/actuation HFA aerosol inhaler 2 puff inhalation BID Qty: 10.2 8RF nicotine [Nicoderm CQ] 21 mg/24 hr patch 24 hour 1 patch transdermal DAILY Qty: 28 0RF ipratropium-albuterol 0.5 mg-3 mg(2.5 mg base)/3 mL solution for nebulization 3 ml inhalation QID PRN (Reason: shortness of breath) Qty: 360 3RF Spiriva Respimat 1.25 mcg/actuation mist 2 puff inhalation DAILY Qty: 12 3RF acetaminophen [Tylenol Extra Strength] 500 mg tablet 1,000 mg PO Q4H PRN (Reason: pain) Qty: 30 0RF Discharge Instructions Additional Instructions: -F/u w/ Dr. Butterfield in 1-2 wks to schedule a colonoscopy. -Diet: as tolerated -no straining to move bowels -Miralax daily -It is ok to shower. You may find that your appetite is smaller. Eat 3-6 small meals throughout the day. It is important to drink lots of water after surgery, 6-10 glasses a day. -If you were given an incentive spirometry (breathing general assembler installer?), continue to do this 10x/hour while awake. -We do want you up walking, at least 5-6 times per day. This is very important to prevent pneumonia and blood clots. You can climb stairs, take themslowly -stop smoking Activity:: Activity as Tolerated Equipment/Supplies:: No Equipment Needed Diet:: As Tolerated Discharge Orders Discharge Orders: Discharge Order (Routine); Ordered 07/28/22 Ordered By: Yarelis Ervin DS: Summary Time Spent with Patient providing and/or coordinating discharge services: Less than 30 minutes Status at Discharge Functional status at discharge: independent ambulation Overall status at discharge: patient is back to baseline Mental Status: mental status grossly normal Speech and Movement: speech and movement normal Mood: congruent mood Affect: normal affect Exam Psych Mental Status: mental status grossly normal Speech and Movement: speech and movement normal Mood: congruent mood Affect: normal affect DS: Data Vitals/I&O Vitals and I&O: Vital Signs Temperature 35.4 C L 07/28/22 08:06 Temperature Source Tympanic 07/28/22 08:06 Pulse 85 07/28/22 08:06 Pulse Rhythm Regular 07/28/22 03:48 Respiratory Rate 16 07/28/22 08:06 Respiratory Effort Non-Labored 07/28/22 03:48 Respiratory Depth Normal 07/28/22 03:48 Respiratory Pattern Normal 07/28/22 03:48 Blood Pressure 142/86 H 07/28/22 08:06 Pulse Oximetry 97 07/28/22 08:06 Oxygen Delivery Method Room Air 07/28/22 09:23 Oxygen Flow Rate 0 07/28/22 09:23 Pain Level 0 07/28/22 08:06 Intake & Output 07/27/22 07/28/22 07/28/22 23:59 11:59 23:59 Intake Total 357.333 / 1681.333 860 / 860 Output Total 3250 / 6150 900 / 900 Balance -2892.667 / -4468.667 -40 / -40 Intake: IV 157.333 / 1121.333 Oral 200 / 560 860 / 860 Output: Urine 3250 / 6150 900 / 900 Other: Urine Color Yellow Yellow Urine Appearance Clear Clear Urine Odor None Comment pt voided independently in the toilet. no amount measured. pt denies dysuria Stool Occult Blood Negative Stool Size Copious Stool Characteristics Soft Soft Formed Brown Voiding Methods Urinal Urinal Data Completed and Pending Labs on day of discharge: Labs from last 24 hours 07/27/22 16:43 Stool Campylobacter PCR Pending Stool Salmonella PCR Pending Stool Shigella PCR Pending Shiga Toxin (PCR) Pending [facility] All Active Problems (Updated 07/27/22 @ 13:39 by Shanda Scott MD) Constipation (Acute) Enteritis (Acute) Partial small bowel obstruction (Acute) Anxiety (Chronic) Sexuality issues (Acute) Incarcerated umbilical hernia (Acute) Periumbilical hernia (Acute) Abdominal pain (Acute) Right foot pain (Acute) Hypermagnesemia (Acute) Influenza (Acute) COPD with acute exacerbation (Acute) Acute dehydration (Acute) 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) Raynauds phenomenon (Acute) Right lumbar radiculopathy (Acute) Community acquired pneumonia (Acute) COPD (chronic obstructive pulmonary disease) (Chronic 02/14/15) PFT's show severe obstructive disease with bronchodilator response; PFT 02/13/2015, [id number]%, FEV1/FVC 67%, post BD FEV1 50% FEV1/FVC 72% Depressive disorder (Chronic) Gastroesophageal reflux disease (Chronic) History of tobacco use (Chronic) 48 pack years Sarcoidosis (Chronic 02/04/16) Shortness of breath (Chronic) Ventral hernia (Chronic) Medical History HUBER (acute kidney injury) Pneumonia needs to quit smoking Upper respiratory infection w/ bronchospasm Family History Father , from complications of pneumonia Diabetes Stroke Mother , from diabetic complications including abscess/infection Depression Diabetes Social History Smoking/Tobacco Use Status: Former Tobacco Use Smoking risk assessment performed?: Yes Alcohol Intake: former Year quit: 1998 Drug use: Never Substance use type: does not use Details: Pt currently Vapes 2-3 times a week. Do you feel safe at home: Yes Do you feel safe in your relationship?: Yes
--- NOTE | 2022-07-28 13:57 | PDOC.CMDIS ---
- If Service Date Differs Date of service: 07/28/22 Time of Service: 13:57 LACE Index Scoring Tool - Questions: Length of Stay (in days): 3 Acuity (Admit via E.D.?): Yes Comorbidities: Chronic Pulmonary Disease, Liver or Renal Disease E.D. Visits: 3 - Answers: Total Score: 14 Risk of Readmission: High Risk Care Management Discharge Reason for Hospitalization: vomiting and diarrhea, r/o SBO Discharge Plan: Matt will return home today with no new services, and a resumption of MOW. He will be driven home by a friend via private vehicle. He will follow up with his PCP and discharge plan of care. He is happy to be going home. Patient/Family Education Needs: Review discharge instructions and limitations, discussion of self care needs including ask me three.
--- NOTE | 2022-07-28 15:32 | CHAPLAIN ---
Matt was happy to tell me that he was being discharged and had arranged for a ride home with a friend. Matt lives by himself in [place] and had many flower beds. He told me that because of an annoying neighbor who lives in next door to him, Matt has decided to move [place] miles [place] the road to his [facility] where he owns [address] acres. He is looking forward to being discharged and asked me to let the Inventory Specialist know that he found his own ride home.
[2022-07-28 19:41] LABS: Campylobacter PCR Negative (Negative); Salmonella PCR Negative (Negative); Shiga Toxin PCR Negative (Negative); Shigella/Enteroinvasive Ecoli Negative (Negative)
== END 2022-07-28 14:15 | disposition home or self-care (01) ==
LOC: ER 16:11 → MS 18:53
PROVIDERS: General Practice; Admitting Provider Surgery; Emergency Provider Physician Assistant; PCP Nurse Practitioner Family; Visit Provider Surgery
DX: K52.9 Noninfective gastroenteritis and colitis, unspecified (principal); K59.00 Constipation, unspecified; K44.9 Diaphragmatic hernia without obstruction or gangrene; F32.A Depression, unspecified; K21.9 Gastro-esophageal reflux disease without esophagitis; F41.9 Anxiety disorder, unspecified; Z87.891 Personal history of nicotine dependence; K74.60 Unspecified cirrhosis of liver; K75.81 Nonalcoholic steatohepatitis (NASH); I73.00 Raynaud's syndrome without gangrene; M54.16 Radiculopathy, lumbar region; R16.1 Splenomegaly, not elsewhere classified; Z79.899 Other long term (current) drug therapy; K42.9 Umbilical hernia without obstruction or gangrene; Z20.822 Contact with and (suspected) exposure to COVID-19
CPT/HCPCS: 36410; 36415; 80048; 80053; 83690; 85027; 87505; 87635; 94640; 96361; 96365; 96372; 96374; 96375; 96376; 99285; J1650; 74019; 74177; 81003; 85025; 85049; G0378; J0131; J1170; J2270; J2405; J3490; J7620

== ENCOUNTER 2023-10-13 12:56 | Outpatient (REF) | payer MEDICAID, SELFPAY ==
--- NOTE | 2023-10-13 09:25 | SKI_PTH ---
PATIENT: Matt Goetz LOC: [facility], [place] U#:[id number] AGE/SX: 58/M ROOM: RE10/13/[address]: Daniel Baum NP : [id number] BED: DIS: 10/13/2023 SPEC #: [id number] RECD: 10/13/23 12:59 STATUS: FELICIA REQ #: [id number] KEVEN: 10/13/23 09:[address]: Daniel Baum DEPT: Surgical Specimen RECD BY: Isabel Patel Tissues: 1 - SKIN BIOPSY(SHAVE/PUNCH) Procedures: SKIN LEVEL 4 Comments: [id number]
== END 2023-10-13 12:57 | disposition home or self-care (01) ==
LOC: LBN 12:56
PROVIDERS: PCP Nurse Practitioner Family; Visit Provider Nurse Practitioner Family
DX: R23.4 Changes in skin texture (principal)
CPT/HCPCS: 88305

== ENCOUNTER 2024-05-12 08:32 | Emergency (ER) | payer MEDICAID, SELFPAY ==
[2024-05-12 08:34] VITALS: BP 124/103; PULSE 78; RESP 16; TEMP 37.2; O2SAT 96
[2024-05-12 08:41] VITALS: BP 124/103; PULSE 78; RESP 16; TEMP 36.2; O2SAT 96
--- NOTE | 2024-05-12 08:47 | W.ED.GENAD ---
Discharge Plan Disposition Patient Disposition: Home Condition: Stable Discharge Details Clinical Impression: Avulsion of toenail of right foot Primary Care Provider: Eliecer Howard ED Provider: Julia Carmona Home Meds and New Rx's Prescriptions: Continued sildenafil 50 mg tablet 50 mg PO DAILY PRN (Reason: sexual activity) Qty: 30 2RF Rx Instructions: administer 30 minutes to 4 hours before activity triamcinolone acetonide 0.1 % cream 1 applic Topical BID Qty: 30 4RF Rx Instructions: Apply to legs sertraline 100 mg tablet 200 mg PO DAILY Qty: 180 3RF albuterol sulfate 90 mcg/actuation HFA aerosol inhaler 2 puff IH QID PRN (Reason: shortness of breath) Qty: 18 4RF ipratropium-albuterol 0.5 mg-3 mg(2.5 mg base)/3 mL solution for nebulization 3 ml inhalation QID PRN (Reason: shortness of breath) Qty: 360 3RF albuterol sulfate 90 mcg/actuation HFA aerosol inhaler 2 puff IH QID PRN (Reason: shortness of breath) Qty: 18 4RF budesonide-formoterol [Symbicort] 80-4.5 mcg/actuation HFA aerosol inhaler 2 puff inhalation BID Qty: 10.2 8RF Spiriva Respimat 1.25 mcg/actuation mist 2 puff inhalation DAILY Qty: 12 3RF polyethylene glycol 3350 [ClearLax] 17 gram powder in packet 17 g PO DAILY Qty: 100 6RF acetaminophen [Tylenol Extra Strength] 500 mg tablet 1,000 mg PO Q4H PRN (Reason: pain) Qty: 30 0RF Discharge Instructions Instructions: Nail Avulsion Additional Instructions: Please change the dressing once a day, you may clean it with soap and water up to 3 times daily as needed. More often if it gets dirty. Watch for signs of infection including increased redness, red streaks drainage or swelling. The nail will fall off on its own. The nail was not removed today to keep the nail fold intact. Please take Tylenol or Ibuprofen with food every 4-6 hours as needed for pain and swelling. Wear the postop shoe as needed to prevent further injury. Stand Alone Forms: Work Release Referrals: Eliecer Howard MD [Primary Care Provider] - Return if symptoms worsen Discharge Data Discharge Date/Time-TO BE ENTERED AT DEPARTURE: 05/12/24 09:14 HPI General Mode of arrival: ambulatory. Date/Time Provider Initiated Documentation: 05/12/24 08:34. Limitations to Documentation: no limitations. Information obtained by: patient, RN notes reviewed and old records reviewed. HPI Narrative: 58-year-old male presents to the ER with chief complaint of right great toenail partial avulsion. He reports that last night his pant leg got caught on his great toenail which pulled the toenail off the bed. There is some dried blood noted. He also reports a recent fungal infection. Does have a history of COPD and depression. Denies any blood thinners or aspirin. Denies any other injury no associated symptoms, no induration, warmth, or signs of infection denies any other complaints. Related Data Home Medications Medication Instructions Recorded Confirmed acetaminophen 500 mg tablet 1,000 mg (2 x 500 mg) PO Q4H PRN 10/09/19 05/12/24 (Tylenol Extra Strength) pain #30 tabs albuterol sulfate 90 mcg/actuation 2 puff inhalation QID PRN 07/03/21 05/12/24 aerosol inhaler shortness of breath #18 grams polyethylene glycol 3350 17 gram 17 g PO DAILY #100 ea 07/28/22 05/12/24 oral powder packet (ClearLax) sildenafil 50 mg tablet 50 mg PO DAILY PRN sexual activity 03/30/23 05/12/24 #30 tabs triamcinolone acetonide 0.1 % 1 applic topical BID #30 grams 03/30/23 05/12/24 topical cream sertraline 100 mg tablet 200 mg (2 x 100 mg) PO DAILY #180 10/13/23 05/12/24 tabs albuterol sulfate 90 mcg/actuation 2 puff inhalation QID PRN 02/09/24 05/12/24 aerosol inhaler shortness of breath #18 grams budesonide-formoterol HFA 80 2 puff inhalation BID #10.2 grams 02/09/24 05/12/24 mcg-4.5 mcg/actuation aerosol inhaler (Symbicort) ipratropium 0.5 mg-albuterol 3 mg 3 ml inhalation QID PRN shortness 02/09/24 05/12/24 (2.5 mg base)/3 mL nebulization of breath #360 mL soln tiotropium bromide 1.25 2 puff inhalation DAILY #12 grams 02/09/24 05/12/24 mcg/actuation mist for inhalation (Spiriva Respimat) Previous Rx's Medication Instructions Recorded acetaminophen 500 mg tablet 1,000 mg (2 x 500 mg) PO Q4H PRN 10/09/19 (Tylenol Extra Strength) pain #30 tabs albuterol sulfate 90 mcg/actuation 2 puff inhalation QID PRN 07/03/21 aerosol inhaler shortness of breath #18 grams polyethylene glycol 3350 17 gram 17 g PO DAILY #100 ea 07/28/22 oral powder packet (ClearLax) sildenafil 50 mg tablet 50 mg PO DAILY PRN sexual activity 03/30/23 #30 tabs triamcinolone acetonide 0.1 % 1 applic topical BID #30 grams 03/30/23 topical cream sertraline 100 mg tablet 200 mg (2 x 100 mg) PO DAILY #180 10/13/23 tabs albuterol sulfate 90 mcg/actuation 2 puff inhalation QID PRN 02/09/24 aerosol inhaler shortness of breath #18 grams budesonide-formoterol HFA 80 2 puff inhalation BID #10.2 grams 02/09/24 mcg-4.5 mcg/actuation aerosol inhaler (Symbicort) ipratropium 0.5 mg-albuterol 3 mg 3 ml inhalation QID PRN shortness 02/09/24 (2.5 mg base)/3 mL nebulization of breath #360 mL soln tiotropium bromide 1.25 2 puff inhalation DAILY #12 grams 02/09/24 mcg/actuation mist for inhalation (Spiriva Respimat) Allergies Allergy/AdvReac Type Severity Reaction Status Date / Time Penicillins Allergy RASH Verified 05/12/24 08:36 aspirin AdvReac UPSET Verified 05/12/24 08:36 STOMACH General Stated Complaint: Orthopedic ALMAS: 4 Review of Systems Musculoskeletal Musculoskeletal: Reports as per HPI Comments: Toenail partial avulsion Integumentary/Breasts Skin/Breast: Reports as per HPI and Reports wounds Exam Const General: cooperative, comfortable and well developed Nutritional Appearance: average body habitus Orientation: alert, awake and oriented x3 Extrem Right lower extremity: foot Details: abnormal to inspection Details: other (Partial avulsion right great toenail), abnormal ROM of toe (Decreased range of motion due to a bunion appears chronic) and other (Large bunion) Ankle/foot/toe images: 1. Partial avulsion of right great toenail, nail is still inserted into the nail fold, however it is lifted off the nail bed, dried blood noted. No active bleeding. Course Vital Signs Vital signs: Vital Signs Temperature 37.2 C 05/12/24 08:34 Pulse 78 05/12/24 08:34 Respiratory Rate 16 05/12/24 08:34 Blood Pressure 124/103 H 05/12/24 08:34 Pulse Oximetry 96 05/12/24 08:34 Temperature 36.2 C L 05/12/24 08:41 Temperature Source Temporal Artery Scan 05/12/24 08:41 Pulse 78 05/12/24 08:41 Respiratory Rate 16 05/12/24 08:41 Respiratory Effort Normal, Non-Labored 05/12/24 08:38 Blood Pressure 124/103 H 05/12/24 08:41 Blood Pressure Position Sitting 05/12/24 08:41 Pulse Oximetry 96 05/12/24 08:41 Oxygen Delivery Method Room Air 05/12/24 08:41 Oxygen Flow Rate 0 05/12/24 08:41 Pain Level 2 05/12/24 08:41 Medical Decision Making 58-year-old male presents to the ER with chief complaint of right great toenail partial avulsion. He reports that last night his pant leg got caught on his great toenail which pulled the toenail off the bed. There is some dried blood noted. He also reports a recent fungal infection. Does have a history of COPD and depression. Denies any blood thinners or aspirin. Denies any other injury no associated symptoms, no induration, warmth, or signs of infection denies any other complaints. At this time due to no report of injury no evidence of fracture or dislocation no obvious deformity imaging was deferred at this time. Wound care, dressing and postop shoe given by medical staff credentialing coordinator. Discussed home care and cleaning with a wrap to prevent further avulsion. I did discuss that the nail will most likely fall off however to protect the nail fold will not remove the nail at this time. Discussed signs of infection and strict return instructions to return for any worsening or concerns. This text was generated using Ibercheckation system, please disregard any oddities of phrase or misspellings. 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) Raynauds phenomenon (Acute) Right lumbar radiculopathy (Acute) Community acquired pneumonia (Acute) COPD (chronic obstructive pulmonary disease) (Chronic 02/14/15) PFT's show severe obstructive disease with bronchodilator response; PFT 02/13/2015, [id number] FEV1/FVC 67%, post BD FEV1 50% FEV1/FVC 72% Depressive disorder (Chronic) Gastroesophageal reflux disease (Chronic) History of tobacco use (Chronic) 48 pack years Sarcoidosis (Chronic 02/04/16) Shortness of breath (Chronic) Ventral hernia (Chronic) Medical History Upper respiratory infection w/ bronchospasm Pneumonia needs to quit smoking HUBER (acute kidney injury) Family History Father , from complications of pneumonia Diabetes Stroke Mother , from diabetic complications including abscess/infection Depression Diabetes Social History Smoking/Tobacco Use Status: Former Tobacco Use Smoking risk assessment performed?: Yes Alcohol Intake: former Year quit: 1998 Drug use: Never Substance use type: does not use Details: Pt currently Vapes 2-3 times a week. Do you feel safe at home: Yes Do you feel safe in your relationship?: Yes
== END 2024-05-12 09:14 | disposition home or self-care (01) ==
PROVIDERS: Emergency Provider Registered Nurse Emergency; PCP Family Medicine
DX: S91.201A Unspecified open wound of right great toe with damage to nail, initial encounter (principal); J44.9 Chronic obstructive pulmonary disease, unspecified; Z87.891 Personal history of nicotine dependence; W22.8XXA Striking against or struck by other objects, initial encounter; Y93.01 Activity, walking, marching and hiking; Y92.018 Other place in single-family (private) house as the place of occurrence of the external cause
CPT/HCPCS: 99283

== ENCOUNTER 2024-05-13 19:33 | Emergency (ER) | payer MEDICAID, SELFPAY ==
[2024-05-13] VITALS (29 sets, daily range): BP systolic 121–151; BP diastolic 75–103; PULSE 91–113; RESP 15–28; TEMP 37.1; O2SAT 93–98
[2024-05-13] MEDS: Loratidine 10 MG TAB 20 MG PO (19:47)
[2024-05-13] MEDS: methylPREDNISolone SUCC 125 MG VIAL IVP (19:47)
[2024-05-13] MEDS: Famotidine 20 MG/2 ML VIAL IVP (19:47)
[2024-05-13] MEDS: Albuterol 2.5 MG/3 ML INH SOLN VIAL 10 MG UPD (19:55)
--- NOTE | 2024-05-13 20:18 | W.ED.GENAD ---
Discharge Plan Disposition Patient Disposition: Home Condition: Stable Discharge Details Clinical Impression: Diffuse wheezing, Urticaria, Allergic reaction Primary Care Provider: Eliecer Howard ED Provider: Ani Anna Home Meds and New Rx's Prescriptions: New methylprednisolone [Medrol (Abdoul)] 4 mg tablets,dose pack See Rx Instructions .ROUTE .COMPLEX Qty: 21 0RF Rx Instructions: orally per package directions famotidine [Pepcid] 20 mg tablet 20 mg PO BID Qty: 60 0RF loratadine [Claritin] 10 mg tablet 10 mg PO DAILY PRNQty: 30 0RF No Action sildenafil 50 mg tablet 50 mg PO DAILY PRN (Reason: sexual activity) Qty: 30 2RF Rx Instructions: administer 30 minutes to 4 hours before activity triamcinolone acetonide 0.1 % cream 1 applic Topical BID Qty: 30 4RF Rx Instructions: Apply to legs sertraline 100 mg tablet 200 mg PO DAILY Qty: 180 3RF albuterol sulfate 90 mcg/actuation HFA aerosol inhaler 2 puff IH QID PRN (Reason: shortness of breath) Qty: 18 4RF ipratropium-albuterol 0.5 mg-3 mg(2.5 mg base)/3 mL solution for nebulization 3 ml inhalation QID PRN (Reason: shortness of breath) Qty: 360 3RF albuterol sulfate 90 mcg/actuation HFA aerosol inhaler 2 puff IH QID PRN (Reason: shortness of breath) Qty: 18 4RF budesonide-formoterol [Symbicort] 80-4.5 mcg/actuation HFA aerosol inhaler 2 puff inhalation BID Qty: 10.2 8RF Spiriva Respimat 1.25 mcg/actuation mist 2 puff inhalation DAILY Qty: 12 3RF polyethylene glycol 3350 [ClearLax] 17 gram powder in packet 17 g PO DAILY Qty: 100 6RF acetaminophen [Tylenol Extra Strength] 500 mg tablet 1,000 mg PO Q4H PRN (Reason: pain) Qty: 30 0RF Discharge Instructions Instructions: Hives Additional Instructions: Tomorrow start the Medrol Dosepak as directed Start Pepcid twice daily, Claritin once daily Continue your regular breathing treatments as needed The hives can take some time to completely go away. Instead monitor symptoms of itchiness, shortness of breath, nausea or vomiting. If you have any of the symptoms, please return to the emergency department HPI General Date/Time Provider Initiated Documentation: 05/13/24 19:34. Limitations to Documentation: no limitations. Information obtained by: patient and EMS. HPI Narrative: 58-year-old gentleman with past medical history of liver cirrhosis, COPD presents via EMS for evaluation of rash and shortness of breath. Patient reports that he had visited a plant nursery and on the way home had stopped on the side of the road and picked a very interesting plant. He states he was holding it in his arms and he developed this rash. He reports generalized itching rash. He reports some mild shortness of breath. EMS noticed some tachypnea, and generalized urticaria so they gave an EpiPen. Related Data Home Medications Medication Instructions Recorded Confirmed acetaminophen 500 mg tablet 1,000 mg (2 x 500 mg) PO Q4H PRN 10/09/19 05/13/24 (Tylenol Extra Strength) pain #30 tabs albuterol sulfate 90 mcg/actuation 2 puff inhalation QID PRN 07/03/21 05/13/24 aerosol inhaler shortness of breath #18 grams polyethylene glycol 3350 17 gram 17 g PO DAILY #100 ea 07/28/22 05/13/24 oral powder packet (ClearLax) sildenafil 50 mg tablet 50 mg PO DAILY PRN sexual activity 03/30/23 05/13/24 #30 tabs triamcinolone acetonide 0.1 % 1 applic topical BID #30 grams 03/30/23 05/13/24 topical cream sertraline 100 mg tablet 200 mg (2 x 100 mg) PO DAILY #180 10/13/23 05/13/24 tabs albuterol sulfate 90 mcg/actuation 2 puff inhalation QID PRN 02/09/24 05/13/24 aerosol inhaler shortness of breath #18 grams budesonide-formoterol HFA 80 2 puff inhalation BID #10.2 grams 02/09/24 05/13/24 mcg-4.5 mcg/actuation aerosol inhaler (Symbicort) ipratropium 0.5 mg-albuterol 3 mg 3 ml inhalation QID PRN shortness 02/09/24 05/13/24 (2.5 mg base)/3 mL nebulization of breath #360 mL soln tiotropium bromide 1.25 2 puff inhalation DAILY #12 grams 02/09/24 05/13/24 mcg/actuation mist for inhalation (Spiriva Respimat) famotidine 20 mg tablet (Pepcid) 20 mg PO BID #60 tabs 05/13/24 loratadine 10 mg tablet (Claritin) 10 mg PO DAILY PRN #30 tabs 05/13/24 methylprednisolone 4 mg tablets in See Rx Instructions PO .COMPLEX 05/13/24 a dose pack (Medrol (Abdoul)) #21 dose pk Previous Rx's Medication Instructions Recorded acetaminophen 500 mg tablet 1,000 mg (2 x 500 mg) PO Q4H PRN 10/09/19 (Tylenol Extra Strength) pain #30 tabs albuterol sulfate 90 mcg/actuation 2 puff inhalation QID PRN 07/03/21 aerosol inhaler shortness of breath #18 grams polyethylene glycol 3350 17 gram 17 g PO DAILY #100 ea 07/28/22 oral powder packet (ClearLax) sildenafil 50 mg tablet 50 mg PO DAILY PRN sexual activity 03/30/23 #30 tabs triamcinolone acetonide 0.1 % 1 applic topical BID #30 grams 03/30/23 topical cream sertraline 100 mg tablet 200 mg (2 x 100 mg) PO DAILY #180 10/13/23 tabs albuterol sulfate 90 mcg/actuation 2 puff inhalation QID PRN 02/09/24 aerosol inhaler shortness of breath #18 grams budesonide-formoterol HFA 80 2 puff inhalation BID #10.2 grams 02/09/24 mcg-4.5 mcg/actuation aerosol inhaler (Symbicort) ipratropium 0.5 mg-albuterol 3 mg 3 ml inhalation QID PRN shortness 02/09/24 (2.5 mg base)/3 mL nebulization of breath #360 mL soln tiotropium bromide 1.25 2 puff inhalation DAILY #12 grams 02/09/24 mcg/actuation mist for inhalation (Spiriva Respimat) famotidine 20 mg tablet (Pepcid) 20 mg PO BID #60 tabs 05/13/24 loratadine 10 mg tablet (Claritin) 10 mg PO DAILY PRN #30 tabs 05/13/24 methylprednisolone 4 mg tablets in See Rx Instructions PO .COMPLEX 05/13/24 a dose pack (Medrol (Abdoul)) #21 dose pk Allergies Allergy/AdvReac Type Severity Reaction Status Date / Time Penicillins Allergy RASH Verified 05/13/24 19:59 aspirin AdvReac UPSET Verified 05/13/24 19:59 STOMACH General Stated Complaint: Allergic ALMAS: 2 Exam Narrative Exam Narrative: Review of Systems: All systems reviewed & are unremarkable except as noted in HPI and below Well-developed, no acute distress NCAT PERRL, normal conjunctiva Tachycardia Mild tachypnea, general wheezing bilaterally, no hypoxia soft nontender Nondistended abdomen Extremities w/o deformity, no cyanosis, no edema Urticarial lesions covering trunk and upper extremities no focal neurologic deficits Appropriate mood and affect Course Vital Signs Vital signs: Vital Signs Temperature 37.1 C 05/13/24 19:33 Pulse 113 H 05/13/24 19:33 Respiratory Rate 24 05/13/24 19:33 Pulse Oximetry 94 05/13/24 19:33 Temperature 37.1 C 05/13/24 19:33 Pulse 107 H 05/13/24 19:46 Pulse 104 H 05/13/24 19:50 Respiratory Rate 25 H 05/13/24 19:50 Respiratory Effort Short of Breath, Labored, Nasal Flaring 05/13/24 19:51 Respiratory Pattern Normal 05/13/24 19:51 Blood Pressure 147/82 H 05/13/24 19:46 Blood Pressure Mean 99 05/13/24 19:46 Pulse Oximetry 98 05/13/24 19:50 Medical Decision Making Emergent evaluation of allergic reaction. Concern for anaphylaxis versus urticaria versus contact dermatitis. Patient has received epinephrine by EMS prior to arrival. This time he does have some wheezing. He does have a history of COPD. Plan for bronchodilators, will treat urticarial rash with Pepcid, Claritin, steroids. Will monitor closely and reassess. 2019 DOING BETTER. HIVES ALMOST RESOLVED 2219 No wheezing, observed in the emergency department, no recurrence reviewed rebound of symptoms. At this time stable for discharge home. Medication sent to the pharmacy. Return precautions advised. Discharged in good condition. Urged follow-up with PCP. Medical Records Medical records reviewed: Yes I reviewed the patient's medical records. Lab Data Lab results reviewed: Yes I reviewed the patient's lab results. 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) Raynauds phenomenon (Acute) Right lumbar radiculopathy (Acute) Community acquired pneumonia (Acute) COPD (chronic obstructive pulmonary disease) (Chronic 02/14/15) PFT's show severe obstructive disease with bronchodilator response; PFT 02/13/2015, [id number] FEV1/FVC 67%, post BD FEV1 50% FEV1/FVC 72% Depressive disorder (Chronic) Gastroesophageal reflux disease (Chronic) History of tobacco use (Chronic) 48 pack years Sarcoidosis (Chronic 02/04/16) Shortness of breath (Chronic) Ventral hernia (Chronic) Medical History Upper respiratory infection w/ bronchospasm Pneumonia needs to quit smoking HUBER (acute kidney injury) Family History Father , from complications of pneumonia Diabetes Stroke Mother , from diabetic complications including abscess/infection Depression Diabetes Social History Smoking/Tobacco Use Status: Former Tobacco Use Smoking risk assessment performed?: Yes Alcohol Intake: former Year quit: 1998 Drug use: Never Substance use type: does not use Details: Pt currently Vapes 2-3 times a week. Do you feel safe at home: Yes Do you feel safe in your relationship?: Yes
== END 2024-05-13 22:41 | disposition home or self-care (01) ==
PROVIDERS: Emergency Provider Emergency Medicine; PCP Family Medicine
DX: L50.0 Allergic urticaria (principal); R06.2 Wheezing; T78.40XA Allergy, unspecified, initial encounter
CPT/HCPCS: 36415; 94640; 96374; 96375; 99284; 99283; J2919; J7613

== ENCOUNTER 2024-05-26 17:28 | Emergency (ER) | payer MEDICAID, SELFPAY ==
[2024-05-26] VITALS (21 sets, daily range): BP systolic 152–170; BP diastolic 65–89; PULSE 90–109; RESP 5–26; TEMP 36.7; O2SAT 92–99
--- NOTE | 2024-05-26 17:15 | RT.EKG_ITS ---
APPROVED REPORT Exam: Resting ECG Reason for Exam: Dyspnea Patient Location: E HR:103 bpm ECG Measurements Heart Rate 103 AXIS AK 127 P 78 QRSd 106 QRS 53 QT 343 T 52 QTc 450 Conclusion Sinus tachycardia...rate> 99 Probable left atrial enlargement...P >50mS, <-0.10mV V1
--- NOTE | 2024-05-26 18:46 | ED.GENADUL_ITS ---
Discharge Plan Disposition Patient Disposition: Home Discharge Details Clinical Impression: Acute exacerbation of chronic obstructive pulmonary disease Primary Care Provider: Eliecer Howard ED Provider: Malina Patino Home Meds and New Rx's Prescriptions: New prednisone 20 mg tablet 60 mg PO DAILY 5 Days Qty: 15 0RF Continued sildenafil 50 mg tablet 50 mg PO DAILY PRN (Reason: sexual activity) Qty: 30 2RF Rx Instructions: administer 30 minutes to 4 hours before activity triamcinolone acetonide 0.1 % cream 1 applic Topical BID Qty: 30 4RF Rx Instructions: Apply to legs sertraline 100 mg tablet 200 mg PO DAILY Qty: 180 3RF albuterol sulfate 90 mcg/actuation HFA aerosol inhaler 2 puff IH QID PRN (Reason: shortness of breath) Qty: 18 4RF ipratropium-albuterol 0.5 mg-3 mg(2.5 mg base)/3 mL solution for nebulization 3 ml inhalation QID PRN (Reason: shortness of breath) Qty: 360 3RF albuterol sulfate 90 mcg/actuation HFA aerosol inhaler 2 puff IH QID PRN (Reason: shortness of breath) Qty: 18 4RF budesonide-formoterol [Symbicort] 80-4.5 mcg/actuation HFA aerosol inhaler 2 puff inhalation BID Qty: 10.2 8RF Spiriva Respimat 1.25 mcg/actuation mist 2 puff inhalation DAILY Qty: 12 3RF polyethylene glycol 3350 [ClearLax] 17 gram powder in packet 17 g PO DAILY Qty: 100 6RF acetaminophen [Tylenol Extra Strength] 500 mg tablet 1,000 mg PO Q4H PRN (Reason: pain) Qty: 30 0RF methylprednisolone [Medrol (Abdoul)] 4 mg tablets,dose pack See Rx Instructions .ROUTE .COMPLEX Qty: 21 0RF Rx Instructions: orally per package directions famotidine [Pepcid] 20 mg tablet 20 mg PO BID Qty: 60 0RF loratadine [Claritin] 10 mg tablet 10 mg PO DAILY PRNQty: 30 0RF Discharge Instructions Instructions: COPD Exacerbation, Adult ED Additional Instructions: Please call your primary care provider first thing in the morning to schedule follow-up appointment. Your chest x-ray and COVID/flu/RSV were all reassuring. Your presentation today is most consistent with COPD exacerbation. Please continue to use your DuoNeb every 4-6 hours as needed for shortness of breath/wheezing. I have prescribed for you prednisone. Please take the full course as prescribed. Return to emergency care if you develop new chest pain, shortness of breath, feel like you are going to pass out, fevers associated with cough/shortness of breath, or if you are very worried and need to be rechecked again immediately. Referrals: Eliecer Howard MD [Primary Care Provider] - [facility] General Date/Time Provider Initiated Documentation: 05/26/24 18:11 . HPI Narrative: Matt is a 58-year-old male with history of COPD, sarcoidosis, GERD, and cirrhosis secondary to Arita who presents to the emergency department today for evaluation of sudden onset of shortness of breath with wheezing. Unknown trigger, he is not able to identify any acute exposures. He reports that last week he was seen in the emergency department (05/13/24) for hives attributed to plant exposure, treated with Pepcid, Claritin, and Medrol Dosepak. He reports he stopped taking medications after 4 days. Physical exam remarkable for patient with increased work of breathing, tripod position with 1-2 word dyspnea, tight wheezes in all lung vasquez. Patient is alert and interactive, responding appropriately to all questions. Moist mucous membranes. Normal heart sounds. Abdomen is soft, nondistended, nontender to palpation. No pedal edema or calf redness/swelling/tenderness. No intraoral swelling, hoarse voice, or rashes noted. DDx includes was not limited to: Viral illness, COPD exacerbation, pneumonia. I independently interpreted the following tests: CBC, BMP, COVID/flu/RSV all reassuring. Chest x-ray unremarkable, no acute infiltrates noted. This was confirmed by radiology. EKG reassuring, sinus tachycardia rate 103, no changes consistent with acute ischemia. DuoNeb given upon arrival to room with improvement work of breathing, however inspiratory expiratory wheezes do persist. Prednisone 60 mg PO and 2 additional duonebs given with full resolution of symptoms and near clearing of wheezes (only mild end exp noted). HR and RR normalized after nebs. History presentation today consistent with COPD exacerbation. Will treat with prednisone and have patient continue DuoNebs at home. Reviewed discharge instructions, including red flags indicate need for return to emergency care. He is agreeable with plan of care. Related Data Home Medications ?Medication ?Instructions ?Recorded ?Confirmed acetaminophen 500 mg tablet 1,000 mg (2 x 500 mg) PO Q4H PRN 10/09/19 05/13/24 (Tylenol Extra Strength) pain #30 tabs albuterol sulfate 90 mcg/actuation 2 puff inhalation QID PRN 07/03/21 05/13/24 aerosol inhaler shortness of breath #18 grams polyethylene glycol 3350 17 gram 17 g PO DAILY #100 ea 07/28/22 05/13/24 oral powder packet (ClearLax) sildenafil 50 mg tablet 50 mg PO DAILY PRN sexual activity 03/30/23 05/13/24 #30 tabs triamcinolone acetonide 0.1 % 1 applic topical BID #30 grams 03/30/23 05/13/24 topical cream sertraline 100 mg tablet 200 mg (2 x 100 mg) PO DAILY #180 10/13/23 05/13/24 tabs albuterol sulfate 90 mcg/actuation 2 puff inhalation QID PRN 02/09/24 05/13/24 aerosol inhaler shortness of breath #18 grams budesonide-formoterol HFA 80 2 puff inhalation BID #10.2 grams 02/09/24 05/13/24 mcg-4.5 mcg/actuation aerosol inhaler (Symbicort) ipratropium 0.5 mg-albuterol 3 mg 3 ml inhalation QID PRN shortness 02/09/24 05/13/24 (2.5 mg base)/3 mL nebulization of breath #360 mL soln tiotropium bromide 1.25 2 puff inhalation DAILY #12 grams 02/09/24 05/13/24 mcg/actuation mist for inhalation (Spiriva Respimat) famotidine 20 mg tablet (Pepcid) 20 mg PO BID #60 tabs 05/13/24 loratadine 10 mg tablet (Claritin) 10 mg PO DAILY PRN #30 tabs 05/13/24 methylprednisolone 4 mg tablets in See Rx Instructions PO .COMPLEX 05/13/24 a dose pack (Medrol (Abdoul)) #21 dose pk prednisone 20 mg tablet 60 mg (3 x 20 mg) PO DAILY 5 days 05/26/24 #15 tabs Previous Rx's ?Medication ?Instructions ?Recorded acetaminophen 500 mg tablet 1,000 mg (2 x 500 mg) PO Q4H PRN 10/09/19 (Tylenol Extra Strength) pain #30 tabs albuterol sulfate 90 mcg/actuation 2 puff inhalation QID PRN 07/03/21 aerosol inhaler shortness of breath #18 grams polyethylene glycol 3350 17 gram 17 g PO DAILY #100 ea 07/28/22 oral powder packet (ClearLax) sildenafil 50 mg tablet 50 mg PO DAILY PRN sexual activity 03/30/23 #30 tabs triamcinolone acetonide 0.1 % 1 applic topical BID #30 grams 03/30/23 topical cream sertraline 100 mg tablet 200 mg (2 x 100 mg) PO DAILY #180 10/13/23 tabs albuterol sulfate 90 mcg/actuation 2 puff inhalation QID PRN 02/09/24 aerosol inhaler shortness of breath #18 grams budesonide-formoterol HFA 80 2 puff inhalation BID #10.2 grams 02/09/24 mcg-4.5 mcg/actuation aerosol inhaler (Symbicort) ipratropium 0.5 mg-albuterol 3 mg 3 ml inhalation QID PRN shortness 02/09/24 (2.5 mg base)/3 mL nebulization of breath #360 mL soln tiotropium bromide 1.25 2 puff inhalation DAILY #12 grams 02/09/24 mcg/actuation mist for inhalation (Spiriva Respimat) famotidine 20 mg tablet (Pepcid) 20 mg PO BID #60 tabs 05/13/24 loratadine 10 mg tablet (Claritin) 10 mg PO DAILY PRN #30 tabs 05/13/24 methylprednisolone 4 mg tablets in See Rx Instructions PO .COMPLEX 05/13/24 a dose pack (Medrol (Abdoul)) #21 dose pk prednisone 20 mg tablet 60 mg (3 x 20 mg) PO DAILY 5 days 05/26/24 #15 tabs Allergies Allergy/AdvReac Type Severity Reaction Status Date / Time Penicillins Allergy RASH Verified 05/26/24 17:39 aspirin AdvReac UPSET Verified 05/26/24 17:39 STOMACH General Stated Complaint: SOB ALMAS: 2 Review of Systems Narrative: see HPI Exam Const General: cooperative, well developed, well groomed and in distress mild and respiratory Nutritional Appearance: average body habitus Limitations: mental status not altered Resp Effort & Inspection: no cough, labored, retractions (mild) intercostal, tachypneic and tripod positioning Auscultation: wheezes (bilateral I+E) Cardio Rate: regular rate Rhythm: regular rhythm Course Vital Signs Vital signs: Vital Signs Temperature 36.7 C 05/26/24 17:31 Pulse 104 H 05/26/24 17:31 Respiratory Rate 26 H 05/26/24 17:31 Blood Pressure 152/75 H 05/26/24 17:31 Pulse Oximetry 96 05/26/24 17:31 Temperature 36.7 C 05/26/24 17:31 Temperature Source Temporal Artery Scan 05/26/24 17:31 Pulse 104 H 05/26/24 17:31 Respiratory Rate 26 H 05/26/24 17:31 Blood Pressure 152/75 H 05/26/24 17:31 Pulse Oximetry 96 05/26/24 17:31 Medical Decision Making Quality:SDOH Health Related Social Needs: No Data to Display PFSH All Active Problems (Updated 05/26/24 @ 20:47 by Malina Posey) Acute exacerbation of chronic obstructive pulmonary disease (Acute) Allergic reaction (Acute) Urticaria (Acute) Diffuse wheezing (Acute) Avulsion of toenail of right foot (Acute) Callus of toe (Acute) Avulsed toenail (Acute) Constipation (Acute) Anxiety (Chronic) Sexuality issues (Acute) Incarcerated umbilical hernia (Acute) Periumbilical hernia (Acute) Abdominal pain (Acute) Right foot pain (Acute) Hypermagnesemia (Acute) Influenza (Acute) COPD with acute exacerbation (Acute) Acute dehydration (Acute) 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) Raynauds phenomenon (Acute) Right lumbar radiculopathy (Acute) Community acquired pneumonia (Acute) COPD (chronic obstructive pulmonary disease) (Chronic 02/14/15) PFT's show severe obstructive disease with bronchodilator response; PFT 02/13/2015, [id number]%, FEV1/FVC 67%, post BD FEV1 50% FEV1/FVC 72% Depressive disorder (Chronic) Gastroesophageal reflux disease (Chronic) History of tobacco use (Chronic) 48 pack years Sarcoidosis (Chronic 02/04/16) Shortness of breath (Chronic) Ventral hernia (Chronic) Medical History Upper respiratory infection w/ bronchospasm Pneumonia needs to quit smoking HUBER (acute kidney injury) Family History Father , from complications of pneumonia Diabetes Stroke Mother , from diabetic complications including abscess/infection Depression Diabetes Social History Smoking/Tobacco Use Status: Former Tobacco Use Smoking risk assessment performed?: Yes Alcohol Intake: former Year quit: 1998 Drug use: Never Substance use type: does not use Details: Pt currently Vapes 2-3 times a week. Housing: house Do you feel safe at home: Yes Do you feel safe in your relationship?: Yes
[2024-05-26] MEDS: predniSONE 20 MG TAB 60 MG PO (18:47)
[2024-05-26] MEDS: Albuterol/Ipratropium 3 ML UPD VIAL UPD (18:47)
[2024-05-26] MEDS: Albuterol/Ipratropium 3 ML UPD VIAL 6 ML UPD (19:10)
[2024-05-26 19:15] LABS: Abs Immature Grans 0.01 10^3/uL (0.0-0.06); Absolute Basophil Count 0.04 10^3/uL (0.0-0.2); Absolute Eosinophil Count 0.23 10^3/uL (0.0-0.7); Absolute Lymphocyte Count 1.14 10^3/uL (1.2-3.4); Absolute Monocyte Count 0.59 10^3/uL (0.1-0.8); Absolute Neutrophil Count 6.15 10^3/uL (1.2-6.7); Basophils % 0.5 %; Eosinophils % 2.8 %; HCT 45.6 % (40.0-50.0); HGB 14.7 g/dL (13.5-17.5); Immature Grans % 0.1 %; MCH 27.7 pg (27.0-33.0); MCHC 32.2 % (32.0-36.0); MCV 86 fL (80-95); MPV 9.6 fL (8.0-11.0); Monocytes % 7.2 %; Neutrophils % 75.4 %; Platelet Count 170 10^3/uL (130-400); RBC 5.31 10^6/uL (4.36-5.78); RDW 14.6 % (11.8-14.1); RDW-SD 46.5 fL; WBC 8.16 10^3/uL (4.4-10.8)
[2024-05-26 19:20] LABS: Anion Gap 9.8 mmol/L (3-11); BUN 15 mg/dL (7-18); CO2 26.2 mmol/L (21.0-32.0); CREATININE 1.4 mg/dL (0.70-1.30); Calcium 9.3 mg/dL (8.5-10.1); Chloride 102 mmol/L (98-107); Estimated GFR 57.54 (mL/min/1.73m2); Glucose 124 mg/dL (74-106); Potassium 3.8 mmol/L (3.5-5.1); Sodium 138 mmol/L (136-145)
--- NOTE | 2024-05-26 19:25 | DI.RAD_ITS ---
Exam(s) XR CHEST 2V PA LATERAL EXAM: XR CHEST 2V PA LATERAL CLINICAL HISTORY: SOB, wheeze. TECHNIQUE: 2D digital imaging was performed. COMPARISON: CR,XR XR PORTABLE CHEST AP from 01/24/2022 FINDINGS: 2 views: Heart size is normal. The mediastinum is not widened. Lungs are clear. No infiltrates nor pleural effusions. Bilateral hyperinflation noted. IMPRESSION: No acute pulmonary findings. DATA REPOSITORY: RADIATION DOSE DELIVERED:
--- NOTE | 2024-05-26 20:14 | DI.VRAD_ITS ---
PROCEDURE INFORMATION: Exam: XR Chest Exam date and time: 05/26/2024 7:21 PM Age: 58 years old Clinical indication: Other: SOB, wheeze TECHNIQUE: Imaging protocol: Radiologic exam of the chest. Views: 2 views. Total images: 4 COMPARISON: CR XR PORTABLE CHEST AP 01/24/2022 12:30 PM FINDINGS: Lungs: Hyperinflation and hyperlucency. Lungs are clear without consolidation. Pleural spaces: No pleural effusion or pneumothorax. Heart/Mediastinum: Unremarkable. Bones/joints: Unremarkable. IMPRESSION: 1. COPD. 2. No pneumonia. Dictated and Authenticated by: Tramaine Jarrett MD. Ordering:GOMEZ Radford MD
[2024-05-26 20:39] LABS: COVID-19 PCR Negative (Negative); Influenza A PCR Negative (Negative); Influenza B PCR Negative (Negative); RSV PCR Negative (Negative)
[2024-05-26 20:42] LABS: Source Nasopharynx
--- NOTE | 2024-05-27 05:46 | NUR.NOTE ---
Pt placed on care management referral list for COPD exacerbation to be seen in 1 week by PCP per [employer]G [employer] Lyle
== END 2024-05-26 20:53 | disposition home or self-care (01) ==
PROVIDERS: Emergency Medicine; Emergency Provider Nurse Practitioner Family; PCP Family Medicine
DX: J44.1 Chronic obstructive pulmonary disease with (acute) exacerbation (principal); D86.9 Sarcoidosis, unspecified; K74.69 Other cirrhosis of liver; Z87.891 Personal history of nicotine dependence
CPT/HCPCS: 80048; 87637; 93005; 94640; 99285; 71046; 85025; 93010; 99284; J7512; J7620

== ENCOUNTER 2024-09-14 15:25 | Observation (INO) | payer MEDICAID, SELFPAY ==
[2024-09-14] VITALS (51 sets, daily range): BP systolic 130–231; BP diastolic 84–129; PULSE 92–115; RESP 5–29; TEMP 36.7–37.3; O2SAT 88–98
--- NOTE | 2024-09-14 15:15 | RT.EKG_ITS ---
APPROVED REPORT Exam: Resting ECG Reason for Exam: SOB Patient Location: E HR:109 bpm ECG Measurements Heart Rate 109 AXIS DC 137 P 80 QRSd 84 QRS 53 QT 322 T 63 QTc 433 Conclusion Sinus tachycardia, rate 109 No interval abnormalities No STEMI
--- NOTE | 2024-09-14 15:30 | DI.RAD_ITS ---
Exam(s) XR CHEST 2V PA LATERAL EXAM: XR CHEST 2V PA LATERAL CLINICAL HISTORY: COPD exacerbation TECHNIQUE: 2D digital imaging was performed. Two views. COMPARISON: CR,XR XR CHEST 2V PA LATERAL from 05/26/2024 FINDINGS: HEART: Normal size. Aorta: Not dilated. PULMONARY VASCULATURE: Normal. MEDIASTINUM: Unremarkable. LUNGS: Hyperinflated but clear. PLEURAL SPACE: No pleural effusion or pneumothorax. BONE:Unremarkable for age. SOFT TISSUES: Unremarkable. IMPRESSION: Hyperinflation. No acute abnormality. DATA REPOSITORY: RADIATION DOSE DELIVERED:
--- NOTE | 2024-09-14 15:35 | ED.GENADUL_ITS ---
Discharge Plan Discharge Details Chief Complaint: SOB Primary Care Provider: Eliecer Howard ED Provider: Ana Bernstein Home Meds and New Rx's Prescriptions: No Action sildenafil 50 mg tablet 50 mg PO DAILY PRN (Reason: sexual activity) Qty: 30 2RF Rx Instructions: administer 30 minutes to 4 hours before activity triamcinolone acetonide 0.1 % cream 1 applic Topical BID Qty: 30 4RF Rx Instructions: Apply to legs nicotine (polacrilex) 2 mg gum 2 mg buccal Q2H Qty: 100 1RF sertraline 100 mg tablet 200 mg PO DAILY Qty: 180 3RF ipratropium-albuterol 0.5 mg-3 mg(2.5 mg base)/3 mL solution for nebulization 3 ml inhalation QID PRN (Reason: shortness of breath) Qty: 360 3RF budesonide-formoterol [Symbicort] 80-4.5 mcg/actuation HFA aerosol inhaler 2 puff inhalation BID Qty: 10.2 8RF Spiriva Respimat 1.25 mcg/actuation mist 2 puff inhalation DAILY Qty: 12 3RF albuterol sulfate 90 mcg/actuation HFA aerosol inhaler 2 puff IH QID PRN (Reason: shortness of breath) Qty: 18 4RF polyethylene glycol 3350 [ClearLax] 17 gram powder in packet 17 g PO DAILY Qty: 100 6RF acetaminophen [Tylenol Extra Strength] 500 mg tablet 1,000 mg PO Q4H PRN (Reason: pain) Qty: 30 0RF famotidine [Pepcid] 20 mg tablet 20 mg PO BID Qty: 60 0RF loratadine [Claritin] 10 mg tablet 10 mg PO DAILY PRNQty: 30 0RF HPI General Mode of arrival: EMS . Date/Time Provider Initiated Documentation: 09/14/24 15:31 . Limitations to Documentation: no limitations . Information obtained by: patient, EMS and old records reviewed . HPI Narrative: HPI: This is a 59-year-old male patient with a past medical history significant for COPD, Arita cirrhosis, sarcoidosis who is presenting for evaluation of shortness of breath and wheezing. The patient reports that he started to have shortness of breath this morning, notes that he did quite a bit of yard work yesterday, and wonders if he overexerted himself. He is also noted an intermittent headache and bodyaches over the last day or so, has been vaccinated this year against COVID and influenza. The patient reports that he has not had fevers, chest pain, but has been coughing. He states that he unfortunately started smoking again, 1 pack/day, over the summer. This morning states that he threw all of his cigarettes into his wood stove. He summoned EMS for shortness of breath, who noted him to be oxygenating appropriately, not tachycardic, but with notable wheezing audible without a stethoscope. They provided him with a duo nebulizer and an additional dose of albuterol and transported him to our facility. The patient states that he has been using all of his medications as prescribed, including his albuterol and inhaled corticosteroid. He has never needed to be intubated or on NIPPV, has not taken any antibiotics or oral steroids recently. Exam: Gen: Awake and alert, in no apparent distress HEENT: Non-icteric sclera Neck: Supple Lungs: Tachypnea appreciated, audible wheezing, diffuse expiratory wheezes notable on auscultation. CV: Appears well perfused, heart with tachycardic rate but regular rhythm, strong distal pulses Abdomen: Non-distended MSK: Moves 4 extremities without apparent limitation in ROM. No peripheral edema, unilateral calf swelling or tenderness Skin: Visualized skin without rashes, cyanosis. Neuro: Normal Gait, no obvious focal deficits or facial asymmetry. Speaks in full, clear sentences. Psych: Appropriate for situation. MDM: This is a 59-year-old male patient presenting for evaluation of shortness of breath and wheezing. My differential includes but is not limited to COPD exacerbation, certainly considered viral URI, pneumonia, bronchitis. The patient has no chest pain or cardiac history to significantly increase my concern for ACS, pericarditis, myocarditis, or pleurisy. No evidence of fluid overload on examination to suggest pulmonary edema, pleural effusion. History and physical is less consistent with pulmonary embolism. I will obtain laboratory studies to include CBC, CMP, magnesium, VBG, and Fluvid. I will obtain a chest x-ray. I will provide the patient with a duo nebulizer, magnesium, and prednisone. ED Course: I independently interpreted the laboratory studies, which show no significant leukocytosis, anemia, or thrombocytopenia. The chemistry panel is without evidence of electrolyte abnormality, new or worsening kidney dysfunction, or liver injury. COVID and influenza testing negative. Chest x- ray independently interpreted by myself, showing hyperinflation but no evidence of pneumonia or fluid overload. VBG is without hypercarbia to suggest that the patient requires initiation of NIPPV The patient remained with tachypnea and increased work of breathing as well as diffuse wheezing despite above-noted treatments. He received 2 additional albuterol nebulizers, and given my concern for COPD exacerbation I also provided him with a dose of levofloxacin. I reached out to the admitting hospitalist, given the patient's ongoing work of breathing and tachypnea, though he has never been hypoxic. They have graciously accepted him for admission to their service for ongoing workup and management. The patient remained hemodynamically appropriate while under my care and was transferred to the floor without incident. Ana Bernstein MD Related Data Home Medications ?Medication ?Instructions ?Recorded ?Confirmed acetaminophen 500 mg tablet 1,000 mg (2 x 500 mg) PO Q4H PRN 10/09/19 09/14/24 (Tylenol Extra Strength) pain #30 tabs polyethylene glycol 3350 17 gram 17 g PO DAILY #100 ea 07/28/22 09/14/24 oral powder packet (ClearLax) sildenafil 50 mg tablet 50 mg PO DAILY PRN sexual activity 03/30/23 09/14/24 #30 tabs triamcinolone acetonide 0.1 % 1 applic topical BID #30 grams 03/30/23 09/14/24 topical cream sertraline 100 mg tablet 200 mg (2 x 100 mg) PO DAILY #180 10/13/23 09/14/24 tabs budesonide-formoterol HFA 80 2 puff inhalation BID #10.2 grams 02/09/24 09/14/24 mcg-4.5 mcg/actuation aerosol inhaler (Symbicort) ipratropium 0.5 mg-albuterol 3 mg 3 ml inhalation QID PRN shortness 02/09/24 09/14/24 (2.5 mg base)/3 mL nebulization of breath #360 mL soln tiotropium bromide 1.25 2 puff inhalation DAILY #12 grams 02/09/24 09/14/24 mcg/actuation mist for inhalation (Spiriva Respimat) famotidine 20 mg tablet (Pepcid) 20 mg PO BID #60 tabs 05/13/24 09/14/24 loratadine 10 mg tablet (Claritin) 10 mg PO DAILY PRN #30 tabs 05/13/24 09/14/24 nicotine (polacrilex) 2 mg gum 2 mg buccal Q2H #100 ea 06/01/24 09/14/24 albuterol sulfate 90 mcg/actuation 2 puff inhalation QID PRN 09/08/24 09/14/24 aerosol inhaler shortness of breath #18 grams Previous Rx's ?Medication ?Instructions ?Recorded acetaminophen 500 mg tablet 1,000 mg (2 x 500 mg) PO Q4H PRN 10/09/19 (Tylenol Extra Strength) pain #30 tabs polyethylene glycol 3350 17 gram 17 g PO DAILY #100 ea 07/28/22 oral powder packet (ClearLax) sildenafil 50 mg tablet 50 mg PO DAILY PRN sexual activity 03/30/23 #30 tabs triamcinolone acetonide 0.1 % 1 applic topical BID #30 grams 03/30/23 topical cream sertraline 100 mg tablet 200 mg (2 x 100 mg) PO DAILY #180 10/13/23 tabs budesonide-formoterol HFA 80 2 puff inhalation BID #10.2 grams 02/09/24 mcg-4.5 mcg/actuation aerosol inhaler (Symbicort) ipratropium 0.5 mg-albuterol 3 mg 3 ml inhalation QID PRN shortness 02/09/24 (2.5 mg base)/3 mL nebulization of breath #360 mL soln tiotropium bromide 1.25 2 puff inhalation DAILY #12 grams 02/09/24 mcg/actuation mist for inhalation (Spiriva Respimat) famotidine 20 mg tablet (Pepcid) 20 mg PO BID #60 tabs 05/13/24 loratadine 10 mg tablet (Claritin) 10 mg PO DAILY PRN #30 tabs 05/13/24 nicotine (polacrilex) 2 mg gum 2 mg buccal Q2H #100 ea 06/01/24 albuterol sulfate 90 mcg/actuation 2 puff inhalation QID PRN 09/08/24 aerosol inhaler shortness of breath #18 grams Allergies Allergy/AdvReac Type Severity Reaction Status Date / Time Penicillins Allergy RASH Verified 09/14/24 18:17 aspirin AdvReac UPSET Verified 09/14/24 18:17 STOMACH General ALMAS: 2 Medical Decision Making Quality:SDOH Health Related Social Needs: No Data to Display PFSH All Active Problems (Updated 06/26/24 @ 00:10 by ZBIGNIEW SAMUELS) Callus of toe (Acute) Avulsed toenail (Acute) Constipation (Acute) Anxiety (Chronic) Sexuality issues (Acute) Incarcerated umbilical hernia (Acute) Periumbilical hernia (Acute) Abdominal pain (Acute) Right foot pain (Acute) Hypermagnesemia (Acute) Influenza (Acute) COPD with acute exacerbation (Acute) Acute dehydration (Acute) 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) Raynauds phenomenon (Acute) Right lumbar radiculopathy (Acute) Community acquired pneumonia (Acute) COPD (chronic obstructive pulmonary disease) (Chronic 02/14/15) PFT's show severe obstructive disease with bronchodilator response; PFT 02/13/2015, DLQ291%, FEV1/FVC 67%, post BD FEV1 50% FEV1/FVC 72% Depressive disorder (Chronic) Gastroesophageal reflux disease (Chronic) History of tobacco use (Chronic) 48 pack years Sarcoidosis (Chronic 02/04/16) Shortness of breath (Chronic) Ventral hernia (Chronic) Medical History Upper respiratory infection w/ bronchospasm Pneumonia needs to quit smoking HUBER (acute kidney injury) Family History Father , from complications of pneumonia Diabetes Stroke Mother , from diabetic complications including abscess/infection Depression Diabetes Social History Smoking/Tobacco Use Status: Former Tobacco Use Smoking risk assessment performed?: Yes Alcohol Intake: former Year quit: 1998 Drug use: Never Substance use type: does not use Details: Pt currently Vapes 2-3 times a week. Housing: house Do you feel safe at home: Yes Do you feel safe in your relationship?: Yes
[2024-09-14] MEDS: predniSONE 20 MG TAB 60 MG PO (15:45)
[2024-09-14] MEDS: MAGNESIUM SULFATE 2 GM/50 ML BAG IV_INF (15:45)
[2024-09-14] MEDS: Albuterol/Ipratropium 3 ML UPD VIAL UPD (15:45)
--- OUTSIDE RECORDS SUMMARY | 2024-09-14 15:50 | XMS_ITS | Clinical Summary ---
Author Organization [facility] Address [address] [place] [address] Care Team Providers Care Slurry Worker Name Role Phone Unknown, Provider MD Primary Care Provider Unava ilable Social History Tobacco Use Types Packs/Day Years Used Date Smoking Tobacco: Never Assessed Interpersonal Safety Answer Date Record ed Physically Hurt Never 06/10/2020 Verbally Threaten Not on file 06/10/2020 Sex and Gender Information Value Date Recorded Sex Assigned at Not on file Gender Identity Not on file Sexual Orientation Not on file Plan of Treatment Health Maintenance Due Date Last Done Comments Hepatitis C Screen 1965 RSV Immunization ( o r 60+ Years) (1 - 1-dose 60+ series) 2023 COVID-19 Vaccine (2022-24 season) 2023 Care Teams Slurry Worker Relationship Specialty Start Date End Date Unknown, Provider, PCP - General 05/05/19
--- OUTSIDE RECORDS SUMMARY | 2024-09-14 15:50 | XMS_ITS | Encounter Summary ---
Author Organization [facility] [place] [address] Care Team Providers Care Income Tax Administrator Name Role Phone Heron Hughes MD, Winston Primary Care Provider [phone] Encounter Details Date Type Department Care Team (Late st Contact Info) Description 08/02/2015 - 08/02/2015 11:59 PM EDT Hospital Encounter Radiology Library at [facility] [place] [id number] [facility] Discharge Disposition: Home Social History Tobacco Use Types Packs/Day Years Used Date Smoking Tobacco: Never Assessed Sex and Gender Information Value Date Recorded Sex Assigned at Not on file Gender Identity Not on file Sexual Orientation Not on file documented as of this encounter Plan of Treatment Not on file documented as of this encounter Procedures Procedure Name Priority Date/Time Associated Diagnosis Comments FILM LIBRARY STORAGE ONLY DX CHEST Routine 08/02/2015 12:00 AM EDT Pain documented in this encounter Results * Film Library- Storage only DX Chest (08/02/2015 12:00 AM EDT) Narrative [facility] - 10/17/2015 1:38 PM EST See PACS for result report. Dr Cazares [facility] IMG FILM LIBRARY ORD ERABLES [place], [place] documented in this encounter Visit Diagnoses Diagnosis Pain Generalized pain documented in this encounter Care Teams Income Tax Administrator Relationship Specialty Start Date End Date Winston Shelby MD [address] [place], [place] [id number] PCP - General 09/30/10 12/12/20 documented as of this encounter
--- OUTSIDE RECORDS SUMMARY | 2024-09-14 15:50 | XMS_ITS | Clinical Summary ---
[place] [address] Care Team Providers Care Manager Media Relations Name Role Phone Unknown Primary Care Provider Unavailabl e Immunizations Name Administration Dates Next Due Influenza Vaccine, Whole 09/10/2008,11/04/2005 Social History Tobacco Use Types Packs/Day Years Used Date Smoking Tobacco: Never Assessed Sex and Gender Information Value Date Recorded Sex Assigned at Not on file Gender Identity Not on file Sexual Orientation Not on file Plan of Treatment Health Maintenance Due Date Last Done Comments CT Colonography 1963 Colonoscopy 1963 Colorectal Cancer Screening 1963 FIT DNA 1963 FIT 1963 Sigmoidoscopy (10 year) with FIT yearly 1963 Sigmoidoscopy 1963 HIV screen 1981 Hepatitis C Screening 1981 Lipid Screening 1981 Tetanus/Diphtheria/Pertussis Vaccines (1 - Tdap) 1982 Zoster vaccine (1 of 2) 2013 Advance Directive 2018 Covid-19 Vaccine (1 - season) 2024 Influenza (Flu) vaccine (1 o f 1 - Influenza standard series) 07/09/2024 09/10/2008, 11/04/2005 Care Teams Manager Media Relations Relationship Specialty Start Date End Date Unknown None PCP - General 10/1/21
--- OUTSIDE RECORDS SUMMARY | 2024-09-14 15:50 | XMS_ITS | Encounter Summary ---
Author Organization [facility] [place] [address] Care Team Providers Care Fire Warden Name Role Phone Heron Hughes MD, John Primary Care Provider [phone] Encounter Details Date Type Department Care Team (Late st Contact Info) Description 10/12/2015 - 10/12/2015 11:59 PM EST Hospital Encounter Radiology Library at [facility] [place] [phone] [facility] Temporary Pain Discharge Disposition: Home Social History [...] Associated Diagnosis Comments FILM LIBRARY STORAGE ONLY CT ABDOMEN AND PELVIS Routine 10/12/2015 12:00 AM EST Pain documented in this encounter Results * Film Library- Storage Only CT Abdomen & Pelvis (10/12/2015 12:00 AM EST) Narrative [facility] - 10/17/2015 1:41 PM EST See PACS for result report. Dr Sage Medellin IMG FILM LIBRARY ORD ERABLES [place], [place] documented in this encounter Visit Diagnoses Diagnosis Pain Generalized pain documented in this encounter Care Teams Fire Warden Relationship Specialty Start Date End Date Winston Shelby MD [address] [place], [place] [address] PCP - General 09/30/10 12/12/20 documented as of this encounter
--- OUTSIDE RECORDS SUMMARY | 2024-09-14 15:50 | XMS_ITS | Encounter Summary ---
Author Organization [facility] Address [address] [place] [address] Care Team Providers Care Pipeline Gang Supervisor Name Role Phone Unknown, Provider Primary Care Provider Bernadine ilable Encounter Details Date Type Department Care Team (Late st Contact Info) Description 12/20/2020 Lab Requisition [facility] Pathology & Laboratory Medicine - [address] [address] Outr Resulting Lab, Provider Social History Tobacco Use Types Packs/Day Years [...] Procedure Name Priority Date/Time Associated Diagnosis Comments ZZCOVID-19 TEST [facility] PCR Today 12/20/2020 9:01 EST COVID-19 TESTING Routine 12/20/2020 9:01 EST documented in this encounter Results * COVID-19 TEST [facility] PCR (12/20/2020 9:01 EST) Swab ENTIRE NASOPHARYNX / Unknown 12/20/2020 9:01 EST 12/20/2020 16:20 EST Provider Outr Resulting Lab MICROBIOLOGY - GENERAL ORDERABLES [facility] [address] [place] [address] * COVID-19 TESTING (12/20/2020 9:01 EST) COVID-19 rt-PCR Result Negative Negative 12/21/2020 11:40 EST [facility] Comment: This test has not been FDA cleared or approved. This test has been authorized by FDA under an EUA for use by authorized laboratories. This test has been authorized only for detection of nucleic acid from 2019-nCoV, not for any other viruses or pathogens. This test is only authorized for the duration of the declaration that circumstances exist justifying the authorization of emergency use of in vitro diagnostic tests for detection and/or diagnosis of 2019-nCoV under section 564(b)(1) of Act, 21 U.S.C ?? 360bbb-3(b) (1), unless the authorization is terminated or revoked sooner. Negative results do not preclude 2019-nCoV infection and should not be used as the sole basis for treatment or other patient management decisions. Negative results must be combined with clinical observations, patient history, and epidemiological information. Testing was performed using the willie SARS-CoV-2 assay ([employer] on the Willie 6800 System Performing Lab [address] [facility] 12/21/2020 11:40 EST [facility] Swab 12/20/2020 9:01 EST 12/20/2020 16:20 EST Provider Outr Resulting Lab MICROBIOLOGY - GENERAL ORDERABLES [facility] [address] [place] [address] documented in this encounter Visit Diagnoses Not on filedocumented in this encounter Care Teams Pipeline Gang Supervisor Relationship Specialty Start Date End Date Unknown, Provider, PCP - General 05/05/19 documented as of this encounter
--- OUTSIDE RECORDS SUMMARY | 2024-09-14 15:50 | XMS_ITS | Encounter Summary ---
[place] [address] Care Team Providers Care Landing Gear Mechanic Name Role Phone Ravi Biggs MD Primary Care Provider [phone] Encounter Details Date Type Department Care Team (Late st Contact Info) Description 01/02/2021 [place] [id number] Es Nichole Social History Tobacco Use Types Packs/Day Years Used Date Smoking Tobacco: Never Assessed Sex and Gender Information Value Date Recorded Sex Assigned at Not on file Gender Identity Not on file Sexual Orientation Not on file documented as of this encounter Plan of Treatment Not on file documented as of this encounter Visit Diagnoses Not on filedocumented in this encounter Care Teams Landing Gear Mechanic Relationship Specialty Start Date End Date Ravi Biggs MD PCP - General General Internal Medicine 12/13/20 9/3 documented as of this encounter
--- OUTSIDE RECORDS SUMMARY | 2024-09-14 15:50 | XMS_ITS | Encounter Summary ---
Author Organization [facility] Address [address] [place] [address] Care Team Providers Care Office Associate Name Role Phone Unknown, Provider Primary Care Provider Unava ilable Encounter Details Date Type Department Care Team (Late st Contact Info) Description 10/13/2023 Lab Requisition [facility] Pathology & Laboratory Medicine - [facility] [address] [place] [address] Daniel Baum [address] [place] [address] Encounter for other general examination Social History Tobacco Use Types Packs/Day Years [...] Procedure Name Priority Date/Time Associated Diagnosis Comments SURGICAL PATHOLOGY Today 10/13/2023 9: 25 EST Encounter for other general examination documented in this encounter Results * SURGICAL PATHOLOGY (10/13/2023 9:25 EST) Note to Patient The following pathology results have been interpreted by your pathologist and may be available to you before your health provider has had the opportunity to review them. Please allow time for your provider to receive these results and explore management options, if applicable. 10/15/2023 13:45 EST [facility] Final Diagnosis A. SKIN OF TOE, RIGHT THIRD, SHAVE BIOPSY: - Superficial biopsy containing stratum corneum only. See microscopic 10/15/2023 13:45 [facility] Attestation By the signature below, the attending physician certifies that they have 1) personally conducted a gross and/or microscopic examination of the described specimen(s), and/or personally interpreted the results of laboratory testing of the described specimen(s), and 2) personally rendered or confirmed the above diagnosis. 10/15/2023 13:45 [facility] at 1345 Microscopic Description Multiple levels are reviewed. The specimen is comprised of compact ortho and parakeratosis with neutrophilic debris. Epidermis is not seen and therefore a definitive diagnosis can not be made. 10/15/2023 13:45 [facility] Clinical History Painful skin lesion 10/15/2023 13:45 [facility] Gross Description A. Received in formalin labelled with proper patient identification (initials P, A) and R 3rd toe are 4 benavides tissue fragments (0.1 x 0.1 x 0.1 cm to 0.4 x 0.3 x 0.1 cm). Only the larger tissue fragment is inked blue, and it is submitted intact in A1. The 3 smaller tissue fragments are submitted intact in A2. Monae Cee 10/14/2023 8:38 10/15/2023 13:45 [facility] Performing Lab [facility] 10/15/2023 13:45 [facility] Scanned Images 10/15/2023 13:45 [facility] Tissue SPECIMEN FROM SKIN / Unknown 10/13/2023 9:25 EST 10/13/2023 16:32 EST Daniel Baum PATHOLOGY ORDERABL ES [facility] [address] [place] [address] documented in this encounter Visit Diagnoses Diagnosis Encounter for other general examination documented in this encounter Care Teams Office Associate Relationship Specialty Start Date End Date Unknown, Provider, PCP - General 05/05/19 documented as of this encounter
--- OUTSIDE RECORDS SUMMARY | 2024-09-14 15:50 | XMS_ITS | Encounter Summary ---
Author Organization [facility] Address [address] [place] [address] Care Team Providers Care Wind Turbine Sheet Metal Worker Name Role Phone Unknown, Provider Primary Care Provider Bernadine vazquez Encounter Details Date Type Department Care Team (Late st Contact Info) Description 07/27/2022 Lab Requisition [facility] Pathology & Laboratory Medicine - [facility] [address] [place] [address] Outr Resulting Lab, Provider Social History Tobacco [...] Procedure Name Priority Date/Time Associated Diagnosis Comments FECAL BACTERIAL PATHOGENS BY PCR Routine 07/27/2022 16:43 EDT documented in this encounter Results * FECAL BACTERIAL PATHOGENS BY PCR (07/27/2022 16:43 EDT) Salmonella PCR Negative Negative 07/28/2022 19:37 EDT [facility] Shigella/Enteroin vasive E. coli Negative Negative 07/28/2022 19:37 EDT [facility] HN LAB CAMPYLOBACTER PCR Negative Negative 07/28/2022 19:37 EDT [facility] Shiga Toxin PCR Negative Negative 19:37 EDT [facility] Feces SPECIMEN FROM RECTUM / Unknown 07/27/2022 16:43 EDT 07/28/2022 16:22 EDT Provider Outr Resulting Lab MICROBIOLOGY - GENERAL ORDERABLES [facility] [address] [place] [address] documented in this encounter Visit Diagnoses Not on filedocumented in this encounter Care Teams Wind Turbine Sheet Metal Worker Relationship Specialty Start Date End Date Unknown, Provider, PCP - General 05/05/19 documented as of this encounter
--- OUTSIDE RECORDS SUMMARY | 2024-09-14 15:50 | XMS_ITS | Encounter Summary ---
Author Organization [facility] [place] [address] Care Team Providers Care Cargo And Ramp Services Manager Name Role Phone Heron Hughes MD, John Primary Care Provider Encounter Details Date Type Department Care Team (Late st Contact Info) Description 09/04/2019 Ancillary Procedure Radiology Library at [facility] [place] [address] Winston Truong MD [address] [place] [address] Social History Tobacco Use Types Packs/Day Years [...] Associated Diagnosis Comments FILM LIBRARY STORAGE ONLY MR SPINE Routine 09/04/2019 12:00 AM EDT documented in this encounter Results * Film Library- Storage Only MR Spine (09/04/2019 12:00 AM EDT) Narrative [facility] - 09/14/2019 3:24 PM EST This exam is auto-finalizing. It's purpose is for storage only. Winston Truong MD IMG FILM LIBRARY ORD ERABLES [place], [place] documented in this encounter Visit Diagnoses Not on filedocumented in this encounter Care Teams Cargo And Ramp Services Manager Relationship Specialty Start Date End Date Winston Shelby MD [address] [place] [address] PCP - General 09/30/10 12/12/20 documented as of this encounter
--- OUTSIDE RECORDS SUMMARY | 2024-09-14 15:50 | XMS_ITS | Encounter Summary ---
Author Organization [facility] [place] [address] Care Team Providers Care Ear Muff Assembler Name Role Phone Heron Hughes MD, Winston Primary Care Provider [phone] Encounter Details Date Type Department Care Team (Late st Contact Info) Description 03/10/2015 - 03/10/2015 11:59 PM EDT Hospital Encounter Radiology Library at [facility] [place] [address] [facility] Discharge Disposition: Home Social History [...] Diagnosis Comments FILM LIBRARY STORAGE ONLY CT CHEST Routine 03/10/2015 12:00 AM EDT Pain documented in this encounter Results * Film Library- Storage Only CT Chest (03/10/2015 12:00 AM EDT) Narrative [facility] - 10/17/2015 1:43 PM EST See PACS for result report. Dr Cazares [facility] IMG FILM LIBRARY ORD ERABLES [place], [place] documented in this encounter Visit Diagnoses Diagnosis Pain Generalized pain documented in this encounter Care Teams Ear Muff Assembler Relationship Specialty Start Date End Date Winston Shelby MD [address] [place], [place] [address] PCP - General 09/30/10 12/12/20 documented as of this encounter
--- OUTSIDE RECORDS SUMMARY | 2024-09-14 15:50 | XMS_ITS | Referral Summary ---
Author Organization [facility] Address [address] [place] [address] Care Team Providers Care Seasoning Mixer Name Role Phone Unknown, Provider MD Primary [...] Orientation Not on file Plan of Treatment Not on file Care Teams Seasoning Mixer Relationship Specialty Start Date End Date Unknown, Provider, PCP - General 05/05/19
--- OUTSIDE RECORDS SUMMARY | 2024-09-14 15:50 | XMS_ITS | Encounter Summary ---
Author Organization [facility] [place] [address] Care Team Providers Care Sales Recruiter Name Role Phone Heron Hughes MD, Winston Primary Care Provider Encounter Details Date Type Department Care Team (Late st Contact Info) Description 10/18/2015 6:03 PM EST - 10/18/2015 6:48 PM EST Hospital Encounter Radiology Library at [facility] [place] [address] Winston Truong MD [address] [place], [place] [id number] Chest pain, unspecified chest pain type Discharge Disposition: Home Social History Tobacco Use Types Packs/Day Years Used Date Smoking Tobacco: Never Assessed Sex and Gender Information Value Date Recorded Sex Assigned at Not on file Gender Identity Not on file Sexual Orientation Not on file documented as of this encounter Plan of Treatment Pending Results Name Type Priority Associated Diagnoses Date /Time Request For 2nd Read CT Chest Imaging Routine Chest pain, unspecified chest pain type 10/18/2015 6:47 PM EST Scheduled Orders Name Type Priority Associated Diagnoses Orde r Schedule Request For 2nd Read CT Chest Imaging Routine Chest pain, unspecified chest pain type 1 Occurrences starting 10/18/2015 until 10/18/2015 documented as of this encounter Visit Diagnoses Diagnosis Chest pain, unspecified chest pain type documented in this encounter Care Teams Sales Recruiter Relationship Specialty Start Date End Date Winston Shelby MD [address] [place], [place] [id number] PCP - General 09/30/10 12/12/20 documented as of this encounter
--- OUTSIDE RECORDS SUMMARY | 2024-09-14 15:50 | XMS_ITS | Encounter Summary ---
Author Organization [facility] [place] [address] Care Team Providers Care Delivery Department Supervisor Name Role Phone Heron Hughes MD, Winston Primary Care Provider [phone] Encounter Details Date Type Department Care Team (Late st Contact Info) Description 10/18/2015 6:49 PM EST - 10/18/2015 11:59 PM EST Hospital Encounter Radiology Library at [facility] [place] [address] Winston Truong MD [address] [place] [address] [address] [place] [address] Chest pain, unspecified chest pain type Discharge [...] Procedure Name Priority Date/Time Associated Diagnosis Comments REQUEST FOR 2ND READ CT ABDOMEN Routine 10/18/2015 6:50 PM EST Chest pain, unspecified chest pain type documented in this encounter Results * Request For 2nd Read CT Abdomen (10/18/2015 6:50 PM EST) Anatomical Region Laterality Modality Abdomen Computed Tomogra phy Impressions 10/19/2015 3:32 PM EST IMPRESSION: 1. ??Multiple basilar pulmonary nodules, upper abdominal lymphadenopathy, and innumerable tiny lesions scattered throughout the liver and spleen. The differential diagnosis for these findings includes sarcoidosis, lymphoma, and infection, including fungal organisms. 2. ??Bosniak 2 left renal cyst 3. ??Colonic diverticulosis. 4. ??Fat-containing ventral hernia, fat-containing umbilical hernia. Narrative 10/19/2015 3:32 PM EST EXAMINATION: REQUEST FOR 2ND READ CT ABDOMEN CLINICAL HISTORY: INCREASED D DIMER, SOB, CHEST PAIN, R/O SARCOIDOSIS, What Modality is the exam? CT Scan, Body Part (please add comments as necessary): ABD/PELV, I believe a reinterpretation of this exam may alter care of Patient. Yes TECHNIQUE: Axial, sagittal, and coronal images from an oral and IV enhanced CT scan of the abdomen and pelvis from an IV team dated 10/12/2015 are symmetric for reinterpretation. COMPARISON: Limited comparison to a chest CT from 03/10/2015 FINDINGS: Multiple subcentimeter nodular opacities are seen in each lung base that are unchanged from prior CT. No basilar pleural nor pericardial effusion. Heart size normal. Multiple subcentimeter poorly defined low-attenuation foci are scattered throughout a normal-size liver. These are too numerous to count. Patent hepatic and portal veins. No intra or extrahepatic biliary ductal dilatation. Gallbladder wall thickness normal and there is no adjacent inflammation or fluid. Spleen size is normal. Multiple subcentimeter low-attenuation foci are scattered throughout the spleen. The pancreas and adrenal glands are unremarkable. 2 subcentimeter low-attenuation right renal foci are too small to characterize however favored to represent cysts. A 27 mm left renal lesion contains a punctate calcification posteriorly consistent with a minimally complex cyst. There is upper abdominal lymphadenopathy, including the gastrohepatic ligament, lauren hepatis, peripancreatic region and portacaval region. Largest nodes measure up to 15 mm in short axis. There is colonic diverticulosis. No bowel wall thickening or dilatation. No mesenteric inflammation or free fluid. Fat-containing umbilical hernia and small fat-containing ventral hernia are present. Bladder, prostate, seminal vesicles within normal limits. Osseous structures: There is severe degenerative disc disease L5/S1 with vacuum disc abdomen on. No worrisome lytic or sclerotic osseous lesions. Procedure Note Lu Whiteside MD - 10/19/2015 EXAMINATION: REQUEST FOR 2ND READ CT ABDOMEN CLINICAL HISTORY: INCREASED D DIMER, SOB, CHEST PAIN, R/O SARCOIDOSIS,What Modality is the exam? CT Scan, Body Part (please add comments asnecessary): ABD/PELV, I believe a reinterpretation of this exam may alter care ofPatient. Yes TECHNIQUE: Axial, sagittal, and coronal images from an oral and IVenhanced CT scan of the abdomen and pelvis from an IV team dated 10/12/2015 aresymmetric for reinterpretation. COMPARISON: Limited comparison to a chest CT from 03/10/2015 FINDINGS: Multiple subcentimeter nodular opacities are seen in each lung base thatare unchanged from prior CT. No basilar pleural nor pericardial effusion.Heart size normal. Multiple subcentimeter poorly defined low-attenuation foci are scattered throughout a normal-size liver. These are too numerous to count. Patenthepatic and portal veins. No intra or extrahepatic biliary ductal dilatation. Gallbladder wall thickness normal and there is no adjacent inflammationor fluid. Spleen size is normal. Multiple subcentimeter low-attenuation foci arescattered throughout the spleen. The pancreas and adrenal glands are unremarkable.2 subcentimeter low-attenuation right renal foci are too small tocharacterize however favored to represent cysts. A 27 mm left renal lesion contains a punctate calcification posteriorly consistent with a minimally complexcyst. There is upper abdominal lymphadenopathy, including the gastrohepaticligament, lauren hepatis, peripancreatic region and portacaval region. Largestnodes measure up to 15 mm in short axis. There is colonic diverticulosis. No bowel wall thickening or dilatation.No mesenteric inflammation or free fluid. Fat-containing umbilical hernia and small fat-containing ventral herniaare present. Bladder, prostate, seminal vesicles within normal limits. Osseous structures: There is severe degenerative disc disease L5/S1 withvacuum disc abdomen on. No worrisome lytic or sclerotic osseous lesions. IMPRESSION IMPRESSION: 1. Multiple basilar pulmonary nodules, upper abdominal lymphadenopathy,and innumerable tiny lesions scattered throughout the liver and spleen. The differential diagnosis for these findings includes sarcoidosis, lymphoma,and infection, including fungal organisms. 2. Bosniak 2 left renal cyst 3. Colonic diverticulosis. 4. Fat-containing ventral hernia, fat-containing umbilical hernia. Winston Truong MD IMG OUTSIDE INTERPRE TATION ORDERABLES documented in this encounter Visit Diagnoses Diagnosis Chest pain, unspecified chest pain type documented in this encounter Care Teams Delivery Department Supervisor Relationship Specialty Start Date End Date Winston Shelby MD [address] [place] [address] PCP - General 09/30/10 12/12/20 documented as of this encounter
[2024-09-14 16:07] LABS: BE (Venous) 0 mmol/L (-2-3); HCO3 (Venous) 26 mmol/L (23-28); O2 Sat (Venous) 81 %; TCO2 (Venous) 23 mmol/L (24-29); pCO2 (Venous) 46 mmHg (41-51); pH (Venous) 7.35 (7.31-7.41); pO2 (Venous) 44 mmHg
[2024-09-14 16:09] LABS: Abs Immature Grans 0.01 10^3/uL (0.0-0.06); Absolute Basophil Count 0.02 10^3/uL (0.0-0.2); Absolute Eosinophil Count 0.23 10^3/uL (0.0-0.7); Absolute Lymphocyte Count 0.71 10^3/uL (1.2-3.4); Absolute Monocyte Count 0.56 10^3/uL (0.1-0.8); Absolute Neutrophil Count 4.08 10^3/uL (1.2-6.7); Basophils % 0.4 %; Eosinophils % 4.1 %; HCT 42.8 % (40.0-50.0); HGB 13.9 g/dL (13.5-17.5); Immature Grans % 0.2 %; Lymphocytes % 12.7 %; MCH 28.7 pg (27.0-33.0); MCHC 32.5 % (32.0-36.0); MCV 88 fL (80-95); MPV 9.3 fL (8.0-11.0); Neutrophils % 72.6 %; Platelet Count 133 10^3/uL (130-400); RBC 4.85 10^6/uL (4.36-5.78); RDW 13.6 % (11.8-14.1); WBC 5.61 10^3/uL (4.4-10.8)
[2024-09-14 16:24] LABS: ALT 21 U/L (16-63); AST 13 U/L (15-37); Albumin 3.8 g/dL (3.4-5.0); Alkaline Phosphatase 123 U/L (46-116); Anion Gap 9.1 mmol/L (3-11); BUN 22 mg/dL (7-18); CO2 26.9 mmol/L (21.0-32.0); CREATININE 1.4 mg/dL (0.70-1.30); Chloride 106 mmol/L (98-107); Estimated GFR 57.18 (mL/min/1.73m2); Glucose 107 mg/dL (74-106); Magnesium 2.2 mg/dL (1.8-2.4); Potassium 4.2 mmol/L (3.5-5.1); Sodium 142 mmol/L (136-145)
[2024-09-14] MEDS: Albuterol 2.5 MG/3 ML INH SOLN VIAL 5 MG UPD (16:45)
[2024-09-14 16:51] LABS: COVID-19 PCR Negative (Negative); Influenza A PCR Negative (Negative); Influenza B PCR Negative (Negative); RSV PCR Negative (Negative)
[2024-09-14 16:55] LABS: Source NASOPHARYNX
[2024-09-14] MEDS: levoFLOXacin 750 MG/150 ML BAG 100 MG IVPB (18:03)
[2024-09-14] MEDS: Albuterol 2.5 MG/3 ML INH SOLN VIAL UPD (18:03)
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
[2024-09-14] MEDS: Albuterol/Ipratropium 3 ML UPD VIAL IH (21:24)
[2024-09-14] MEDS: Famotidine 20 MG TAB PO (21:24)
[2024-09-14] MEDS: Enoxaparin 40 MG/0.4 ML SYR SC (21:25)
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
[2024-09-15] VITALS (22 sets, daily range): BP systolic 134–161; BP diastolic 76–99; PULSE 90–122; RESP 2–32; TEMP 36.4–37.5; O2SAT 89–112
[2024-09-15] MEDS: MORPHine 2 MG/ML SYR IVP (02:18)
[2024-09-15] MEDS: Albuterol 2.5 MG/3 ML INH SOLN VIAL UPD ×2 (05:35→08:14)
[2024-09-15 06:52] LABS: Anion Gap 10.5 mmol/L (3-11); BUN 15 mg/dL (7-18); CO2 27.5 mmol/L (21.0-32.0); CREATININE 1.4 mg/dL (0.70-1.30); Calcium 9.4 mg/dL (8.5-10.1); Chloride 103 mmol/L (98-107); Estimated GFR 57.18 (mL/min/1.73m2); Glucose 139 mg/dL (74-106); Sodium 141 mmol/L (136-145)
[2024-09-15] MEDS: Albuterol/Ipratropium 3 ML UPD VIAL IH (07:55)
[2024-09-15] MEDS: Budesonide/Formoterol 80/4.5 6.9 GM 60 PUFF INH IH ×2 (08:08→19:55)
[2024-09-15] MEDS: Tiotropium Bromide-Respimat 10 PUFF INH 2 PUFF IH (08:08)
[2024-09-15] MEDS: predniSONE 20 MG TAB 40 MG PO (08:47)
[2024-09-15] MEDS: Famotidine 20 MG TAB PO ×2 (08:47→19:47)
[2024-09-15] MEDS: Sertraline 100 MG TAB 200 MG PO (08:47)
[2024-09-15] MEDS: Normal Saline Flush 10 ML SYR IVP ×5 (08:48→19:48)
--- NOTE | 2024-09-15 09:04 | PDOC.CMIN ---
Date of service: 09/15/24 Time of Service: 09:04 Care Management Initial Assmt Initial Assessment Reason for Hospitalization: COPD with acute exacerbation Functional Status/Living Situation Patient Presentation: Matt was sitting up in bed when CM met with him. He was open to conversation and engaged easily with CM, known to him from previous admissions. Matt was admitted with a COPD exacerbation. He was visibly short of breath however he has no oxygen requirements at this time. Matt had a large home in [place] with extensive gardens which he sold a couple of years ago. He now has a tiny house on 8 acres of land that he purchased in [place]. He has a generator and lives a very simple, off-the grid lifestyle. Matt shared that he finds his new environment very peaceful and is very happy there. He shared that he has also found a new [facility] in [place] which he regularly attends. Town of Residence: [place] Resides with: Alone Natural Supports: friends and fellow parishioners Employment Status: Retired Instrumental Activities of Daily Living (ADLs): Independent Medications Medication Management: No Issues/Barriers identified Physical Functioning/Mobility Assistive Device: none Advance Directives Advance Directives: Do you have an Advance Directive: Y 08/29/19 13:22 AD On File at [facility]: N 10/11/14 09:25 Date Asked 09/14/24 09/14/24 15:41 AD Date Reviewed COLST On File at [facility] COLST Date Scanned Code Status Resuscitation Status Full Code Insurance Coverage/Financial Issues Insurance: Medicaid Care Team Visit Care Team Role Provider Type Eliecer Howard MD Primary Care Provider [facility] STAFF PHYSICIAN Ana Bernstein MD Emergency Provider [facility] STAFF PHYSICIAN Winston Grossman Admit Provider [facility] STAFF PHYSICIAN Attending Provider Discharge Potential Discharge Needs: PCP F/U Appt Anticipated Barriers to Discharge: None Identified Patient/Family Education Needs: Review discharge instructions, discuss Ask Me Three Transportation: Private vehicle Plan: Anticipate Matt will be discharged home with no new services when medically cleared. He will follow up with his PCP and plan of care and transport with a friend. CM will follow and support discharge planning needs. PFSH All Active Problems DVT prophylaxis (Acute) Callus of toe (Acute) Avulsed toenail (Acute) Constipation (Acute) Anxiety (Chronic) Sexuality issues (Acute) Incarcerated umbilical hernia (Acute) Periumbilical hernia (Acute) Abdominal pain (Acute) Right foot pain (Acute) Hypermagnesemia (Acute) Influenza (Acute) COPD with acute exacerbation (Acute) Acute dehydration (Acute) 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) Raynauds phenomenon (Acute) Right lumbar radiculopathy (Acute) Community acquired pneumonia (Acute) COPD (chronic obstructive pulmonary disease) (Chronic 02/14/15) PFT's show severe obstructive disease with bronchodilator response; PFT 02/13/2015, [id number]%, FEV1/FVC 67%, post BD FEV1 50% FEV1/FVC 72% Depressive disorder (Chronic) Gastroesophageal reflux disease (Chronic) History of tobacco use (Chronic) 48 pack years Sarcoidosis (Chronic 02/04/16) Shortness of breath (Chronic) Ventral hernia (Chronic) Medical History Chronic kidney disease, stage 3a Upper respiratory infection w/ bronchospasm Pneumonia needs to quit smoking HUBER (acute kidney injury) Family History Father , from complications of pneumonia Diabetes Stroke Mother , from diabetic complications including abscess/infection Depression Diabetes Social History (Updated 09/14/24 @ 21:12 by Winston Grossman) Smoking/Tobacco Use Status: Current every day Tobacco Type: cigarettes Smoking risk assessment performed?: Yes Alcohol Intake: former Year quit: 1998 Drug use: Never Substance use type: does not use Details: Pt currently Vapes 2-3 times a week. Housing: house Do you feel safe at home: Yes Do you feel safe in your relationship?: Yes Additional Social history: lives alone in off-grid home in [facility](Care Management) Screening Will the Patient Participate in the Screening?: Yes Do you worry about having a steady place to live?: no Problems where you live: no known problems In the past 12 months, have you had to go without electric, gas, oil or water in your home?: yes Have you or anyone in your house had to go without enough food to eat?: yes Has lack of transportation kept you from medical appointments or from doing things needed for daily living?: yes Has anyone in your support network made you feel unsafe for any reason?: no Social Determinants of Health Comments(SDOH Details): help with transportation Health Related Social Needs Health related social needs: food insecurity(Z59.41), transportation insecurity(Z59.82) and material hardship(utilities)(Z59.87)
--- NOTE | 2024-09-15 09:55 | PGE_ITS ---
Date of Service Date of service: 09/15/24 Time of Service: 09:55 Assessment and Plan Assessment and plan (1) COPD with acute exacerbation: Status: Acute Assessment and plan: Patient remains on room air without hypoxia Not followed by pulmonology but reports of severe COPD and ongoing respiratory distress?hyperinflation seen on x-ray As previously mentioned no evidence of reactivation of sarcoid on his chest x- ray. Started on prednisone oraly, but due to ongoing respiratory distress will give a short course of IV methylprednisolone and IV evaluate in the morning for oral steroids. Will stop levofloxacin IV d/t ADR and low risk of pseudomonas infection Will start azithromycin in the setting of increased sputum production/ cough a/w COPD exacerbation Was on home inhalers and nebulized bronchodilators prn- will change albuterol to levalbuterol re: HR > 100 CBC in AM (2) History of tobacco use: Status: Chronic Assessment and plan: He is committed to quit smoking again. He declines medical help at this point. Nicotine TD (3) Liver cirrhosis secondary to nonalcoholic steatohepatitis (GALLOWAY): Status: Chronic Assessment and plan: As mentioned by previous provider, history liver cirrhosis secondary to GALLOWAY documented back at least for the past 10 years, but well compensated clinically with Child-Arce class A. Stable currently based on admission labs. Follow-up as per primary care practitioner (4) Depressive disorder: Status: Chronic Assessment and plan: Continue home dose sertraline. (5) Chronic kidney disease, stage 3a: Assessment and plan: creatinine/GFR at baseline, monitor while acutely ill No HUBER Cr stable at 1.4 (6) DVT prophylaxis: Status: Acute Assessment and plan: Continue Lovenox SC discussed with Dr. Gabriel Subjective Subjective Patient reports: no new complaints, tolerating liquids well, tolerating a regular diet, voiding w/o difficulty, flatus, bowel movement, shortness of breath and afebrile; denies diarrhea, nausea or vomiting Exam Narrative Exam Narrative: Constitutional The patient is sitting in chair able to speak 4-6 word sentences without hypoxia, on room air HENMT: Head is atraumatic, normocephalic, no lymphadenopathy. Facial structures with normal appearance Eyes: Well aligned, intact ROM Neck: Normal ROM, no meningeal signs Neuro:alert and oriented to self, person, place time and situation. No neurological focal deficit, Chest:Chest is symmetrical and normal appearance Resp: Tachypneic with coarse inspiratory wheezing and end expiration expiratory wheezing throughout lung vasquez Cardio: regular rhythm, S1, S2, no murmur, capillary refill<3 sec., bilateral radial and dorsalis pedis pulses are positive, palpable GI: Abdomen is not distended, soft and non tender, bowel sounds are present : Negative Costovertebral angle tenderness, no bladder distension Back/spine/Pelvis: No back tenderness, normal alignment Integumentary: No skin lesions or rash on exposed skin Extremities: strength 5/5 to bilateral lower and upper extremities Psych: RASS 0, congruent mood and normal affect. Objective Last Vital Signs Temp 36.6 C 09/15/24 07:51 Pulse 116 H 09/15/24 08:23 Resp 32 H 09/15/24 08:23 BP 161/93 H 09/15/24 07:51 Pulse Ox 94 09/15/24 08:23 Laboratory Results - last 24 hr 09/14/24 09/14/24 09/15/24 16:00 16:08 06:14 WBC 5.61 RBC 4.85 Hgb 13.9 Hct 42.8 MCV 88 MCH 28.7 MCHC 32.5 RDW 13.6 Plt Count 133 MPV 9.3 Immature Gran % 0.2 Neutrophils % 72.6 Lymphocytes % 12.7 Monocytes % 10.0 Eosinophils % 4.1 Basophils % 0.4 Nucleated RBC % 0.0 Absolute Neutrophils 4.08 Absolute Lymphocytes 0.71 L Absolute Monocytes 0.56 Absolute Eosinophils 0.23 Absolute Basophils 0.02 VBG pH 7.35 VBG pCO2 46 VBG pO2 44 VBG HCO3 26 VBG Total CO2 23 L VBG O2 Saturation 81 VBG Base Excess 0 Sodium 142 141 Potassium 4.2 4.0 Chloride 106 103 Carbon Dioxide 26.9 27.5 Anion Gap 9.1 10.5 BUN 22 H 15 Creatinine 1.4 H 1.4 H Est GFR (CKD-EPI 2020) 57.18 57.18 Glucose 107 H 139 H Calcium 9.0 9.4 Magnesium 2.2 Total Bilirubin 0.30 AST 13 L ALT 21 Alkaline Phosphatase 123 H Total Protein 8.0 Albumin 3.8 COVID-19 Source NASOPHARYNX SARS-CoV-2 (PCR) Negative Influenza Type A (PCR) Negative Influenza Type B (PCR) Negative RSV (PCR) Negative Time Spent with Patient Time Spent with Patient: >50 minutes Time was spent: preparing to see the patient(eg.review tests), obtaining and/or reviewing separately otained hiistory, ordering medications,tests, procedures, referring, communicating with other health plant health care technician, indepentently interpreting results, counseling the patient and care coordination
[2024-09-15] MEDS: Levalbuterol 1.25 MG/3 ML UPD VIAL UPD ×7 (10:08→21:49)
[2024-09-15 11:26] LABS: BE (Venous) -2 mmol/L (-2-3); HCO3 (Venous) 24 mmol/L (23-28); O2 Sat (Venous) 96 %; TCO2 (Venous) 21 mmol/L (24-29); pCO2 (Venous) 41 mmHg (41-51); pH (Venous) 7.37 (7.31-7.41); pO2 (Venous) 71 mmHg
[2024-09-15] MEDS: guaiFENesin 600 MG TABCR PO ×2 (11:38→19:47)
[2024-09-15] MEDS: Nicotine 21 MG/24 HR PATCH TD (11:42)
[2024-09-15] MEDS: methylPREDNISolone SUCC 40 MG VIAL IVP (11:45)
[2024-09-15] MEDS: Polyethylene Glycol 3350 17 GM PACKET PO ×2 (11:46→19:47)
[2024-09-15] MEDS: Ipratropium 0.5 MG/2.5 ML UPD VIAL UPD ×5 (11:53→21:49)
[2024-09-15] MEDS: AZITHROMYCIN 500 MG in Normal Saline 250 ML 250 MG IVPB (12:19)
[2024-09-15] MEDS: Docusate Sodium 100 MG CAP PO ×2 (13:24→19:47)
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
[2024-09-15] MEDS: methylPREDNISolone SUCC 125 MG VIAL 80 MG IVP (16:21)
[2024-09-15] MEDS: Enoxaparin 40 MG/0.4 ML SYR SC (19:47)
[2024-09-16] VITALS (26 sets, daily range): BP systolic 121–140; BP diastolic 75–87; PULSE 92–115; RESP 2–22; TEMP 36.3–37.3; O2SAT 94–98
[2024-09-16] MEDS: methylPREDNISolone SUCC 125 MG VIAL 80 MG IVP ×3 (01:28→16:26)
[2024-09-16] MEDS: Levalbuterol 1.25 MG/3 ML UPD VIAL UPD ×7 (01:48→22:15)
[2024-09-16] MEDS: Ipratropium 0.5 MG/2.5 ML UPD VIAL UPD ×5 (01:49→22:16)
[2024-09-16 06:56] LABS: Abs Immature Grans 0.05 10^3/uL (0.0-0.06); Absolute Basophil Count 0.01 10^3/uL (0.0-0.2); Absolute Monocyte Count 0.32 10^3/uL (0.1-0.8); Absolute Neutrophil Count 10.61 10^3/uL (1.2-6.7); Basophils % 0.1 %; HCT 43.3 % (40.0-50.0); HGB 13.9 g/dL (13.5-17.5); Immature Grans % 0.4 %; MCH 28.5 pg (27.0-33.0); MCHC 32.1 % (32.0-36.0); MCV 89 fL (80-95); MPV 9.6 fL (8.0-11.0); Monocytes % 2.7 %; Neutrophils % 90.8 %; Platelet Count 164 10^3/uL (130-400); RBC 4.87 10^6/uL (4.36-5.78); RDW 13.7 % (11.8-14.1); RDW-SD 44.9 fL; WBC 11.69 10^3/uL (4.4-10.8)
[2024-09-16 07:12] LABS: Anion Gap 12.2 mmol/L (3-11); BUN 27 mg/dL (7-18); CO2 24.8 mmol/L (21.0-32.0); CREATININE 1.4 mg/dL (0.70-1.30); Calcium 9.6 mg/dL (8.5-10.1); Chloride 103 mmol/L (98-107); Estimated GFR 57.18 (mL/min/1.73m2); Glucose 172 mg/dL (74-106); Potassium 4.2 mmol/L (3.5-5.1); Sodium 140 mmol/L (136-145)
[2024-09-16] MEDS: Budesonide/Formoterol 80/4.5 6.9 GM 60 PUFF INH IH (08:16)
[2024-09-16] MEDS: Tiotropium Bromide-Respimat 10 PUFF INH 2 PUFF IH (08:16)
[2024-09-16] MEDS: Polyethylene Glycol 3350 17 GM PACKET PO ×2 (08:56→20:15)
[2024-09-16] MEDS: guaiFENesin 600 MG TABCR PO ×2 (08:57→20:15)
[2024-09-16] MEDS: Famotidine 20 MG TAB PO ×2 (08:57→20:15)
[2024-09-16] MEDS: Sertraline 100 MG TAB 200 MG PO (08:57)
[2024-09-16] MEDS: Docusate Sodium 100 MG CAP PO ×3 (08:57→20:15)
[2024-09-16] MEDS: Nicotine 21 MG/24 HR PATCH TD (08:58)
[2024-09-16] MEDS: Normal Saline Flush 10 ML SYR IVP ×5 (09:00→17:51)
--- NOTE | 2024-09-16 09:41 | W.PM.PROGNOT ---
Date of Service Date of service: 09/16/24 Time of Service: 09:41 Assessment and Plan Assessment and plan (1) COPD with acute exacerbation: Status: Acute Assessment and plan: No oxygen requirement Not followed by pulmonology but reports of severe COPD and ongoing respiratory distress?hyperinflation-seen on x-ray -Pulmonology referral discharge discussed with patient On admission there was no evidence of reactivation of sarcoid on his chest x-ray. Started on prednisone orally, then transitioned to but due to IV methylprednisolone d/t ongoing respiratory distress -Tapering IV methylprednisolone to 80 mg Q12 Hours and might be able to transition to oral on 09/17/2024 - Might require a long taper at home Levofloxacin stopped d/t ADR and low risk of pseudomonas infection Continue azithromycin in the setting of increased sputum production/ cough a/w COPD exacerbation Was on home inhalers and nebulized bronchodilators prn- will change albuterol to levalbuterol re: HR > 100 CBC in AM (2) History of tobacco use: Status: Chronic Assessment and plan: He is committed to quit smoking again. He declines medical help at this point. Continue Nicotine TD (3) Liver cirrhosis secondary to nonalcoholic steatohepatitis (GALLOWAY): Status: Chronic Assessment and plan: On admission , the patient had a history liver cirrhosis secondary to GALLOWAY documented back at least for the past 10 years, but well compensated clinically with Child-Arce class A. No S&S of exacerbation - will continue to monitor, was stable based on admission labs. Follow-up as per primary care practitioner (4) Depressive disorder: Status: Chronic Assessment and plan: On home dose sertraline. (5) Chronic kidney disease, stage 3a: Assessment and plan: creatinine/GFR at baseline, monitor while acutely ill No HUBER Cr remains stable at 1.4 (6) Nausea: Status: Acute Assessment and plan: Requesting Bismuth subsalicylate /Pepto-Bismol but has an allergy to ASA, also requesting TUMS Will try PRN prochlorperazine -PRN compazine ordered (7) Acute insomnia: Status: Acute Assessment and plan: Mentioned taking Benadryl at HS to sleep and at home for increase in wheezing Will order scheduled melatonin at HS Will order Diphehydramine 25 mg Q 8 PRN (8) Full code status: Status: Acute Assessment and plan: Patient initially came in as a full code Mentioned to RN that he would like to reverse his code status to DNR DNI Discussion with patient including : Reason, history of depression , bipolar disorder, isolation and community support . -Patient reported feeling sad and thinking of his mother who - but now has plan for when his condition gets better. -Female neighbour helping him w groceries - Take psych meds at home and has a familial history -Wants to remain a full code at this time. (9) Epigastric abdominal tenderness: Status: Acute Assessment and plan: S/p meal already on pepcid Now on high dose IV steroids Protonix added to regimen Mylanta PRN (10) DVT prophylaxis: Status: Acute Assessment and plan: On subcutaneous LMWH Discussed with Dr. Gabriel Exam Narrative Exam Narrative: Constitutional The patient is sitting in chair able to speak 4-6 word sentences without hypoxia, on room air HENMT: Facial structures with normal appearance- missing some teeth Eyes: Well aligned, intact ROM Neck: Normal ROM, no meningeal signs Neuro:alert and oriented to self, person, place time and situation. No neurological focal deficit, Chest:Chest is symmetrical and normal appearance Resp: End expiration expiratory wheezing throughout lung vasquez, less distress on ambulation Cardio: regular rhythm, S1, S2, no murmur GI: Abdomen is not distended, soft and epigastric tenderness on palp, bowel sounds are present Integumentary: No skin lesions or rash on exposed skin Extremities: strength 5/5 to bilateral lower and upper extremities Psych: RASS 0, congruent mood and normal affect. Objective Last Vital Signs Temp 36.5 C 09/16/24 07:21 Pulse 105 H 09/16/24 07:21 Resp 17 09/16/24 07:21 BP 127/87 09/16/24 07:21 Pulse Ox 96 09/16/24 08:21 Laboratory Results - last 24 hr 09/15/24 09/16/24 11:22 06:35 WBC 11.69 H RBC 4.87 Hgb 13.9 Hct 43.3 MCV 89 MCH 28.5 MCHC 32.1 RDW 13.7 Plt Count 164 MPV 9.6 Immature Gran % 0.4 Neutrophils % 90.8 Lymphocytes % 6.0 Monocytes % 2.7 Eosinophils % 0.0 Basophils % 0.1 Nucleated RBC % 0.0 Absolute Neutrophils 10.61 H Absolute Lymphocytes 0.70 L Absolute Monocytes 0.32 Absolute Eosinophils 0.00 Absolute Basophils 0.01 VBG pH 7.37 VBG pCO2 41 VBG pO2 71 VBG HCO3 24 VBG Total CO2 21 L VBG O2 Saturation 96 VBG Base Excess -2 Sodium 140 Potassium 4.2 Chloride 103 Carbon Dioxide 24.8 Anion Gap 12.2 H BUN 27 H Creatinine 1.4 H Est GFR (CKD-EPI 2020) 57.18 Glucose 172 H Calcium 9.6 Time Spent with Patient Time Spent with Patient: >50 minutes Time was spent: preparing to see the patient(eg.review tests), obtaining and/or reviewing separately otained hiistory, ordering medications,tests, procedures, referring, communicating with other health health care sanitary technician, indepentently interpreting results, counseling the patient and care coordination
--- NOTE | 2024-09-16 11:39 | PHA.REVIEW2 ---
Pharmacy Admission Review Admission Clinical Review Admission Pharmacy Review: DVT prophylaxis (Acute) COPD with acute exacerbation (Acute) Penicillins Allergy (Verified 09/14/24 18:17) RASH aspirin Adverse Reaction (Verified 09/14/24 18:17) UPSET STOMACH Resuscitation Status Full Code Height 6 ft 1 in Weight 100.3 kg Pharmacy Admission Review Renal Dosing Renal Dosing: BUN 27 mg/dL (7-18) H 09/16/24 06:35 Creatinine 1.4 mg/dL (0.70-1.30) H 09/16/24 06:35 Medications needing adjustments: Reviewed (CrCl 69 mL/min, BUN increased from 15) List of meds needing interventions: Current medications are okay Anticoagulation Anticoagulation: Hgb 13.9 g/dL (13.5-17.5) 09/16/24 06:35 Hct 43.3 % (40.0-50.0) 09/16/24 06:35 Plt Count 164 10^3/uL (130-400) 09/16/24 06:35 Creatinine 1.4 mg/dL (0.70-1.30) H 09/16/24 06:35 DVT Prophylaxis: Reviewed Medications: Enoxaparin (40mg daily) Opiate Usage Evaluate Pain Scale/Pains Meds: Reviewed (morphine IVP PRN - no doses given in the past 24 hours) Scheduled Bowel Reg ordered if on Opiates?: Yes (docusate + PRN Miralax) Relevant Labs Relevant Labs: Sodium 140 mmol/L (136-145) 09/16/24 06:35 Potassium 4.2 mmol/L (3.5-5.1) 09/16/24 06:35 Chloride 103 mmol/L (98-107) 09/16/24 06:35 Magnesium 2.2 mg/dL (1.8-2.4) 09/14/24 16:00 Electrolytes, C-Reactive P, ESR: Reviewed Cardiac Review BP, HR, EF%: Reviewed (BP WNL, HR 96 - has been ranging from low 90s to 110 for most of admission) QTc Review QTc: Reviewed (433 from 09/14/24) IV to PO Switch IV Medications: Reviewed (azithromycin, methylprednisolone, morphine) Home Meds Home Med List reviewed: Reviewed Relevent Home Meds Not ordered & why?: albuterol (PRN) Current Meds Current Medication Order Review: Intervened Comments: Added IV admission order Pharmacy Antibiotic Review Relevant Labs: WBC 11.69 10^3/uL (4.4-10.8) H 09/16/24 06:35 Temperature 36.3 C Temperature 36.5 C Temperature 37.1 C Comments: Patient is on azithromycin, day 2, for COPD exacerbation. WBC increased from 5.61 and there are no cultures pending.
[2024-09-16] MEDS: AZITHROMYCIN 500 MG in Normal Saline 250 ML 250 MG IVPB (12:33)
[2024-09-16] MEDS: Pantoprazole 40 MG VIAL IVP (17:50)
[2024-09-16] MEDS: Mylanta Suspension 30 ML CUP PO (17:50)
[2024-09-16] MEDS: Budesonide/Formoterol 160/4.5 6 GM 60 PUFF INH IH (19:58)
[2024-09-16] MEDS: Enoxaparin 40 MG/0.4 ML SYR SC (20:14)
[2024-09-17] VITALS (13 sets, daily range): BP systolic 135–148; BP diastolic 79–90; PULSE 94–118; RESP 2–22; TEMP 37.1–37.5; O2SAT 94–98
[2024-09-17] MEDS: Ipratropium 0.5 MG/2.5 ML UPD VIAL UPD ×4 (01:58→13:16)
[2024-09-17] MEDS: Levalbuterol 1.25 MG/3 ML UPD VIAL UPD ×4 (01:59→13:14)
[2024-09-17] MEDS: methylPREDNISolone SUCC 125 MG VIAL 80 MG IVP (04:08)
[2024-09-17 06:14] LABS: Absolute Monocyte Count 0.54 10^3/uL (0.1-0.8); Basophils % 0.2 %; HCT 42.9 % (40.0-50.0); HGB 13.7 g/dL (13.5-17.5); Immature Grans % 0.6 %; Lymphocytes % 5.8 %; MCH 28.3 pg (27.0-33.0); MCHC 31.9 % (32.0-36.0); MCV 89 fL (80-95); MPV 9.5 fL (8.0-11.0); Monocytes % 3.1 %; Neutrophils % 90.3 %; Platelet Count 177 10^3/uL (130-400); RBC 4.84 10^6/uL (4.36-5.78); RDW 13.9 % (11.8-14.1); RDW-SD 45.1 fL; WBC 17.55 10^3/uL (4.4-10.8)
[2024-09-17 06:15] LABS: Absolute Basophil Count 0.04 10^3/uL (0.0-0.2); Absolute Lymphocyte Count 1.02 10^3/uL (1.2-3.4); Absolute Neutrophil Count 15.85 10^3/uL (1.2-6.7)
[2024-09-17 06:31] LABS: Anion Gap 10.3 mmol/L (3-11); BUN 33 mg/dL (7-18); CO2 27.7 mmol/L (21.0-32.0); CREATININE 1.3 mg/dL (0.70-1.30); Calcium 9.6 mg/dL (8.5-10.1); Chloride 103 mmol/L (98-107); Glucose 130 mg/dL (74-106); Potassium 5.1 mmol/L (3.5-5.1); Sodium 141 mmol/L (136-145)
[2024-09-17] MEDS: Budesonide/Formoterol 160/4.5 6 GM 60 PUFF INH IH (08:04)
[2024-09-17] MEDS: Tiotropium Bromide-Respimat 10 PUFF INH 2 PUFF IH (08:04)
[2024-09-17] MEDS: Pantoprazole 40 MG VIAL IVP (08:26)
[2024-09-17] MEDS: Nicotine 21 MG/24 HR PATCH TD (08:27)
[2024-09-17] MEDS: Sertraline 100 MG TAB 200 MG PO (08:27)
[2024-09-17] MEDS: Polyethylene Glycol 3350 17 GM PACKET PO (08:27)
[2024-09-17] MEDS: Famotidine 20 MG TAB PO (08:27)
[2024-09-17] MEDS: guaiFENesin 600 MG TABCR PO (08:27)
[2024-09-17] MEDS: Docusate Sodium 100 MG CAP PO ×2 (08:27→12:29)
[2024-09-17] MEDS: AZITHROMYCIN 500 MG in Normal Saline 250 ML 250 MG IVPB (12:28)
[2024-09-17] MEDS: Normal Saline Flush 10 ML SYR IVP (12:29)
--- NOTE | 2024-09-17 12:33 | W.PM.DS.N ---
Date of service: 09/17/24 Time of Service: 12:33 DS: Diagnosis Discharge Diagnosis (1) COPD with acute exacerbation: Status: Acute (2) History of tobacco use: Status: Chronic (3) Liver cirrhosis secondary to nonalcoholic steatohepatitis (GALLOWAY): Status: Chronic (4) Depressive disorder: Status: Chronic (5) Chronic kidney disease, stage 3a: (6) Nausea: Status: Acute (7) Acute insomnia: Status: Acute (8) Full code status: Status: Acute (9) Epigastric abdominal tenderness: Status: Acute Discharge Plan Disposition Patient Disposition: Home Condition: Stable Discharge Details Reason For Visit: COPD Exacerbation Admit Date/Time: 09/14/24 19:05 Admit Provider: Winston Grossman Attending Provider: Winston Grossman Primary Care Provider: Eliecer Howard Hospital Course Hospital Course: This is a very anxious 59-year-old male patient admitted under hospitalist services for COPD exacerbation. Hemodynamically he remained stable. No fever no oxygen requirements. He was eating and drinking and bowels and bladder functioning well. White count did increase to 17 which was thought to be due to IV steroids he was receiving. He had no fever no evidence of infiltrate on x-ray. Labs otherwise unremarkable with a creatinine below his baseline of 1.4 at 1.3. A viral respiratory panel was negative for influenza COVID or RSV. He is hemodynamically stable and will be discharged to home on a slow steroid taper. He was advised to follow-up with his primary care provider or return sooner for new or worsening symptoms Discharge discussed with Dr. Grossman Home Meds and New Rx's Prescriptions: New prednisone 10 mg tablets,dose pack See Taper PO DIRECTED Qty: 48 0RF Taper: Prednisone 10mg taper 60 mg Daily for 3 Days and 0 Hour 50 mg Daily for 3 Days and 0 Hour 40 mg Daily for 3 Days and 0 Hour 30 mg Daily for 3 Days and 0 Hour 20 mg Daily for 3 Days and 0 Hour 10 mg Daily for 3 Days 5 mg Daily for 3 Days Rx Instructions: see taper instructions Continued sertraline 100 mg tablet 200 mg PO DAILY Qty: 180 3RF ipratropium-albuterol 0.5 mg-3 mg(2.5 mg base)/3 mL solution for nebulization 3 ml inhalation QID PRN (Reason: shortness of breath) Qty: 360 3RF budesonide-formoterol [Symbicort] 80-4.5 mcg/actuation HFA aerosol inhaler 2 puff inhalation BID Qty: 10.2 8RF Spiriva Respimat 1.25 mcg/actuation mist 2 puff inhalation DAILY Qty: 12 3RF albuterol sulfate 90 mcg/actuation HFA aerosol inhaler 2 puff IH QID PRN (Reason: shortness of breath) Qty: 18 4RF acetaminophen [Tylenol Extra Strength] 500 mg tablet 1,000 mg PO Q4H PRN (Reason: pain) Qty: 30 0RF famotidine [Pepcid] 20 mg tablet 20 mg PO BID Qty: 60 0RF Discharge Instructions Instructions: Exacerbation of COPD Additional Instructions: taper steroids as directed. Stand Alone Forms: Nursing Discharge Form Referrals: Eliecer Howard MD [Primary Care Provider] - (Please call the office on Wednesday to make a follow up appointment for within 1 to 2 weeks. ) Activity:: Activity as Tolerated Equipment/Supplies:: No Equipment Needed Diet:: As Tolerated Discharge Orders Discharge Orders: Discharge Order (Routine); Ordered 09/17/24 Ordered By: Ceci Alvarenga Discharge Data Discharge Date/Time-TO BE ENTERED AT DEPARTURE: 09/17/24 14:10 DS: Summary Time Spent with Patient providing and/or coordinating discharge services: Less than 30 minutes Status at Discharge Functional status at discharge: independent ambulation Overall status at discharge: patient is progressing back to baseline Mental Status: mental status grossly normal Speech and Movement: speech and movement normal Mood: anxious mood Affect: anxious affect Quality:SDOH Health Related Social Needs: Health related social needs food insecurity(Z59.41), transportation insecurity(Z59.82), material hardship(utilities)(Z59.87) Exam Const General: cooperative and no acute distress Nutritional Appearance: average body habitus Orientation: alert, awake and oriented x3 HENMT Head: normal to inspection Teeth and gingiva: abnormal dentition, abnormal tooth or associated gingiva and poor dentition (Missing teeth, severe decay. Tartar gingivitis) Resp Effort & Inspection: normal respiratory effort, able to speak in complete sentences and not labored Auscultation: no crackles, no rhonchi and wheezes (Expiratory scattered) Cardio Rate: regular rate and tachycardic GI Inspection: normal to inspection Skin General skin exam: no rashes or lesions noted Neuro General: patient alert, patient awake and patient oriented x3 Psych Appearance: disheveled Mental Status: mental status grossly normal Speech and Movement: speech and movement normal Mood: anxious mood Affect: anxious affect Attitude: cooperative Insight: fair Judgment: fair DS: Data Vitals/I&O Vitals and I&O: Vital Signs Temperature 37.3 C 09/17/24 11:07 Temperature Source Tympanic 09/17/24 11:07 Pulse 112 H 09/17/24 11:07 Pulse 105 H 09/14/24 19:46 Respiratory Rate 19 09/17/24 11:07 Respiratory Effort Normal, Short of Breath 09/14/24 20:02 Respiratory Depth Normal 09/14/24 20:02 Respiratory Pattern Normal 09/14/24 20:02 Blood Pressure 148/79 H 09/17/24 11:07 Blood Pressure Mean 133 09/14/24 19:46 Blood Pressure Position Sitting 09/14/24 16:05 Pulse Oximetry 94 09/17/24 11:07 Oxygen Delivery Method Room Air 09/17/24 11:07 Oxygen Flow Rate 0 09/17/24 11:07 Pain Level 6 09/17/24 11:07 Comment RN notified of vitals 09/15/24 07:51 Intake & Output 09/16/24 09/17/24 09/17/24 23:59 11:59 23:59 Intake Total 900 / 1400 310 / 310 Balance 900 / 1400 310 / 310 Intake: IV 250 / 250 Oral 650 / 1150 300 / 300 Other: Urine Color Yellow Yellow Urine Appearance Clear Clear Urine Odor Normal Comment voiding independently into toilet Stool Size Moderate Stool Characteristics Formed Hard Brown Data Completed and Pending Labs on day of discharge: Labs from last 24 hours 09/17/24 06:08 WBC 17.55 H RBC 4.84 Hgb 13.7 Hct 42.9 MCV 89 MCH 28.3 MCHC 31.9 L RDW 13.9 Plt Count 177 MPV 9.5 Immature Gran % 0.6 Neutrophils % 90.3 Lymphocytes % 5.8 Monocytes % 3.1 Eosinophils % 0.0 Basophils % 0.2 Nucleated RBC % 0.0 Absolute Neutrophils 15.85 H Absolute Lymphocytes 1.02 L Absolute Monocytes 0.54 Absolute Eosinophils 0.00 Absolute Basophils 0.04 Sodium 141 Potassium 5.1 Chloride 103 Carbon Dioxide 27.7 Anion Gap 10.3 BUN 33 H Creatinine 1.3 Est GFR (CKD-EPI 2020) 62.50 Glucose 130 H Calcium 9.6 PFSH All Active Problems (Updated 09/16/24 @ 17:20 by Rachel Stern APRN) Epigastric abdominal tenderness (Acute) Full code status (Acute) Acute insomnia (Acute) Nausea (Acute) DVT prophylaxis (Acute) Callus of toe (Acute) Avulsed toenail (Acute) Constipation (Acute) Anxiety (Chronic) Sexuality issues (Acute) Incarcerated umbilical hernia (Acute) Periumbilical hernia (Acute) Abdominal pain (Acute) Right foot pain (Acute) Hypermagnesemia (Acute) Influenza (Acute) COPD with acute exacerbation (Acute) Acute dehydration (Acute) 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) Raynauds phenomenon (Acute) Right lumbar radiculopathy (Acute) Community acquired pneumonia (Acute) COPD (chronic obstructive pulmonary disease) (Chronic 02/14/15) PFT's show severe obstructive disease with bronchodilator response; PFT 02/13/2015, [id number]%, FEV1/FVC 67%, post BD FEV1 50% FEV1/FVC 72% Depressive disorder (Chronic) Gastroesophageal reflux disease (Chronic) History of tobacco use (Chronic) 48 pack years Sarcoidosis (Chronic 02/04/16) Shortness of breath (Chronic) Ventral hernia (Chronic) Medical History Chronic kidney disease, stage 3a Upper respiratory infection w/ bronchospasm Pneumonia needs to quit smoking HUBER (acute kidney injury) Family History Father , from complications of pneumonia Diabetes Stroke Mother , from diabetic complications including abscess/infection Depression Diabetes Social History (Updated 09/14/24 @ 21:12 by Winston Grossman) Smoking/Tobacco Use Status: Current every day Tobacco Type: cigarettes Smoking risk assessment performed?: Yes Alcohol Intake: former Year quit: 1998 Drug use: Never Substance use type: does not use Details: Pt currently Vapes 2-3 times a week. Housing: house Do you feel safe at home: Yes Do you feel safe in your relationship?: Yes Additional Social history: lives alone in off-grid home in [facility] with wood Time Spent with Patient Time Spent with Patient: <45 minutes Time was spent: preparing to see the patient(eg.review tests), obtaining and/or reviewing separately otained hiistory, ordering medications,tests, procedures, indepentently interpreting results and counseling the patient
--- NOTE | 2024-09-17 16:30 | PDOC.CMDIS ---
Date of service: 09/17/24 Time of Service: 16:30 LACE Index Scoring Tool Questions: Length of Stay (in days): 3 Was the patient admitted via the E.D.?: Yes Comorbidities: Chronic Pulmonary Disease and Liver or Renal Disease E.D. Visits: 3 Answers: Total Score: 14 Risk of Readmission: High Risk Care Management Discharge Plan Reason for Hospitalization: COPD exacerbation Discharge Plan: Matt returned home today with no new services. He was hesitant to discharge when speaking to his RN; CM met with him and discussed his concerns. He stated that he feels he would be more successful at home with the nebulizer mask he has been using at [facility]. CM discussed this with respiratory, who was able to provide some masks for him to return home with. Matt transported home via private vehicle by family. He will follow up with his PCP and discharge plan of care. After discussion, he expressed feeling ready for discharge, and was happy to be going home. Patient/Family Education Needs: Review discharge instructions and limitations, discussion of self care needs including ask me three. SDOH Health Related Social Needs: Health related social needs food insecurity(Z59.41), transportation insecurity(Z59.82), material hardship(utilities)(Z59.87) Health related social needs: food insecurity(Z59.41), transportation insecurity(Z59.82) and material hardship(utilities)(Z59.87)
== END 2024-09-17 14:10 | disposition home or self-care (01) ==
LOC: ER 19:35 → MS 19:52
PROVIDERS: Family Medicine; Nurse Practitioner Acute Care; Admitting Provider Family Medicine; Emergency Provider Emergency Medicine; PCP Family Medicine; Visit Provider Family Medicine
DX: J44.1 Chronic obstructive pulmonary disease with (acute) exacerbation (principal); K75.81 Nonalcoholic steatohepatitis (NASH); K74.69 Other cirrhosis of liver; N18.31 Chronic kidney disease, stage 3a; F32.A Depression, unspecified; G47.00 Insomnia, unspecified; R11.0 Nausea; R10.816 Epigastric abdominal tenderness; Z79.899 Other long term (current) drug therapy; R06.82 Tachypnea, not elsewhere classified; F17.210 Nicotine dependence, cigarettes, uncomplicated; I73.00 Raynaud's syndrome without gangrene; K21.9 Gastro-esophageal reflux disease without esophagitis
CPT/HCPCS: 00123; 36415; 80048; 80053; 82805; 87637; 93005; 94640; 96365; 96366; 96367; 96372; 96375; 96376; 99285; J1650; 71046; 83735; 85025; 93010; 94664; 94667; 94668; 94760; 99223; 99233; 99239; G0378; J0456; J1956; J2270; J2470; J2919; J3475; J7512; J7613; J7614; J7620; J7644

== ENCOUNTER 2024-11-06 16:06 | Inpatient (IN) | payer MEDICAID, SELFPAY ==
[2024-11-06] VITALS (44 sets, daily range): BP systolic 121–156; BP diastolic 58–82; PULSE 90–116; RESP 9–38; TEMP 36.3–37.5; O2SAT 91–99
--- NOTE | 2024-11-06 16:15 | RT.EKG_ITS ---
APPROVED REPORT Exam: Resting ECG Reason for Exam: near syncope Patient Location: E HR:106 bpm ECG Measurements Heart Rate 106 AXIS OK 130 P 53 QRSd 84 QRS 27 QT 329 T 64 QTc 438 Conclusion Sinus tachycardia 106 +pvc normal axis no stemi
--- NOTE | 2024-11-06 16:22 | W.ED.GENAD ---
Discharge Plan Disposition Patient Disposition: Admit to [facility] Condition: Stable Discharge Details Clinical Impression: Bilateral pneumonia, COPD exacerbation, Syncope Primary Care Provider: Eliecer Howard ED Provider: Benson Chicas Home Meds and New Rx's Prescriptions: No Action ipratropium-albuterol 0.5 mg-3 mg(2.5 mg base)/3 mL solution for nebulization 3 ml inhalation QID PRN (Reason: shortness of breath) Qty: 360 3RF budesonide-formoterol [Symbicort] 80-4.5 mcg/actuation HFA aerosol inhaler 2 puff inhalation BID Qty: 10.2 8RF Spiriva Respimat 1.25 mcg/actuation mist 2 puff inhalation DAILY Qty: 12 3RF albuterol sulfate 90 mcg/actuation HFA aerosol inhaler 2 puff IH QID PRN (Reason: shortness of breath) Qty: 18 4RF acetaminophen [Tylenol Extra Strength] 500 mg tablet 1,000 mg PO Q4H PRN (Reason: pain) Qty: 30 0RF HPI General Date/Time Provider Initiated Documentation: 11/06/24 16:22. HPI Narrative: 59 year-old male presents to ED today by EMS with a chief complaint of shortness of breath, possible syncope, states he has severe COPD but is 2.5 months smoke-free and went for a walk around his property, upon returning home he was incredibly short of breath and weak, he fell or collapsed at home and could not get up, states that he has had intermittent fevers and cough with onset for the past couple days. Quality described as severe shortness of breath, cough, intermittent chills/fever, some mild chest pain at incident which was about 1.5 hours before arrival lasting less than 5 minutes, no radiation to active chest pain, hypoxia at triage, nausea or vomiting, diarrhea, black or bloody stools, endorses mild upper abdominal pain. Severity is described as moderate. Palliating factors include nothing specific attempted. Provoking factors include walking/exertion. Patient not anticoagulated. Related Data Home Medications ?Medication ?Instructions ?Recorded ?Confirmed acetaminophen 500 mg tablet 1,000 mg (2 x 500 mg) PO Q4H PRN 10/09/19 11/06/24 (Tylenol Extra Strength) pain #30 tabs budesonide-formoterol HFA 80 2 puff inhalation BID #10.2 grams 02/09/24 11/06/24 mcg-4.5 mcg/actuation aerosol inhaler (Symbicort) ipratropium 0.5 mg-albuterol 3 mg 3 ml inhalation QID PRN shortness 02/09/24 11/06/24 (2.5 mg base)/3 mL nebulization of breath #360 mL soln tiotropium bromide 1.25 2 puff inhalation DAILY #12 grams 02/09/24 11/06/24 mcg/actuation mist for inhalation (Spiriva Respimat) albuterol sulfate 90 mcg/actuation 2 puff inhalation QID PRN 09/08/24 11/06/24 aerosol inhaler shortness of breath #18 grams Previous Rx's ?Medication ?Instructions ?Recorded acetaminophen 500 mg tablet 1,000 mg (2 x 500 mg) PO Q4H PRN 10/09/19 (Tylenol Extra Strength) pain #30 tabs budesonide-formoterol HFA 80 2 puff inhalation BID #10.2 grams 02/09/24 mcg-4.5 mcg/actuation aerosol inhaler (Symbicort) ipratropium 0.5 mg-albuterol 3 mg 3 ml inhalation QID PRN shortness 02/09/24 (2.5 mg base)/3 mL nebulization of breath #360 mL soln tiotropium bromide 1.25 2 puff inhalation DAILY #12 grams 02/09/24 mcg/actuation mist for inhalation (Spiriva Respimat) albuterol sulfate 90 mcg/actuation 2 puff inhalation QID PRN 09/08/24 aerosol inhaler shortness of breath #18 grams Allergies Allergy/AdvReac Type Severity Reaction Status Date / Time Penicillins Allergy RASH Verified 11/06/24 16:17 aspirin AdvReac UPSET Verified 11/06/24 16:17 STOMACH General Stated Complaint: Fever ALMAS: 3 Review of Systems All systems reviewed & are unremarkable except as noted in HPI and below Exam Narrative Exam Narrative: GENERAL APPEARANCE: Well-nourished, non-toxic, awake and alert, atraumatic, no acute distress. SKIN: Warm, pink, dry, intact, without rashes/lesions/ulcerations. HEAD: Normocephalic, atraumatic, normal hair distribution for gender/age. EYES: Normal conjunctiva, no exudates on lids/lashes. ENT: Nares patent, no circumoral cyanosis, no facial swelling NECK: Supple, trachea midline, painless cervical ROM. LUNGS/CHEST: Diffuse wheezing, no rales, labored respirations without hypoxia, SpO2 93%, normal A/P diameter, symmetrical expansion, no chest wall deformity HEART (CV/PV): Regular rate and rhythm without murmur, no peripheral edema, no JVD. ABDOMEN: Soft, non-distended, no guarding, mild epigastric tenderness without rebound tenderness, negative Dumont's sign, no McBurney's point tenderness. MSK: Normal ROM, no swelling/deformity to bilateral UEs or LEs, moving all extremities without weakness, no cyanosis, spine midline without tenderness, normal curvature. NEURO: Mental Status AAOx4 - alert to person, place, time, events No facial droop, no forehead involvement. Motor: No focal weakness - strength 5/5 in bilateral UEs and LEs, proximal and distal, symmetric. Sensory: sensation intact to light touch globally. Gait normal: patient ambulated without ataxia into ED room. PSYCH: euthymic, cooperative, pleasant, appropriate speech Course Vital Signs Vital signs: Vital Signs Temperature 37.5 C 11/06/24 16:10 Pulse 110 H 11/06/24 16:10 Respiratory Rate 18 11/06/24 16:10 Blood Pressure 150/71 H 11/06/24 16:10 Pulse Oximetry 92 11/06/24 16:10 Temperature 37.5 C 11/06/24 16:10 Temperature Source Oral 11/06/24 16:10 Pulse 110 H 11/06/24 16:10 Respiratory Rate 18 11/06/24 16:10 Blood Pressure 150/71 H 11/06/24 16:10 Blood Pressure Position Supine 11/06/24 16:10 Pulse Oximetry 92 11/06/24 16:10 Oxygen Delivery Method Room Air 11/06/24 16:10 Oxygen Flow Rate 0 11/06/24 16:10 Medical Decision Making This dictation utilizes [id number] dictation software and may contain unedited grammatical errors. 59 year-old male presents to ED today by EMS with a chief complaint of shortness of breath, possible syncope, states he has severe COPD but is 2.5 months smoke-free and went for a walk around his property, upon returning home he was incredibly short of breath and weak, he fell or collapsed at home and could not get up, states that he has had intermittent fevers and cough with onset for the past couple days. Quality described as severe shortness of breath, cough, intermittent chills/fever, some mild chest pain at incident which was about 1.5 hours before arrival lasting less than 5 minutes, no radiation to active chest pain, hypoxia at triage, nausea or vomiting, diarrhea, black or bloody stools, endorses mild upper abdominal pain. Severity is described as moderate. Palliating factors include nothing specific attempted. Provoking factors include walking/exertion. Patients' medical history: Sarcoidosis, COPD, GERD, liver cirrhosis, periumbilical hernia, CKD stage III. Family and social history: Heavy tobacco use until 2.5 months ago, denies EtOH use, no recent travel no sick contacts. Pertinent exam findings / vital signs include diffuse wheezing with labored respirations without severe hypoxia, SpO2 93% on room air, benign cardiac exam, mild epigastric tenderness, afebrile currently, mild tachycardia. Differential / pathologies of concern include pneumonia, PE, COPD exacerbation, ACS, pancreatitis, syncope, sepsis, viral syndrome. Diagnostic studies of: -CBC, CMP, VBG, D-dimer, serial troponins, lipase, UA, COVID/flu/RSV PCR, EKG, CTA chest PE study. -CBC shows leukocytosis to 15.6 with mild increase in immature granulocytes -CMP shows baseline creatinine, no other actionable abnormality -VBG shows respiratory alkalosis -Initial troponin 18, repeat 27, do not suspect ACS -Lipase negative -COVID/flu/RSV negative -D-dimer positive, reflex to CTA of the chest -CTA of the chest shows bilateral lower lobe infiltrates left greater than right -EKG shows sinus tachycardia at 106 bpm with slightly prolonged MO interval, polymorphic P waves, narrow complex QRS with normal axis, good R wave progression, 1 PVC, no signs of ischemic changes at this time, consistent with priors Interventions of: -Given 1g Tylenol, offered 324mg ASA CH but patient refused due to GI upset reaction despite counseling that this is warranted in chest pain regardless of gastritis. -9mL DuoNeb, 125mg IV methylprednisolone, 1gm IV Magnesium over 30 mins for SOB -IV Ceftriaxone 1gm, IV Azithromycin 500mg for CAP coverage ED Course/Assessment/Plan: 59-year-old male had an episode of possible syncope at home possibly due to hypoxia in the setting of COPD, after taking a lengthy walk he was exhausted and collapsed at his home was unable to get up, his cardiac workup is negative but CT shows bilateral infiltrates left greater than right indicating a possible pneumonia in the setting of chronic COPD, he has mild hypoxia after 9 mL DuoNeb at rest and hospital bed, his dimer was positive but there is negative PE findings on his CTA, he is persistently tachycardic and has a leukocytosis of 15.6 with increase in immature granulocytes indicating early left shift likely. He was given empiric ceftriaxone and azithromycin as well as IV methylprednisolone and IV magnesium for shortness of breath, he refused aspirin for his chest pain, I consulted with hospitalist Dr. Randolph to admit the patient for bilateral pneumonia and COPD exacerbation accepted around 2029. Findings not consistent with ACS, PE. Disposition of COPD Exacerbation, Bilateral Pneumonia, Syncope. Patient verbalized understanding of the plan and return to ED criteria and engaged in shared decision making. Medical Records Medical records reviewed: Yes I reviewed the patient's medical records. Imaging Data Radiologic Study: Attestation: I personally reviewed and interpreted this imaging study as follows: Imaging: CT Scan Radiologist's impression: EXAM: CT CHEST PE CTA CLINICAL HISTORY: elev, d-dimer, dizziness SOB. TECHNIQUE: Imaging Protocol: Axial CT angiography was performed with multi-slice acquisition and multi-planar reconstructions as well as axial, coronal and sagittal MIP reconstructions. Computer aided detection (CAD) was utilized. CONTRAST MATERIAL: Intravenous: Omnipaque 350 Contrast volume:100 ml COMPARISON: CT CHEST FOR PULMONARY EMBOLUS from 03/10/[address] ABDOMEN PELVIS W from 07/25/2022 CR XR CHEST 2V PA LATERAL from 09/14/2024 FINDINGS: Pulmonary Arteries: No evidence of filling defect to suggest pulmonary emboli. Mediastinum and [place]: No dominant adenopathy or fluid collection. Pulmonary parenchyma: No dominant measurable mass. Patchy infiltrates noted in the posterior left lower lobe. Additional mild infiltrates seen posteriorly in the superior segment of the right lower lobe. Pleura: No effusion or pneumothorax. Heart: The heart is not dilated. No coronary artery calcifications are seen. Mild aortic and mitral annular calcifications. Aorta: Thoracic aorta non-dilated. No dissection. Upper abdomen: Enlarged liver with cirrhotic contour again noted. Enlarged spleen. Bones: Levoscoliosis upper thoracic spine. Tubes, Catheters, and Lines: None Soft tissues: Unremarkable. IMPRESSION: No evidence of pulmonary embolism. Bilateral lower lobe infiltrates, left greater than right. Lab Data Lab results reviewed: Yes I reviewed the patient's lab results. Labs: Laboratory Tests Range/Units 11/06/24 11/06/24 11/06/24 16:35 16:50 17:30 WBC (4.4-10.8) 10^3/uL 15.64 H RBC (4.36-5.78) 10^6/uL 4.92 Hgb (13.5-17.5) g/dL 13.9 Hct (40.0-50.0) % 42.1 MCV (80-95) fL 86 MCH (27.0-33.0) pg 28.3 MCHC (32.0-36.0) % 33.0 RDW (11.8-14.1) % 14.3 H Plt Count (130-400) 10^3/uL 169 MPV (8.0-11.0) fL 9.5 Immature Gran % % 0.5 Neutrophils % % 86.0 Lymphocytes % % 4.0 Monocytes % % 8.2 Eosinophils % % 0.9 Basophils % % 0.4 Nucleated RBC % (0.0-0.3) % 0.0 Absolute Neutrophils (1.2-6.7) 10^3/uL 13.45 H Absolute Lymphocytes (1.2-3.4) 10^3/uL 0.63 L Absolute Monocytes (0.1-0.8) 10^3/uL 1.28 H Absolute Eosinophils (0.0-0.7) 10^3/uL 0.14 Absolute Basophils (0.0-0.2) 10^3/uL 0.06 D-Dimer (<500) ng/mlFEU 943 H VBG pH (7.31-7.41) 7.43 H VBG pCO2 (41-51) mmHg 37 L VBG pO2 mmHg 48 VBG HCO3 (23-28) mmol/L 24 VBG Total CO2 (24-29) mmol/L 22 L VBG O2 Saturation % 89 VBG Base Excess (-2-3) mmol/L 0 VBG Lactate (0.6-1.4) mmol/L 0.8 Sodium (136-145) mmol/L 138 Potassium (3.5-5.1) mmol/L 4.1 Chloride (98-107) mmol/L 102 Carbon Dioxide (21.0-32.0) mmol/L 24.9 Anion Gap (3-11) mmol/L 11.1 H BUN (7-18) mg/dL 23 H Creatinine (0.70-1.30) mg/dL 1.4 H Est GFR (CKD-EPI 2020) (mL/min/1.73m2) 57.18 Glucose (74-106) mg/dL 118 H Calcium (8.5-10.1) mg/dL 9.3 Magnesium (1.8-2.4) mg/dL 1.9 Total Bilirubin (0.2-1.0) mg/dL 0.84 AST (15-37) U/L 22 ALT (16-63) U/L 24 Alkaline Phosphatase (46-116) U/L 98 Troponin I (<or=76) ng/L 18 27 Total Protein (6.4-8.2) g/dL 8.2 Albumin (3.4-5.0) g/dL 4.0 Lipase (<78) U/L 22 COVID-19 Source Nasopharynx SARS-CoV-2 (PCR) (Negative) Negative Influenza Type A (PCR) (Negative) Negative Influenza Type B (PCR) (Negative) Negative RSV (PCR) (Negative) Negative Quality:SDOH Health Related Social Needs: Health related social needs transportation insecurity(Z59.82), problem related to primary support group(Z63.9) PFSH All Active Problems (Updated 11/06/24 @ 21:17 by DARBY Campos) Syncope (Chronic) COPD exacerbation (Acute) Bilateral pneumonia (Acute) Epigastric abdominal tenderness (Acute) Full code status (Acute) Acute insomnia (Acute) Nausea (Acute) Callus of toe (Acute) Avulsed toenail (Acute) Constipation (Acute) Anxiety (Chronic) Sexuality issues (Acute) Incarcerated umbilical hernia (Acute) Periumbilical hernia (Acute) Abdominal pain (Acute) Right foot pain (Acute) Hypermagnesemia (Acute) Influenza (Acute) COPD with acute exacerbation (Acute) Acute dehydration (Acute) 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) Raynauds phenomenon (Acute) Right lumbar radiculopathy (Acute) Community acquired pneumonia (Acute) COPD (chronic obstructive pulmonary disease) (Chronic 02/14/15) PFT's show severe obstructive disease with bronchodilator response; PFT 02/13/2015, [id number]%, FEV1/FVC 67%, post BD FEV1 50% FEV1/FVC 72% Depressive disorder (Chronic) Gastroesophageal reflux disease (Chronic) History of tobacco use (Chronic) 48 pack years Sarcoidosis (Chronic 02/04/16) Shortness of breath (Chronic) Ventral hernia (Chronic) Medical History Chronic kidney disease, stage 3a Upper respiratory infection w/ bronchospasm Pneumonia needs to quit smoking HUBER (acute kidney injury) Family History Father , from complications of pneumonia Diabetes Stroke Mother , from diabetic complications including abscess/infection Depression Diabetes Social History Smoking/Tobacco Use Status: Current every day Tobacco Type: cigarettes Counseling given: provider counseling Smoking risk assessment performed?: Yes Alcohol Intake: former Year quit: 1998 Drug use: Never Substance use type: does not use Details: Pt currently Vapes 2-3 times a week. Housing: house Do you feel safe at home: Yes Do you feel safe in your relationship?: Yes Additional Social history: lives alone in off-grid [place] [facility] with wood
[2024-11-06 16:41] LABS: BE (Venous) 0 mmol/L (-2-3); HCO3 (Venous) 24 mmol/L (23-28); Lactate 0.8 mmol/L (0.6-1.4); O2 Sat (Venous) 89 %; TCO2 (Venous) 22 mmol/L (24-29); pCO2 (Venous) 37 mmHg (41-51); pH (Venous) 7.43 (7.31-7.41); pO2 (Venous) 48 mmHg
[2024-11-06 16:44] LABS: Abs Immature Grans 0.08 10^3/uL (0.0-0.06); Absolute Basophil Count 0.06 10^3/uL (0.0-0.2); Absolute Eosinophil Count 0.14 10^3/uL (0.0-0.7); Absolute Lymphocyte Count 0.63 10^3/uL (1.2-3.4); Absolute Monocyte Count 1.28 10^3/uL (0.1-0.8); Absolute Neutrophil Count 13.45 10^3/uL (1.2-6.7); Basophils % 0.4 %; Eosinophils % 0.9 %; HCT 42.1 % (40.0-50.0); HGB 13.9 g/dL (13.5-17.5); Immature Grans % 0.5 %; MCH 28.3 pg (27.0-33.0); MCV 86 fL (80-95); MPV 9.5 fL (8.0-11.0); Monocytes % 8.2 %; Platelet Count 169 10^3/uL (130-400); RBC 4.92 10^6/uL (4.36-5.78); RDW 14.3 % (11.8-14.1); RDW-SD 44.7 fL; WBC 15.64 10^3/uL (4.4-10.8)
[2024-11-06 17:01] LABS: ALT 24 U/L (16-63); AST 22 U/L (15-37); Alkaline Phosphatase 98 U/L (46-116); Anion Gap 11.1 mmol/L (3-11); BUN 23 mg/dL (7-18); Bilirubin, Total 0.84 mg/dL (0.2-1.0); CO2 24.9 mmol/L (21.0-32.0); CREATININE 1.4 mg/dL (0.70-1.30); Calcium 9.3 mg/dL (8.5-10.1); Chloride 102 mmol/L (98-107); Estimated GFR 57.18 (mL/min/1.73m2); Glucose 118 mg/dL (74-106); Lipase 22 U/L (<78); Magnesium 1.9 mg/dL (1.8-2.4); Potassium 4.1 mmol/L (3.5-5.1); Sodium 138 mmol/L (136-145); Total Protein 8.2 g/dL (6.4-8.2); Troponin I 18 ng/L (<or=76)
[2024-11-06] MEDS: Albuterol/Ipratropium 3 ML UPD VIAL 9 ML UPD (17:03)
[2024-11-06] MEDS: methylPREDNISolone SUCC 125 MG VIAL IVP (17:04)
[2024-11-06] MEDS: Acetaminophen 500 MG TAB 1000 MG PO (17:05)
[2024-11-06] MEDS: MAGNESIUM SULFATE 1 GM/100 ML BAG IV_INF (17:06)
[2024-11-06 17:19] LABS: D-Dimer 943 ng/mlFEU (<500)
[2024-11-06 17:35] LABS: COVID-19 PCR Negative (Negative); Influenza A PCR Negative (Negative); Influenza B PCR Negative (Negative); RSV PCR Negative (Negative)
[2024-11-06 17:37] LABS: Source Nasopharynx
[2024-11-06] MEDS: Normal Saline - Diluent 50 ML VIAL IJ (17:46)
[2024-11-06] MEDS: Omnipaque 350 MG/ML 100 ML BTL IJ (17:47)
[2024-11-06 17:54] LABS: Troponin I 27 ng/L (<or=76)
--- NOTE | 2024-11-06 18:07 | DI.CT_ITS ---
Exam(s) CT CHEST PE CTA EXAM: CT CHEST PE CTA CLINICAL HISTORY: elev, d-dimer, dizziness SOB. TECHNIQUE: Imaging Protocol: Axial CT angiography was performed with multi-slice acquisition and mu lti-planar reconstructions as well as axial, coronal and sagittal MIP reconstructions. Computer aided detection (CAD) was utilized. CONTRAST MATERIAL: Intravenous: Omnipaque 350 Contrast volume:100 ml COMPARISON: CT CHEST FOR PULMONARY EMBOLUS from 03/10/[address] ABDOMEN PELVIS W from 07/25/2022 CR XR CHEST 2V PA LATERAL from 09/14/2024 FINDINGS: Pulmonary Arteries: No evidence of filling defect to suggest pulmonary emboli. Mediastinum and [place]: No dominant adenopathy or fluid collection. Pulmonary parenchyma: No dominant measurable mass. Patchy infiltrates noted in the posterior left low er lobe. Additional mild infiltrates seen posteriorly in the superior segment of the right lower lob e. Pleura: No effusion or pneumothorax. Heart: The heart is not dilated. No coronary artery calcifications are seen. Mild aortic and mitral annular calcifications. Aorta: Thoracic aorta non-dilated. No dissection. Upper abdomen: Enlarged liver with cirrhotic contour again noted. Enlarged spleen. Bones: Levoscoliosis upper thoracic spine. Tubes, Catheters, and Lines: None Soft tissues: Unremarkable. IMPRESSION: No evidence of pulmonary embolism. Bilateral lower lobe infiltrates, left greater than right. RADIATION DOSE DELIVERED: Total DLP DATA REPOSITORY: All CT scans at this facility are submitted to the National Radiology Data Registry (NRDR) Dose Index Registry (DIR) with the [employer] (ACR). RADIATION OPTIMIZATION: All CT scans at this facility use at least one of these dose optimization te chniques: automated exposure control; mA and/or kV adjustment per patient size (includes targeted exa ms where dose is matched to clinical indication); or iterative reconstruction.
[2024-11-06] MEDS: cefTRIAXone 1 GM/50 ML BAG IVPB (18:43)
[2024-11-06 19:02] LABS: Bilirubin Negative (Negative); Blood Negative (Negative); Clarity Clear (Clear); Glucose Negative (Negative); Ketones Negative (Negative); Leukocyte Esterase Negative (Negative); Nitrite Negative (Negative); Urobilinogen 0.2 mg/dL (Up to 0.2); pH 6.5 (5-8)
[2024-11-06] MEDS: AZITHROMYCIN 500 MG in Normal Saline 250 ML 250 MG IVPB (19:24)
--- NOTE | 2024-11-06 19:43 | W.PM.HP.N ---
Date of service: 11/06/24 Time of Service: 19:43 Assessment and Plan Assessment and plan (1) Bilateral pneumonia: Status: Acute Assessment and plan: Pneumonia. Will continue dual antibiotic, check Legionella urinary antigen, and continue usual home regimen for COPD; I do not see that additional steroids are required at present. History of Present Illness History of Present Illness Chief Complaint: Cough, Sob Narrative: 59 male former smoker with COPD. here with several days of cough and increasing SOB. [place] feverish but no home temp. Today after taking a walk arrived home feeling greatly fatigued and more or less collapsed to the ground in a controlled way (this was elsewhere referenced as possible syncopal event but patient is very clear that it was not). No LOC. Here in ER findings of note for white count [address] showing bilateral lower lobe infiltrates (L>R). Cxx ordered and patient given doses of Rocephin and Zithro; also given duoneb and Solumedrol. I was asked to evaluate for admission. Patient states he feels comfortable now at rest. 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) Raynauds phenomenon (Acute) Right lumbar radiculopathy (Acute) Community acquired pneumonia (Acute) COPD (chronic obstructive pulmonary disease) (Chronic 02/14/15) PFT's show severe obstructive disease with bronchodilator response; PFT 02/13/2015, [id number]%, FEV1/FVC 67%, post BD FEV1 50% FEV1/FVC 72% Depressive disorder (Chronic) Gastroesophageal reflux disease (Chronic) History of tobacco use (Chronic) 48 pack years Sarcoidosis (Chronic 02/04/16) Shortness of breath (Chronic) Ventral hernia (Chronic) Medical History Chronic kidney disease, stage 3a Upper respiratory infection w/ bronchospasm Pneumonia needs to quit smoking HUBER (acute kidney injury) Family History Father , from complications of pneumonia Diabetes Stroke Mother , from diabetic complications including abscess/infection Depression Diabetes Social History Smoking/Tobacco Use Status: Current every day Tobacco Type: cigarettes Counseling given: provider counseling Smoking risk assessment performed?: Yes Alcohol Intake: former Year quit: 1998 Drug use: Never Substance use type: does not use Details: Pt currently Vapes 2-3 times a week. Housing: house Do you feel safe at home: Yes Do you feel safe in your relationship?: Yes Additional Social history: lives alone in off-grid home in [place] [facility] with [facility] Allergies and Home Medications Allergies Allergy/AdvReac Type Severity Reaction Status Date / Time Penicillins Allergy RASH Verified 11/06/24 16:17 aspirin AdvReac UPSET Verified 11/06/24 16:17 STOMACH Home Medications ?Medication ?Instructions ?Recorded ?Confirmed ?Type acetaminophen 500 mg tablet 1,000 mg (2 x 500 mg) PO Q4H PRN 10/09/19 11/06/24 Rx (Tylenol Extra Strength) pain #30 tabs budesonide-formoterol HFA 80 2 puff inhalation BID #10.2 grams 02/09/24 11/06/24 Rx mcg-4.5 mcg/actuation aerosol inhaler (Symbicort) ipratropium 0.5 mg-albuterol 3 mg 3 ml inhalation QID PRN shortness 02/09/24 11/06/24 Rx (2.5 mg base)/3 mL nebulization of breath #360 mL soln tiotropium bromide 1.25 2 puff inhalation DAILY #12 grams 02/09/24 11/06/24 Rx mcg/actuation mist for inhalation (Spiriva Respimat) albuterol sulfate 90 mcg/actuation 2 puff inhalation QID PRN 09/08/24 11/06/24 Rx aerosol inhaler shortness of breath #18 grams Exam Narrative Exam Narrative: 144/63, 111, 36.8, 23, 92% RA. HEENT atraumatic; neck supple; lungs few rales left base; heart RRR; abdomen soft and NT; extremities w/o edema; neuro: Ox3, lucid, moves all 4s Results Labs 11/06/24 16:35 11/06/24 16:35 Labs: Laboratory Results - last 24 hr 11/06/24 11/06/24 11/06/24 16:35 16:50 17:30 WBC 15.64 H RBC 4.92 Hgb 13.9 Hct 42.1 MCV 86 MCH 28.3 MCHC 33.0 RDW 14.3 H Plt Count 169 MPV 9.5 Immature Gran % 0.5 Neutrophils % 86.0 Lymphocytes % 4.0 Monocytes % 8.2 Eosinophils % 0.9 Basophils % 0.4 Nucleated RBC % 0.0 Absolute Neutrophils 13.45 H Absolute Lymphocytes 0.63 L Absolute Monocytes 1.28 H Absolute Eosinophils 0.14 Absolute Basophils 0.06 D-Dimer 943 H VBG pH 7.43 H VBG pCO2 37 L VBG pO2 48 VBG HCO3 24 VBG Total CO2 22 L VBG O2 Saturation 89 VBG Base Excess 0 VBG Lactate 0.8 Sodium 138 Potassium 4.1 Chloride 102 Carbon Dioxide 24.9 Anion Gap 11.1 H BUN 23 H Creatinine 1.4 H Est GFR (CKD-EPI 2020) 57.18 Glucose 118 H Calcium 9.3 Magnesium 1.9 Total Bilirubin 0.84 AST 22 ALT 24 Alkaline Phosphatase 98 Troponin I 18 27 Total Protein 8.2 Albumin 4.0 Lipase 22 Urine Color Urine Clarity Urine pH Ur Specific [place] Urine Protein Urine Ketones Urine Blood Urine Nitrite Urine Bilirubin Urine Urobilinogen Ur Leukocyte Esterase Urine Glucose COVID-19 Source Nasopharynx SARS-CoV-2 (PCR) Negative Influenza Type A (PCR) Negative Influenza Type B (PCR) Negative RSV (PCR) Negative 11/06/24 18:50 WBC RBC Hgb Hct MCV MCH MCHC RDW Plt Count MPV Immature Gran % Neutrophils % Lymphocytes % Monocytes % Eosinophils % Basophils % Nucleated RBC % Absolute Neutrophils Absolute Lymphocytes Absolute Monocytes Absolute Eosinophils Absolute Basophils D-Dimer VBG pH VBG pCO2 VBG pO2 VBG HCO3 VBG Total CO2 VBG O2 Saturation VBG Base Excess VBG Lactate Sodium Potassium Chloride Carbon Dioxide Anion Gap BUN Creatinine Est GFR (CKD-EPI 2020) Glucose Calcium Magnesium Total Bilirubin AST ALT Alkaline Phosphatase Troponin I Total Protein Albumin Lipase Urine Color Yellow Urine Clarity Clear Urine pH 6.5 Ur Specific [place] 1.010 Urine Protein Negative Urine Ketones Negative Urine Blood Negative Urine Nitrite Negative Urine Bilirubin Negative Urine Urobilinogen 0.2 Ur Leukocyte Esterase Negative Urine Glucose Negative COVID-19 Source SARS-CoV-2 (PCR) Influenza Type A (PCR) Influenza Type B (PCR) RSV (PCR) Last Vital Signs Temp 36.8 C 11/06/24 18:24 Pulse 111 H 11/06/24 18:24 Resp 23 11/06/24 18:24 BP 144/63 H 11/06/24 18:24 Pulse Ox 92 11/06/24 18:24 Time Spent Time spent with Patient: 40-54 minutes Time was spent: preparing to see the patient(eg.review tests), obtaining and/or reviewing separately otained hiistory, ordering medications,tests, procedures, referring, communicating with other health childcare center director and indepentently interpreting results
[2024-11-06] MEDS: Albuterol/Ipratropium 3 ML UPD VIAL UPD (21:31)
--- NOTE | 2024-11-06 22:09 | W.PC.ACHO ---
Registration Status: Primary Language: Preferred Language: ED Information & Data Chief Complaint Fever 11/06/24 16:22 Other Complaint Fall/Non TraumaCriteria 11/06/24 16:10 Triage Note Pt states he went for a walk 11/06/24 16:10 , stubbled and fell unable to get up. EMS states SOB, febrile and cough. Medical / Surgical History (Last Reviewed 11/06/24 @ 19:50 by Jonh Randolph MD) Chronic kidney disease, stage 3a Upper respiratory infection Pneumonia HUBER (acute kidney injury) Most Recent Vital Signs Temperature 36.8 C 11/06/24 18:24 Temperature Source Oral 11/06/24 18:24 Pulse 105 H 11/06/24 19:16 Pulse Rhythm Regular 11/06/24 18:24 Pulse Strength Normal 11/06/24 18:24 Pulse 92 H 11/06/24 22:00 Respiratory Rate 18 11/06/24 22:00 Respiratory Effort Normal, Non-Labored 11/06/24 18:24 Respiratory Depth Normal 11/06/24 18:24 Respiratory Pattern Normal 11/06/24 18:24 Blood Pressure 130/74 11/06/24 21:24 Blood Pressure Mean 92 11/06/24 21:24 Blood Pressure Position Supine 11/06/24 18:24 Pulse Oximetry 96 11/06/24 22:00 Oxygen Delivery Method Room Air 11/06/24 21:24 Oxygen Flow Rate 0 11/06/24 21:24 Allergies Penicillins Allergy (Verified 11/06/24 16:17) RASH aspirin Adverse Reaction (Verified 11/06/24 16:17) UPSET STOMACH Active Medications Generic Name Dose Route Start Last Admin Trade Name Vernonq PRN Reason Stop Dose Admin Albuterol/Ipratropium 3 ml 11/06/24 22:00 11/06/24 21:31 Albuterol/Ipratropium 3 Ml Upd Vial UPD 3 ml Q6H CHANTELLE Administration Ceftriaxone Sodium 1,000 mg/ 50 mls @ 100 mls/hr 11/06/24 20:00 11/06/24 20:02 Sodium Chloride IVPB Not Given Q24H CHANTELLE Azithromycin 250 mg/ Sodium 250 mls @ 250 mls/hr 11/06/24 20:00 11/06/24 20:01 Chloride IVPB Not Given Q24H CHANTELLE Iohexol 100 ml 11/06/24 18:00 11/06/24 17:47 Omnipaque 350 Mg/Ml 100 Ml Btl IJ 12/06/24 23:59 100 ml DIRECTED CHANTELLE Administration Sodium Chloride 50 ml 11/06/24 18:00 11/06/24 17:46 Normal Saline - Diluent 50 Ml Vial IJ 50 ml .FOR DI USE CHANTELLE Administration IV IV Catheter Type [Left Saline Lock Antecubital] IV Catheter Gauge [Left 20 Antecubital] Diet Orders Category Date Time Status Regular/Normal [DIET] Nutrition 11/07/24 Breakfast Ordered Diagnostics 11/06/24 11/06/24 11/06/24 Range/Units 20:40 18:50 17:30 WBC (4.4-10.8) 10^3/uL RBC (4.36-5.78) 10^6/uL Hgb (13.5-17.5) g/dL Hct (40.0-50.0) % MCV (80-95) fL MCH (27.0-33.0) pg MCHC (32.0-36.0) % RDW (11.8-14.1) % Plt Count (130-400) 10^3/uL MPV (8.0-11.0) fL Immature Gran % % Neutrophils % % Lymphocytes % % Monocytes % % Eosinophils % % Basophils % % Nucleated RBC % (0.0-0.3) % Absolute Neutrophils (1.2-6.7) 10^3/uL Absolute Lymphocytes (1.2-3.4) 10^3/uL Absolute Monocytes (0.1-0.8) 10^3/uL Absolute Eosinophils (0.0-0.7) 10^3/uL Absolute Basophils (0.0-0.2) 10^3/uL D-Dimer (<500) ng/mlFEU VBG pH (7.31-7.41) VBG pCO2 (41-51) mmHg VBG pO2 mmHg VBG HCO3 (23-28) mmol/L VBG Total CO2 (24-29) mmol/L VBG O2 Saturation % VBG Base Excess (-2-3) mmol/L VBG Lactate (0.6-1.4) mmol/L Sodium (136-145) mmol/L Potassium (3.5-5.1) mmol/L Chloride (98-107) mmol/L Carbon Dioxide (21.0-32.0) mmol/L Anion Gap (3-11) mmol/L BUN (7-18) mg/dL Creatinine (0.70-1.30) mg/dL Est GFR (CKD-EPI 2020) (mL/min/1.73m2) Glucose (74-106) mg/dL Calcium (8.5-10.1) mg/dL Magnesium (1.8-2.4) mg/dL Total Bilirubin (0.2-1.0) mg/dL AST (15-37) U/L ALT (16-63) U/L Alkaline Phosphatase (46-116) U/L Troponin I 27 (<or=76) ng/L Total Protein (6.4-8.2) g/dL Albumin (3.4-5.0) g/dL Lipase (<78) U/L Urine Color Yellow (Yellow) Urine Clarity Clear (Clear) Urine pH 6.5 (5-8) Ur Specific [place] 1.010 (1.005-1.025) Urine Protein Negative (Neg-Trace) mg/dL Urine Ketones Negative (Negative) mg/dL Urine Blood Negative (Negative) Urine Nitrite Negative (Negative) Urine Bilirubin Negative (Negative) Urine Urobilinogen 0.2 (Up to 0.2) mg/dL Ur Leukocyte Esterase Negative (Negative) Urine Glucose Negative (Negative) mg/dL COVID-19 Source SARS-CoV-2 (PCR) (Negative) Influenza Type A (PCR) (Negative) Influenza Type B (PCR) (Negative) Urine Legionella Ag Pending RSV (PCR) (Negative) 11/06/24 11/06/24 Range/Units 16:50 16:35 WBC 15.64 H (4.4-10.8) 10^3/uL RBC 4.92 (4.36-5.78) 10^6/uL Hgb 13.9 (13.5-17.5) g/dL Hct 42.1 (40.0-50.0) % MCV 86 (80-95) fL MCH 28.3 (27.0-33.0) pg MCHC 33.0 (32.0-36.0) % RDW 14.3 H (11.8-14.1) % Plt Count 169 (130-400) 10^3/uL MPV 9.5 (8.0-11.0) fL Immature Gran % 0.5 % Neutrophils % 86.0 % Lymphocytes % 4.0 % Monocytes % 8.2 % Eosinophils % 0.9 % Basophils % 0.4 % Nucleated RBC % 0.0 (0.0-0.3) % Absolute Neutrophils 13.45 H (1.2-6.7) 10^3/uL Absolute Lymphocytes 0.63 L (1.2-3.4) 10^3/uL Absolute Monocytes 1.28 H (0.1-0.8) 10^3/uL Absolute Eosinophils 0.14 (0.0-0.7) 10^3/uL Absolute Basophils 0.06 (0.0-0.2) 10^3/uL D-Dimer 943 H (<500) ng/mlFEU VBG pH 7.43 H (7.31-7.41) VBG pCO2 37 L (41-51) mmHg VBG pO2 48 mmHg VBG HCO3 24 (23-28) mmol/L VBG Total CO2 22 L (24-29) mmol/L VBG O2 Saturation 89 % VBG Base Excess 0 (-2-3) mmol/L VBG Lactate 0.8 (0.6-1.4) mmol/L Sodium 138 (136-145) mmol/L Potassium 4.1 (3.5-5.1) mmol/L Chloride 102 (98-107) mmol/L Carbon Dioxide 24.9 (21.0-32.0) mmol/L Anion Gap 11.1 H (3-11) mmol/L BUN 23 H (7-18) mg/dL Creatinine 1.4 H (0.70-1.30) mg/dL Est GFR (CKD-EPI 2020) 57.18 (mL/min/1.73m2) Glucose 118 H (74-106) mg/dL Calcium 9.3 (8.5-10.1) mg/dL Magnesium 1.9 (1.8-2.4) mg/dL Total Bilirubin 0.84 (0.2-1.0) mg/dL AST 22 (15-37) U/L ALT 24 (16-63) U/L Alkaline Phosphatase 98 (46-116) U/L Troponin I 18 (<or=76) ng/L Total Protein 8.2 (6.4-8.2) g/dL Albumin 4.0 (3.4-5.0) g/dL Lipase 22 (<78) U/L Urine Color (Yellow) Urine Clarity (Clear) Urine pH (5-8) Ur Specific [place] (1.005-1.025) Urine Protein (Neg-Trace) mg/dL Urine Ketones (Negative) mg/dL Urine Blood (Negative) Urine Nitrite (Negative) Urine Bilirubin (Negative) Urine Urobilinogen (Up to 0.2) mg/dL Ur Leukocyte Esterase (Negative) Urine Glucose (Negative) mg/dL COVID-19 Source Nasopharynx SARS-CoV-2 (PCR) Negative (Negative) Influenza Type A (PCR) Negative (Negative) Influenza Type B (PCR) Negative (Negative) Urine Legionella Ag RSV (PCR) Negative (Negative) 11/06/24 20:27 Blood Culture - Pending Blood 11/06/24 20:20 Blood Culture - Pending Blood Intake and Output - 24 Hour Total 11/06/24 15:57 thru 11/06/24 21:31 Intake Total 410 Balance 410 Weight 108.912 kg Intake: IV 410 Falls Risk Assessment History of Falls Previous History 11/06/24 16:50 Contributing Factors Impairments 11/06/24 16:50 Ambulatory Aids Independent 11/06/24 16:50 Tubes/Lines With any additional score 11/06/24 16:50 Gait Evaluation W/no contributing factors 11/06/24 16:50 Cognition No cognitive impairment 11/06/24 16:50 Fall Total Score 48 11/06/24 16:50 Level of Risk Moderate Risk 11/06/24 16:50 Problems (Last Reviewed 11/06/24 @ 19:50 by Jonh Randolph MD) Bilateral pneumonia (Acute) v v v v v v v v v Sending and/or Receiving Nurses: Please use comment section below to note any information pertinent to the patient hand-off not included above. Information / Comments: febrile, cough, chest xray with opacities. BC [id number] draw per . HR 94. 96% post nebulizer on room air 130/74. Azithro, ceftriaxone and solumedrol, tylenol for fever. 20G L AC Report received from: Joesph Chiang RN
[2024-11-07] VITALS (12 sets, daily range): BP systolic 107–127; BP diastolic 77–83; PULSE 77–93; RESP 5–20; TEMP 36.5–36.9; O2SAT 93–98
[2024-11-07] MEDS: Albuterol/Ipratropium 3 ML UPD VIAL UPD ×4 (04:50→21:48)
[2024-11-07] MEDS: Budesonide/Formoterol 80/4.5 6.9 GM 60 PUFF INH IH ×2 (07:56→20:42)
[2024-11-07] MEDS: Tiotropium Bromide-Respimat 10 PUFF INH 2 PUFF IH (07:57)
--- NOTE | 2024-11-07 10:06 | INITIAL_ITS ---
Date of service: 11/07/24 Time of Service: 10:06 Care Management Initial Assmt Initial Assessment Reason for Hospitalization: Pneumonia Functional Status/Living Situation Patient Presentation: Matt was sitting in a recliner when CM met with him. He is polite and easily engages in conversation. He came to the hospital yesterday after he fell and spent a couple hours on the floor. During conversation he states that he is still weak and wanted to know if he can get a wheelchair so he can scoot around in the [place]? Matt identifies that he's made some positive life changes in the last couple of months by quitting smoking and taking up hiking 2 miles a day. Due to Matt's recent fall he is wondering if he would be able to order lifeline? [place] [facility] [place] [facility] [facility] [place]/landline phone service on a piece of land he owns. He has a generator, heat (wood), running water (gravity fed) and a cell phone (with internet) that he charges at his neighbors. He has a car, drives and is independent at baseline. He is connected with [facility] and was receiving MOW, but is no longer interested. Town of Residence: [place] Resides with: Alone Natural Supports: Neighbor/Friend Trevor Bell Employment Status: Employed (somewhat, does not specify) Instrumental Activities of Daily Living (ADLs): Independent Activities/Hobbies/SocialSupport: Hiking, flower guardians Medications Medication Management: No Issues/Barriers identified Physical Functioning/Mobility Assistive Device: None Advance Directives Advance Directives: Do you have an Advance Directive: Y 08/29/19 13:22 AD On File at [facility]: N 10/11/14 09:25 Date Asked 11/06/24 11/06/24 16:13 AD Date Reviewed COLST On File at [facility] COLST Date Scanned Code Status Resuscitation Status Full Code Insurance Coverage/Financial Issues Insurance: Medicaid Financial Issues: Receives state benefits Care Team Visit Care Team Role Provider Type Eliecer Howard MD Primary Care Provider [facility] STAFF PHYSICIAN DARBY Campos Emergency Provider [facility] Jonh Randolph MD Admit Provider [facility] STAFF PHYSICIAN Attending Provider Discharge Potential Discharge Needs: PCP F/U Appt Anticipated Barriers to Discharge: Medical Status Patient/Family Education Needs: Review discharge instructions, discuss Ask Me Three Transportation: Private vehicle Plan: Anticipate, Matt will discharge home with [facility] services (if indicated) when medically ready. Awaiting PT recommendations. Will follow up with community providers and discharge plan of care as directed. CM will follow. Social Determinants of Health Screening Social Determinants of Health last assessed: 11/07/24 Will the Patient Participate in the Screening?: Yes Do you worry about having a steady place to live?: no Problems where you live: no known problems In the past 12 months, have you had to go without electric, gas, oil or water in your home?: choose not to answer Have you or anyone in your house had to go without enough food to eat?: choose not to answer Has lack of transportation kept you from medical appointments or from doing things needed for daily living?: choose not to answer Has anyone in your life made you feel unsafe or unsupported?: choose not to answer How hard is it for you to pay for the very basics like food, housing, medical care, and heating? Would you say it is:: Somewhat hard Do you want help finding or keeping work or a job?: I do not need or want help If for any reason you need help with day-to-day activities such as bathing, preparing meals, shopping, managing finances, etc., do you get the help you need?: I don?t need any help How often do you feel lonely or isolated from those around you?: Never Do you speak a language other than Tajik at home?: No Does the patient want assistance with any of the above?: No Health Related Social Needs Health related social needs: housing instability, housed, with risk of homelessness (Z59.811), material hardship(utilities) (Z59.12) and problems related to housing/economic circumstances (Z59.89) PFSH All Active Problems (Updated 11/06/24 @ 21:17 by DARBY Campos) Syncope (Chronic) COPD exacerbation (Acute) Bilateral pneumonia (Acute) Epigastric abdominal tenderness (Acute) Full code status (Acute) Acute insomnia (Acute) Nausea (Acute) Callus of toe (Acute) Avulsed toenail (Acute) Constipation (Acute) Anxiety (Chronic) Sexuality issues (Acute) Incarcerated umbilical hernia (Acute) Periumbilical hernia (Acute) Abdominal pain (Acute) Right foot pain (Acute) Hypermagnesemia (Acute) Influenza (Acute) COPD with acute exacerbation (Acute) Acute dehydration (Acute) 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) Raynauds phenomenon (Acute) Right lumbar radiculopathy (Acute) Community acquired pneumonia (Acute) COPD (chronic obstructive pulmonary disease) (Chronic 02/14/15) PFT's show severe obstructive disease with bronchodilator response; PFT 02/13/2015, [id number]%, FEV1/FVC 67%, post BD FEV1 50% FEV1/FVC 72% Depressive disorder (Chronic) Gastroesophageal reflux disease (Chronic) History of tobacco use (Chronic) 48 pack years Sarcoidosis (Chronic 02/04/16) Shortness of breath (Chronic) Ventral hernia (Chronic) Medical History Chronic kidney disease, stage 3a Upper respiratory infection w/ bronchospasm Pneumonia needs to quit smoking HUBER (acute kidney injury) Family History Father , from complications of pneumonia Diabetes Stroke Mother , from diabetic complications including abscess/infection Depression Diabetes Social History Smoking/Tobacco Use Status: Current every day Tobacco Type: cigarettes Counseling given: provider counseling Smoking risk assessment performed?: Yes Alcohol Intake: former Year quit: 1998 Drug use: Never Substance use type: does not use Details: Pt currently Vapes 2-3 times a week. Housing: house Do you feel safe at home: Yes Do you feel safe in your relationship?: Yes Additional Social history: lives alone in off-grid [place] in [place] [place] with marco antonio hou
[2024-11-07 13:09] LABS: Abs Immature Grans 0.11 10^3/uL (0.0-0.06); Absolute Eosinophil Count 0.04 10^3/uL (0.0-0.7); Absolute Lymphocyte Count 1.03 10^3/uL (1.2-3.4); Basophils % 0.3 %; Eosinophils % 0.2 %; HCT 39.2 % (40.0-50.0); HGB 12.9 g/dL (13.5-17.5); Immature Grans % 0.6 %; Lymphocytes % 5.2 %; MCH 28.5 pg (27.0-33.0); MCHC 32.9 % (32.0-36.0); MCV 87 fL (80-95); MPV 9.6 fL (8.0-11.0); Monocytes % 6.2 %; Neutrophils % 87.5 %; Platelet Count 174 10^3/uL (130-400); RBC 4.53 10^6/uL (4.36-5.78); RDW 14.6 % (11.8-14.1); RDW-SD 46.6 fL; WBC 19.82 10^3/uL (4.4-10.8)
[2024-11-07 13:10] LABS: Absolute Basophil Count 0.06 10^3/uL (0.0-0.2); Absolute Monocyte Count 1.23 10^3/uL (0.1-0.8); Absolute Neutrophil Count 17.34 10^3/uL (1.2-6.7)
[2024-11-07] MEDS: Enoxaparin 40 MG/0.4 ML SYR SC (13:11)
[2024-11-07 13:27] LABS: ALT 23 U/L (16-63); AST 21 U/L (15-37); Albumin 3.6 g/dL (3.4-5.0); Alkaline Phosphatase 95 U/L (46-116); Anion Gap 11.3 mmol/L (3-11); BUN 25 mg/dL (7-18); Bilirubin, Total 0.37 mg/dL (0.2-1.0); CO2 23.7 mmol/L (21.0-32.0); CREATININE 1.4 mg/dL (0.70-1.30); Calcium 9.5 mg/dL (8.5-10.1); Chloride 101 mmol/L (98-107); Estimated GFR 57.18 (mL/min/1.73m2); Glucose 150 mg/dL (74-106); Potassium 3.9 mmol/L (3.5-5.1); Sodium 136 mmol/L (136-145); Total Protein 7.8 g/dL (6.4-8.2)
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
--- NOTE | 2024-11-07 17:33 | W.PM.PROGNOT ---
Date of Service Date of service: 11/07/24 Time of Service: 17:33 Assessment and Plan Assessment and plan (1) Bilateral pneumonia: Status: Acute Assessment and plan: Continue azithro and ceftriaxone RT consult Legionella and strep urinary antigen pending, and continue usual home regimen for COPD IS Nebs (2) COPD exacerbation: Status: Acute Assessment and plan: Severe COPD No evidence of reactivation of sarcoid on his chest x-ray. Continue Methylprednisolone Continue azithromycin and ceftriaxone Continue home inhalers and nebulized bronchodilators prn. Subjective Subjective Patient reports: no new complaints, feels better, tolerating a regular diet, voiding w/o difficulty and bowel movement; denies diarrhea, vomiting or fever Exam Const General: cooperative and no acute distress Nutritional Appearance: average body habitus Orientation: alert, awake and oriented x3 HENMT Head: normal to inspection Teeth and gingiva: abnormal dentition, abnormal tooth or associated gingiva and poor dentition (Missing teeth, severe decay. Tartar gingivitis) Resp Effort & Inspection: normal respiratory effort, able to speak in complete sentences and not labored Auscultation: crackles (bilateral) and no rhonchi Cardio Rate: regular rate and tachycardic GI Inspection: normal to inspection Skin General skin exam: no rashes or lesions noted Neuro General: patient alert, patient awake and patient oriented x3 Psych Appearance: disheveled Mental Status: mental status grossly normal Speech and Movement: speech and movement normal Mood: anxious mood Affect: anxious affect Attitude: cooperative Insight: fair Judgment: fair Objective Last Vital Signs Temp 36.9 C 11/07/24 15:13 Pulse 90 11/07/24 16:44 Resp 18 11/07/24 16:29 BP 121/77 11/07/24 15:13 Pulse Ox 96 11/07/24 16:29 Laboratory Results - last 24 hr 11/06/24 11/06/24 11/06/24 16:50 17:30 18:50 WBC RBC Hgb Hct MCV MCH MCHC RDW Plt Count MPV Immature Gran % Neutrophils % Lymphocytes % Monocytes % Eosinophils % Basophils % Nucleated RBC % Absolute Neutrophils Absolute Lymphocytes Absolute Monocytes Absolute Eosinophils Absolute Basophils Sodium Potassium Chloride Carbon Dioxide Anion Gap BUN Creatinine Est GFR (CKD-EPI 2020) Glucose Calcium Magnesium Total Bilirubin AST ALT Alkaline Phosphatase Troponin I 27 Total Protein Albumin Urine Color Yellow Urine Clarity Clear Urine pH 6.5 Ur Specific [place] 1.010 Urine Protein Negative Urine Ketones Negative Urine Blood Negative Urine Nitrite Negative Urine Bilirubin Negative Urine Urobilinogen 0.2 Ur Leukocyte Esterase Negative Urine Glucose Negative COVID-19 Source Nasopharynx SARS-CoV-2 (PCR) Negative Influenza Type A (PCR) Negative Influenza Type B (PCR) Negative RSV (PCR) Negative 11/07/24 13:02 WBC 19.82 H RBC 4.53 Hgb 12.9 L Hct 39.2 L MCV 87 MCH 28.5 MCHC 32.9 RDW 14.6 H Plt Count 174 MPV 9.6 Immature Gran % 0.6 Neutrophils % 87.5 Lymphocytes % 5.2 Monocytes % 6.2 Eosinophils % 0.2 Basophils % 0.3 Nucleated RBC % 0.0 Absolute Neutrophils 17.34 H Absolute Lymphocytes 1.03 L Absolute Monocytes 1.23 H Absolute Eosinophils 0.04 Absolute Basophils 0.06 Sodium 136 Potassium 3.9 Chloride 101 Carbon Dioxide 23.7 Anion Gap 11.3 H BUN 25 H Creatinine 1.4 H Est GFR (CKD-EPI 2020) 57.18 Glucose 150 H Calcium 9.5 Magnesium 2.0 Total Bilirubin 0.37 AST 21 ALT 23 Alkaline Phosphatase 95 Troponin I Total Protein 7.8 Albumin 3.6 Urine Color Urine Clarity Urine pH Ur Specific [place] Urine Protein Urine Ketones Urine Blood Urine Nitrite Urine Bilirubin Urine Urobilinogen Ur Leukocyte Esterase Urine Glucose COVID-19 Source SARS-CoV-2 (PCR) Influenza Type A (PCR) Influenza Type B (PCR) RSV (PCR) Time Spent with Patient Time Spent with Patient: 25-34 minutes Time was spent: preparing to see the patient(eg.review tests), ordering medications,tests, procedures, referring, communicating with other health health care coordinator, indepentently interpreting results, counseling the patient and care coordination
[2024-11-07] MEDS: cefTRIAXone 1 GM/50 ML BAG IVPB (17:44)
[2024-11-07] MEDS: methylPREDNISolone SUCC 125 MG VIAL 40 MG IVP ×2 (18:25→23:42)
[2024-11-07] MEDS: Normal Saline Flush 10 ML SYR IVP ×2 (20:33→23:43)
[2024-11-07] MEDS: AZITHROMYCIN 500 MG in Normal Saline 250 ML 250 MG IVPB (20:34)
[2024-11-07] MEDS: Zolpidem 5 MG TAB PO (20:38)
[2024-11-07 23:17] LABS: Legionella Ag Detection Urine Negative (Negative)
[2024-11-08] VITALS (12 sets, daily range): BP systolic 101–138; BP diastolic 80–87; PULSE 82–109; RESP 2–19; TEMP 36.2–37.2; O2SAT 94–99
[2024-11-08] MEDS: Albuterol/Ipratropium 3 ML UPD VIAL UPD ×4 (03:00→21:32)
[2024-11-08] MEDS: methylPREDNISolone SUCC 125 MG VIAL 40 MG IVP ×2 (05:47→11:23)
[2024-11-08] MEDS: Normal Saline Flush 10 ML SYR IVP ×3 (05:48→20:22)
[2024-11-08 06:46] LABS: Abs Immature Grans 0.09 10^3/uL (0.0-0.06); Absolute Basophil Count 0.02 10^3/uL (0.0-0.2); Absolute Lymphocyte Count 0.69 10^3/uL (1.2-3.4); Absolute Monocyte Count 0.23 10^3/uL (0.1-0.8); Absolute Neutrophil Count 15.33 10^3/uL (1.2-6.7); Basophils % 0.1 %; HGB 12.9 g/dL (13.5-17.5); Immature Grans % 0.6 %; Lymphocytes % 4.2 %; MCH 28.5 pg (27.0-33.0); MCHC 33.1 % (32.0-36.0); MCV 86 fL (80-95); MPV 10.3 fL (8.0-11.0); Monocytes % 1.4 %; Neutrophils % 93.7 %; Platelet Count 190 10^3/uL (130-400); RBC 4.53 10^6/uL (4.36-5.78); RDW 14.7 % (11.8-14.1); RDW-SD 47.2 fL; WBC 16.36 10^3/uL (4.4-10.8)
[2024-11-08 07:02] LABS: Anion Gap 12.1 mmol/L (3-11); BUN 31 mg/dL (7-18); CO2 23.9 mmol/L (21.0-32.0); CREATININE 1.4 mg/dL (0.70-1.30); Calcium 9.6 mg/dL (8.5-10.1); Chloride 107 mmol/L (98-107); Estimated GFR 57.18 (mL/min/1.73m2); Glucose 171 mg/dL (74-106); Magnesium 2.1 mg/dL (1.8-2.4); Potassium 4.5 mmol/L (3.5-5.1); Sodium 143 mmol/L (136-145)
[2024-11-08] MEDS: Tiotropium Bromide-Respimat 10 PUFF INH 2 PUFF IH (07:52)
[2024-11-08] MEDS: Budesonide/Formoterol 80/4.5 6.9 GM 60 PUFF INH IH ×2 (07:52→20:26)
--- NOTE | 2024-11-08 09:22 | PT.INIE ---
Date of service: 11/08/24 Time of Service: 08:55 PT Notes Visit Reasons: Pneumonia Inpatient Physical Therapy Evaluation I certify the need for these services as being medically necessary and skilled as furnished under this plan of treatment while under my care. Please sign and return within 14 days if you agree with the plan of care listed below.? Thank you for this referral! ? Referring Physician? Date Referring Doctor:? Martha Alfredo PT Orders: PT CONSULT for D/C recommendations Precautions: fall risk, O2 levels Patient Profile/Admitting Diagnosis:? The patient is a 59 yo male adm on 11/06/24 for bilateral pneumonia and after a fall at home. Patient reports he had just been walking a little outside and came inside to remove his jacket and fell. Patient reports his shoulder has been painful and has had limited ROM since his fall. Past Medical History: Medications: See chart Social History/Home Situation: Lives alone in [place] with good friends and neighbors who are able to assist as needed. Has a one level tiny home. Previously was hiking up to 2 miles a day. Has a license but no vehicle. Uses [facility] for appointments and errands. No assistive device. Has a wood stove, gravity fed water, generator with solar battery. Uses neighbor's electricity to charge his phone with internet. MOW in the past but has not been needing it. 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 Subjective: I am so glad Jamari helped me quit smoking. I cannot walk...my legs with collapse. Objective: Mental Status: Patient is alert and oriented. Pain: c/o left shoulder pain since his fall Vital Signs: at rest on RA: 96% 91 bpm. after walkin% 89 bpm. after 2 mins: 96% 85 bpm ROM/Strength: Upper extremities: WNL except for left shoulder active flexion and abduction limited to ~80 degress. Reports this is new from the fall. Lower extremities: WNL Sensation: No resports of numbness or tingling. Soft tissue/edema: No edema observed in left shoulder Bed Mobility: Not observed. patient sitting up in recliner upon arrival Transfers: Sit to stand with cga. stand to sit cga. Gait: Ambulated 100 feet with rolling walker with step through pattern, weight bearing through bilateral UE, stopping 2 times for ~1 min each time secondary to SOB cga only. Balance: Standing at walker with CGA [facility] AM-PAC 6 clicks Basic Mobility Inpatient Short Form: Raw Score:??19? CMS Score: 41.77% Informed Consent/Education:? Patient instructed in purpose of PT consult and plan of care and is agreeable Assessment:?The patient is a 59 yo male adm on 11/06/24 for bilateral pneumonia and after a fall at home. Patient presents with left shoulder pain, decreased strength, decreased functional mobility, decreased balance and difficulty with ambulation. The patient would benefit from skilled inpatient services to improve these impairments to maximize function and safety. May need additional evaluation of his shoulder. May need an assistive device, HHPT, and/or MOW upon discharge. Will need to be independent upon discharge Patient is assessed as:? Low 55890?? History: lives alone, recent fall, limited electricity at home Examination: see above Presentation: Stable and uncomplicated? Decision Making:? Low (0 history, 1-2 exam, stable/predictable, easy 20) Physical Therapy Goals: 1 week Able to get in/out of bed independently Able to perform sit to/from stand independently Able to walk 200 feet with/without an assistive device without loss of balance independently. Independent with home exercise program, including exercises for left shoulder pain and decreased ROM. Plan of Care/Treatment Plan: 1-2x/day, 7 days/week x 1 week Plan of care has been reviewed with the COMMERCIAL ILLUSTRATOR providing the service under Physical Therapy direction. Initiate Physical Therapy intervention for strengthening, bed mobility, transfers, gait, stairs, balance training, use of assistive device. DISCHARGE RECOMMENDATIONS: Informed consent Prior to the start and throughout the course of the examination and treatment, patient was made aware of the specifics and purpose of the physical assessment and treatment procedures. Appropriate draping procedures were utilized to protect modesty where applicable. Billing Charges: Treatment Units Time Duration Manual Therapy(84807) Hands-on techniques to modulate pain increase joint range of motion reduce or eliminate soft tissue swelling, inflammation, or restriction facilitate relaxation and improve contractile and non-contractile tissue extensibility ? ? Therapeutic Procedures (54667) Instruction in therapeutic exercises to develop strength and endurance, range of motion and flexibility. HEP instruction and review: Provided skilled instruction in proper exercise performance: Provided skilled manual cues to facilitate proper muscle recruitment and/or movement pattern Neurological Re-Education(01953) To improve balance, coordination, kinesthetic and proprioceptive sensations. ? ? Ultrasound(07487) To promote healing. ? ? Gait Training(69021) ? ? Therapeutic Activity(13504) Instruction in dynamic activities with one on one patient contact by the provider to improve functional performance as follows: 1 ? 10 ? Self Care Training(14078) ? ? E-Stim (Attended)(15403) ? ? Low IE(60689) 1 16 Mod IE(75862) ? ? High IE(67308) ? ? Time Coded Treatment Time ? 10 Total Treatment Time ? 26
[2024-11-08] MEDS: Nicotine 14 MG/24 HR PATCH TD (11:24)
[2024-11-08] MEDS: Sertraline 100 MG TAB 200 MG PO (11:48)
--- NOTE | 2024-11-08 11:49 | PT.INNT ---
PT Notes Visit Reasons: Pneumonia Spoke with STACY Erwin. Notified of left shoulder pain and limited ROM.
[2024-11-08] MEDS: Enoxaparin 40 MG/0.4 ML SYR SC (12:18)
--- NOTE | 2024-11-08 16:53 | PGE_ITS ---
Date of Service Date of service: 11/08/24 Time of Service: 16:53 Assessment and Plan Assessment and plan (1) Bilateral pneumonia: Status: Acute Assessment and plan: Continue azithro and ceftriaxone Legionella and strep urinary antigen pending, and continue usual home regimen for COPD IS Nebs WBC decreased from 19.82-16.36 (2) COPD exacerbation: Status: Acute Assessment and plan: Severe COPD No evidence of reactivation of sarcoid on his chest x-ray. Discontinue methylprednisolone, start oral prednisone Continue azithromycin and ceftriaxone Continue home inhalers and nebulized bronchodilators prn. No O2 requirement Plan to discharge 11/09/[address] Dr Dial Subjective Subjective Patient reports: no new complaints, tolerating a regular diet, voiding w/o difficulty, bowel movement and afebrile; denies diarrhea, blood in stool, nausea, vomiting or shortness of breath Interval history since last seen: Matt reports feeling better, he reports some anxiety, however not more than usual according to him. Ate breakfast and lunch, sitting in the chair all day. Exam Const General: cooperative and no acute distress Nutritional Appearance: average body habitus Orientation: alert, awake and oriented x3 HENMT Head: normal to inspection Teeth and gingiva: abnormal dentition, abnormal tooth or associated gingiva and poor dentition (Missing teeth, severe decay. Tartar gingivitis) Resp Effort & Inspection: normal respiratory effort, able to speak in complete sentences and not labored Auscultation: crackles (bilateral) and no rhonchi Cardio Rate: regular rate and tachycardic GI Inspection: normal to inspection Skin General skin exam: no rashes or lesions noted Neuro General: patient alert, patient awake and patient oriented x3 Psych Appearance: disheveled Mental Status: mental status grossly normal Speech and Movement: speech and movement normal Mood: anxious mood Affect: anxious affect Attitude: cooperative Insight: fair Judgment: fair Objective Last Vital Signs Temp 36.2 C L 11/08/24 15:50 Pulse 103 H 11/08/24 15:50 Resp 16 11/08/24 15:50 BP 120/80 11/08/24 15:50 Pulse Ox 96 11/08/24 15:50 Laboratory Results - last 24 hr 11/08/24 06:12 WBC 16.36 H RBC 4.53 Hgb 12.9 L Hct 39.0 L MCV 86 MCH 28.5 MCHC 33.1 RDW 14.7 H Plt Count 190 MPV 10.3 Immature Gran % 0.6 Neutrophils % 93.7 Lymphocytes % 4.2 Monocytes % 1.4 Eosinophils % 0.0 Basophils % 0.1 Nucleated RBC % 0.0 Absolute Neutrophils 15.33 H Absolute Lymphocytes 0.69 L Absolute Monocytes 0.23 Absolute Eosinophils 0.00 Absolute Basophils 0.02 Sodium 143 Potassium 4.5 Chloride 107 Carbon Dioxide 23.9 Anion Gap 12.1 H BUN 31 H Creatinine 1.4 H Est GFR (CKD-EPI 2020) 57.18 Glucose 171 H Calcium 9.6 Magnesium 2.1 Time Spent with Patient Time Spent with Patient: 25-34 minutes Time was spent: preparing to see the patient(eg.review tests), ordering medications,tests, procedures, referring, communicating with other health career transition specialist, indepentently interpreting results, counseling the patient and care coordination
[2024-11-08] MEDS: cefTRIAXone 1 GM/50 ML BAG IVPB (17:13)
[2024-11-08] MEDS: AZITHROMYCIN 500 MG in Normal Saline 250 ML 250 MG IVPB (20:15)
[2024-11-09] VITALS (7 sets, daily range): BP systolic 124–133; BP diastolic 86–91; PULSE 78–94; RESP 2–18; TEMP 36.4–36.7; O2SAT 93–97
[2024-11-09] MEDS: Zolpidem 5 MG TAB PO ×2 (01:00→21:05)
[2024-11-09] MEDS: Albuterol/Ipratropium 3 ML UPD VIAL UPD ×2 (04:19→09:34)
[2024-11-09 06:42] LABS: Abs Immature Grans 0.11 10^3/uL (0.0-0.06); Basophils % 0.2 %; Eosinophils % 0.1 %; HCT 38.4 % (40.0-50.0); HGB 12.8 g/dL (13.5-17.5); Immature Grans % 0.6 %; Lymphocytes % 11.1 %; MCH 28.8 pg (27.0-33.0); MCHC 33.3 % (32.0-36.0); MCV 86 fL (80-95); MPV 10.1 fL (8.0-11.0); Monocytes % 5.6 %; Neutrophils % 82.4 %; Platelet Count 204 10^3/uL (130-400); RBC 4.45 10^6/uL (4.36-5.78); RDW 14.6 % (11.8-14.1); RDW-SD 46.5 fL; WBC 18.18 10^3/uL (4.4-10.8)
[2024-11-09 06:49] LABS: Absolute Basophil Count 0.04 10^3/uL (0.0-0.2); Absolute Eosinophil Count 0.02 10^3/uL (0.0-0.7); Absolute Lymphocyte Count 2.02 10^3/uL (1.2-3.4); Absolute Monocyte Count 1.02 10^3/uL (0.1-0.8); Absolute Neutrophil Count 14.98 10^3/uL (1.2-6.7)
[2024-11-09 06:54] LABS: BUN 35 mg/dL (7-18); CREATININE 1.5 mg/dL (0.70-1.30); Calcium 9.6 mg/dL (8.5-10.1); Chloride 106 mmol/L (98-107); Estimated GFR 52.64 (mL/min/1.73m2); Glucose 113 mg/dL (74-106); Magnesium 2.1 mg/dL (1.8-2.4); Potassium 4.2 mmol/L (3.5-5.1); Sodium 141 mmol/L (136-145)
[2024-11-09] MEDS: Budesonide/Formoterol 80/4.5 6.9 GM 60 PUFF INH IH ×2 (08:18→20:35)
[2024-11-09] MEDS: Tiotropium Bromide-Respimat 10 PUFF INH 2 PUFF IH (08:18)
[2024-11-09] MEDS: predniSONE 20 MG TAB 40 MG PO (09:48)
[2024-11-09] MEDS: Sertraline 100 MG TAB 200 MG PO (09:48)
[2024-11-09] MEDS: Nicotine 14 MG/24 HR PATCH TD (09:48)
--- NOTE | 2024-11-09 09:48 | PT.INTREAT ---
PT Notes Visit Reasons: Pneumonia Inpatient Physical Therapy Treatment Note [facility] Date: 11/09/2024 PRECAUTIONS: Activity as tolerated. Fall. Standard precautions. SUBJECTIVE: Feels much better today. Expressed some concerns about nighttime service that Nurse Santoyo is planning to bring up with Charge Nurse Ling. Reported back pain that responded well with walking and back stretches. OBJECTIVE: In paper clothes. Sitting on bedside recliner. Nurse Yarelis dispensing pills for patient. ? PAIN: Minimal pain in low back that subsded with ambulation performance and low back stretches. VITALS: Closely monitored by nsirng staff BED MOBILITY/TRANSFERS: Supine-sit: Independent? Sit-supine: Independent? Sit-stand: Independent? Stand-sit: Independent? Bed-Chair: Independent? Chair-bed: Independent? ? ? GAIT: ? Assistive Device: None? Weight bearing: FWB Assist: Supervision ? Distance:? 300 feet ? Deviation: Slowed lacy. Mild shortness of breath that subsided with rest. ? STAIRS: Up and down 6 x 4-inch steps and 4 x 6-inch steps while holding onto B rails for support with supervision only. ? THERA EX: Reviewed back stretches that patient has been doing previosuly to manage pain and stiffness in back with good result: 1) piriformis/hamstring stretches using one one foot on stool and while seated at edge of bed for 1 minute each position; 2) Hamstring stretch while prone and stetch side hanging at edge of bed for 1 minute ASSESSMENT:? Patient was made indpendent inside room without an assistive device as of this morning. He is able to receover from mild shortness of breath with rest after walking about a total of 600 feet using a walker and no walker. Noassistive device needed for discahrge to home. PLAN: Continue with services to determine safety with hallway ambulation without device for up to 1000 feet. DISCHARGE RECOMMENDATION: Home when medically cleared by hospitalist. No services recommended. TREATMENT CODE/TIME: 23461 x 26 minutes for 2 units( 9:48-10-24).
[2024-11-09] MEDS: Normal Saline Flush 10 ML SYR IVP (09:49)
[2024-11-09] MEDS: Calcium Carbonate *TUMS* 500 MG CHEW 1000 MG PO (11:19)
--- NOTE | 2024-11-09 11:31 | PGE_ITS ---
Date of Service Date of service: 11/09/24 Time of Service: 11:31 Assessment and Plan Assessment and plan (1) Bilateral pneumonia: Status: Acute Assessment and plan: Continue azithro and ceftriaxone day 2 Legionella and strep urinary antigen pending, and continue usual home regimen for COPD IS Nebs WBC improving weaned off oxygen (2) COPD exacerbation: Status: Acute Assessment and plan: Severe COPD No evidence of reactivation of sarcoid on his chest x-ray. oral prednisone burst Continue azithromycin and ceftriaxone day 2/5 Continue home inhalers and nebulized bronchodilators prn. No O2 requirement Plan to discharge home with no new services once medically stable Discused with Dr Dial Subjective Subjective Patient reports: no new complaints, feels better, tolerating liquids well, tolerating a regular diet and afebrile; denies shortness of breath Exam Const General: cooperative and no acute distress Nutritional Appearance: average body habitus Orientation: alert, awake and oriented x3 HENMT Head: normal to inspection Teeth and gingiva: poor dentition (Missing teeth, severe decay. Tartar gingivitis) Chest Chest: normal inspection of the chest Resp Effort & Inspection: normal respiratory effort Auscultation: rhonchi lower bilaterally and no wheezes Cardio Rate: regular rate GI Inspection: normal to inspection Skin General skin exam: no rashes or lesions noted Neuro General: patient alert, patient awake and patient oriented x3 Psych Appearance: disheveled Mental Status: mental status grossly normal Speech and Movement: speech and movement normal Mood: anxious mood Affect: anxious affect Attitude: cooperative Objective Last Vital Signs Temp 36.4 C L 11/09/24 07:56 Pulse 78 11/09/24 07:56 Resp 15 11/09/24 07:56 BP 129/91 H 11/09/24 07:56 Pulse Ox 94 11/09/24 07:56 Laboratory Results - last 24 hr 11/06/24 11/09/24 20:40 05:58 WBC 18.18 H RBC 4.45 Hgb 12.8 L Hct 38.4 L MCV 86 MCH 28.8 MCHC 33.3 RDW 14.6 H Plt Count 204 MPV 10.1 Immature Gran % 0.6 Neutrophils % 82.4 Lymphocytes % 11.1 Monocytes % 5.6 Eosinophils % 0.1 Basophils % 0.2 Nucleated RBC % 0.0 Absolute Neutrophils 14.98 H Absolute Lymphocytes 2.02 Absolute Monocytes 1.02 H Absolute Eosinophils 0.02 Absolute Basophils 0.04 Sodium 141 Potassium 4.2 Chloride 106 Carbon Dioxide 25.0 Anion Gap 10.0 BUN 35 H Creatinine 1.5 H Est GFR (CKD-EPI 2020) 52.64 Glucose 113 H Calcium 9.6 Magnesium 2.1 Urine Legionella Ag Negative Time Spent with Patient Time Spent with Patient: 25-34 minutes Time was spent: preparing to see the patient(eg.review tests), obtaining and/or reviewing separately otained hiistory, referring, communicating with other health healthcare representative, indepentently interpreting results and counseling the patient
[2024-11-09] MEDS: Enoxaparin 40 MG/0.4 ML SYR SC (12:49)
--- NOTE | 2024-11-09 13:39 | PDOC.CMPRO ---
Date of service: 11/09/24 Time of Service: 13:39 Care Management Progress Note Progress Note Text Progress Note Text: Matt was sitting up in bed when CM met with him. He reported to CM that he had frequent urination overnight and difficulty getting to the toilet because he was told not to get out of bed without assistance. He reports that he ended up urinating in bed after waiting at least 20 minutes after pushing the call watson. He reports to have used the call watson >20 times last night and none ever came. He shared that he is also frustrated because his bottom sheet and pad were changed but his blankets were wet blankets. He states that he cried a lot last night and does not want to be paired with the same nurse tonight. CM relayed request to the charge nurse and she will personally check in with pt and make sure his call watson is functioning properly. PT also cleared him to be independent in his room. All concerns are addressed with pt, he is happy with this plan. Discharge Potential Discharge Needs: PCP F/U Appt Anticipated Barriers to Discharge: Medical Status Patient/Family Education Needs: Review discharge instructions, discuss Ask Me Three Transportation: Private vehicle Plan: Anticipate, Matt will discharge home tomorrow if medically clear and able to transition to PO meds. His friend Uriah will provide transportation. No [facility] services are recommended at this time. Will follow up with community providers and discharge plan of care as directed. CM will follow. Social Determinants of Health Screening Social Determinants of Health last assessed: 11/09/24 Will the Patient Participate in the Screening?: Yes Do you worry about having a steady place to live?: no Problems where you live: no known problems In the past 12 months, have you had to go without electric, gas, oil or water in your home?: choose not to answer Have you or anyone in your house had to go without enough food to eat?: choose not to answer Has lack of transportation kept you from medical appointments or from doing things needed for daily living?: choose not to answer Has anyone in your life made you feel unsafe or unsupported?: choose not to answer How hard is it for you to pay for the very basics like food, housing, medical care, and heating? Would you say it is:: Somewhat hard Do you want help finding or keeping work or a job?: I do not need or want help If for any reason you need help with day-to-day activities such as bathing, preparing meals, shopping, managing finances, etc., do you get the help you need?: I don?t need any help How often do you feel lonely or isolated from those around you?: Never Do you speak a language other than Welsh at home?: No Does the patient want assistance with any of the above?: No Health Related Social Needs Health related social needs: material hardship(utilities) (Z59.12) and problems related to housing/economic circumstances (Z59.89)
[2024-11-09] MEDS: cefTRIAXone 1 GM/50 ML BAG IVPB (18:10)
[2024-11-09] MEDS: AZITHROMYCIN 500 MG in Normal Saline 250 ML 250 MG IVPB (20:27)
[2024-11-10 07:24] VITALS: BP 104/75; PULSE 64; RESP 20; TEMP 36.4; O2SAT 100
[2024-11-10] MEDS: Budesonide/Formoterol 80/4.5 6.9 GM 60 PUFF INH IH (07:47)
[2024-11-10] MEDS: Tiotropium Bromide-Respimat 10 PUFF INH 2 PUFF IH (07:47)
[2024-11-10] MEDS: predniSONE 20 MG TAB 40 MG PO (08:35)
[2024-11-10] MEDS: Azithromycin 250 MG TAB PO (08:35)
[2024-11-10] MEDS: Sertraline 100 MG TAB 200 MG PO (08:35)
[2024-11-10] MEDS: Nicotine 14 MG/24 HR PATCH TD (08:35)
--- NOTE | 2024-11-10 08:55 | CMDISCH_ITS ---
Date of service: 11/10/24 Time of Service: 08:55 LACE Index Scoring Tool Questions: Length of Stay (in days): 4 - 6 Was the patient admitted via the E.D.?: Yes Comorbidities: Chronic Pulmonary Disease E.D. Visits: 5 Answers: Total Score: 13 Risk of Readmission: High Risk Care Management Discharge Plan Reason for Hospitalization: Pneumonia, weakness Discharge Plan: Discharge home via private vehicle with friend. Follow up with PCP and discharge plan of care as directed. No new services are ordered prior to discharge. Patient is agreeable to this discharge plan. Patient/Family Education Needs: Review discharge instructions, limitations, medications and plan to follow up with community providers. Discuss ask me three. SDOH Health Related Social Needs: Health related social needs material hardship(utilitie s) (Z59.12), problems related to housing/economic circumstances (Z59.89) Health related social needs: transportation insecurity(Z59.82) and problem related to primary support group(Z63.9)
--- NOTE | 2024-11-10 10:02 | DSE_ITS ---
Date of service: 11/10/24 Time of Service: 10:02 DS: Diagnosis Discharge Diagnosis (1) Bilateral pneumonia: Status: Acute (2) COPD exacerbation: Status: Acute Discharge Plan Disposition Patient Disposition: Home Condition: Improving Discharge Details Reason For Visit: Pneumonia Admit Date/Time: 11/06/24 19:54 Admit Provider: Jonh Randolph Attending Provider: Jonh Randolph Primary Care Provider: Eliecer Howard Hospital Course Hospital Course: This 59 years old male patient with past medical history of Sarcoidosis, GERD, liver cirrhosis, periumbilical hernia, CKD stage III, COPD, tobacco abuse until 3 months ago, presented to the ED at [facility] via EMS on 11/06/2024 for evaluation of shortness of breath, questionable syncope. The patient reported increased shortness of breath and weakness status post ambulation around his property at which point he fell and was unable to get up. No reported fever cough prior to presentation. Patient reported severe shortness of breath, cough intermittent chills, subjective fever, with mild chest pain 1.5 hours prior to presentation lasting less than 5-minute without radiation. The patient denied nausea vomiting diarrhea, melena or hematochezia. On arrival the patient was hemodynamically stable without hypoxia. Workup in the ED was significant for chest CT showing patchy infiltrates noted in the posterior left lower lobe with additional mild infiltrates seen posteriorly in the superior segment of the right lower lobe. No pulmonary emboli findings on CTA and no signs of ischemic changes on EKG were noted. Blood work showed leukocytosis with a WBC at 15, BUN and creatinine at 23 and 1.4 with a baseline around 15 and 1.3. Upper respiratory viral panel was negative. In the ED the patient was treated with acetaminophen, DuoNeb, IV methylprednisolone and IV magnesium as well as IV ceftriaxone and IV azithromycin;the patient refused ASA 324. Hospitalist service was consulted and patient admitted to the medical surgical floor for evaluation and management of currently acquired pneumonia and COPD exacerbation. During the stay the patient continued to receive IV antibiotics and DuoNeb treatments. IV steroids were transitioned to oral prednisone. The patient respiratory status improved. Blood cultures were negative x 72 hours. Today the patient will be discharged home without additional services with a prednisone burst and a short course of cefpodoxime and azithromycin. The patient will need to follow-up with his primary care practitioner within 7 days of discharge. Discussed with Dr. Dial Home Meds and New Rx's Prescriptions: New azithromycin 250 mg Tablet 250 mg PO DAILY Qty: 5 0RF cefpodoxime 200 mg tablet 200 mg PO BID Qty: 10 0RF Rx Instructions: must administer with a meal/food prednisone 20 mg tablet 20 mg PO DAILY Qty: 5 0RF Continued ipratropium-albuterol 0.5 mg-3 mg(2.5 mg base)/3 mL solution for nebulization 3 ml inhalation QID PRN (Reason: shortness of breath) Qty: 360 3RF budesonide-formoterol [Symbicort] 80-4.5 mcg/actuation HFA aerosol inhaler 2 puff inhalation BID Qty: 10.2 8RF Spiriva Respimat 1.25 mcg/actuation mist 2 puff inhalation DAILY Qty: 12 3RF albuterol sulfate 90 mcg/actuation HFA aerosol inhaler 2 puff IH QID PRN (Reason: shortness of breath) Qty: 18 4RF acetaminophen [Tylenol Extra Strength] 500 mg tablet 1,000 mg PO Q4H PRN (Reason: pain) Qty: 30 0RF nicotine 14 mg/24 hr patch 24 hour 1 patch transdermal Q24H Patient Comments: APPLY ONE PATCH TO THE SKIN EVERY DAY sertraline 100 mg tablet 200 mg PO DAILY Patient Comments: TAKE TWO TABLETS BY MOUTH EVERY DAY Discharge Instructions Referrals: Eliecer Howard MD [Primary Care Provider] - (Follow-up within 7 days of discharge please) Activity:: Activity as Tolerated Equipment/Supplies:: No Equipment Needed Diet:: heart healthy Discharge Orders Discharge Orders: Discharge Order (Routine); Ordered 11/10/24 Ordered By: Rachel Stern DS: Summary Time Spent with Patient providing and/or coordinating discharge services: Greater than 30 minutes Status at Discharge Functional status at discharge: independent ambulation Overall status at discharge: patient is progressing back to baseline Mental Status: mental status grossly normal Speech and Movement: speech and movement normal Mood: congruent mood Affect: normal affect Quality:SDOH Health Related Social Needs: Health related social needs material hardship(utilitie s) (Z59.12), problems related to housing/economic circumstances (Z59.89) Exam Narrative Exam Narrative: Constitutional The patient is sitting in chair able to speak full sentences without air hunger or respiratory distress, on room air HENMT: Facial structures with normal appearance- missing some teeth Eyes: Well aligned Neuro:alert and oriented X 4 Resp:Clear upper lung w diminished bases L>R Cardio: regular rhythm, S1, S2, no murmur GI: Abdomen is not distended, soft , non-tender, bowel sounds are present Integumentary: No skin lesions or rash on exposed skin Psych: RASS 0, congruent mood and normal affect. Psych Mental Status: mental status grossly normal Speech and Movement: speech and movement normal Mood: congruent mood Affect: normal affect DS: Data Vitals/I&O Vitals and I&O: Vital Signs Temperature 36.4 C L 11/10/24 07:24 Temperature Source Temporal Artery Scan 11/10/24 07:24 Pulse 64 11/10/24 07:24 Pulse Rhythm Regular 11/06/24 23:03 Pulse Strength Normal 11/06/24 18:24 Pulse 92 H 11/06/24 22:00 Respiratory Rate 20 11/10/24 07:24 Respiratory Effort Normal 11/06/24 23:03 Respiratory Depth Normal 11/06/24 23:03 Respiratory Pattern Normal 11/06/24 23:03 Blood Pressure 104/75 11/10/24 07:24 Blood Pressure Mean 92 11/06/24 21:24 Blood Pressure Position Supine 11/06/24 18:24 Pulse Oximetry 100 11/10/24 07:24 Oxygen Delivery Method Room Air 11/10/24 07:24 Oxygen Flow Rate 0 11/10/24 07:24 Pain Level 0 11/09/24 20:08 Intake & Output 11/09/24 11/09/24 11/10/24 11:59 23:59 11:59 Intake Total 1100 / 2200 1100 / 2200 1160 / 1160 Output Total 1550 / 1550 Balance -450 / 650 1100 / 650 1160 / 1160 Intake: IV 500 / 800 300 / 800 Oral 600 / 1400 800 / 1400 1160 / 1160 Output: Urine 1550 / 1550 Other: Urine Color Yellow Urine Appearance Clear Comment pT voided independently in the bathroom. voidedin the toilet pt states he has voided a few times tonight Stool Characteristics Soft Formed Liquid Data Completed and Pending Labs on day of discharge: Preliminary micro results at discharge 11/06/24 20:27 Blood Culture - Preliminary Blood NO GROWTH 72 HOURS 11/06/24 20:20 Blood Culture - Preliminary Blood NO GROWTH 72 HOURS PFSH All Active Problems (Updated 11/06/24 @ 21:17 by DARBY Campos) Syncope (Chronic) COPD exacerbation (Acute) Bilateral pneumonia (Acute) Epigastric abdominal tenderness (Acute) Full code status (Acute) Acute insomnia (Acute) Nausea (Acute) Callus of toe (Acute) Avulsed toenail (Acute) Constipation (Acute) Anxiety (Chronic) Sexuality issues (Acute) Incarcerated umbilical hernia (Acute) Periumbilical hernia (Acute) Abdominal pain (Acute) Right foot pain (Acute) Hypermagnesemia (Acute) Influenza (Acute) COPD with acute exacerbation (Acute) Acute dehydration (Acute) 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) Raynauds phenomenon (Acute) Right lumbar radiculopathy (Acute) Community acquired pneumonia (Acute) COPD (chronic obstructive pulmonary disease) (Chronic 02/14/15) PFT's show severe obstructive disease with bronchodilator response; PFT 02/13/2015, [id number]%, FEV1/FVC 67%, post BD FEV1 50% FEV1/FVC 72% Depressive disorder (Chronic) Gastroesophageal reflux disease (Chronic) History of tobacco use (Chronic) 48 pack years Sarcoidosis (Chronic 02/04/16) Shortness of breath (Chronic) Ventral hernia (Chronic) Medical History Chronic kidney disease, stage 3a Upper respiratory infection w/ bronchospasm Pneumonia needs to quit smoking HUBER (acute kidney injury) Family History Father , from complications of pneumonia Diabetes Stroke Mother , from diabetic complications including abscess/infection Depression Diabetes Social History Smoking/Tobacco Use Status: Current every day Tobacco Type: cigarettes Counseling given: provider counseling Smoking risk assessment performed?: Yes Alcohol Intake: former Year quit: 1998 Drug use: Never Substance use type: does not use Details: Pt currently Vapes 2-3 times a week. Housing: house Do you feel safe at home: Yes Do you feel safe in your relationship?: Yes Additional Social history: lives alone in off-grid home in [facility] with markesan Time Spent with Patient Time Spent with Patient: 70-84 minutes4 Time was spent: preparing to see the patient(eg.review tests), obtaining and/or reviewing separately otained hiistory, ordering medications,tests, procedures, referring, communicating with other health animal care attendant, indepentently interpreting results, counseling the patient and care coordination
--- NOTE | 2024-11-10 11:00 | PDOC.CMPRO ---
Date of service: 11/10/24 Time of Service: 11:00 Care Management Progress Note Progress Note Text Progress Note Text: Matt was sitting in a recliner when CM met with him. He is independent in his room and has ambulated a few times in the tamayo. He is medically ready for discharge (per provider) and is agreeable to this plan. He lives in a tiny house and is happy to be going home. He shared with CM that for the most part he is doing better, but does mention that he's had a couple of episodes where he's become SOB and dizzy when he moving around; once after showering and once in the tamayo. Each time he sat down and reports that he recovered fast, which he contributes to his ability to quit smoking a few months ago. CM reviewed concerns at interdisciplinary rounds. Discharge Potential Discharge Needs: PCP F/U Appt Anticipated Barriers to Discharge: None Identified Patient/Family Education Needs: Review discharge instructions, discuss Ask Me Three Plan: Discharge home, no services indicated at this time. Friend will transport. Follow up with community providers and d/c plan of care as recommended. CM will follow. Social Determinants of Health Screening Social Determinants of Health last assessed: 11/10/24 Will the Patient Participate in the Screening?: Yes Do you worry about having a steady place to live?: no Problems where you live: no known problems In the past 12 months, have you had to go without electric, gas, oil or water in your home?: choose not to answer Have you or anyone in your house had to go without enough food to eat?: choose not to answer Has lack of transportation kept you from medical appointments or from doing things needed for daily living?: choose not to answer Has anyone in your life made you feel unsafe or unsupported?: choose not to answer How hard is it for you to pay for the very basics like food, housing, medical care, and heating? Would you say it is:: Somewhat hard Do you want help finding or keeping work or a job?: I do not need or want help If for any reason you need help with day-to-day activities such as bathing, preparing meals, shopping, managing finances, etc., do you get the help you need?: I don?t need any help How often do you feel lonely or isolated from those around you?: Never Do you speak a language other than Albanian at home?: No Does the patient want assistance with any of the above?: No Health Related Social Needs Health related social needs: material hardship(utilities) (Z59.12) and problems related to housing/economic circumstances (Z59.89)
[2024-11-11 00:40] LABS: Streptococcus Pneumoniae Ag, U Negative (Negative)
== END 2024-11-10 13:06 | disposition home or self-care (01) | DRG 190 ==
LOC: ER 18:27 → MS 22:40
PROVIDERS: Nurse Practitioner Family; Admitting Provider General Practice; Emergency Provider Physician Assistant; PCP Family Medicine; Visit Provider General Practice
DX: J44.0 Chronic obstructive pulmonary disease with (acute) lower respiratory infection (principal); J18.9 Pneumonia, unspecified organism; J44.1 Chronic obstructive pulmonary disease with (acute) exacerbation; Z87.891 Personal history of nicotine dependence; G47.00 Insomnia, unspecified; K59.00 Constipation, unspecified; F41.9 Anxiety disorder, unspecified; K75.81 Nonalcoholic steatohepatitis (NASH); K74.69 Other cirrhosis of liver; F32.A Depression, unspecified; K21.9 Gastro-esophageal reflux disease without esophagitis; N18.31 Chronic kidney disease, stage 3a; I73.00 Raynaud's syndrome without gangrene; Z87.898 Personal history of other specified conditions; W18.39XA Other fall on same level, initial encounter
CPT/HCPCS: 00123; 36415; 71275; 80048; 80053; 82805; 83690; 87040; 87449; 87637; 93005; 94640; 96365; 96367; 96375; 97161; 97530; 99285; J1650; 81003; 83605; 83735; 84484; 85025; 85379; 87899; 93010; 94664; 94760; 99222; 99232; 99239; J0456; J0696; J2919; J3475; J3490; J7512; J7620

== ENCOUNTER 2024-12-10 05:28 | Emergency (ER) | payer MEDICAID, SELFPAY ==
--- NOTE | 2024-12-10 05:30 | RT.EKG_ITS ---
APPROVED REPORT Exam: Resting ECG Reason for Exam: lightheaded Patient Location: E HR:93 bpm ECG Measurements Heart Rate 93 AXIS UT 139 P 72 QRSd 91 QRS 28 QT 345 T 55 QTc 429 Conclusion Sinus rhythm...normal P axis, V-rate 60- 99 Probable left atrial enlargement...P >50mS, <-0.10mV V1 no ST segment or T wave abnormalities to suggest occlusive OK
[2024-12-10 05:31] VITALS: BP 143/75; PULSE 97; RESP 20; TEMP 36.5; O2SAT 97
--- NOTE | 2024-12-10 05:59 | W.ED.GENAD ---
Discharge Plan Disposition Patient Disposition: Home Condition: Good Discharge Details Clinical Impression: COVID, Acute exacerbation of chronic obstructive pulmonary disease Primary Care Provider: Eliecer Howard ED Provider: Vernoika Delgado Home Meds and New Rx's Prescriptions: New prednisone 20 mg tablet 40 mg PO DAILY Qty: 8 0RF azithromycin 500 mg tablet 500 mg PO DAILY 4 Days Qty: 4 0RF Continued ipratropium-albuterol 0.5 mg-3 mg(2.5 mg base)/3 mL solution for nebulization 3 ml inhalation QID PRN (Reason: shortness of breath) Qty: 360 3RF budesonide-formoterol [Symbicort] 80-4.5 mcg/actuation HFA aerosol inhaler 2 puff inhalation BID Qty: 10.2 8RF Spiriva Respimat 1.25 mcg/actuation mist 2 puff inhalation DAILY Qty: 12 3RF albuterol sulfate 90 mcg/actuation HFA aerosol inhaler 2 puff IH QID PRN (Reason: shortness of breath) Qty: 18 4RF sertraline 100 mg tablet 200 mg PO DAILY Qty: 180 3RF Patient Comments: TAKE TWO TABLETS BY MOUTH EVERY DAY acetaminophen [Tylenol Extra Strength] 500 mg tablet 1,000 mg PO Q4H PRN (Reason: pain) Qty: 30 0RF nicotine 14 mg/24 hr patch 24 hour 1 patch transdermal Q24H Patient Comments: APPLY ONE PATCH TO THE SKIN EVERY DAY Discharge Instructions Instructions: Chronic Obstructive Pulmonary Disease (COPD) (DC), COVID-19 ED Additional Instructions: Use your breathing treatments at home. Prednisone once a day for the next 4 days (start tomorrow) Azithromycin once a day for the next 4 days (start tomorrow). Call your primary care doctor today to schedule an appointment for within the next 72 hours to followup on your visit here. Return to the emergency department for new or worsening symptoms including difficulty breathing, chest pain, or if you have any other concerns. Referrals: Eliecer Howard MD [Primary Care Provider] - [facility] General Mode of arrival: EMS. Date/Time Provider Initiated Documentation: 12/10/24 05:35. Limitations to Documentation: no limitations. Information obtained by: patient, EMS and old records reviewed. HPI Narrative: 59yo M with hx COPD, sarcoid, GERD, cirrhosis, CKD, presenting for shortness of breath. Has felt more SOB and generally weak than his baseline for the past month or so (recovered from bilateral pneumonia about 3 weeks ago). Started with a dry cough yesterday. Using home breathing treatments with some improvement. Tonight woke up and went to bathroom, felt SOB, nauseated, and lightheaded while ambulating. No chest pain or syncope. No abdominal pain or vomiting. Last BM two days ago, normal. Passing flatus. He is otherwise in his usual state of health with no fevers, chills, rash, dysuria, hematuria, focal weakness, numbness, vertigo, or other concerns. Related Data Home Medications ?Medication ?Instructions ?Recorded ?Confirmed acetaminophen 500 mg tablet 1,000 mg (2 x 500 mg) PO Q4H PRN 10/09/19 12/10/24 (Tylenol Extra Strength) pain #30 tabs budesonide-formoterol HFA 80 2 puff inhalation BID #10.2 grams 02/09/24 12/10/24 mcg-4.5 mcg/actuation aerosol inhaler (Symbicort) ipratropium 0.5 mg-albuterol 3 mg 3 ml inhalation QID PRN shortness 02/09/24 12/10/24 (2.5 mg base)/3 mL nebulization of breath #360 mL soln tiotropium bromide 1.25 2 puff inhalation DAILY #12 grams 02/09/24 12/10/24 mcg/actuation mist for inhalation (Spiriva Respimat) albuterol sulfate 90 mcg/actuation 2 puff inhalation QID PRN 09/08/24 12/10/24 aerosol inhaler shortness of breath #18 grams nicotine 14 mg/24 hr daily 1 patch transdermal Q24H 11/08/24 12/10/24 transdermal patch sertraline 100 mg tablet 200 mg (2 x 100 mg) PO DAILY #180 12/06/24 12/10/24 tabs azithromycin 500 mg tablet 500 mg PO DAILY 4 days #4 tabs 12/10/24 prednisone 20 mg tablet 40 mg (2 x 20 mg) PO DAILY #8 tabs 12/10/24 Previous Rx's ?Medication ?Instructions ?Recorded acetaminophen 500 mg tablet 1,000 mg (2 x 500 mg) PO Q4H PRN 10/09/19 (Tylenol Extra Strength) pain #30 tabs budesonide-formoterol HFA 80 2 puff inhalation BID #10.2 grams 02/09/24 mcg-4.5 mcg/actuation aerosol inhaler (Symbicort) ipratropium 0.5 mg-albuterol 3 mg 3 ml inhalation QID PRN shortness 02/09/24 (2.5 mg base)/3 mL nebulization of breath #360 mL soln tiotropium bromide 1.25 2 puff inhalation DAILY #12 grams 02/09/24 mcg/actuation mist for inhalation (Spiriva Respimat) albuterol sulfate 90 mcg/actuation 2 puff inhalation QID PRN 09/08/24 aerosol inhaler shortness of breath #18 grams sertraline 100 mg tablet 200 mg (2 x 100 mg) PO DAILY #180 12/06/24 tabs azithromycin 500 mg tablet 500 mg PO DAILY 4 days #4 tabs 12/10/24 prednisone 20 mg tablet 40 mg (2 x 20 mg) PO DAILY #8 tabs 12/10/24 Allergies Allergy/AdvReac Type Severity Reaction Status Date / Time Penicillins Allergy RASH Verified 12/10/24 05:37 aspirin AdvReac UPSET Verified 12/10/24 05:37 STOMACH General Stated Complaint: Dizzy/Sync ALMAS: 3 Exam Narrative Exam Narrative: General: Alert, well nourished, in no acute distress. Head: Normocephalic, atraumatic Neck: Trachea midline, ?Neck supple. ENT: ?MMM.? No oropharygeal lesions or exudate. Cardiac: ?RRR, no murmurs appreciated Resp: Speaking in 4-5 word sentences. Diminished air movement bilaterally. Slight expiratory wheeze diffusely. Abd: ?Soft, non-distended, nontender : ?No suprapubic tenderness. Extremities: ?No deformities.? No peripheral edema. Neurologic: GCS 15. ? Moves all extremities freely against gravity Course Vital Signs Vital signs: Vital Signs Temperature 36.5 C 12/10/24 05:31 Pulse 97 H 12/10/24 05:31 Respiratory Rate 20 12/10/24 05:31 Blood Pressure 143/75 H 12/10/24 05:31 Pulse Oximetry 97 12/10/24 05:31 Temperature 36.5 C 12/10/24 05:31 Temperature Source Temporal Artery Scan 12/10/24 05:31 Pulse 97 H 12/10/24 05:31 Respiratory Rate 20 12/10/24 05:31 Respiratory Effort Normal 12/10/24 05:35 Blood Pressure 143/75 H 12/10/24 05:31 Blood Pressure Position Supine 12/10/24 05:31 Pulse Oximetry 97 12/10/24 05:31 Oxygen Delivery Method Room Air 12/10/24 05:31 Oxygen Flow Rate 0 12/10/24 05:31 Medical Decision Making 59yo M with hx COPD, sarcoid, GERD, cirrhosis, CKD, presenting for shortness of breath. Tonight woke up and went to bathroom, felt SOB, nauseated, and lightheaded while ambulating. No chest pain. Vital signs reassuring on arrival. Recieved 4mg zofran from EMS [employer]. On exam he is speaking in 4-5 word sentences with diminished air movement. Will treat with 3 stacked duonebs while awaiting results of workup. EKG SR, no ST segment or T wave abnormalities to suggest occlusive GA. Respiratory viral swabs + for COVID. CXR independently reviewed; no focal pneumonia on my view. Labs reviewed as below, CBC reassuring with no leukocytosis or significant anemia, CMP with no actionable abnormalities (Cr at [facility] on [facility] record review), lipase normal (unlikley pancreatitis), VBG with no acidosis or hypercapnea, BNP normal, troponin normal (HEART score 2 (age, risk factors BMI & quit smoking ~3 months ago)- would not further pursue ACS/trend troponin. On reassessment he reports breathing feels much better. Lungs CTAB. No increased work of breathing, speaking in full sentences. Will discharge home to followup with PCP, 5 day course of prednisone and azithromycin for COPD exacerbation in the setting of COVID-19. Discharge instructions and return precautions were reviewed with patient who verbalized understanding. All questions were answered and he is in full agreement with the plan. Imaging Data Radiologic Study: Imaging: X-Ray Radiologist's impression: IMPRESSION: No acute findings to explain reported symptoms. Quality:SDOH Health Related Social Needs: Health related social needs material hardship(utilities) (Z59.12), problems related to housing/economic circumstances (Z59.89) PFSH All Active Problems (Updated 12/10/24 @ 07:12 by Veronika Delgado MD) Acute exacerbation of chronic obstructive pulmonary disease (Acute) COVID (Acute) Syncope (Chronic) COPD exacerbation (Acute) Bilateral pneumonia (Acute) Epigastric abdominal tenderness (Acute) Full code status (Acute) Acute insomnia (Acute) Nausea (Acute) Callus of toe (Acute) Avulsed toenail (Acute) Constipation (Acute) Anxiety (Chronic) Sexuality issues (Acute) Incarcerated umbilical hernia (Acute) Periumbilical hernia (Acute) Abdominal pain (Acute) Right foot pain (Acute) Hypermagnesemia (Acute) Influenza (Acute) COPD with acute exacerbation (Acute) Acute dehydration (Acute) 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) Raynauds phenomenon (Acute) Right lumbar radiculopathy (Acute) Community acquired pneumonia (Acute) COPD (chronic obstructive pulmonary disease) (Chronic 02/14/15) PFT's show severe obstructive disease with bronchodilator response; PFT 02/13/2015, [id number]%, FEV1/FVC 67%, post BD FEV1 50% FEV1/FVC 72% Depressive disorder (Chronic) Gastroesophageal reflux disease (Chronic) History of tobacco use (Chronic) 48 pack years Sarcoidosis (Chronic 02/04/16) Shortness of breath (Chronic) Ventral hernia (Chronic) Medical History Chronic kidney disease, stage 3a Upper respiratory infection w/ bronchospasm Pneumonia needs to quit smoking HUBER (acute kidney injury) Family History Father , from complications of pneumonia Diabetes Stroke Mother , from diabetic complications including abscess/infection Depression Diabetes Social History Smoking/Tobacco Use Status: Current every day Tobacco Type: cigarettes Counseling given: provider counseling Smoking risk assessment performed?: Yes Alcohol Intake: former Year quit: 1998 Drug use: Never Substance use type: does not use Details: Pt currently Vapes 2-3 times a week. Housing: house Do you feel safe at home: Yes Do you feel safe in your relationship?: Yes Additional Social history: lives alone in off-grid home in [facility] with wood
[2024-12-10 06:08] LABS: BE (Venous) 0 mmol/L (-2-3); HCO3 (Venous) 24 mmol/L (23-28); O2 Sat (Venous) 89 %; TCO2 (Venous) 22 mmol/L (24-29); pCO2 (Venous) 39 mmHg (41-51); pO2 (Venous) 51 mmHg
[2024-12-10 06:10] LABS: Abs Immature Grans 0.02 10^3/uL (0.0-0.06); Absolute Basophil Count 0.04 10^3/uL (0.0-0.2); Absolute Eosinophil Count 0.13 10^3/uL (0.0-0.7); Absolute Lymphocyte Count 0.44 10^3/uL (1.2-3.4); Absolute Monocyte Count 0.72 10^3/uL (0.1-0.8); Absolute Neutrophil Count 4.98 10^3/uL (1.2-6.7); Basophils % 0.6 %; Eosinophils % 2.1 %; HCT 41.5 % (40.0-50.0); HGB 13.4 g/dL (13.5-17.5); Immature Grans % 0.3 %; MCH 28.3 pg (27.0-33.0); MCHC 32.3 % (32.0-36.0); MCV 88 fL (80-95); MPV 9.3 fL (8.0-11.0); Monocytes % 11.4 %; Neutrophils % 78.6 %; Platelet Count 150 10^3/uL (130-400); RBC 4.74 10^6/uL (4.36-5.78); RDW 14.1 % (11.8-14.1); RDW-SD 45.2 fL; WBC 6.33 10^3/uL (4.4-10.8)
[2024-12-10] MEDS: Albuterol/Ipratropium 3 ML UPD VIAL UPD ×3 (06:24→06:25)
--- NOTE | 2024-12-10 06:26 | DI.RAD_ITS ---
Exam(s) XR CHEST 2V PA LATERAL EXAM: XR CHEST 2V PA LATERAL CLINICAL HISTORY: sob TECHNIQUE: 2D digital imaging was performed of the chest. Two images were obtained. PA and lateral views were obtained. COMPARISON: CR XR CHEST 2V PA LATERAL from 09/14/2024 FINDINGS: MEDIASTINUM: Normal. HEART: Normal. PULMONARY VASCULATURE: Normal. LUNGS: Clear. PLEURAL SPACE: No pleural effusion or pneumothorax. BONE:Within normal limits for the patient's age. OTHER FINDINGS:Normal. IMPRESSION: No acute pulmonary findings. DATA REPOSITORY: RADIATION DOSE DELIVERED:
[2024-12-10 06:36] LABS: ALT 35 U/L (16-63); AST 26 U/L (15-37); Albumin 3.9 g/dL (3.4-5.0); Alkaline Phosphatase 91 U/L (46-116); Anion Gap 8.9 mmol/L (3-11); BUN 25 mg/dL (7-18); Bilirubin, Total 0.51 mg/dL (0.2-1.0); CO2 27.1 mmol/L (21.0-32.0); CREATININE 1.6 mg/dL (0.70-1.30); Chloride 102 mmol/L (98-107); Estimated GFR 48.72 (mL/min/1.73m2); Glucose 107 mg/dL (74-106); NT-proBNP 132 pg/mL (<300); Sodium 138 mmol/L (136-145); Total Protein 7.7 g/dL (6.4-8.2); Troponin I 6 ng/L (<or=76)
[2024-12-10 06:45] LABS: Calcium 9.4 mg/dL (8.5-10.1)
[2024-12-10 06:48] LABS: Influenza A PCR Negative (Negative); Influenza B PCR Negative (Negative); RSV PCR Negative (Negative)
[2024-12-10 06:50] LABS: COVID-19 PCR Positive (Negative); Source Nasopharynx
[2024-12-10 06:55] LABS: Lipase 29 U/L (<78)
--- NOTE | 2024-12-10 07:16 | DI.VRAD_ITS ---
PROCEDURE INFORMATION: Exam: XR Chest Exam date and time: 12/10/2024 6:19 AM Age: 59 years old Clinical indication: Other: SOB TECHNIQUE: Imaging protocol: Radiologic exam of the chest. Views: 2 views. COMPARISON: No relevant prior studies are available for comparison. FINDINGS: Lungs: No focal consolidation seen. Pleural spaces: No large pleural effusion seen. Heart/Mediastinum: No cardiomegaly. Bones/joints: No acute abnormality. IMPRESSION: No acute findings to explain reported symptoms. Dictated and Authenticated by: Gloria Brunner MD. Orderin Sandy Banda MD
[2024-12-10 07:27] VITALS: BP 142/66; PULSE 110; RESP 22; O2SAT 94
[2024-12-10] MEDS: Azithromycin 250 MG TAB 500 MG PO (07:37)
[2024-12-10] MEDS: predniSONE 20 MG TAB 60 MG PO (07:38)
== END 2024-12-10 07:46 | disposition home or self-care (01) ==
PROVIDERS: Emergency Provider Student in an Organized Health Care Education/Training Program; PCP Family Medicine
DX: U07.1 COVID-19 (principal); J44.1 Chronic obstructive pulmonary disease with (acute) exacerbation; N18.31 Chronic kidney disease, stage 3a; F17.210 Nicotine dependence, cigarettes, uncomplicated
CPT/HCPCS: 80053; 82805; 83690; 87637; 93005; 94640; 99285; 71046; 83880; 84484; 85025; 93010; 99284; J7512; J7620

== ENCOUNTER 2024-12-22 14:28 | Emergency (ER) | payer MEDICAID, SELFPAY ==
[2024-12-22] VITALS (13 sets, daily range): BP systolic 140–159; BP diastolic 83–97; PULSE 89–119; RESP 19–24; TEMP 36.9; O2SAT 95–99
--- NOTE | 2024-12-22 14:15 | RT.EKG_ITS ---
APPROVED REPORT Exam: Resting ECG Reason for Exam: dyspnea Patient Location: E HR:93 bpm ECG Measurements Heart Rate 93 AXIS OR 131 P 77 QRSd 87 QRS 19 QT 351 T 61 QTc 439 Conclusion Sinus rhythm 93 normal axis no stemi
--- NOTE | 2024-12-22 14:30 | DI.RAD_ITS ---
Exam(s) XR PORTABLE CHEST AP EXAM: XR PORTABLE CHEST AP CLINICAL HISTORY: sob TECHNIQUE: 2D digital imaging was performed. COMPARISON: CR,XR XR CHEST 2V PA LATERAL from 12/10/2024 FINDINGS: LUNGS: Clear. No pleural abnormality seen. HEART: Normal size. AORTA: Normal diameter. BONES: Unremarkable for age. Soft tissues: Unremarkable. IMPRESSION: No acute findings. DATA REPOSITORY: RADIATION DOSE DELIVERED:
[2024-12-22 14:57] LABS: BE (Venous) 1 mmol/L (-2-3); HCO3 (Venous) 26 mmol/L (23-28); O2 Sat (Venous) 72 %; TCO2 (Venous) 23 mmol/L (24-29); pCO2 (Venous) 44 mmHg (41-51); pH (Venous) 7.38 (7.31-7.41); pO2 (Venous) 36 mmHg
[2024-12-22 14:58] LABS: Abs Immature Grans 0.05 10^3/uL (0.0-0.06); Absolute Basophil Count 0.04 10^3/uL (0.0-0.2); Absolute Eosinophil Count 0.23 10^3/uL (0.0-0.7); Absolute Monocyte Count 0.84 10^3/uL (0.1-0.8); Basophils % 0.5 %; Eosinophils % 2.6 %; HCT 42.4 % (40.0-50.0); HGB 13.7 g/dL (13.5-17.5); Immature Grans % 0.6 %; MCH 28.1 pg (27.0-33.0); MCHC 32.3 % (32.0-36.0); MCV 87 fL (80-95); MPV 8.9 fL (8.0-11.0); Monocytes % 9.5 %; Neutrophils % 77.8 %; Platelet Count 163 10^3/uL (130-400); RBC 4.87 10^6/uL (4.36-5.78); RDW 14.1 % (11.8-14.1); RDW-SD 45.4 fL; WBC 8.86 10^3/uL (4.4-10.8)
[2024-12-22 15:25] LABS: ALT 41 U/L (16-63); AST 29 U/L (15-37); Albumin 3.9 g/dL (3.4-5.0); Alkaline Phosphatase 110 U/L (46-116); Anion Gap 5.8 mmol/L (3-11); BUN 26 mg/dL (7-18); Bilirubin, Total 0.38 mg/dL (0.2-1.0); CO2 29.2 mmol/L (21.0-32.0); CREATININE 1.4 mg/dL (0.70-1.30); Calcium 9.7 mg/dL (8.5-10.1); Chloride 103 mmol/L (98-107); Estimated GFR 57.18 (mL/min/1.73m2); Glucose 105 mg/dL (74-106); NT-proBNP 64 pg/mL (<300); Potassium 3.9 mmol/L (3.5-5.1); Sodium 138 mmol/L (136-145); Troponin I 7 ng/L (<or=76)
[2024-12-22 15:36] LABS: Influenza A PCR Negative (Negative); Influenza B PCR Negative (Negative); RSV PCR Negative (Negative)
[2024-12-22 15:51] LABS: COVID-19 PCR Positive (Negative)
[2024-12-22 15:52] LABS: Source Nasopharynx
[2024-12-22 16:40] LABS: Troponin I 7 ng/L (<or=76)
--- NOTE | 2024-12-22 16:45 | W.ED.GENAD ---
Discharge Plan Disposition Patient Disposition: Home Condition: Stable Discharge Details Clinical Impression: Shortness of breath, COPD with acute exacerbation, COVID Primary Care Provider: Eliecer Howard ED Provider: Ani Anna Home Meds and New Rx's Prescriptions: New prednisone 20 mg tablet 40 mg PO DAILY 5 Days Qty: 10 0RF No Action budesonide-formoterol [Symbicort] 80-4.5 mcg/actuation HFA aerosol inhaler 2 puff inhalation BID Qty: 10.2 8RF Spiriva Respimat 1.25 mcg/actuation mist 2 puff inhalation DAILY Qty: 12 3RF ipratropium-albuterol 0.5 mg-3 mg(2.5 mg base)/3 mL solution for nebulization 3 ml inhalation QID PRN (Reason: shortness of breath) Qty: 360 3RF albuterol sulfate 90 mcg/actuation HFA aerosol inhaler 2 puff IH QID PRN (Reason: shortness of breath) Qty: 18 4RF sertraline 100 mg tablet 200 mg PO DAILY Qty: 180 3RF Patient Comments: TAKE TWO TABLETS BY MOUTH EVERY DAY acetaminophen [Tylenol Extra Strength] 500 mg tablet 1,000 mg PO Q4H PRN (Reason: pain) Qty: 30 0RF nicotine 14 mg/24 hr patch 24 hour 1 patch transdermal Q24H Patient Comments: APPLY ONE PATCH TO THE SKIN EVERY DAY prednisone 20 mg tablet 40 mg PO DAILY Qty: 8 0RF Paxlovid 150-100 mg tablets,dose pack See Rx Instructions .ROUTE .COMPLEX Qty: 20 0RF Rx Instructions: orally per package directions Discharge Instructions Additional Instructions: Your symptoms or shortness of breath are likely secondary to ongoing COVID infection. There is no signs of pneumonia today. No need for additional antibiotics. You must take your breathing treatments every 4 hours. I will represcribe another burst of steroids to help with your symptoms. If you develop persistent shortness of breath or chest pain, please return to the emergency department. Otherwise continue home care and follow-up with your PCP. HPI General Date/Time Provider Initiated Documentation: 12/22/24 14:29. Limitations to Documentation: no limitations. Information obtained by: patient. HPI Narrative: 59-year-old gentleman with past medical history of COPD, recent diagnosis of COVID presents for evaluation of shortness of breath. He was seen and evaluated in the emergency department on December 10 and was diagnosed with COVID at that time. He did Paxlovid and antibiotics as well as steroids. He states he has completed all the medications. He reports that he has been doing daily walks. He has also stopped smoking cigarettes. He reports that his last breathing treatment was around 8 this morning. He states that he did not do any other breathing treatments today because he is stubborn he denies any persistent fever. He denies that he is coughing anything up. Is otherwise eating and drinking well. No nausea vomiting or diarrhea. Related Data Home Medications ?Medication ?Instructions ?Recorded ?Confirmed acetaminophen 500 mg tablet 1,000 mg (2 x 500 mg) PO Q4H PRN 10/09/19 12/22/24 (Tylenol Extra Strength) pain #30 tabs ipratropium 0.5 mg-albuterol 3 mg 3 ml inhalation QID PRN shortness 02/09/24 12/22/24 (2.5 mg base)/3 mL nebulization of breath #360 mL soln albuterol sulfate 90 mcg/actuation 2 puff inhalation QID PRN 09/08/24 12/22/24 aerosol inhaler shortness of breath #18 grams nicotine 14 mg/24 hr daily 1 patch transdermal Q24H 11/08/24 12/22/24 transdermal patch sertraline 100 mg tablet 200 mg (2 x 100 mg) PO DAILY #180 12/06/24 12/22/24 tabs nirmatrelvir 150 mg-ritonavir 100 See Rx Instructions PO .COMPLEX 12/10/24 12/22/24 mg tablets in a dose pack #20 dose pk (Paxlovid) prednisone 20 mg tablet 40 mg (2 x 20 mg) PO DAILY #8 tabs 12/10/24 12/22/24 budesonide-formoterol HFA 80 2 puff inhalation BID #10.2 grams 12/12/24 12/22/24 mcg-4.5 mcg/actuation aerosol inhaler (Symbicort) tiotropium bromide 1.25 2 puff inhalation DAILY #12 grams 12/12/24 12/22/24 mcg/actuation mist for inhalation (Spiriva Respimat) prednisone 20 mg tablet 40 mg (2 x 20 mg) PO DAILY 5 days 12/22/24 #10 tabs Previous Rx's ?Medication ?Instructions ?Recorded acetaminophen 500 mg tablet 1,000 mg (2 x 500 mg) PO Q4H PRN 10/09/19 (Tylenol Extra Strength) pain #30 tabs ipratropium 0.5 mg-albuterol 3 mg 3 ml inhalation QID PRN shortness 02/09/24 (2.5 mg base)/3 mL nebulization of breath #360 mL soln albuterol sulfate 90 mcg/actuation 2 puff inhalation QID PRN 09/08/24 aerosol inhaler shortness of breath #18 grams sertraline 100 mg tablet 200 mg (2 x 100 mg) PO DAILY #180 12/06/24 tabs nirmatrelvir 150 mg-ritonavir 100 See Rx Instructions PO .COMPLEX 12/10/24 mg tablets in a dose pack #20 dose pk (Paxlovid) prednisone 20 mg tablet 40 mg (2 x 20 mg) PO DAILY #8 tabs 12/10/24 budesonide-formoterol HFA 80 2 puff inhalation BID #10.2 grams 12/12/24 mcg-4.5 mcg/actuation aerosol inhaler (Symbicort) tiotropium bromide 1.25 2 puff inhalation DAILY #12 grams 12/12/24 mcg/actuation mist for inhalation (Spiriva Respimat) prednisone 20 mg tablet 40 mg (2 x 20 mg) PO DAILY 5 days 12/22/24 #10 tabs Allergies Allergy/AdvReac Type Severity Reaction Status Date / Time Penicillins Allergy RASH Verified 12/22/24 14:36 aspirin AdvReac UPSET Verified 12/22/24 14:36 STOMACH General Stated Complaint: SOB ALMAS: 3 Exam Narrative Exam Narrative: Review of Systems: All systems reviewed & are unremarkable except as noted in HPI and below Well-developed, no acute distress NCAT PERRL, normal conjunctiva RRR no murmur Unlabored respiratory effort no increased respiratory effort or hypoxia, some scattered wheezing noted Nondistended abdomen Extremities w/o edema , no calf tenderness Course Vital Signs Vital signs: Vital Signs Temperature 36.9 C 12/22/24 14:29 Pulse 101 H 12/22/24 14:29 Respiratory Rate 24 12/22/24 14:29 Blood Pressure 155/97 H 12/22/24 14:29 Pulse Oximetry 97 02/14/25 14:29 Temperature 36.9 C 12/22/24 14:29 Temperature Source Oral 12/22/24 14:29 Pulse 93 H 12/22/24 15:30 Pulse 92 H 12/22/24 15:01 Respiratory Rate 24 12/22/24 15:27 Respiratory Effort Normal, Short of Breath 12/22/24 15:27 Respiratory Depth Normal 12/22/24 15:27 Respiratory Pattern Normal 12/22/24 15:27 Blood Pressure 140/88 12/22/24 15:16 Blood Pressure Mean 106 12/22/24 15:16 Blood Pressure Position Supine 12/22/24 14:29 Pulse Oximetry 95 12/22/24 15:30 Oxygen Delivery Method Room Air 12/22/24 14:29 Oxygen Flow Rate 0 12/22/24 14:29 Pain Level 3 12/22/24 15:27 Lab/Test Results Lab/Test Results: Laboratory Tests Range/Units 12/22/24 12/22/24 12/22/24 14:45 14:46 16:15 WBC (4.4-10.8) 10^3/uL 8.86 RBC (4.36-5.78) 10^6/uL 4.87 Hgb (13.5-17.5) g/dL 13.7 Hct (40.0-50.0) % 42.4 MCV (80-95) fL 87 MCH (27.0-33.0) pg 28.1 MCHC (32.0-36.0) % 32.3 RDW (11.8-14.1) % 14.1 Plt Count (130-400) 10^3/uL 163 MPV (8.0-11.0) fL 8.9 Immature Gran % % 0.6 Neutrophils % % 77.8 Lymphocytes % % 9.0 Monocytes % % 9.5 Eosinophils % % 2.6 Basophils % % 0.5 Nucleated RBC % (0.0-0.3) % 0.0 Absolute Neutrophils (1.2-6.7) 10^3/uL 6.90 H Absolute Lymphocytes (1.2-3.4) 10^3/uL 0.80 L Absolute Monocytes (0.1-0.8) 10^3/uL 0.84 H Absolute Eosinophils (0.0-0.7) 10^3/uL 0.23 Absolute Basophils (0.0-0.2) 10^3/uL 0.04 VBG pH (7.31-7.41) 7.38 VBG pCO2 (41-51) mmHg 44 VBG pO2 mmHg 36 VBG HCO3 (23-28) mmol/L 26 VBG Total CO2 (24-29) mmol/L 23 L VBG O2 Saturation % 72 VBG Base Excess (-2-3) mmol/L 1 Sodium (136-145) mmol/L 138 Potassium (3.5-5.1) mmol/L 3.9 Chloride (98-107) mmol/L 103 Carbon Dioxide (21.0-32.0) mmol/L 29.2 Anion Gap (3-11) mmol/L 5.8 BUN (7-18) mg/dL 26 H Creatinine (0.70-1.30) mg/dL 1.4 H Est GFR (CKD-EPI 2020) (mL/min/1.73m2) 57.18 Glucose (74-106) mg/dL 105 Calcium (8.5-10.1) mg/dL 9.7 Magnesium (1.8-2.4) mg/dL 2.0 Total Bilirubin (0.2-1.0) mg/dL 0.38 AST (15-37) U/L 29 ALT (16-63) U/L 41 Alkaline Phosphatase (46-116) U/L 110 Troponin I (<or=76) ng/L 7 7 NT-Pro-B Natriuret Pep (<300) pg/mL 64 Total Protein (6.4-8.2) g/dL 8.0 Albumin (3.4-5.0) g/dL 3.9 COVID-19 Source Nasopharynx SARS-CoV-2 (PCR) (Negative) Positive A Influenza Type A (PCR) (Negative) Negative Influenza Type B (PCR) (Negative) Negative RSV (PCR) (Negative) Negative Medical Decision Making Emergent evaluation of shortness of breath and cough. The patient has recent COVID test that was positive. Initial differential includes COPD exacerbation, pneumonia, less likely pulmonary embolism or ACS. The patient is not been compliant with appropriate bronchodilator therapy to assist with his shortness of breath. This time he is not displaying any signs or symptoms concerning for acute respiratory failure. Lab work was obtained. There is no leukocytosis or anemia. There is still slight left shift. His VBG does not indicate respiratory failure he has no electrolyte derangement. Renal function is at his baseline. His COVID test is still positive. Serial troponins and BNP are unremarkable. His chest x-ray was reviewed and independently interpreted: No focal consolidation, normal heart size, no pulmonary edema or pleural effusion at this time there is no indication for further hospitalization or emergent workup. Patient will be discharged with another steroid burst. Recommend continue supportive care at home. Return precautions advised. Advise close follow-up with PCP. Quality:SDOH Health Related Social Needs: Health related social needs material hardship(utilities) (Z59.12), problems related to housing/economic circumstances (Z59.89) PFSH All Active Problems (Updated 12/22/24 @ 16:09 by Ani Anna MD) Acute exacerbation of chronic obstructive pulmonary disease (Acute) COVID (Acute) Syncope (Chronic) COPD exacerbation (Acute) Bilateral pneumonia (Acute) Epigastric abdominal tenderness (Acute) Full code status (Acute) Acute insomnia (Acute) Nausea (Acute) Callus of toe (Acute) Avulsed toenail (Acute) Constipation (Acute) Anxiety (Chronic) Sexuality issues (Acute) Incarcerated umbilical hernia (Acute) Periumbilical hernia (Acute) Abdominal pain (Acute) Right foot pain (Acute) Hypermagnesemia (Acute) Influenza (Acute) COPD with acute exacerbation (Acute) Acute dehydration (Acute) 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) Raynauds phenomenon (Acute) Right lumbar radiculopathy (Acute) Community acquired pneumonia (Acute) COPD (chronic obstructive pulmonary disease) (Chronic 02/14/15) PFT's show severe obstructive disease with bronchodilator response; PFT 02/13/2015, [id number]%, FEV1/FVC 67%, post BD FEV1 50% FEV1/FVC 72% Depressive disorder (Chronic) Gastroesophageal reflux disease (Chronic) History of tobacco use (Chronic) 48 pack years Sarcoidosis (Chronic 02/04/16) Shortness of breath (Chronic) Ventral hernia (Chronic) Medical History Chronic kidney disease, stage 3a Upper respiratory infection w/ bronchospasm Pneumonia needs to quit smoking HUBER (acute kidney injury) Family History Father , from complications of pneumonia Diabetes Stroke Mother , from diabetic complications including abscess/infection Depression Diabetes Social History Smoking/Tobacco Use Status: Current every day Tobacco Type: cigarettes Counseling given: provider counseling Smoking risk assessment performed?: Yes Alcohol Intake: former Year quit: 1998 Drug use: Never Substance use type: does not use Details: Pt currently Vapes 2-3 times a week. Housing: house Do you feel safe at home: Yes Do you feel safe in your relationship?: Yes Additional Social history: lives alone in off-grid home in [facility] with wood
== END 2024-12-22 16:58 | disposition home or self-care (01) ==
PROVIDERS: Emergency Provider Emergency Medicine; PCP Family Medicine
DX: J44.1 Chronic obstructive pulmonary disease with (acute) exacerbation (principal); U07.1 COVID-19; N18.30 Chronic kidney disease, stage 3 unspecified; F17.210 Nicotine dependence, cigarettes, uncomplicated
CPT/HCPCS: 80053; 82805; 87426; 87637; 93005; 99285; 71045; 83735; 83880; 84484; 85025; 93010; 99284

== ENCOUNTER 2025-10-24 22:22 | Emergency (ER) | payer MEDICAID, SELFPAY ==
[2025-10-24 22:24] VITALS: BP 146/111; PULSE 108; RESP 20; TEMP 37.1; O2SAT 98
[2025-10-24 22:26] VITALS: PULSE 109; O2SAT 95
[2025-10-24 22:28] VITALS: BP 146/111; PULSE 134; RESP 20; O2SAT 94
--- NOTE | 2025-10-24 22:30 | RT.EKG_ITS ---
APPROVED REPORT Exam: Resting ECG Reason for Exam: syncope Patient Location: E HR:97 bpm ECG Measurements Heart Rate 97 AXIS MO 137 P 75 QRSd 87 QRS 19 QT 344 T 64 QTc 437 Conclusion Sinus rhythm...normal P axis, V-rate 60- 99 Ventricular premature complex...V complex w/ short R-R interval Physician: No STEMI
--- NOTE | 2025-10-24 22:31 | ED.GENADUL_ITS ---
Discharge Plan Disposition Patient Disposition: Home Condition: Good Discharge Details Clinical Impression: Bronchiolitis, COPD exacerbation Primary Care Provider: Eliecer Howard ED Provider: Benson Pettit Home Meds and New Rx's Prescriptions: New prednisone 50 mg tablet 50 mg PO DAILY Qty: 5 0RF doxycycline hyclate 100 mg tablet 100 mg PO BID Qty: 20 0RF No Action budesonide-formoterol [Symbicort] 80-4.5 mcg/actuation HFA aerosol inhaler 2 puff inhalation BID Qty: 10.2 8RF sertraline 100 mg tablet 200 mg PO DAILY Qty: 180 3RF Patient Comments: TAKE TWO TABLETS BY MOUTH EVERY DAY nicotine 21 mg/24 hr patch 24 hour 1 patch transdermal Q24H Qty: 28 2RF ipratropium-albuterol 0.5 mg-3 mg(2.5 mg base)/3 mL solution for nebulization 3 ml inhalation QID PRN (Reason: shortness of breath) Qty: 360 3RF albuterol sulfate 90 mcg/actuation HFA aerosol inhaler 2 puff IH QID PRN (Reason: shortness of breath) Qty: 18 4RF acetaminophen [Tylenol Extra Strength] 500 mg tablet 1,000 mg PO Q4H PRN (Reason: pain) Qty: 30 0RF Discharge Instructions Instructions: Pneumonia, Adult ED Additional Instructions: At this time you have evidence of early bronchitis/pneumonia. Please take the antibiotic as prescribed as well as steroids. These have been sent to your pharmacy on file. Continue to take your prescribed inhalers. If you notice any worsening of your symptoms, or any new symptoms such as vomiting, diarrhea, fever, chills, shortness of breath, chest pain, numbness, weakness, or fainting , please return immediately to the emergency department for reevaluation. Please follow up with your primary care provider as soon as possible for reassessment and reevaluation. As always, it was a pleasure participating in your medical care today. Stand Alone Forms: Portal Information Referrals: Eliecer Howard MD [Primary Care Provider, Medicine] [facility] General Date/Time Provider Initiated Documentation: 10/24/25 22:29 . HPI Narrative: 60-year-old male with past medical history of chronic kidney disease, COPD, GERD, depression, who presents today for cough, fever and shortness of breath. Patient states that for the last 3 to 4 days he has had myalgias, fever, and then for the last 3 days he has had cough, with worsening shortness of breath. Cough and shortness of breath is improved with breathing treatments. His cough has no hemoptysis, no significant productivity. He denies any significant chest pain. He denies any abdominal pain. This evening he was urinating while standing, and he got lightheaded and passed out. He landed on his knees but did not hit his head. He regained consciousness on his own. With his worsening of symptoms, his weakness, syncope cough and shortness of breath he came in to the ER for further assessment. EMS was called, and he was given IV Tylenol on the way. He has tachycardia, fever per EMS, but otherwise stable vital signs. Patient denies any other complaints at this time. He denies any history of RI or stroke. He denies any current numbness or tingling. He does feel weak in general. Related Data Home Medications ?Medication ?Instructions ?Recorded ?Confirmed acetaminophen 500 mg tablet 1,000 mg (2 x 500 mg) PO Q 4H PRN 10/09/19 10/24/25 (Tylenol Extra Strength) pain #30 tabs sertraline 100 mg tablet 200 mg (2 x 100 mg) PO DAILY #180 12/06/24 10/24/25 Held on 10/24/25. tabs Instructions: Pt Stopped/Never Started budesonide-formoterol HFA 80 2 puff inhalation BID #10 .2 grams 12/12/24 10/24/25 mcg-4.5 mcg/actuation aerosol inhaler (Symbicort) nicotine 21 mg/24 hr daily 1 patch transdermal Q24H #2 8 ea 03/31/25 10/24/25 transdermal patch ipratropium 0.5 mg-albuterol 3 mg 3 ml inhalation QID PRN shortness 05/29/25 10/24/25 (2.5 mg base)/3 mL nebulization of breath #360 mL soln albuterol sulfate 90 mcg/actuation 2 puff inhalation Q ID PRN 08/30/25 10/24/25 aerosol inhaler shortness of breath #18 gram s doxycycline hyclate 100 mg tablet 100 mg PO BID #20 ta bs 10/25/25 prednisone 50 mg tablet 50 mg PO DAILY #5 tabs 10/25 Previous Rx's ?Medication ?Instructions ?Recorded acetaminophen 500 mg tablet 1,000 mg (2 x 500 mg) PO Q 4H PRN 10/09/19 (Tylenol Extra Strength) pain #30 tabs sertraline 100 mg tablet 200 mg (2 x 100 mg) PO DAILY #180 12/06/24 Held on 10/24/25. tabs Instructions: Pt Stopped/Never Started budesonide-formoterol HFA 80 2 puff inhalation BID #10 .2 grams 12/12/24 mcg-4.5 mcg/actuation aerosol inhaler (Symbicort) nicotine 21 mg/24 hr daily 1 patch transdermal Q24H #2 8 ea 03/31/25 transdermal patch ipratropium 0.5 mg-albuterol 3 mg 3 ml inhalation QID PRN shortness 05/29/25 (2.5 mg base)/3 mL nebulization of breath #360 mL soln albuterol sulfate 90 mcg/actuation 2 puff inhalation Q ID PRN 08/30/25 aerosol inhaler shortness of breath #18 gram s doxycycline hyclate 100 mg tablet 100 mg PO BID #20 ta bs 10/25/25 prednisone 50 mg tablet 50 mg PO DAILY #5 tabs 10/25 Allergies Allergy/AdvReac Type Severity Reaction Status Date / Time Penicillins Allergy RASH Verified 10/24/25 22:30 aspirin AdvReac UPSET Verified 10/24/25 22:30 STOMACH General Stated Complaint: Dizzy/Sync ALMAS: 3 Exam Narrative Exam Narrative: 1.Const: Well-nourished, Well-developed, appearing stated age 2.Eyes: PERRL, no conjunctival injection, and symmetrical lids. 3.ENT: Atraumatic external nose and ears. Dry MM. Neck: Symmetric, trachea midline, No thyromegaly. 4.CVS: +S1/S2, Peripheral pulses 2+ and equal in all extremities. Brisk capi llary refill in all extremities. 5.RESP: diminished breath sounds, mild rhonchi on the left. Minimal wheezes. No crackles. 6.GI: Soft, Nontender/Nondistended, No hepatosplenomegaly. No guarding or rebound. 7.MSK: Normocephalic/Atraumatic, Extremities w/o deformity or ttp No cyanosis or clubbing, Normal movement of all extremities 8.Skin: Warm, Dry. No rashes or lesions. 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 Sensation grossly intact, no focal neurologic deficits. 10.Psych: (AAO) x3. Appropriate mood and affect Course Vital Signs Vital signs: Vital Signs Temperature 37.1 C 10/24/25 22:24 Pulse 108 H 10/24/25 22:24 Respiratory Rate 20 10/24/25 22:24 Blood Pressure 146/111 H 10/24/25 22:24 Pulse Oximetry 98 10/24/25 22:24 Temperature 37.1 C 10/24/25 22:24 Temperature Source Tympanic 10/24/25 22:24 Pulse 108 H 10/24/25 22:24 Respiratory Rate 20 10/24/25 22:28 Respiratory Effort Normal 10/24/25 22:28 Respiratory Depth Normal 10/24/25 22:28 Respiratory Pattern Normal 10/24/25 22:28 Blood Pressure 146/111 H 10/24/25 22:24 Blood Pressure Position Sitting 10/24/25 22:24 Pulse Oximetry 98 10/24/25 22:24 Lab/Test Results Lab/Test Results: 10/24/25 22:29 Blood Blood Culture - Pending 10/24/25 22:29 Blood Blood Culture - Pending Medical Decision Making 60-year-old male with past medical history of chronic kidney disease, COPD, GERD, depression, who presents today for cough, fever and shortness of breath. Patient states that for the last 3 to 4 days he has had myalgias, fever, and then for the last 3 days he has had cough, with worsening shortness of breath. Cough and shortness of breath is improved with breathing treatments. His cough has no hemoptysis, no significant productivity. He denies any significant chest pain. He denies any abdominal pain. This evening he was urinating while standing, and he got lightheaded and passed out. He landed on his knees but did not hit his head. He regained consciousness on his own. With his worsening of symptoms, his weakness, syncope cough and shortness of breath he came in to the ER for further assessment. EMS was called, and he was given IV Tylenol on the way. He has tachycardia, fever per EMS, but otherwise stable vital signs. Patient denies any other complaints at this time. He denies any history of RI or stroke. He denies any current numbness or tingling. He does feel weak in general. Exam demonstrates dry mucous membranes, mild rhonchi on the left, minimal wheezes, and reduced breath sounds. Patient is tachycardic, but has a normal temperature here after receiving Tylenol via EMS. Differential is highest for pneumonia, COPD, he has no pleuritic chest pain to suggest PE. No history of blood clots. Will rehydrate, get a chest x-ray, evaluate for these etiologies, monitor closely and reassess. 1:44 AM On reassessment patient is feeling much better. He is resting comfortably, heart rate has notably improved, blood pressure stable. No fever. Oxygen saturation good. We did ambulated the patient around the department, and he had no hypoxemia. He ambulated well. Laboratory workup shows minimal WBC count of 13, no bandemia. VBG stable, lactate normal, electrolytes normal, troponin/serial troponins normal. proBNP shows no signs of heart strain. Procalcitonin negative. Urinalysis negative. COVID flu and RSV negative. Chest CT scan shows patchy micronodular densities and tree-in-bud opacity in the right concerning for infectious bronchiolitis. Patient has penicillin allergy. Patient is started on doxycycline IV here. Will give prescription for home. Recommend continued inhalers at home, and will give a short steroid burst course. Patient agrees with plan. Patient shows no signs of hemodynamic instability or acute respiratory distress. I have extensively reviewed the treatment plan and discharge instructions with the patient. I have addressed all patient concerns at this time. The patient was made aware of what symptoms to monitor for that would warrant a return to the emergency department. Discussed the plan with the patient, they demonstrate verbal understanding and agreement with our assessment and plan at this time. The documentation in this chart was dictated using [employer] dictation software. Please excuse any dictation errors. FINDINGS: Pulmonary arteries: No pulmonary embolism identified. Aorta: No thoracic aortic aneurysm or dissection. Thyroid: Thyroid gland partially excluded from view but grossly unremarkable through its visualized portion. Lungs: Lung vasquez somewhat obscured by artifact from breathing motion. No gross focal pulmonary consolidation. Patchy micronodular and tree-in-bud opacity on the right with an appearance suspicious for infectious bronchiolitis. Pleural spaces: No pleural effusion or pneumothorax. Heart: Normal-sized heart. Lymph nodes: No pathologically enlarged mediastinal or hilar lymph nodes. No pathologically enlarged mediastinal or hilar lymph nodes. Liver: Nodular hepatic contour with relative hypertrophy of the lateral left h epatic segment, nonspecific but commonly seen in the setting of cirrhotic change. Clinical correlation recommended. Spleen: Suspected splenomegaly. Spleen only partially included in the field of view. Bones/joints: Lower ribs partially excluded from view and incompletely evaluated. Otherwise, no acute fracture seen among the bones of the chest. Soft tissues: No gross soft tissue mass or fluid collection seen in the chest wall. IMPRESSION: 1. Patchy micronodular density and tree-in-bud opacity on the right with an appearance suggesting acute infectious bronchiolitis. 2. Nodular hepatic contour with relative hypertrophy of the lateral left hepatic segment, nonspecific but commonly seen in the setting of cirrhotic change. Clinical correlation recommended. 3. Suspected splenomegaly. Spleen only partially included in the field of view. Thank you for allowing us to participate in the care of your patient. Dictated and Authenticated by: Orlando Cottrell MD 10/25/2025 12:47 AM Eastern Time ([place] & [place]) Quality:SDOH Health Related Social Needs: Health related social needs material hardship house/ec on circumstance PFSH All Active Problems (Updated 10/25/25 @ 01:47 by Benson Pettit DO) COPD exacerbation (Acute) Bronchiolitis (Acute) Head trauma (Acute) COVID (Acute) Syncope (Chronic) COPD exacerbation (Acute) Bilateral pneumonia (Acute) Epigastric abdominal tenderness (Acute) Full code status (Acute) Acute insomnia (Acute) Nausea (Acute) Callus of toe (Acute) Avulsed toenail (Acute) Constipation (Acute) Anxiety (Chronic) Sexuality issues (Acute) Incarcerated umbilical hernia (Acute) Periumbilical hernia (Acute) Abdominal pain (Acute) Right foot pain (Acute) Hypermagnesemia (Acute) Influenza (Acute) COPD with acute exacerbation (Acute) Acute dehydration (Acute) 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) Raynauds phenomenon (Acute) Right lumbar radiculopathy (Acute) Community acquired pneumonia (Acute) COPD (chronic obstructive pulmonary disease) (Chronic 02/14/15) PFT's show severe obstructive disease with bronchodilator response; PFT 02/13/2015, [id number]%, FEV1/FVC 67%, post BD FEV1 50% FEV1/FVC 72% Depressive disorder (Chronic) Gastroesophageal reflux disease (Chronic) History of tobacco use (Chronic) 48 pack years Sarcoidosis (Chronic 02/04/16) Shortness of breath (Chronic) Ventral hernia (Chronic) Medical History Chronic kidney disease, stage 3a Upper respiratory infection w/ bronchospasm Pneumonia needs to quit smoking HUBER (acute kidney injury) Family History Father , from complications of pneumonia Diabetes Stroke Mother , from diabetic complications including abscess/infection Depression Diabetes Social History Smoking/Tobacco Use Status: Current every day Tobacco Type: cigarettes Counseling given: provider counseling Smoking risk assessment performed?: Yes Alcohol Intake: former Year quit: 1998 Drug use: Never Substance use type: does not use Details: Pt currently Vapes 2-3 times a week. Housing: house Do you feel safe at home: Yes Do you feel safe in your relationship?: Yes Additional Social history: lives alone in off-grid home in [facility] with wood
[2025-10-24] MEDS: Albuterol/Ipratropium 3 ML UPD VIAL UPD (22:37)
[2025-10-24] MEDS: Lactated Ringers 1,000 ML 1000 ML IV (22:37)
[2025-10-24] MEDS: methylPREDNISolone SUCC 125 MG VIAL IVP (22:38)
[2025-10-24 22:45] LABS: BE (Venous) -3 mmol/L (-2-3); HCO3 (Venous) 22 mmol/L (23-28); O2 Sat (Venous) 94 %; TCO2 (Venous) 20 mmol/L (24-29); pCO2 (Venous) 35 mmHg (41-51); pO2 (Venous) 63 mmHg
[2025-10-24 22:46] LABS: Abs Immature Grans 0.05 10^3/uL (0.0-0.06); HCT 40.7 % (40.0-50.0); HGB 13.5 g/dL (13.5-17.5); Immature Grans % 0.4 %; MCH 28.0 pg (27.0-33.0); MCHC 33.2 % (32.0-36.0); MCV 84 fL (80-95); MPV 9.8 fL (8.0-11.0); Platelet Count 162 10^3/uL (130-400); RBC 4.82 10^6/uL (4.36-5.78); RDW 13.3 % (11.8-14.1); RDW-SD 41.2 fL; WBC 13.63 10^3/uL (4.4-10.8)
[2025-10-24 23:07] LABS: ALT 25 U/L (10-49); AST 25 U/L (<34); Albumin 4.6 g/dL (3.2-5.0); Alkaline Phosphatase 111 U/L (46-116); Anion Gap 9.6 mmol/L (3-11); BUN 23 mg/dL (9-23); Bilirubin, Total 0.5 mg/dL (0.2-1.2); CO2 21.4 mmol/L (20.0-31.0); Calcium 9.2 mg/dL (8.3-10.6); Chloride 105 mmol/L (98-107); Glucose 119 mg/dL (74-106); Potassium 3.9 mmol/L (3.5-5.1); Sodium 136 mmol/L (136-145); Total Protein 7.6 g/dL (5.7-8.2); Troponin I 5 ng/L (<54)
[2025-10-24 23:12] LABS: D-Dimer 646 ng/mlFEU (<500)
[2025-10-24 23:13] LABS: INR 1.0 (0.9-1.1); PTT Activated 28.9 sec (20.6-30.2); Prothrombin Time 10.0 sec (9.1-11.1)
[2025-10-24 23:30] LABS: Procalcitonin < 0.10 ng/mL
[2025-10-24] MEDS: Omnipaque 350 MG/ML 100 ML BTL IJ (23:45)
[2025-10-24] MEDS: Normal Saline Flush 10 ML SYR IVP (23:46)
[2025-10-24] MEDS: Normal Saline - Diluent 50 ML VIAL IJ (23:46)
--- NOTE | 2025-10-24 23:46 | DI.CT_ITS ---
Exam(s) CT CHEST PE CTA EXAM: CT CHEST PE CTA CLINICAL HISTORY: cough, fever, syncope. TECHNIQUE: Imaging Protocol: Axial CT angiography was performed with multi- slice acquisition and multi-planar and/or 3D reconstructions. Lung Computer Aided Detection (CAD) was utilized. CONTRAST MATERIAL: Intravenous: Omnipaque 350 contrast volume:85 mL COMPARISON: CT CHEST FOR PULMONARY EMBOLUS from 03/10/[address] CHEST/ABD/PEL W from 04/28/[address] CHEST PE CTA from 11/06/2024 CR XR PORTABLE CHEST AP from 12/22/2024 FINDINGS: Tracheobronchial tree: Patent where visualized. No bronchiectasis. Pulmonary parenchyma: There is an infiltrate seen in the posterior aspect of the right upper lobe. It has a tree in bud appearance. No architectural distortion. Pulmonary Arteries: No evidence of filling defect to suggest pulmonary emboli. Mediastinum and [place]: No dominant adenopathy or fluid collection. The esophagus is unremarkable. Visualized thyroid gland: Unremarkable. Pleura: No effusion or pneumothorax. Heart: The heart is not dilated. No coronary artery calcifications are seen. No pericardial effusion. Aorta: The ascending thoracic aorta measures 4.3 x 4.2 cm. Atherosclerotic calcification is present. Upper abdomen: The liver has a nodular contour suggesting hepatic cirrhosis. Soft tissues: Unremarkable. Bones: Within normal limits for the patient's age. IMPRESSION: 1. There is no evidence of a pulmonary embolism. 2. Right upper lobe infiltrate suspicious for pneumonia/bronchiolitis. 3. Ascending thoracic aorta measuring 4.3 x 4.2 cm. 4. Findings suggestive of hepatic cirrhosis. 5. The preliminary [facility] report was reviewed. RADIATION DOSE DELIVERED: 252.91mGy.cm Total DLP DATA REPOSITORY: All CT scans at this facility are submitted to the National Radiology Data Registry (NRDR) Dose Index Registry (DIR) with the [employer] (A[employer]). RADIATION OPTIMIZATION: All CT scans at this facility use at least one of these dose optimization techniques: automated exposure control; mA and/or kV adjustment per patient size (includes targeted exams where dose is matched to clinical indication); or iterative reconstruction.
[2025-10-24 23:50] LABS: COVID-19 PCR Negative (Negative); RSV PCR Negative (Negative)
[2025-10-25] VITALS (26 sets, daily range): BP systolic 109–136; BP diastolic 60–80; PULSE 85–96; RESP 16; O2SAT 94–100
[2025-10-25 00:12] LABS: Troponin I 4 ng/L (<54)
--- NOTE | 2025-10-25 00:48 | DI.[facility]_ITS ---
PROCEDURE INFORMATION: Exam: CTA Chest With Contrast Exam date and time: 10/24/2025 11:33 PM Age: 60 years old Clinical indication: Cough and fever; Cough, fever, syncope TECHNIQUE: Imaging protocol: Computed tomographic angiography of the chest with contrast. Exam focused on the arteries. 3D rendering (Not supervised by radiologist): MIP and/or 3D reconstructed images were created by the technologist. Radiation optimization: All CT scans at this facility use at least one of these dose optimization techniques: automated exposure control; mA and/or kV adjustment per patient size (includes targeted exams where dose is matched to clinical indication); or iterative reconstruction. Contrast material: [id number]; Contrast volume: 85 ml; Contrast route: INTRAVENOUS (IV); COMPARISON: CT CHEST PE CTA 11/06/2024 5:45 PM FINDINGS: Pulmonary arteries: No pulmonary embolism identified. Aorta: No thoracic aortic aneurysm or dissection. Thyroid: Thyroid gland partially excluded from view but grossly unremarkable through its visualized portion. Lungs: Lung vasquez somewhat obscured by artifact from breathing motion. No gross focal pulmonary consolidation. Patchy micronodular and tree-in-bud opacity on the right with an appearance suspicious for infectious bronchiolitis. Pleural spaces: No pleural effusion or pneumothorax. Heart: Normal-sized heart. Lymph nodes: No pathologically enlarged mediastinal or hilar lymph nodes. No pathologically enlarged mediastinal or hilar lymph nodes. Liver: Nodular hepatic contour with relative hypertrophy of the lateral left hepatic segment, nonspecific but commonly seen in the setting of cirrhotic change. Clinical correlation recommended. Spleen: Suspected splenomegaly. Spleen only partially included in the field of view. Bones/joints: Lower ribs partially excluded from view and incompletely evaluated. Otherwise, no acute fracture seen among the bones of the chest. Soft tissues: No gross soft tissue mass or fluid collection seen in the chest wall. IMPRESSION: 1. Patchy micronodular density and tree-in-bud opacity on the right with an appearance suggesting acute infectious bronchiolitis. 2. Nodular hepatic contour with relative hypertrophy of the lateral left hepatic segment, nonspecific but commonly seen in the setting of cirrhotic change. Clinical correlation recommended. 3. Suspected splenomegaly. Spleen only partially included in the field of view. Dictated and Authenticated by: Orlando Cottrell MD. Orderin Hodan Knowles MD
[2025-10-25 00:59] LABS: Glucose Negative (Negative)
[2025-10-25] MEDS: DOXYCYCLINE 100 MG in Normal Saline 100 ML IVPB (01:00)
[2025-10-25] MEDS: Normal Saline 1,000 ML 1000 ML IV (01:07)
[2025-10-25] MEDS: Meclizine 25 MG TAB PO (01:49)
== END 2025-10-25 03:12 | disposition home or self-care (01) ==
PROVIDERS: Emergency Provider Student in an Organized Health Care Education/Training Program; PCP Family Medicine
DX: J44.1 Chronic obstructive pulmonary disease with (acute) exacerbation (principal); J21.9 Acute bronchiolitis, unspecified; R51.9 Headache, unspecified; Z59.87 Material hardship due to limited financial resources, not elsewhere classified; Z59.89 Other problems related to housing and economic circumstances
CPT/HCPCS: 36415; 71275; 80053; 82805; 84145; 87040; 87637; 93005; 94640; 96361; 96365; 96375; 99285; 81003; 83605; 83880; 84484; 85025; 85379; 85610; 85730; 87086; 93010; 99284; J2919; J3490; J7620